=== PATIENT | female | born 1950 ===

== ENCOUNTER 2025-04-26 14:12 | Inpatient (IN) | payer MEDICARE, MEDICAID, SELFPAY ==
--- OUTSIDE RECORDS SUMMARY | 2025-04-26 08:36 | XMS_ITS | Encounter Summary ---
Author Organization [facility] Address [address] [place] [address] Phone Care Team Providers Care Photographer Still Name Role Phone LupisRula wilder DOUGLAS Primary Care Provide r Encounter Details Date Type Department Care Team (Late st Contact Info) Description 04/26/2025 8:36 AM EDT Hospital Encounter [facility] [address] [place] [address] Jose Sethi MD [address] [place] [address] Social History Tobacco Use Types Packs/Day Years Used Date Smoking Tobacco: Never Alcohol Use Standard Drinks/Week Comments No 0 (1 standard drink = 0.6 oz pur e alcohol) Education Answer Date Recorded Are you interested in more education? Not on fer e 11/02/2022 Are you concerned about learning? Not on file 11/02/2022 No 11/02/2022 No 11/02/2022 Food Answer Date Recorded Within the past 6 months we worried whether our food would run out before we got money to buy more. Never True 03/25/2025 Within the past 6 months the food we bought just didn't last and we didn't have enough money to get more. Never True Residential Stability Answer Date Recor ded What is your housing situation today? I have demetrice sing 03/25/2025 How many times have you move d in the past 12 months? Zero (I did not move) 03/25/2025 Paying for Meds Answer Date Recorded Do you have trouble paying for medicines? No 03/25/2025 Paying Utility Bills Answer Date Record ed Do you have trouble paying your heating or elect ricity bill? No 03/25/2025 Transportation Answer Date Recorded Has the lack of transportati on kept you from medical appointments or from getting medications? No 03/25/2025 Digital Access Answer Date Recorded No 03/25/2025 Yes 03/25/2025 Do you have reliable internet access at home? Ye s 03/25/2025 Do you have a device (e.g., phone, tablet, computer) with a working camera? Yes 03/25/2025 Intimate Partner Violence Answer Date R ecorded Are you denied basic needs s uch as food, clothing, or medical care? No 03/25/2025 In the past 12 months have y ou been in a relationship with a person who hurts, threatens, or tries to control you? No 03/25/2025 Are you denied basic needs s uch as food, clothing, or medical care? No 03/25/2025 In the past 12 months have y ou been in a relationship with a person who hurts, threatens, or tries to control you? No 03/25/2025 Comments Unknown Sex and Gender Information Value Date Recorded Sex Assigned at Female 03/10/2022 9:55 AM EDT Legal Sex Female 1:08 AM EDT Gender Identity Female 03/10/2022 9:55 AM EDT Sexual Orientation Not on file documented as of this encounter Plan of Treatment Not on file documented as of this encounter Procedures Procedure Name Priority Date/Time Associated Diagnosis Comments COMPREHENSIVE METABOLIC PANEL Routine 04/26/2025 5:28 AM EDT Illness, unspecified CBC Routine 04/26/2025 5:28 AM EDT Illness, unspecified documented in this encounter Results * (ABNORMAL) Comprehensive metabolic panel (04/26/2025 5:28 AM EDT) SODIUM 139 133 - 146 mmol/L [facility] POTASSIUM 4.0 3.3 - 5.1 mmol/L [facility] CHLORIDE 103 96 - 108 mmol/L [facility] CO2 24 21 - 35 mmol/L [facility] BUN 21(H) 6 - 19 mg/dL [facility] CREATININE 1.70(H) 0.5 - 1.5 mg/dL [facility] GLUCOSE 86 70 - 99 mg/dL [facility] ALBUMIN 3.5(L) 3.9 - 4.8 g/dL [facility] TOTAL PROTEIN 6.0(L) 6.5 - 8.0 g/dL [facility] CALCIUM 10.3 8.4 - 10.3 mg/dL [facility] ALKALINE PHOSPHATASE 76 39 - 117 U/L [facility] TOTAL BILIRUBIN 0.3 0.0 - 1.2 mg/dL [facility] AST 15 0 - 37 U/L [facility] ALT 11 0 - 40 U/L [facility] GLOBULIN 2.5 1 - 4.8 g/dL [facility] EGFR 32(L) >59 mL/min/1.7 3m2 [facility] Comment:Estimated glomerular filtration rate calculated using the CKD-EPI refit equation. ANION GAP 16 10 - 20 mmol/L [facility] 04/26/2025 5:28 AM EDT 04/26/2025 9:11 AM EDT us Jose Sethi MD LAB BLOOD ORDERABLES Final Resul t [facility] [address] [place] [address] * (ABNORMAL) CBC (04/26/2025 5:28 AM EDT) WBC 7.36 4.00 - 11.00 K/uL [facility] RBC 4.16 4.00 - 5.20 M/uL [facility] HGB 11.3(L) 12.0 - 16.0 g/dL [facility] HCT 36.1 36.0 - 46.0 % [facility] PLT 256 150 - 450 K/uL [facility] MCV 86.8 80.0 - 100.0 fL [facility] MCH 27.2 27.0 - 31.0 pg [facility] MCHC 31.3(L) 32.0 - 36.0 g/dL [facility] RDW 15.2(H) 11.5 - 14.5 % [facility] MPV 10.9 8.4 - 12.0 fL [facility] NRBC 0.00 0.00 /100 WBCs [facility] ABSOLUTE NRBC 0.00 0.00 K/uL [facility] 04/26/2025 5:28 AM EDT 04/26/2025 9:11 AM EDT us Jose Sethi MD LAB BLOOD ORDERABLES Final Resul t [facility] [address] [place] [address] documented in this encounter Visit Diagnoses Diagnosis Illness, unspecified- Primary documented in this encounter Care Teams Photographer Still Relationship Specialty Start Date End Date [facility] [address] [place] [address] PCP - General Nurse Practitioner 09/14/24 documented as of this encounter Additional Source Comments The information contained in this document represents components of the legal health record. It is not the complete legal health record.[facility]
--- NOTE | 2025-04-26 14:35 | MHC.CM.ED ---
Addendum entered by Carlie Rivera 04/26/25 14:38: Patient sent to ER under section 12. Original Note: Received telephone call from [facility] for [facility] in [place], ROSHAN Mann. She can be reached via telephone at [phone]. Patient has a long standing history of bipolar and psych admissions. Patient actually came to their facility after a long inpatient psych stay. Original plan was for patient to get rehab and return to her assisted living facility. Apparently in March facility was trying to transition patient back to her [facility] and some MH issues arose. Patient has been refusing medication, including psych meds and Eliquis. 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 However facility is concerned that she requires inpatient psych admission for medication stablization. She is a [facility] 20 day bedhold. But [facility] is willing to hold a bed for her as long as needed. Hilda Sepulveda RN aware. Return referral made to [facility]. Continue to monitor for d/c needs.
[2025-04-26 14:36] VITALS: BP 120/64; PULSE 83
[2025-04-26 14:43] VITALS: BP 127/52; PULSE 72; RESP 18; TEMP 36.6; O2SAT 98; BMI 33.8
--- NOTE | 2025-04-26 14:58 | ECG_ITS ---
Test Reason : WEAKNESS Blood Pressure : */* mmHG Vent. Rate : 72 BPM Atrial Rate : 72 BPM P-R Int : 212 ms QRS Dur : 90 ms QT Int : 324 ms P-R-T Axes : 76 -31 110 degrees QTcB Int : 354 ms Sinus rhythm with 1st degree A-V block Left axis deviation Inferior infarct , age undetermined Anterolateral infarct , age undetermined Abnormal ECG No previous ECGs available Referred By: Romina Lam Electronically Signed By: SUNDAY LOPEZ MD
[2025-04-26 15:14] LABS: MANUAL DIFF FLAG NO
[2025-04-26 15:20] LABS: Hematocrit 38.7 % (37.0-47.0); Hemoglobin 11.9 g/dl (12.0-16.0); Imm Gran Abs Auto 0.02 X10*3/uL (0.00-0.03); Imm Gran Pct Auto 0.2 % (0.0-0.4); Lymphocytes Absolute Auto 1.5 X10*3/uL (1.2-4.9); Mean Corpuscular HGB Conc 30.7 g/dl (31.0-35.0); Mean Corpuscular Hemoglobin 26.6 pg (27.0-33.0); Mean Corpuscular Volume 86.6 fL (80.0-98.0); NRBC Abs Auto 0.000 X10*3/uL (0.0-0.012); NRBC Pct Auto 0.0 /100WBC (0.0-0.2); Platelet Count 293 X10*3/uL (160-400); Red Blood Count 4.47 X10*6/uL (4.20-5.50); White Blood Count 8.2 X10*3/uL (4.8-10.8)
--- NOTE | 2025-04-26 15:36 | ED.PSYCH ---
HPI - Psych General Chief Complaint: Psychiatric Symptoms Stated Complaint: Section 12, calm, cooperative Time Seen by Provider: 04/26/25 14:36 Source: patient, EMS and old records reviewed Mode of arrival: EMS Limitations: no limitations History of Present Illness ED Provider: JACOBO JAMES Narrative: 74 yo female with PMH of PE on eliquis, HTN, HLD, CKD, hypertrophic cardiomyopathy, bipolar who has had ECT in the past. She is currently at [facility] in [place] and they have noted a 20lb weight loss and not allowing hygiene for one month. They report she is refusing her medications. Notes state they wanted her directly [facility]. Patient states she is here due to not eating or taking her medicaitons. When I ask about pain, dysuria, vomiting, headaches, chest pain, trouble breathing she denies. I asked if she was not caring for herself and if she is not taking her meds to try to harm herself and she just shrugs her shoulders. She notes she really doesn't get around anymore and just sits in wheelchairs. MD complaint: suicidal ideation, feels depressed and other Onset (ago): month(s) (1) Duration: getting worse History of same: Yes Relieving factors: none Exacerbating factors: other Context: significant life stressor Associated psychiatric symptoms: depression and suicidal ideation Associated symptoms: denies other symptoms Treatments prior to arrival: placed on mental health hold If self harm: admits thoughts of self harm Related Data Home Medications ?Medication ?Instructions ?Recorded ?Confirmed acetaminophen 325 mg tablet 650 mg PO Q6H PRN Fever Or Pain 04/27/25 04/27/25 apixaban 5 mg tablet (Eliquis) 5 mg PO BID 04/27/25 04/27/25 aripiprazole 10 mg tablet 10 mg PO DAILY 04/27/25 04/27/25 aripiprazole 2 mg tablet 2 mg PO DAILY 04/27/25 04/27/25 aspirin 81 mg tablet,delayed 81 mg PO DAILY 04/27/25 04/27/25 release bisacodyl 10 mg rectal suppository 10 mg W[place] DAILY PRN Constipation 04/27/25 04/27/25 magnesium hydroxide 400 mg/5 mL 30 ml PO DAILY PRN Constipation 04/27/25 04/27/25 oral suspension (Milk of Magnesia) metoprolol succinate 25 mg 50 mg PO DAILY 04/27/25 04/27/25 tablet,extended release 24 hr mirtazapine 30 mg tablet 30 mg PO BEDTIME 04/27/25 04/27/25 naloxone 4 mg/actuation nasal 4 mg intranasal Q3M PRN Opiate 04/27/25 04/27/25 spray (Narcan) Reversal pantoprazole 40 mg tablet,delayed 40 mg PO DAILY@0630 04/27/25 04/27/25 release polyethylene glycol 3350 17 17 g PO DAILY 04/27/25 04/27/25 gram/dose oral powder (Miralax) rosuvastatin 20 mg tablet 20 mg PO BEDTIME 04/27/25 04/27/25 sennosides 8.6 mg-docusate sodium 2 tab PO BID 04/27/25 04/27/25 50 mg tablet (Senna Plus) sodium phosphates 19 gram-7 118 ml W[place] DAILY PRN Constipation 04/27/25 04/27/25 gram/118 mL enema (Fleet Enema) Allergies Allergy/AdvReac Type Severity Reaction Status Date / Time amoxicillin Allergy Unknown Verified 04/26/25 14:52 azithromycin Allergy Unknown Verified 04/26/25 14:52 divalproex sodium (From Allergy Unknown Verified 04/26/25 14:52 Depakote) haloperidol (From Haldol) Allergy Unknown Verified 04/26/25 14:52 lamotrigine Allergy Unknown Verified 04/26/25 14:52 lithium Allergy Unknown Verified 04/26/25 14:52 lurasidone Allergy Unknown Verified 04/26/25 14:52 olanzapine (From Zyprexa) Allergy Unknown Verified 04/26/25 14:52 oxcarbazepine Allergy Unknown Verified 04/26/25 14:52 perphenazine Allergy Unknown Verified 04/26/25 14:52 prilocaine Allergy Unknown Verified 04/26/25 14:52 risperidone Allergy Unknown Verified 04/26/25 14:52 Review of Systems Review of Systems: Constitutional : No Fever, No Chills ENT/Mouth : No Ear Pain, No Nasal Congestion, No sore throat Eyes: No Eye Pain, No Swelling, No Redness Cardiovascular : No Chest Pain, No SOB Respiratory : No Cough, No Sputum, No Dyspnea Gastrointestinal : No Nausea, No Vomiting, No Diarrhea, No Hematochezia, No Melena Genitourinary : No Dysuria, No Urinary Frequency, No Hematuria Musculoskeletal : No Myalgias Skin : No Skin Lesions, No rash Neuro : No Weakness, No Numbness, No Paresthesias, No Dizziness, No Headache Psych : positive Anxiety, positive Depression, positive SI no HI All other systems reviewed and are negative Yes all other systems are reviewed and are negative [facility] Past Medical History Attestation statement: The following information was validated with the patient. Source: old records reviewed Medical History Hyperlipidemia CKD (chronic kidney disease) Pulmonary embolus HTN (hypertension) Depression Bipolar 1 disorder Social History Social History (Updated 04/26/25 @ 15:39 by Romina Lam DO) Patient Tobacco Use Status: Never used Tobacco Smoked in Last 30 Days: No Use of substances other than those prescribed or required for medical reasons: No Advance Directives: Yes Advance Directives on File: Yes Advance Directives Date on File: 04/26/25 Do you have a plan to hurt others: No Plan Physical Exam Vital Signs: Vital Signs: Last Vital Signs Temp 98.1 F 04/29/25 05:53 Pulse 99 04/29/25 05:53 Resp 20 04/29/25 05:53 BP 138/62 04/29/25 05:53 Pulse Ox 99 04/29/25 05:53 O2 Del Method Room Air 04/29/25 05:53 BMI result Body Mass Index 33.8 Appearance: Alert. Oriented X3. No acute distress. Flat affect Eyes: Pupils equal, round and reactive to light. ENT: Pharynx normal. Neck: Normal inspection. Neck supple. CVS: Normal heart rate and rhythm. Pulses normal. Respiratory: No respiratory distress. Breath sounds normal. Abdomen: Soft and nontender. Skin: Skin warm and dry. pale skin color. Normal skin turgor. Extremities: No lower extremity edema. Neuro: Oriented X 3. No motor deficit. No sensory deficit. CN exam not applicable Course Course Course Narrative: signed out to Dr. Fox pending further work up JACOBO 04/26/25 408pm Reevaluation(s) Reevaluation #1: Physician observation continued. Patient placed in physician observation because patient is awaiting CARE team evaluation for the possible need of inpatient psych admission. Labs reviewed, BUN/Cr 20/1.64, unknown baseline. encouarging PO intake. med rec still pending. At the time observation was started patient's vital signs were stable. Patient is alert. No acute issues overnight. Will continue to monitor. Reevaluation #2: Time: 07:43 Date: 04/28/25 Provider: Romina Lam, DO Patient in physician observation for psychiatric evaluation.? No acute events reported overnight. No current complaints. VS stable.? Patient is in bed search status. Will continue to monitor. Time: 06:04 Date: 04/29/25 Provider: Romina Lam, DO Patient in physician observation for psychiatric evaluation.? No acute events reported overnight. No current complaints. VS stable.? Pending CARE team evaluation. Will continue to monitor. Time: 12:13 Date: 04/29/25 Provider: Romina Lam DO Physician observation ended at 1213pm. Patient to be admitted as inpatient to psychiatry. Medications Administered Generic Name Dose Route Start Last Admin Trade Name Freq PRN Reason Stop Dose Admin Acetaminophen 650 mg 04/27/25 11:05 04/28/25 05:37 Acetaminophen 325 Mg Tablet PO 650 mg Q6H PRN Administration Fever Or Pain Apixaban 5 mg 04/27/25 11:15 04/29/25 09:59 Apixaban 5 Mg Tablet PO Not Given BID [facility] Aripiprazole 2 mg 04/27/25 11:15 04/29/25 09:59 Aripiprazole 2 Mg Tablet PO Not Given DAILY [facility] Aripiprazole 10 mg 04/27/25 11:15 04/29/25 09:59 Aripiprazole 10 Mg Tablet PO Not Given DAILY [facility] Aspirin 81 mg 04/27/25 11:15 04/29/25 09:59 Aspirin Enteric Coated 81 Mg Tablet.Dr PO Not Given DAILY [facility] Atorvastatin Calcium 80 mg 04/27/25 21:00 04/28/25 20:22 Atorvastatin Calcium 80 Mg Tablet PO Not Given BEDTIME [facility] Metoprolol Succinate 50 mg 04/27/25 12:00 04/29/25 09:59 Metoprolol Succinate Er 50 Mg Tab.Er.24h PO Not Given DAILY [facility] Protocol Mirtazapine 30 mg 04/27/25 21:00 04/28/25 20:22 Mirtazapine 30 Mg Tablet PO Not Given BEDTIME [facility] Omeprazole 20 mg 04/27/25 12:00 04/29/25 06:05 Omeprazole 20 Mg Capsule. PO Not Given DAILY@0630 [facility] Polyethylene Glycol 17 gm 04/27/25 11:15 04/29/25 09:59 Polyethylene Glycol 3350 17 Gm Powd.Pack PO Not Given DAILY [facility] Senna/Docusate Sodium 2 tab 04/27/25 12:00 04/29/25 09:58 Sennosides/Docusate Sodium Tablet PO Not Given BID [facility] Discontinued Medications Generic Name Dose Route Start Last Admin Trade Name Chey PRN Reason Stop Dose Admin Nystatin 1 appl 04/28/25 03:21 04/28/25 03:28 Nystatin Powder 15 Gm Bottle TOPICAL 04/28/25 03:22 1 appl ONCE ONE Administration Protocol Medical Decision Making Medical Decision Making MDM Narrative: 74 yo female with PMH of PE on eliquis, HTN, HLD, CKD, hypertrophic cardiomyopathy, bipolar who has had ECT in the past now here refusing meds/food/self care she just shrugs her shoulders when asked if she wants to . At this time will obtain med clearance and refer to CARE team. She is not forthcoming but she is not altered. Differential Diagnosis Differential Diagnoses: The differential diagnosis associated with the presentation includes dehydration, anemia, FTT, depression Admission/Observation Consideration of admission/observation: Escalation of care including admission/observation considered phys observation started at 350pm pending CARE team Consult Healthcare Provider Management of the patient was discussed with: Behavioral Health Provider Lab Data [facility] Lab Attestation statement: I reviewed the patient's lab results. 04/26/25 15:06 04/26/25 15:06 Labs: Lab Results 04/26/25 04/26/25 04/28/25 Range/Units 15:06 22:48 03:50 WBC 8.2 (4.8-10.8) X10*3/uL RBC 4.47 (4.20-5.50) X10*6/uL Hgb 11.9 L (12.0-16.0) g/dl Hct 38.7 (37.0-47.0) % MCV 86.6 (80.0-98.0) fL MCH 26.6 L (27.0-33.0) pg MCHC 30.7 L (31.0-35.0) g/dl RDW 15.3 (11.0-16.0) % Plt Count 293 (160-400) X10*3/uL MPV 10.4 (9.4-12.3) fL Immature Gran % (Auto) 0.2 (0.0-0.4) % Neut % (Auto) 69.0 (45-73) % Lymph % (Auto) 18.3 L (20-40) % [place] % (Auto) 7.9 (2-11) % Eos % (Auto) 3.9 (0-4) % Baso % (Auto) 0.7 (0-2) % Lymph # (Auto) 1.5 (1.2-4.9) X10*3/uL [place] # (Auto) 0.7 (0.1-1.2) X10*3/uL Eos # (Auto) 0.3 (0.0-0.4) X10*3/uL Baso # (Auto) 0.1 (0.0-0.2) X10*3/uL Abs Immat Gran (auto) 0.02 (0.00-0.03) X10*3/uL Absolute Neuts (auto) 5.6 (2.0-8.3) x10*3/uL Absolute Nucleated RBC 0.000 (0.0-0.012) X10*3/uL Nucleated RBC % (auto) 0.0 (0.0-0.2) /100WBC Sodium 138 (135-145) mmol/L Potassium 3.9 (3.3-5.1) mmol/L Chloride 102 (96-108) mmol/L Carbon Dioxide 27 (22-29) mmol/L Anion Gap 13 (12-20) BUN 20 H (9-16) mg/dL Creatinine 1.64 H (0.5-1.4) mg/dL Estim Creat Clear Calc 31.1 Estimated GFR 31 Random Glucose 110 (60-115) mg/dL Calcium 10.6 H (8.4-10.2) mg/dL Magnesium 2.2 (1.6-2.6) mg/dL Total Bilirubin 0.5 (0.0-1.0) mg/dL Direct Bilirubin 0.2 (0.0-0.5) mg/dL AST 23 (5-31) U/L ALT 15 (0-31) U/L Alkaline Phosphatase 76 (39-117) U/L Total Protein 7.1 (6.5-8.0) g/dL Albumin 3.9 (3.5-5.0) g/dL Lipase 63 (8-78) U/L Urine Color Yellow Yellow Urine Appearance Clear Clear Urine pH 5.5 6.5 (5.0-9.0) Ur Specific [place] 1.015 1.010 (1.005-1.025) Urine Protein Negative Trace (Neg-Trace) mg/dL Urine Glucose (UA) Negative Negative (Negative) mg/dL Urine Ketones Negative Negative (Negative) mg/dL Urine Blood Negative Negative (Negative) Urine Nitrite Negative Negative (Negative) Ur Leukocyte Esterase Negative Negative (Negative) Urine Opiates Screen Not Detected (Not Detect) Ur Buprenorphine Scrn Not Detected (Not Detect) ng/mL Ur Oxycodone Screen Not Detected (Not Detect) ng/mL Urine Methadone Screen Not Detected (Not Detect) ng/mL Urine Fentanyl Screen Not Detected (Not Detect) Ur Barbiturates Screen Not Detected (Not Detect) Ur Phencyclidine Scrn Not Detected (Not Detect) Ur Amphetamines Screen Not Detected (Not Detect) U Benzodiazepines Scrn Not Detected (Not Detect) Urine Cocaine Screen Not Detected (Not Detect) U Marijuana (THC) Screen Not Detected (Not Detect) Independent Interpretation I performed an independent interpretation of an: EKG Interpretation: Rate: Rhythm: [place]: Normal P waves. Normal KRYSTYNA. Normal QRS complex. ST T wave : qTC: prior studies: The study has been interpreted contemporaneously by me. . Independent Historian Clinical information obtained from an independent historian. History obtained from or confirmed by: EMS External Record Review External record reviewed: Outpatient record Discharge Plan Discharge Clinical Impression: Depression, Adult failure to thrive Patient Disposition: Admitted As Inpatient Interventions: [place]-Suicide Risk Severity Scale Last Done: 04/28/25 19:05 Print Language: Rwandan
[2025-04-26 16:35] LABS: Alanine Aminotransferase 15 U/L (0-31); Albumin Level 3.9 g/dL (3.5-5.0); Alkaline Phosphatase 76 U/L (39-117); Anion Gap 13 (12-20); Aspartate Amino Transferase 23 U/L (5-31); Blood Urea Nitrogen 20 mg/dL (9-16); Calcium 10.6 mg/dL (8.4-10.2); Carbon Dioxide 27 mmol/L (22-29); Chloride 102 mmol/L (96-108); Creatinine Clr Calc Pharmacy 31.1; Estimated Glomerular Filt Rate 31; Lipase 63 U/L (8-78); Magnesium 2.2 mg/dL (1.6-2.6); Potassium 3.9 mmol/L (3.3-5.1); Sodium 138 mmol/L (135-145); Total Protein 7.1 g/dL (6.5-8.0)
[2025-04-26 18:27] VITALS: BP 152/70; PULSE 66; RESP 12; TEMP 36.7; O2SAT 97
--- OUTSIDE RECORDS SUMMARY | 2025-04-26 19:36 | XMS_ITS | Encounter Summary ---
Author Organization [facility] Address [address] [place] [phone] Phone Care Team Providers Care Closing Coordinator Name Role Phone Annie Petersen MD Primary Care Provider [phone] Annie Petersen MD Unavailable [phone] Jena Rico DPM Unavailable Unavaila Rob Leon DPM Unavailable Unavailable Juju Teran MD Unavailable [phone] Anabella Foster MD Primary Care Provider [facility] Primary Care Provide r [facility] Primary Care Provide r [facility] Primary Care Provide r Encounter Details Date Type Department Care Team (Latest Contact Info) Description 02/15/2021 Transcribe Orders [facility] Specimen Processing [address] [place] [address] Anabella Foster MD [address] [place] [phone] [email or web address] Fatigue, unspecified type (Primary Dx); Vitamin D deficiency, unspecified; Hyperlipidemia, unspecified hyperlipidemia type Social History Tobacco Use Types Packs/Day Years Used Date Smoking Tobacco: Never Alcohol Use Standard Drinks/Week Comments No 0 (1 standard drink = 0.6 oz pur e alcohol) Comments Unknown Sex and Gender Information Value Date Recorded Sex Assigned at Female 03/10/2022 9:55 AM EDT Legal Sex Female 1:08 AM EDT Gender Identity Female 03/10/2022 9:55 AM EDT Sexual Orientation Not on file documented as of this encounter Plan of Treatment Not on file documented as of this encounter Visit Diagnoses Diagnosis Fatigue, unspecified type- Primary Vitamin D deficiency, unspecified Hyperlipidemia, unspecified hyperlipidemia type documented in this encounter Care Teams Closing Coordinator Relationship Specialty Start Date End Date Annie Petersen MD [address] [place] [phone] [email or web address] PCP - General Family Medicine 11/19/16 08/08/22 Anabella Foster MD [address] [place] [phone] [email or web address] PCP - General Internal Medicine 08/09/22 09/17/23 Rula Prince FNP [address] [place] [phone] PCP - General Nurse Practitioner 09/18/23 05/16/24 Rula Prince FNP [address] [place] [address] PCP - General Nurse Practitioner 05/17/24 09/13/24 Rula Prince FNP [address] [place] [phone] PCP - General Nurse Practitioner 09/14/24 Annie Petersen MD [address] [place] [phone] Historical LMR Provider 04/27/17 2 Jena Rico DPM [address] [facility] [place] [address] Historical LMR Provider 04/27/17 2 Rob Ivory DPM [address] [place] [address] Historical LMR Provider 04/27/1707/15/21 Juju Teran MD [address] [place] [address] Historical LMR Provider 04/27/17 2 documented as of this encounter Additional Source Comments The information contained in this document represents components of the legal health record. It is not the complete legal health record.[facility]
--- OUTSIDE RECORDS SUMMARY | 2025-04-26 19:36 | XMS_ITS | Encounter Summary ---
Author Organization [employer] Address [address] [place] [address] Care Team Providers Care Plumbing Installer Name Role Phone Suresh Rula COLE Primary Care Provider [phone] Edenilson Partida Unavailable Unavailable Encounter Details Date Type Department Care Team (Late st Contact Info) Description 10/07/2023 Orders Only [facility] MEDICAL [address] [place] [address] ProviderBrady MD Social History Tobacco Use Types Packs/Day Years Used Date Smoking Tobacco: Never Smokeless Tobacco: Never Alcohol Use Standard Drinks/Week Comments Never 0 (1 standard drink = 0.6 oz pur e alcohol) Housing Stability Answer Date Recorded What is your housing situation today? I have demetrice morse [address] you li ve. Do you have problems with any of the following? None of the above 2023 Food Insecurity Answer Date Recorded Within the past 12 months, y ou worried that your food would run out before you got money to buy more: Never True 2023 Within the past 12 months,th e food you bought just didn't last and you didn't have enough money to get more: Never True Transportation Answer Date Recorded In the past 12 months, has l ack of transportation kept you from medical appts, meetings, work or from getting things needed for daily living? No 2023 Utilities Answer Date Recorded In the past 12 months, has t he electric, gas, oil or water company threatened to shut off services in your home? No 2023 Depression Answer Date Recorded Patient Health Questionnaire-2 Score 0 2023 Comments Unknown Sex and Gender Information Value Date Recorded Sex Assigned at Female 08/14/2023 9:22 AM EST Legal Sex Female 9:19 AM EST Gender Identity Female 08/14/2023 9:22 AM EST Sexual Orientation Straight 08/14/2023 9: 22 AM EST documented as of this encounter Plan of Treatment Not on file documented as of this encounter Procedures Procedure Name Priority Date/Time Associated Diagnosis Comments FECAL IMMUNOCHEMICAL Routine 02/06/2023 6:18 PM EDT documented in this encounter Results * Fecal immunochemical (02/06/2023 6:18 PM EDT) Stool Rectal contents / Unknown Historical Provider LAB BODY FLUIDS AND STOOL S ORDERABLES Final Result documented in this encounter Visit Diagnoses Not on filedocumented in this encounter Care Teams Plumbing Installer Relationship Specialty [facility] Date [facility] [address] [place] [address] PCP - General Family Medicine 08/14/23 Edenilson Partida Health Navigator 07/13/24 documented as of this encounter
--- OUTSIDE RECORDS SUMMARY | 2025-04-26 19:36 | XMS_ITS | Clinical Summary ---
Author Organization [employer] Address [address] [facility] [address] [place] [address] Care Team Providers Care Distribution Lineman Name Role Phone Suresh Rula COLE Primary Care Provider [phone] Edenilson Partida Unavailable Unavailable Allergies Active Allergy Reactions Criticality Noted Date Comments Amoxicillin Rash Low 11/19/2016 Azithromycin Other Low 08/09/2022 Affected my hearing Haloperidol Other 08/09/2022 Lamotrigine 11/19/2016 [place] Medium 08/09/2022 Other reaction(s): kidney impairment Lurasidone 11/19/2016 Olanzapine 11/19/2016 Oxcarbazepine 11/19/2016 Perphenazine 11/19/2016 Prilocaine 08/09/2022 Risperidone 08/09/2022 Valproic Acid 11/19/2016 Medications ARIPiprazole (Abilify) 2 MG tablet Take 2 mg by mouth in the morning. Active DULoxetine (Cymbalta) [address] capsule Take 60 mg by mouth in the morning. Active mirtazapine (Remeron) 45 MG tablet Take 45 mg by mouth at bedtime. Active coenzyme Q-10 (Q-SORB) 100 MG capsule Take 100 mg by mouth at bedtime. Active aspirin 81 MG EC tabletIndications: Primary hypertension Take 1 tablet (81 mg) by mouth Once per day. 90 tablet 3 4 06/17/20 25 Active losartan (Cozaar) 25 MG tabletIndications: Primary hypertension Take 1 tablet (25 mg) by mouth Once per day. 90 tablet 3 4 06/17/20 25 Active metoprolol succinate XL (Toprol-XL) 50 MG 24 hr tabletIndications: Primary hypertension Take 1 tablet (50 mg) by mouth Once per day. 90 tablet 3 4 06/17/20 25 Active pantoprazole (ProtoNix) 40 MG EC tabletIndications: Gastroesophageal reflux disease, unspecified whether esophagitis present Take 1 tablet (40 mg) by mouth before breakfast. 90 tablet 3 4 06/17/20 25 Active rosuvastatin (Crestor) 5 MG tabletIndications: Mixed hyperlipidemia Take 1 tablet (5 mg) by mouth at bedtime. 90 tablet 3 4 06/17/20 25 Active nystatin (Mycostatin) 755169 UNIT/GM powderIndications: Candidiasis of skin Apply topically 2 times daily. 60 g Active apixaban (Eliquis) 5 MG tabletIndications: Current use of skilled nursing anticoagulation,Hi story of pulmonary embolism,History of DVT (deep vein thrombosis) Take 1 tablet (5 mg) by mouth 2 times daily. 180 tablet 3 4 06/17/20 25 Active calcium carbonate (Healthy Mama Tame the Flame) 500 MG chewable tablet Chew. Acti ve LUTEIN PO Take 1 tablet by mouth Once per day. Active Magnesium 100 MG capsule Take 300 mg by mouth. Takes 3-4 100mg chewables daily for cramps Active Active Problems Problem Noted Date Diagnosed Date Right knee pain 06/19/2024 Assessment & Plan (06/19/2024 8:15 PM EST): Patient has had two visit post ER eval and treatment May 17 and today returns via video visit as audio TH visit last night did not meet requirements for her PT referral already entered. See HPI, pt motivated to work with PT to improve her strength and function as much as possible in right knee. Uses her walker consistently currently for safe ambulation as she was advised to do at ER discharge. Staff to assist pt with getting her paperwork to PT to initiate services at her residence at [facility] as she requests. No new concerns and await PT consult and treatment notes for followup with PCP as recommended. Angelica agrees to plan and has no further questions nor concerns at visit conclusion. Acute pain of right knee 06/08/2024 Assessment & Plan (06/08/2024 9:49 PM EST): Persistent now since May 17 injury and ED evaluation. Would like to see ortho for further evaluation. Continue use of walker to avoid any further injuries/avoid falls. Referral to ortho entered as requested. Schedule in person PCP f/up once ortho consult notes in chart, sooner if needed. Angelica agrees to plan and has no further questions nor concerns at visit conclusion. Positive colorectal cancer screening using Colog uard test 05/15/2024 Bipolar disorder 02/20/2024 Prediabetes 10/16/2023 Stage 3 chronic kidney disease (CMS/HCC) 024 Current use of termite helper anticoagulation 024 History of DVT (deep vein thrombosis) 2023 Class 3 severe obesity due t o excess calories with serious comorbidity and body mass index (BMI) of 40.0 to 44.9 in adult 2023 Primary hypertension 08/09/2022 Overview (2023): Last Assessment & Plan: She is doing well her blood pressure is mildly elevated today 134/78 she was asked to monitor her blood pressure at home History of pulmonary embolism 08/09/2022 Overview (2023): Last Assessment & Plan: Patient is on coagulation for long-term she will continue her anticoagulant she has no bleeding Mixed hyperlipidemia 08/09/2022 Overview (2023): Last Assessment & Plan: Patient has significantly elevated LDL which is 218 he has tried some statin long time ago she wants to try another statin her sister tolerates rosuvastatin so we decided to start her on rosuvastatin 5 mg daily and check she will take half tablet and if it suits her then she will stay on 5 mg and then she will get a lipid profile done after 6 weeks and come and see me in 2 months with effects of statin where explained to her all over again as she already knew most of it Resolved Problems Problem Noted Date Diagnosed Date Resolved Date Obesity (BMI 30-39.9) 08/09/20222023 Statin intolerance 08/09/2022 4 Overview (2023): Last Assessment & Plan: Many years ago she had some statin the name of which she cannot recollect at this point we will go ahead and start rosuvastatin and see how she tolerates it Encounters Date Type Department Care Team Description 03/29/[address] [facility] Information Management [address] [place] [address] [place], [place], MOLDER INFLATED BALL from Last 3 Months Immunizations Immunization Administration Dates Next Due Influenza High-dose Quadriva lent Preservative Free 05/10/2022,05/11/2021,04/06/2020 Influenza Quadrivalent Adjuvanted 05/14/2023 Influenza injectable quadriv alent preservative free 03/25/2017,03/06/2016,06/13/2015 Influenza, High Dose Seasona l, Preservative Free 04/04/2018,04/18/2017 Influenza, IIV3, injectable 04/06/2020 Influenza, trivalent, adjuvanted 04/14/2024,04/08 Pneumococcal Conjugate PCV 13 11/19/2017 Pneumococcal Polysaccharide PPSV23 03/16/2019, RSV Adjuvant 04/08/2023 Tdap 07/24/2024,04/28/2012 Zoster, Recombinant 10/27/2018,05/13/2018 Family History Medical History Relation Name Comments Early natural Brother Ramesh Argueta Hypertension Brother Ramesh Argueta Heart disease Father Zahra Argueta Hypertension Father Zahra [place] Heart disease Maternal Grandfather Sebastian Coreas Arthritis Mother Zoraida Ellie Hearing loss Mother Zoraida Ellie Heart disease Mother Zoraida Ellie Hyperlipidemia Mother Zoraida Ellie Stroke Mother Zoraida Ellie Vision loss Mother Zoraida Ellie Heart disease Paternal Grandfather Ez Ellie Heart disease Paternal Grandmother Mindi Argueta Asthma Sister Roxana Ellie Depression Sister Roxana Ellie Hearing loss Sister Roxana Ellie Hyperlipidemia Sister Roxana Ellie Mental illness Sister Roxana [place] Relation Name Status Comments Brother Ramesh [place] Father Zahra Ellie Maternal Grandfather Sebastian Coreas Mother Zoraida Ellie Paternal Grandfather Ez Argueta Paternal Grandmother Mindi Argueta Sister Roxana Argueta Social History Tobacco Use Types Packs/Day Years Used Date Smoking Tobacco: Never Smokeless Tobacco: Never Tobacco Cessation:Counseling Given: Not Answered Alcohol Use Standard Drinks/Week Comments Never 0 [...] Orientation Straight 08/14/2023 9: 22 AM EST Last Filed Vital Signs Vital Sign Reading Time Taken Comments Blood Pressure 133/63 09/23/2024 1:37 PM EDT Pulse 79 09/23/2024 1:37 PM EDT Temperature 36.4 C (97.6 F) 09/23/2024 1:37 PM EDT Respiratory Rate 17 07/24/2024 2:57 PM EST Oxygen Saturation 94% 09/17/2024 1:45 PM EDT Inhaled Oxygen Concentration - - Weight 111 kg (245 lb) 09/23/2024 1:37 PM EDT Height 165.1 cm (5' 5 ) 09/17/2024 1:45 PM EDT Body Mass Index 40.77 09/17/2024 1:45 PM EDT Plan of Treatment Health Maintenance Due Date Last Done Comments CT Colonography 1950 Colonoscopy 1950 Sigmoidoscopy 1950 Mammogram 12/14/2022 12/14/2020 FIT 02/07/2024 02/06/2023, 02/06/2023 SDOH Screening 10/03/2024 2023 COVID-19 Vaccine ( season) 2025 04/14/2024, 05/14/2023, 12/14/2022, Additional history exists Influenza Vaccine (#1) 2025 , 05/14/2023, 05/10/2022, Additional history exists FOBT 03/10/2025 03/10/2024, 02/06/2023 Depression Screening 07/17/2025 07/17/2024, 07/17/19 Tobacco Screening 09/23/2025 09/23/2024 Diabetes: Hemoglobin A1C 01/22/2026 025, 09/17/2024, 10/14/2023, Additional history exists Colorectal Cancer Screening 03/10/2027 FIT DNA/Cologuard 03/10/2027 03/10/2024 Lipid Panel 04/01/2029 04/01/2024 DTaP/Tdap/Td Vaccines (3 - Td or Tdap) 07/24/2034 07/24/2024, 04/28/2012 Zoster Vaccines Completed 10/27/2018, 05/13/2018 Pneumococcal Vaccine: 50+ Years Completed 03/16/2019, 11/19/2017, 04/22/2016 RSV Patients and Patients Aged 60 years or older Completed 04/08/2023 Alcohol/Substance Use Screening Discontinued HIB Vaccines Aged Out No longer eligi ble based on patient's age to complete this topic HPV Vaccines Aged Out No longer eligi ble based on patient's age to complete this topic Hepatitis A Vaccines Aged Out No long er eligible based on patient's age to complete this topic Hepatitis B Vaccines Aged Out No long er eligible based on patient's age to complete this topic Hepatitis C Screening Discontinued IPV Vaccines Aged Out No longer eligi ble based on patient's age to complete this topic Meningococcal B Vaccine Aged Out No l onger eligible based on patient's age to complete this topic Meningococcal Vaccine Aged Out No juju rivas eligible based on patient's age to complete this topic RSV under 20 months Aged Out No longe r eligible based on patient's age to complete this topic Rotavirus Vaccines Aged Out No longer eligible based on patient's age to complete this topic Procedures Procedure Name Priority Date/Time Associated Diagnosis Comments LIPID PANEL, STANDARD Routine 04/01/2024 5:27 PM EDT LAB COLOGUARD COLON CANCER SCREEN Routine 03/10/2024 6:30 AM EDT Screen for colon cancer HEMOGLOBIN A1C Routine 10/14/2023 Prediabetes HM FECAL IMMUNOCHEMICAL TEST Routine 02/06/2023 HM MAMMOGRAPHY Routine 12/14/2020 2:53 PM EDT from Last 3 Months or Most Recently Relevant to Health Maintenance Results * Lipid Panel, Standard (04/01/2024 5:27 PM EDT) Blood Venous blood specimen / Unknown [facility] LAB BLOOD ORDERABLES Penny l Result * (ABNORMAL) Cologuard?? colon cancer screening (03/10/2024 6:30 AM EDT) Cologuard Result Positive( A) Negative 03/14/2024 10:42 AM EDT [employer] (CLIA #:[id number]) Comment: POSITIVE TEST RESULT. A positive Cologuard result should be followed with a colonoscopy or visual examination of the colon. The normal value (reference range) for this assay is negative. TEST DESCRIPTION: Composite algorithmic analysis of stool DNA-biomarkers with hemoglobin immunoassay. Quantitative values of individual biomarkers are not reportable and are not associated with individual biomarker result reference ranges. Cologuard is intended for colorectal cancer screening of adults of either sex, 45 years or older, who are at average-risk for colorectal cancer (CRC). Cologuard has been approved for use by the U.S. FDA. The performance of Cologuard was established in a cross sectional study of average-risk adults aged 50-84. Cologuard performance in patients ages 45 to 49 years was estimated by sub-group analysis of near-age groups. Colonoscopies performed for a positive result may find as the most clinically significant lesion: colorectal cancer [4.0%], advanced adenoma (including sessile serrated polyps greater than or equal to 1cm diameter) [20%] or non- advanced adenoma [31%]; or no colorectal neoplasia [45%]. These estimates are derived from a prospective cross-sectional screening study of 10,000 individuals at average risk for colorectal cancer who were screened with both Cologuard and colonoscopy. (Adilene Childers et al, N Engl J Med 2014;370(14):0738-5121.) Cologuard may produce a false negative or false positive result (no colorectal cancer or precancerous polyp present at colonoscopy follow up). A negative Cologuard test result does not guarantee the absence of CRC or advanced adenoma (pre-cancer). The current Cologuard screening interval is every 3 years. ([place] [employer] and U.S. Multi-Society Task Force). Cologuard performance data in a 10,000 patient pivotal study using colonoscopy as the reference method can be accessed at the following location: www.[employer]ats[employer]/results. Additional description of the Cologuard test process, warnings and precautions can be found at www.cologuard.com. Stool specimen (specimen) 03/10/2024 6:30 AM EDT 03/11/2024 2:30 PM EDT [facility] LAB MOLECULAR DIAGNOSTICS ORDERABLES Final Result [employer] [facility] (CLIA #:[id number]) [place] [address], * Hemoglobin A1c (10/14/2023) Blood Venous blood specimen / Unknown [facility] LAB BLOOD ORDERABLES Penny l Result EXTERNAL LAB * Fecal Immunochemical Test (02/06/2023) Fecal Immunochemical Test Nonreactive Borderline, Nonreactive, Weakly Reactive, Inconclusive Stool Rectal contents / Unknown [facility] HEALTH MAINTENANCE Final Result * Mammography (12/14/2020 2:53 PM EDT) Anatomical Region Laterality Modality Other [facility] HEALTH MAINTENANCE Final Result from Last 3 Months or Most Recently Relevant to Health Maintenance Insurance Dr Campos [address] [place] [address] [place] [address] [place] [id number] [facility] STANDARD Care Teams Distribution Lineman Relationship Specialty Start Date End Date Rula Prince [facility] [address] [place] [address] PCP - General Family Medicine 08/14/23 Edenilson Partida Health Navigator 07/13/24
--- OUTSIDE RECORDS SUMMARY | 2025-04-26 19:36 | XMS_ITS | Clinical Summary ---
Author Organization [facility] Address [address] [place] [phone] Phone Care Team Providers Care Training Director Name Role Phone Lupistina Rula Prado MARKET DEVELOPMENT DIRECTOR Primary Care Provide r Allergies Active Allergy Reactions Criticality Noted Date Comments Amoxicillin 11/19/2016 Azithromycin 08/09/2022 Divalproex 11/19/2016 Haloperidol 08/09/2022 Lamotrigine 11/19/2016 [place] 08/09/2022 Other reaction(s): kidney impairment Lurasidone 11/19/2016 Olanzapine 11/19/2016 Oxcarbazepine 11/19/2016 Perphenazine 11/19/2016 Prilocaine 08/09/2022 Risperidone 08/09/2022 Medications mirtazapine (REMERON) 45 MG tablet Take 45 mg by mouth nightly at bedtime. Active apixaban (ELIQUIS) 5 mg tablet Take 5 mg by mouth 2 (two) times a day. Active ARIPiprazole (ABILIFY) 2 MG tablet Take 10 mg by mouth daily. Active DULoxetine (CYMBALTA) 60 MG capsule Take 60 mg by mouth Every Afternoon. At 2pm Active cyanocobalamin, vitamin B-12, 100 MCG tablet Take 100 mcg by mouth daily. Active vitamin E 200 UNIT capsule Take 200 Units by mouth daily. Active ascorbic acid, vitamin C, (VITAMIN C) 100 MG tablet Take 100 mg by mouth daily. Active vitamins A,C,V-ixcd-doitjx (PRESERVISION AREDS) 14,320-226-200 ufng-yv-muif Cap Take 1 capsule by mouth 2 (two) times a day with meals. Active nystatin (NYSTOP) powder 03/25/20 Active metoprolol succinate (TOPROL-XL) 50 MG 24 hr tabletIndications: Benign essential hypertension take 1 tablet by mouth daily. 90 tablet 3 09/12/19 24 Active losartan (COZAAR) 25 MG tablet 08/27/19 Active pantoprazole (PROTONIX) 40 MG tablet daily. 08/27/19 Active rosuvastatin (CRESTOR) 5 MG tabletIndications: Mixed hyperlipidemia take 1 tablet by mouth daily. 90 tablet 3 03/25/20 Active Additional Information Patient not taking.Reported on 03/25/2025 coenzyme Q10 100 mg capsuleIndications :Medication refill take 1 capsule by mouth daily. 90 capsule 3 03/25/20 Active Additional Information Patient not taking.Reported on 03/25/2025 aspirin 81 MG EC tablet Take 81 mg by mouth. Active coenzyme [id number] E 100-5 mg-unit Cap Take 100 mg by mouth. Active calcium carbonate 195 mg calcium (500 mg) Chew Take by mouth. A ctive multivitamin-raise miner als-lutein (CENTRUM SILVER) Tab Take 1 tablet by mouth daily. Active acetaminophen (TYLENOL) 325 mg tablet Take 650 mg by mouth every 6 (six) hours as needed for pain (specific location in comments). Active amLODIPine (NORVASC) 5 MG tablet Take 5 mg by mouth nightly at bedtime. Active OLANZapine (ZYPREXA) 5 MG tablet Take 5 mg by mouth 3 (three) times a day as needed (anxiety). Active polyethylene glycol (MIRALAX) 17 gram packet Take 17 g by mouth daily. Active senna 8.6 mg tablet Take 2 tablets by mouth 2 (two) times a day. Active ketoconazole 2 % cream Apply topically daily. 15 g 10/03/19 Active Additional Information Patient not taking.Reported on 03/25/2025 ARIPiprazole (ABILIFY) 2 MG tablet Take 2 mg by mouth Every Afternoon. At 2pm Active DULoxetine (CYMBALTA) 20 MG capsule Take 20 mg by mouth daily. Active docusate sodium (COLACE) 50 MG capsule Take 100 mg by mouth nightly at bedtime. Active mirtazapine (REMERON PAGE-TAB) 15 MG disintegrating tablet Take 45 mg by mouth nightly at bedtime. Active ARIPiprazole (ABILIFY) 10 MG tablet Take 10 mg by mouth daily. 01/19/20 Active mirtazapine (REMERON) 30 MG tablet Take 30 mg by mouth nightly at bedtime. 01/19/20 Active rosuvastatin (CRESTOR) 20 MG tablet Take 20 mg by mouth daily. 01/22/20 Active Active Problems Problem Noted Date Diagnosed Date Intertrigo 10/02/2024 Mixed hyperlipidemia 08/09/2022 Assessment & Plan (08/09/2022 1:46 PM EST): Patient has significantly elevated LDL which is [...] as she already knew most of it Benign essential hypertension 08/09/2022 Assessment & Plan (08/09/2022 1:47 PM EST): She is doing well her blood pressure is mildly elevated today 134/78 she was asked to monitor her blood pressure at home History of pulmonary embolism 08/09/2022 Assessment & Plan (08/09/2022 1:48 PM EST): Patient is on coagulation for long-term she will continue her anticoagulant she has no bleeding Obesity (BMI 30-39.9) 08/09/2022 Statin intolerance 08/09/2022 Assessment & Plan (08/09/2022 1:46 PM EST): Many years ago she had some statin the name of which she cannot recollect at this point we will go ahead and start rosuvastatin and see how she tolerates it Encounters Date Type Department Care Team Description 04/26/2025 8:36 AM EDT Hospital Encounter [facility] [address] [place], [place] [address] Jose Sethi MD 04/13/2025 7:57 AM EDT - 04/13/2025 11:59 PM EDT Hospital Encounter [facility] [address] [place] [address] Jose Sethi MD Gleason, Amanda Rae, NP Discharge Disposition: Home or Self Care 03/25/2025 2:47 PM EDT - 03/25/2025 8:57 PM EDT Emergency [facility] [address] [place] [address] Discharge Disposition: Assisted Facility 02/12/2025 7:20 AM EDT - 02/12/2025 11:59 PM EDT Hospital Encounter [facility] [address] [place] [address] Jose Sethi MD Discharge Disposition: Home or Self Care 02/12/2025 Transcribe Orders [facility] Specimen Processing [address] [place] [address] Jose Sethi MD Illness (Primary Dx) 02/05/2025 8:55 AM EDT - 02/05/2025 11:59 PM EDT Hospital Encounter [facility] [address] [place] [address] Jose Sethi MD Discharge Disposition: Home or Self Care 02/05/2025 Transcribe Orders [facility] Specimen Processing [address] [place] [address] Jose Sethi MD Illness (Primary Dx) 02/01/2025 9:06 AM EDT - 02/01/2025 11:59 PM EDT Hospital Encounter [facility] [address] [place] [address] Jose Sethi MD Discharge Disposition: Home or Self Care from Last 3 Months Social History Tobacco Use Types Packs/Day Years Used Date Smoking Tobacco: Never Tobacco Cessation:Counseling Given: Not Answered Alcohol Use Standard Drinks/Week Comments No 0 [...] housing situation today? I have demetrice morse 03/25/2025 How many times have you move [...] AM EDT Sexual Orientation Not on file Last Filed Vital Signs Vital Sign Reading Time Taken Comments Blood Pressure 135/78 03/25/2025 8:47 PM EDT Pulse 81 03/25/2025 8:47 PM EDT Temperature 36.4 C (97.5 F) 03/25/2025 7:30 PM EDT Respiratory Rate 16 03/25/2025 8:47 PM EDT Oxygen Saturation 95% 03/25/2025 8:47 PM EDT Inhaled Oxygen Concentration - - Weight 108.9 kg (240 lb) 10/02/2024 4:30 PM EDT Height 165.1 cm (5' 5 ) 10/02/2024 4:30 PM EDT Body Mass Index 39.94 10/02/2024 4:30 PM EDT Plan of Treatment Health Maintenance Due Date Last Done Comments DEPRESSION SCREENING 1964 HEPATITIS C SCREENING 1970 MAMMOGRAM 1992 COLOGUARD 1997 COLONOSCOPY 1997 COLORECTAL CANCER SCREENING 1997 FIT TEST 1997 FOBT 1997 SIGMOIDOSCOPY 1997 VIRTUAL COLONOSCOPY 1997 OSTEOPOROSIS SCREENING INITIAL (ONE-TIME) 2017 BLOOD PRESSURE 10/21/2024 04/22/2024 INFLUENZA VACCINE (#1) 2025 , 05/14/2023, 05/10/2022, Additional history exists COVID-19 VACCINE ( season) 2025 04/14/2024, 05/14/2023, 12/14/2022, Additional history exists CREATININE LEVEL 04/26/2026 04/26/2025, , 02/12/2025, Additional history exists POTASSIUM LEVEL 04/26/2026 04/26/2025, 03/08, 02/12/2025, Additional history exists LIPID PANEL 01/22/2030 01/22/2025, 01/05, 01/18/2025, Additional history exists Adult Td,Tdap Booster 07/24/2034 07/24/2024, 012 ZOSTER VACCINES Completed 10/27/2018, 05/13/2018 PNEUMOCOCCAL VACCINES (50+ years) Completed 03/16/2019, 11/19/2017, 04/22/2016 RSV VACCINE Completed 04/08/2023 SMOKING STATUS SCREENING (Once After 26 Yrs) Completed 10/02/2024 HEPATITIS A VACCINES Aged Out No long er eligible based on patient's age to complete this topic HIB VACCINES Aged Out No longer eligi ble based on patient's age to complete this topic MENINGOCOCCAL VACCINES (ACWY) Aged Out No longer eligible based on patient's age to complete this topic MENINGOCOCCAL VACCINES (B) Aged Out N o longer eligible based on patient's age to complete this topic Medical Devices Not on file Procedures Procedure Name Priority Date/Time Associated Diagnosis Comments CBC Routine 04/26/2025 5:28 AM EDT Illness, unspecified COMPREHENSIVE METABOLIC PANEL Routine 04/26/2025 5:28 AM EDT Illness, unspecified ALBUMIN Routine 04/13/2025 5:45 AM EDT Illness, unspecified TROPONIN STAT 03/25/2025 4:22 PM EDT XR CHEST PA AND LATERAL 2 VIEWS Routine 03/25/2025 4:04 PM EDT ECG 12-LEAD STAT 03/25/2025 3:13 PM EDT D-DIMER Routine 03/25/2025 3:10 PM EDT PT-INR STAT 03/25/2025 3:10 PM EDT MAGNESIUM STAT 03/25/2025 3:10 PM EDT TROPONIN STAT 03/25/2025 3:10 PM EDT LFTS (HEPATIC PANEL) STAT 03/25/2025 3:10 PM EDT BASIC METABOLIC PANEL STAT 03/25/2025 3:10 PM EDT CBC AND DIFFERENTIAL STAT 03/25/2025 3:10 PM EDT CBC AND DIFFERENTIAL Routine 02/12/2025 5:20 AM EDT Illness BASIC METABOLIC PANEL Routine 02/12/2025 5:20 AM EDT Illness CBC AND DIFFERENTIAL Routine 02/05/2025 5:57 AM EDT Illness COMPREHENSIVE METABOLIC PANEL Routine 02/05/2025 5:57 AM EDT Illness CBC AND DIFFERENTIAL Routine 02/01/2025 5:54 AM EDT Illness, unspecified BASIC METABOLIC PANEL Routine 02/01/2025 5:54 AM EDT Illness, unspecified TSH Routine 02/01/2025 5:54 AM EDT Illness, unspecified FREE T4 Routine 02/01/2025 5:54 AM EDT Illness, unspecified LIPID PANEL Routine 01/22/2025 8:45 AM EDT Mixed hyperlipidemia from Last 3 Months or Most Recently Relevant to Health Maintenance Results * (ABNORMAL) Comprehensive metabolic panel (04/26/2025 5:28 AM EDT) Only the most recent of2 resultswithin the time period is included. SODIUM 139 133 - 146 mmol/L [facility] POTASSIUM 4.0 3.3 - 5.1 mmol/L [facility] CHLORIDE 103 96 - 108 mmol/L [facility] CO2 24 21 - 35 mmol/L [facility] BUN 21(H) 6 - 19 mg/dL [facility] CREATININE 1.70(H) 0.5 - 1.5 mg/dL [facility] GLUCOSE 86 70 - 99 mg/dL [facility] ALBUMIN 3.5(L) 3.9 - 4.8 g/dL [facility] TOTAL PROTEIN 6.0(L) 6.5 - 8.0 g/dL [facility] CALCIUM 10.3 8.4 - 10.3 mg/dL [facility] ALKALINE PHOSPHATASE 76 39 - 117 U/L [facility] TOTAL BILIRUBIN 0.3 0.0 - 1.2 mg/dL [facility] AST 15 0 - 37 U/L [facility] ALT 11 0 - 40 U/L [facility] GLOBULIN 2.5 1 - 4.8 g/dL [facility] EGFR 32(L) >59 mL/min/1.7 3m2 [facility] Comment:Estimated glomerular filtration rate calculated using the CKD-EPI refit equation. ANION GAP 16 10 - 20 mmol/L [facility] 04/26/2025 5:28 AM EDT 04/26/2025 9:11 AM EDT us Jose Sethi MD LAB BLOOD ORDERABLES Final Resul t Performing Organization Address City/[facility]/ZIP Co de Phone Number [address] [address] * (ABNORMAL) CBC (04/26/2025 5:28 AM EDT) WBC 7.36 4.00 - 11.00 K/uL [facility] RBC 4.16 4.00 - 5.20 M/uL [facility] HGB 11.3(L) 12.0 - 16.0 g/dL [facility] HCT 36.1 36.0 - 46.0 % [facility] PLT 256 150 - 450 K/uL [facility] MCV 86.8 80.0 - 100.0 fL [facility] MCH 27.2 27.0 - 31.0 pg [facility] MCHC 31.3(L) 32.0 - 36.0 g/dL [facility] RDW 15.2(H) 11.5 - 14.5 % [facility] MPV 10.9 8.4 - 12.0 fL [facility] NRBC 0.00 0.00 /100 WBCs [facility] ABSOLUTE NRBC 0.00 0.00 K/uL [facility] 04/26/2025 5:28 AM EDT 04/26/2025 9:11 AM EDT us Jose Sethi MD LAB BLOOD ORDERABLES Final Resul t Performing Organization Address City/[facility]/ZIP Co de Phone Number [address] [address] * (ABNORMAL) Albumin (04/13/2025 5:45 AM EDT) ALBUMIN 3.6(L) 3.9 - 4.8 g/dL [facility] 04/13/2025 5:45 AM EDT 04/13/2025 8:30 AM EDT us Demetria Savage SHIATSU THERAPIST LAB BLOOD ORDERABLES Final Result [address] [address] * (ABNORMAL) Troponin (03/25/2025 4:22 PM EDT) Only the most recent of2 resultswithin the time period is included. Troponin-T, HS Gen5 55(H) 0 - 9 ng/L [facility] Blood 03/25/2025 4:22 PM EDT 03/25/2025 4:40 PM EDT us Serena Mac PA-C LAB BLOOD ORDERABLES Fi nal Result Performing Organization Address [facility] Co de Phone Number [address] [address] * XR CHEST PA AND LATERAL 2 VIEWS (03/25/2025 4:04 PM EDT) Anatomical Region Laterality Modality Chest Computed Radiogr aphy 03/25/2025 5:03 PM EDT Impressions 03/25/2025 5:07 PM EDT No acute abnormality. Narrative 03/25/2025 5:07 PM EDT XR CHEST PA AND LATERAL 2 VIEWS Referring clinician's provided indication for this examination in Epic: Fatigue COMPARISON: XR CHEST 1 VIEW FINDINGS: Devices/Tubes/Lines: None. Lungs: No focal consolidation or pulmonary edema. Pleura: No pleural effusion or pneumothorax. Heart/Mediastinum: Normal heart and mediastinum. Bones/Soft Tissues: Degenerative changes of the spine. Procedure Note Zhanna Rascon MD - 03/25/2025 XR CHEST PA AND LATERAL 2 VIEWS Referring clinician's provided indication for this examination in Epic:Fatigue COMPARISON: XR CHEST 1 VIEW FINDINGS: Devices/Tubes/Lines: None. Lungs: No focal consolidation or pulmonary edema. Pleura: No pleural effusion or pneumothorax. Heart/Mediastinum: Normal heart and mediastinum. Bones/Soft Tissues: Degenerative changes of the spine. IMPRESSION: No acute abnormality. us Serena Mac PA-C IMG XR CHEST Final R esult * ECG 12-LEAD (03/25/2025 3:13 PM EDT) Ventricular Rate EKG/MIN 101 BPM [facility] Atrial Rate 101 BPM [facility] SD Interval 178 ms [facility] QRS Duration 96 ms [facility] QT Interval 374 ms [facility] QTC Interval 484 ms [facility] P [place] 44 degrees [facility] R Wave [place] -8 degrees [facility] T Wave [place] 2 degrees [facility] 03/25/2025 3:13 PM EDT 03/25/2025 5:00 PM EDT Narrative [facility] - 03/25/2025 5:00 PM EDT Sinus tachycardia with Premature atrial complexes Inferior infarct , age undetermined Abnormal ECG When compared with ECG of 10-Mar-2022 09:52, Premature atrial complexes are now Present T wave inversion now evident in Inferior leads Nonspecific T wave abnormality now evident in Lateral leads Confirmed by Hussein Ray ([id number]) on 03/25/2025 5:00:32 PM us Serena Mac PA-C ECG ORDERABLES Final R esult [facility] * (ABNORMAL) LFTs (hepatic panel) (03/25/2025 3:10 PM EDT) ALKALINE PHOSPHATASE 81 39 - 117 U/L [facility] TOTAL BILIRUBIN 0.5 0.0 - 1.2 mg/dL [facility] DIRECT BILIRUBIN 0.1 0.0 - 0.2 mg/dL [facility] Bilirubin (Indirect) NOT CALCULATED 0 - 1.5 mg/dL [facility] AST 15 0 - 37 U/L [facility] ALT 12 0 - 40 U/L [facility] TOTAL PROTEIN 8.1(H) 6.5 - 8.0 g/dL [facility] ALBUMIN 4.0 3.9 - 4.8 g/dL [facility] GLOBULIN 4.1 1 - 4.8 g/dL [facility] A/G Ratio 0.98(L) 1.00 - 4.80 RATIO [facility] Blood 03/25/2025 3:10 PM EDT 03/25/2025 3:19 PM EDT us Serena VILLELAC LAB BLOOD ORDERABLES Fi nal Result Performing Organization Address [facility] Co de Phone Number [address] [address] * (ABNORMAL) PT-INR (03/25/2025 3:10 PM EDT) PT 16.3(H) 10.2 - 12.9 sec [facility] INR 1.3(H) 0.9 - 1.1 [facility] Comment:Therapeutic range fo r oral Vitamin K antagonists: 2.0-3.5 Blood 03/25/2025 3:10 PM EDT 03/25/2025 3:19 PM EDT us Serena VILLELAC LAB BLOOD ORDERABLES Fi nal Result Performing Organization Address [facility] Co de Phone Number [address] [address] * D-dimer (03/25/2025 3:10 PM EDT) D-DIMER 461 <500 ng/mL FEU [facility] Comment:In patients with low to moderate pre-test probability scores for VTE (PE or DVT), a D-Dimer cut-off less than 500 ng/mL (FEU) has a negative predictive value (NPV) of 97 to 100%. 03/25/2025 3:10 PM EDT 03/25/2025 3:19 PM EDT us Serena Mac PA-C LAB BLOOD ORDERABLES Fi nal Result [address] [address] * (ABNORMAL) CBC and differential (03/25/2025 3:10 PM EDT) Only the most recent of4 resultswithin the time period is included. WBC 10.25 4.00 - 11.00 K/uL [facility] RBC 4.85 4.00 - 5.20 M/uL [facility] HGB 13.1 12.0 - 16.0 g/dL [facility] HCT 42.2 36.0 - 46.0 % [facility] PLT 307 150 - 450 K/uL [facility] MCV 87.0 80.0 - 100.0 fL [facility] MCH 27.0 27.0 - 31.0 pg [facility] MCHC 31.0(L) 32.0 - 36.0 g/dL [facility] RDW 14.4 11.5 - 14.5 % [facility] MPV 10.2 8.4 - 12.0 fL [facility] NRBC 0.00 0.00 /100 WBCs [facility] ABSOLUTE NRBC 0.00 0.00 K/uL [facility] DIFF METHOD Auto [facility] NEUTS 74.3 48.0 - 76.0 % [facility] LYMPHS 16.7(L) 18.0 - 41.0 % [facility] MONOS 5.9 4.0 - 11.0 % [facility] EOS 1.9 0.0 - 5.0 % [facility] BASOS 0.7 0.0 - 1.5 % [facility] Granulocytes, immature (%) 0.5 0.0 - 0.9 % [facility] ABSOLUTE NEUTS 7.63(H) 1.92 - 7.60 K/uL [facility] ABSOLUTE LYMPHS 1.71 0.72 - 4.10 K/uL [facility] ABSOLUTE MONOS 0.60 0.16 - 1.10 K/uL [facility] ABSOLUTE EOS 0.19 0.00 - 0.50 K/uL [facility] ABSOLUTE BASOS 0.07 0.00 - 0.15 K/uL [facility] Granulocytes, immature 0.05 0.00 - 0.09 K/uL [facility] Blood 03/25/2025 3:10 PM EDT 03/25/2025 3:19 PM EDT Serena Mac PA-C LAB BLOOD ORDERABLES Fi nal Result [address] [address] * Magnesium (03/25/2025 3:10 PM EDT) Pathologist [facility] MAGNESIUM 2.5 1.6 - 2.6 mg/dL [facility] Blood 03/25/2025 3:10 PM EDT 03/25/2025 3:19 PM EDT Serena Mac PA-C LAB BLOOD ORDERABLES Fi nal Result Performing Organization Address City/[facility]/ZIP Co de Phone Number [address] [address] * (ABNORMAL) Basic metabolic panel (03/25/2025 3:10 PM EDT) Only the most recent of3 resultswithin the time period is included. SODIUM 142 133 - 146 mmol/L [facility] CHLORIDE 103 96 - 108 mmol/L [facility] POTASSIUM 3.8 3.3 - 5.1 mmol/L [facility] CO2 20(L) 21 - 35 mmol/L [facility] BUN 19 6 - 19 mg/dL [facility] CREATININE 1.80(H) 0.5 - 1.5 mg/dL [facility] GLUCOSE 108(H) 70 - 99 mg/dL [facility] CALCIUM 10.9(H) 8.4 - 10.3 mg/dL [facility] EGFR 30(L) >59 mL/min/1.7 3m2 [facility] Comment:Estimated glomerular filtration rate calculated using the CKD-EPI refit equation. ANION GAP 23(H) 10 - 20 mmol/L [facility] Blood 03/25/2025 3:10 PM EDT 03/25/2025 3:19 PM EDT us Serena Mac PA-C LAB BLOOD ORDERABLES Fi nal Result Performing Organization Address [facility] Co de Phone Number [address] [address] * (ABNORMAL) TSH (02/01/2025 5:54 AM EDT) TSH 4.55(H) 0.27 - 4.20 uIU/mL [facility] 02/01/2025 5:54 AM EDT 02/01/2025 9:38 AM EDT us Jose Sethi MD LAB BLOOD ORDERABLES Final Resul t Performing Organization Address [facility] Co de Phone Number [address] [address] * Free T4 (02/01/2025 5:54 AM EDT) FREE T4 1.0 0.9 - 1.7 ng/dL [facility] 02/01/2025 5:54 AM EDT 02/01/2025 9:38 AM EDT us Jose Sethi MD LAB BLOOD ORDERABLES Final Resul t Performing Organization Address [facility] Co de Phone Number [address] [address] * (ABNORMAL) Lipid panel (01/22/2025 8:45 AM EDT) HDL 31 mg/dL [facility] Comment: Interpretation <40 mg/dL: Low HDL cholesterol (major risk factor for CHD) Greater than or equal to 60 mg/dL: High HDL cholesterol ( negative risk factor for CHD) HDL - cholesterol is affected by a number of factors, e.g. smoking, excerise, hormones, sex and age. CHOLESTEROL 173 0 - 240 mg/dL [facility] TRIGLYCERIDES 144 30 - 160 mg/dL [facility] LDL 113 50 - 129 mg/dL [facility] Comment: LDL levels in terms of risk for coronary heart disease: <100 mg/dL: Optimal 100-129 mg/dL: Near or above optimal 130-159 mg/dL: Borderline high 160-189 mg/dL: High >190 mg/dL: Very High CARDIAC RISK RATIO 5.6(H) 3.3 - 4.4 [facility] Blood 01/22/2025 8:45 AM EDT 01/22/2025 10:52 AM EDT us Demetria Savage NP LAB BLOOD ORDERABLES Final Result [address] [address] from Last 3 Months or Most Recently Relevant to Health Maintenance [facility] A & B [place] Member Subscriber Plan / Payer (Ef fective 2024-) Name:Angelica Argueta Relation to Subscriber:Self Name:Angelica Argueta Payer ID:[id number] Group ID:Not on file Type:Medicaid Address: [address] [id number] [place] B Advance Directives For more information, please contact: [phone] (9AM - 5PM 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 It is not the complete legal health record.[facility]
--- OUTSIDE RECORDS SUMMARY | 2025-04-26 19:36 | XMS_ITS | Encounter Summary ---
Author Organization [employer] Address [address] [place] [address] Care Team Providers Care Instructional Technology Coordinator Name Role Phone [facility] Primary Care Provider [phone] Edenilson Partida Unavailable Unavailable Encounter Details Date Type Department Care Team (Late st Contact Info) Description 10/19/2024 Orders Only [place] [address] [place] [address] [facility] [address] [place] [address] Social History Tobacco Use Types Packs/Day Years [...] the past 12 months, has t he [email or web address], oil or water [employer] threatened to shut off services in your [...] Procedure Name Priority Date/Time Associated Diagnosis Comments BASIC METABOLIC PANEL Routine 10/02/2024 11:23 AM EDT documented in this encounter Results * Basic Metabolic Panel (10/02/2024 11:23 AM EDT) Blood Venous blood specimen / Unknown [facility] LAB BLOOD ORDERABLES Penny l Result documented in this encounter Visit Diagnoses Not on filedocumented in this encounter Care Teams Instructional Technology Coordinator Relationship Specialty Start Date End Date [facility] [address] [place] [address] PCP - General Family Medicine 08/14/23 Edenilson Partida Health Navigator 07/13/24 documented as of this encounter
--- OUTSIDE RECORDS SUMMARY | 2025-04-26 19:36 | XMS_ITS | Encounter Summary ---
Author Organization [employer] Address [address] [place] [address] Care Team Providers Care Creative Services Producer Name Role Phone [facility] Primary Care Provider [phone] Edenilson Partida Unavailable Unavailable Encounter Details Date Type Department Care Team (Late st Contact Info) Description 2023 Orders Only [facility] [address] [place] [address] [facility] 70 [place] [address] Social History Tobacco Use Types Packs/Day Years Used Date Smoking Tobacco: Never Smokeless Tobacco: Never Alcohol Use Standard Drinks/Week Comments Never 0 (1 standard drink = 0.6 oz pur e alcohol) Housing Stability Answer Date Recorded What is your housing situation today? I have demetricejose morse [address] you [...] the past 12 months, has t he [employer], [email or web address]), oil or water company threatened to shut [...] AM EST documented as of this encounter Functional Status * Over the past 2 weeks, how often have you been bothered by any of the following problems? Question Answer Date of Assessment Author Little interest or pleasure in doing things Not at all 2023 1:46 PM EDT Taisha Reynolds Feeling down, depressed, or hopeless Not at all 09/06 1:46 PM EDT Taisha Reynolds Patient Health Questionnaire-2 Score 0 09/06 1:46 PM EDT Taisha Reynolds documented as of this encounter Plan of Treatment Not on file documented as of this encounter Procedures Procedure Name Priority Date/Time Associated Diagnosis Comments MAMMOGRAPHY Routine 12/14/2020 2:53 PM EDT documented in this encounter Results * Hm Mammography (12/14/2020 2:53 PM EDT) Anatomical Region Laterality Modality Other [facility] HEALTH MAINTENANCE Final Result documented in this encounter Visit Diagnoses Not on filedocumented in this encounter Care Teams Creative Services Producer Relationship Specialty Start Date End Date [facility] [address] [place] [address] PCP - General Family Medicine 08/14/23 Edenilson Partida Health Navigator 07/13/24 documented as of this encounter
--- OUTSIDE RECORDS SUMMARY | 2025-04-26 19:36 | XMS_ITS | Encounter Summary ---
Author Organization [facility] Address [address] [place] [address] Phone Care Team Providers Care Qa Manager Name Role Phone Anabella Foster MD Primary Care Provider [facility] Primary Care Provide r [place], [place] Eve [facility] Primary Care Provide r [place] Eve [facility] Primary Care Provide r Encounter Details Date Type Department Care Team (Latest Contact Info) Description 09/17/2022 Transcribe Orders [facility] Specimen Processing [address] [place] [address] Anabella Foster MD [address] [place] [phone] [email or web address] Hyperlipidemia, unspecified hyperlipidemia type (Primary Dx); Diabetes mellitus of other type without complication, unspecified whether termite helper insulin use Social History Tobacco Use Types Packs/Day Years [...] as of this encounter Visit Diagnoses Diagnosis Hyperlipidemia, unspecified hyperlipidemia type- Primary Diabetes mellitus of other type without complication, unspecified whether termite helper insulin use documented in this encounter Care Teams Qa Manager Relationship Specialty Start Date End Date Anabella Foster MD [address] [place] [address] [email or web address] PCP - General Internal Medicine 08/09/22 09/17/23 Rula Prince FNP [address] [place] [address] PCP - General Nurse Practitioner 09/18/23 05/16/24 Rula Prince FNP [address] [place] [address] PCP - General Nurse Practitioner 05/17/24 09/13/24 Rula Prince FNP [address] [place] [id number] PCP - General Nurse Practitioner 09/14/24 documented as of this encounter Additional Source Comments The information contained in this document represents components of the legal health record. It is not the complete legal health record.[facility]
--- OUTSIDE RECORDS SUMMARY | 2025-04-26 19:36 | XMS_ITS | Encounter Summary ---
Author Organization [facility] Address [address] [place] [address] Phone Care Team Providers Care Shipsmith Name Role Phone Rula Prince [facility] Primary Care Provide r Rula Prince [facility] Primary Care Provide r Encounter Details Date Type Department Care Team (Late st Contact Info) Description 08/06/2024 Transcribe Orders Virtual Department [address] [place] [address] Rula Prince [facility] [address] [place] [address] Upper respiratory tract infection, unspecified type (Primary Dx) Social History Tobacco Use Types Packs/Day Years Used Date Smoking Tobacco: Never Alcohol Use Standard Drinks/Week Comments No 0 (1 standard drink = 0.6 oz pur e alcohol) Education Answer Date Recorded Are you interested in more education? Not on fer e 11/02/2022 Are you concerned about learning? Not on file 11/02/2022 No 11/02/2022 No 11/02/2022 Digital Access Answer Date Recorded No 12/03/2022 No 12/03/2022 Reliable internet access at home? Not on file 12/03/2022 Device with a working camera? Not on file Intimate Partner Violence Answer Date R ecorded Are you denied basic needs s uch as food, clothing, or medical care? No 05/17/2024 In the past 12 months have y ou been in a relationship with a person who hurts, threatens, or tries to control you? No 05/17/2024 Are you denied basic needs s uch as food, clothing, or medical care? No 05/17/2024 In the past 12 months have y ou been in a relationship with a person who hurts, threatens, or tries to control you? No 05/17/2024 Comments Unknown Sex and Gender Information Value Date Recorded Sex Assigned at Female 03/10/2022 9:55 AM EDT Legal Sex Female 1:08 AM EDT Gender Identity Female 03/10/2022 9:55 AM EDT Sexual Orientation Not on file documented as of this encounter Plan of Treatment Scheduled Orders Name Type Priority Associated Diagnoses Orde r Schedule XR Chest Imaging Routine Upper respiratory tract infection, unspecified type Expected: 08/06/2024, Expires: 08/06/2025 documented as of this encounter Visit Diagnoses Diagnosis Upper respiratory tract infection, unspecified type- Primary documented in this encounter Care Teams Shipsmith Relationship Specialty Start Date End Date Rula Prince FNP PCP - General Nurse Practitioner 05/17/24 09/13/24 Rula Prince FNP [address] [place] [address] PCP - General Nurse Practitioner 09/14/24 documented as of this encounter Additional Source Comments The information contained in this document represents components of the legal health record. It is not the complete legal health record.[facility]
--- OUTSIDE RECORDS SUMMARY | 2025-04-26 19:36 | XMS_ITS | Encounter Summary ---
Author Organization [facility] Address [address] [place] [address] Phone Care Team Providers Care Supervisor [employer] Name Role Phone Annie Petersen MD Primary Care Provider [phone] Anabella Foster MD Primary Care Provider [facility] Primary Care Provide r [facility] Primary Care Provide r [facility] Primary Care Provide r Encounter Details Date Type Department Care Team (Late st Contact Info) Description 10/12/2021 Transcribe Orders [facility] Specimen Processing [address] [place] [address] Annie Petersen MD [address] [place] [phone] [email or web address] Social History Tobacco Use Types Packs/Day Years [...] documented as of this encounter Visit Diagnoses Not on filedocumented in this encounter Care Teams Supervisor [employer] Relationship Specialty Start Date End Date Annie Petersen MD [address] [place] [phone] [email or web address] PCP - General Family Medicine 11/19/16 08/08/22 Anabella Foster MD [address] [place] [phone] [email or web address] PCP - General Internal Medicine 08/09/22 09/17/23 Rula Prince FNP [address] [place] [address] PCP - General Nurse Practitioner 09/18/23 05/16/24 Rula Prince FNP [address] [place] [id number] PCP - General Nurse Practitioner 05/17/24 09/13/24 Rula Prince FNP [address] [place] [phone] PCP - General Nurse Practitioner 09/14/24 documented as of this encounter Additional Source Comments The information contained in this document represents components of the legal health record. It is not the complete legal health record.[facility]
--- OUTSIDE RECORDS SUMMARY | 2025-04-26 19:36 | XMS_ITS | Encounter Summary ---
Author Organization [facility] Address [address] [place] [address] Phone Care Team Providers Care Sales And In Home Delivery Specialist Name Role Phone Rula Prince [facility] Primary Care Provide r Rula Prince [facility] Primary Care Provide r Rula Prince [facility] Primary Care Provide r Encounter Details Date Type Department Care Team (Late st Contact Info) Description 02/21/2024 Transcribe Orders Virtual Department 30 [place] [address] Rula Prince [facility] [address] [place] [address] Breast screening (Primary Dx) Social History Tobacco Use Types [...] with a working camera? Not on file Comments Unknown Sex and Gender Information Value Date Recorded Sex Assigned at Female 03/10/2022 9:55 AM EDT Legal Sex Female 1:08 AM EDT Gender Identity Female 03/10/2022 9:55 AM EDT Sexual Orientation Not on file documented as of this encounter Plan of Treatment Not on file documented as of this encounter Visit Diagnoses Diagnosis Breast screening- Primary Breast screening, unspecified documented in this encounter Care Teams Sales And In Home Delivery Specialist Relationship Specialty Start Date End Date Rula Prince FNP PCP - General Nurse Practitioner 09/18/23 05/16/24 Rula Prince FNP PCP - General Nurse Practitioner 05/17/24 09/13/24 Rula Prince FNP [address] [place] [address] PCP - General Nurse Practitioner 09/14/24 documented as of this encounter Additional Source Comments The information contained in this document represents components of the legal health record. It is not the complete legal health record.[facility]
--- OUTSIDE RECORDS SUMMARY | 2025-04-26 19:36 | XMS_ITS | Encounter Summary ---
Author Organization [employer] Address [address] [place] [address] Care Team Providers Care Soils Analyst Name Role Phone [facility] Primary Care Provider [phone] Edenilson Partida Unavailable Unavailable Encounter Details Date Type Department Care Team (Late st Contact Info) Description 04/02/2024 Orders Only [facility] [address] [place] [address] [facility] [address] [place] [address] Social History Tobacco Use Types Packs/Day Years [...] the past 12 months, has t he [employer], [employer], oil or water [employer] threatened to shut off services in your [...] PANEL, STANDARD Routine 04/01/2024 5:27 PM EDT PTH, INTACT Routine 04/01/2024 5:26 PM EDT URINALYSIS, COMPLETE Routine 04/01/2024 5:25 PM EDT documented in this encounter Results * Lipid Panel, Standard (04/01/2024 5:27 PM EDT) Blood Venous blood specimen / Unknown [facility] LAB BLOOD ORDERABLES Penny l Result * PTH, INTACT (04/01/2024 5:26 PM EDT) [facility] BLOOD ORDERABLES Penny l Result * Urinalysis Complete (04/01/2024 5:25 PM EDT) Urine (Urine, Random) [facility] URINE ORDERABLES Penny l Result documented in this encounter Visit Diagnoses Not on filedocumented in this encounter Care Teams Soils Analyst Relationship Specialty Start Date End Date Suresh [facility] [address] [place] [address] PCP - General Family Medicine 08/14/23 Edenilson Partida Health Navigator 07/13/24 documented as of this encounter
--- OUTSIDE RECORDS SUMMARY | 2025-04-26 19:36 | XMS_ITS | Encounter Summary ---
Author Organization [facility] Address [address] [place] [address] Phone Care Team Providers Care Knurling Machine Operator Name Role Phone Anabella Foster MD Primary Care Provider [facility] Eve [facility] Primary Care Provide r [place], [place] Eve [facility] Primary Care Provide r [facility] Primary Care Provide r Encounter Details Date Type Department Care Team (Late st Contact Info) Description 10/17/2022 Transcribe Orders [facility] Specimen Processing 30 [place] [address] Anabella Foster MD [address] [place] [phone] [email or web address] Social History Tobacco Use Types Packs/Day Years [...] on filedocumented in this encounter Care Teams Knurling Machine Operator Relationship Specialty Start Date End Date AwAnabella Blackwood MD 3 [place] [address] [email or web address] PCP - General Internal Medicine 08/09/22 09/17/23 Rula Prince FNP [address] [place] [phone] PCP - General Nurse Practitioner 09/18/23 05/16/24 Rula Prince FNP [address] [place] [address] PCP - General Nurse Practitioner 05/17/24 09/13/24 Rula Prince FNP [address] [place] [phone] PCP - General Nurse Practitioner 09/14/24 documented as of this encounter Additional Source Comments The information contained in this document represents components of the legal health record. It is not the complete legal health record.[facility]
--- OUTSIDE RECORDS SUMMARY | 2025-04-26 19:36 | XMS_ITS | Clinical Summary ---
Author Organization [facility] Address [address] [place] [address] Care Team Providers Care Hand Grinder Name Role Phone Rula Prince Primary Care Provider [phone] Allergies Active Allergy Reactions Criticality Noted Date Comments Amoxicillin Rash 10/09/2024 Azithromycin Unknown 10/09/2024 Divalproex Sodium Unknown 10/09/2024 Haloperidol Unknown 10/09/2024 Lamotrigine Unknown 10/09/2024 [place] Unknown 10/09/2024 Lurasidone Unknown 10/09/2024 Oxcarbazepine Unknown 10/09/2024 Perphenazine Unknown 10/09/2024 Prilocaine Unknown 10/09/2024 Risperidone Unknown 10/09/2024 Olanzapine Unknown 10/09/2024 Medications * This document contains information received from the source organization and may not represent a complete record from that organization. ARIPiprazole (ABILIFY) 10 mg tablet Take 1 tablet (10 mg total) by mouth once a day. Active docusate sodium (COLACE) 100 mg capsule Take 1 capsule (100 mg total) by mouth 2 times a day as needed for constipation. Active miconazole 2% powder Apply topically to the affected area 2 times a day as needed (intertrigo rash). Active mirtazapine (REMERON) 30 mg tablet Take 1 tablet (30 mg total) by mouth nightly. Active polyethylene glycol 3350 (MIRALAX) 17 gram packet Take 1 packet (17 g total) by mouth daily as needed for constipation. Mix powder in 4 to 8 oz of water, juice, coffee, or tea prior to administration . Active acetaminophen (TYLENOL) 325 mg tablet Take 2 tablets (650 mg total) by mouth every 4 hours as needed for pain. Active pantoprazole DR (PROTONIX) 40 mg tablet Take 40 mg by mouth once a day. 4 06/17/20 Active apixaban (ELIQUIS) 5 mg tablet Take 5 mg by mouth 2 times daily. Active aspirin 81 mg EC tablet Take 81 mg by mouth once a day. Active metoprolol succinate XL (TOPROL XL) 50 mg tablet Take 1 tablet (50 mg total) by mouth once a day. 30 tablet 2 5 Active rosuvastatin (CRESTOR) 20 mg tablet Take 1 tablet (20 mg total) by mouth once a day. 30 tablet 2 5 Active Active Problems Problem Noted Date Diagnosed Date Apical variant hypertrophic cardiomyopathy 01/20 Assessment & Plan (01/20/2025 4:25 PM EDT): Patient w/ hx of hypertension, hyperlipidemia, CKD, DVT and PE in 2019 currently on Eliquis initially admitted to psych service for refractory depression and ECT treatments, presenting with episode of shortness of breath as well as new T wave inversions on EKG. Troponins peaked at 75. Due to inability to provide heparin drip or telemetry on inpatient psych service, the patient will be transferred to cardiology for further ischemic evaluation. No associated chest pain or pleuritic pain, compliant with Eliquis. D-dimer negative. Vitals stable. TTE demonstrated apical interventricular septal thickening. LVEF 65%. The patient deferred further ischemic work up to the outpatient setting due to claustrophobia. - Increased Toprol XL to 50 mg daily - Continue Telemetry Impaired mobility 01/19/2025 Assessment & Plan (01/20/2025 3:29 PM EDT): Evaluated by physical therapy. They recommended short term rehab. Electrocardiogram showing T wave abnormalities 0 01/18/2025 Assessment & Plan (01/20/2025 4:25 PM EDT): Patient w/ hx of hypertension, hyperlipidemia, CKD, DVT and PE in 2019 currently on Eliquis initially admitted to psych service for refractory depression and ECT treatments, presenting with episode of shortness of breath as well as new T wave inversions on EKG. Troponins peaked at 75. Due to inability to provide heparin drip or telemetry on inpatient psych service, the patient will be transferred to cardiology for further ischemic evaluation. No associated chest pain or pleuritic pain, compliant with Eliquis. D-dimer negative. Vitals stable. TTE demonstrated apical interventricular septal thickening. LVEF 65%. The patient deferred further ischemic work up to the outpatient setting due to claustrophobia. - Increased Toprol XL to 50 mg daily - Continue Telemetry Assessment & Plan (01/19/2025 5:53 PM EDT): Patient w/ hx of hypertension, hyperlipidemia, CKD, DVT and PE in 2019 currently on Eliquis initially admitted to psych service for refractory depression and ECT treatments, presenting with episode of shortness of breath as well as new T wave inversions on EKG. Troponins peaked at 75. Due to inability to provide heparin drip or telemetry on inpatient psych service, the patient will be transferred to cardiology for further ischemic evaluation. No associated chest pain or pleuritic pain, compliant with Eliquis. D-dimer negative. Vitals stable. Considering psych hx and ECT sessions could be a component of stress cardiomyopathy. TTE demonstrated apical interventricular septal thickening. LVEF 65% - Continue home metoprolol 25 mg daily - Continue Telemetry Assessment & Plan (01/18/2025 4:03 PM EDT): Patient w/ hx of hypertension, hyperlipidemia, CKD, DVT and PE in 2019 currently on Eliquis initially admitted to psych service for refractory depression and ECT treatments, presenting with episode of shortness of breath as well as new T wave inversions on EKG. Troponins peaked at 75. Due to inability to provide heparin drip or telemetry on inpatient psych service, the patient will be transferred to cardiology for further ischemic evaluation. No associated chest pain or pleuritic pain, compliant with Eliquis. D-dimer negative. Vitals stable. Considering psych hx and ECT sessions could be a component of stress cardiomyopathy. Pending TTE results, will consider CTA coronary vs cardiac cath. - TTE to be completed today. Pending results - Continue home metoprolol 25 mg daily - Continue Telemetry Assessment & Plan (01/18/2025 4:17 AM EDT): Patient w/ hx of hypertension, hyperlipidemia, CKD, DVT and PE in 2019 currently on Eliquis initially admitted to psych service for refractory depression and ECT treatments, presenting with episode of shortness of breath as well as new T wave inversions on EKG. Troponins peaked at 75. Due to inability to provide heparin drip or telemetry on inpatient psych service, the patient will be transferred to cardiology for further ischemic evaluation. No associated chest pain or pleuritic pain, compliant with Eliquis. D-dimer negative. Vitals stable. Considering psych hx and ECT sessions could be a component of stress cardiomyopathy. - Consider ischemic evaluation per Cards - CXR ordered - TTE ordered - Continue home metoprolol 25 mg daily - Lipid panel, A1C, TSH - Telemetry History of pulmonary embolism 01/18/2025 Assessment & Plan (01/20/2025 3:29 PM EDT): Home meds: Eliquis 5 mg BID Hx of PE and DVT in 2019, limited chart history regarding this. - Continue Eliquis 5 mg BID Assessment & Plan (01/19/2025 6:29 AM EDT): Home meds: Eliquis 5 mg BID Hx of PE and DVT in 2019, limited chart history regarding this. - Continue Eliquis 5 mg BID Assessment & Plan (01/18/2025 3:20 PM EDT): Home meds: Eliquis 5 mg BID Hx of PE and DVT in 2019, limited chart history regarding this. - Continue Eliquis 5 mg BID Assessment & Plan (01/18/2025 4:17 AM EDT): Home meds: Eliquis 5 mg BID Hx of PE and DVT in 2019, limited chart history regarding this. - Continue Eliquis 5 mg BID Bipolar disorder 12/04/2024 Assessment & Plan (01/20/2025 4:25 PM EDT): Admitted to [facility] for refractory mood disturbance. ECT treatment was started on 12/11/2024 and patient completed a total of 12 sessions as part of index series, with a plan to continue weekly maintenance therapy. She showed good response to ECT treatments, with interval improvement to her depressive symptoms. Given persistent difficulty with ambulation, the plan for STR placement prior to her return to her assisted living facility in [place]. On 01/17/2025, patient reported shortness of breath, labs and ECG concerning for ischemia. Medicine was consulted, and patient will be [facility] telemetry monitoring and treatment for ACS. Per Psych: Psych consult is not necessary, however can consult if primary team would like to. No further planned ECT sessions. Psych did not feel that she needed further psychiatric care in hospital. Plan to send to short term rehab. - Continue aripiprazole 10 mg daily - Continue mirtazipine 30 mg nightly Assessment & Plan (01/19/2025 5:53 PM EDT): Admitted to for refractory mood disturbance. ECT treatment was started on 12/11/2024 and patient completed a total of 12 sessions as part of index series, with a plan to continue weekly maintenance therapy. She showed good response to ECT treatments, with interval improvement to her depressive symptoms. Given persistent difficulty with ambulation, the plan for STR placement prior to her return to her assisted living facility in [place]. On 01/17/2025, patient reported shortness of breath, labs and ECG concerning for ischemia. Medicine was consulted, and patient will be transferred from [facility] for telemetry monitoring and treatment for ACS. Per Psych: Psych consult is not necessary, however can consult if primary team would like to. No further planned ECT sessions. Psych did not feel that she needed further psychiatric care in hospital. Plan to send to short term rehab. - Continue aripiprazole 10 mg daily - Continue mirtazipine 30 mg nightly Assessment & Plan (01/18/2025 3:20 PM EDT): Admitted to for refractory mood disturbance. ECT treatment was started on 12/11/2024 and patient completed a total of 12 sessions as part of index series, with a plan to continue weekly maintenance therapy. She showed good response to ECT treatments, with interval improvement to her depressive symptoms. Given persistent difficulty with ambulation, the plan for STR placement prior to her return to her assisted living facility in [place]. On 01/17/2025, patient reported shortness of breath, labs and ECG concerning for ischemia. Medicine was consulted, and patient will be transferred from [facility] for telemetry monitoring and treatment for ACS. Per Psych: Psych consult is not necessary, however can consult if primary team would like to. No further planned ECT sessions. Patient will most likely be returned to [facility] after medical clearance, but resident will confirm with [facility] director in AM. - Continue aripiprazole 10 mg daily - Continue mirtazipine 30 mg nightly Assessment & Plan (01/18/2025 4:21 AM EDT): Admitted to for refractory mood disturbance. ECT treatment was started on 12/11/2024 and patient completed a total of 12 sessions as part of index series, with a plan to continue weekly maintenance therapy. She showed good response to ECT treatments, with interval improvement to her depressive symptoms. Given persistent difficulty with ambulation, the plan for STR placement prior to her return to her assisted living facility in [place]. On 01/17/2025, patient reported shortness of breath, labs and ECG concerning for ischemia. Medicine was consulted, and patient will be transferred from [facility] for telemetry monitoring and treatment for ACS. Per Psych: Psych consult is not necessary, however can consult if primary team would like to. No further planned ECT sessions. [facility], but resident will confirm with [facility] director in AM. - Continue aripiprazole 10 mg daily - Continue mirtazipine 30 mg nightly Assessment & Plan (01/18/2025 1:28 AM EDT): Admitted to for refractory mood disturbance. ECT treatment was started on 12/11/2024 and patient completed a total of 12 sessions as part of index series, with a plan to continue weekly maintenance therapy. She showed good response to ECT treatments, with interval improvement to her depressive symptoms. Given persistent difficulty with ambulation, the plan for STR placement prior to her return to her assisted living facility in [place]. On 01/17/2025, patient reported shortness of breath, labs and ECG concerning for ischemia. Medicine was consulted, and patient will be transferred [facility] for telemetry monitoring and treatment for ACS. - Continue aripiprazole 10 mg daily - Continue mirtazipine 30 mg nightly Hyperlipidemia Assessment & Plan (01/20/2025 3:29 PM EDT): Home meds: rosuvastatin 5 mg daily - Increased rosuvastatin to 20 mg daily for secondary prevention Assessment & Plan (01/19/2025 5:53 PM EDT): Home meds: rosuvastatin 5 mg daily - Increased rosuvastatin to 20 mg daily for secondary prevention Assessment & Plan (01/18/2025 3:20 PM EDT): Home meds: rosuvastatin 5 mg daily - Increased rosuvastatin to 20 mg daily for secondary prevention Assessment & Plan (01/18/2025 4:17 AM EDT): Home meds: rosuvastatin 5 mg daily - Continue home meds Assessment & Plan (01/18/2025 1:28 AM EDT): Home meds: atorvastatin 10 mg daily - Continue home med Hypertension Assessment & Plan (01/20/2025 3:29 PM EDT): Home meds: Toprol 25 mg daily - Toprol increased to 50 mg daily Assessment & Plan (01/19/2025 6:29 AM EDT): Home meds: Toprol 25 mg daily - Continue Toprol Assessment & Plan (01/18/2025 3:20 PM EDT): Home meds: Toprol 25 mg daily - Continue Toprol Assessment & Plan (01/18/2025 4:17 AM EDT): Home meds: Toprol 25 mg daily - Continue Toprol Assessment & Plan (01/18/2025 1:28 AM EDT): Home med: Losartan 25 mg daily, Toprol 50 mg daily - Holding iso acute illness - Continue Toprol as above Resolved Problems Problem Noted Date Diagnosed Date Resolved Date Dyspnea 01/18/2025 01/20/2025 Assessment & Plan (01/19/2025 5:53 PM EDT): Patient w/ hx of hypertension, hyperlipidemia, CKD, DVT and PE in 2019 currently on Eliquis initially admitted to psych service for refractory depression and ECT treatments, presenting with episode of shortness of breath as well as new T wave inversions on EKG. Troponins peaked at 75. Due to inability to provide heparin drip or telemetry on inpatient psych service, the patient will be transferred to cardiology for further ischemic evaluation. No associated chest pain or pleuritic pain, compliant with Eliquis. D-dimer negative. Vitals stable. Considering psych hx and ECT sessions could be a component of stress cardiomyopathy. TTE demonstrated apical interventricular septal thickening. LVEF 65% - Continue home metoprolol 25 mg daily - Continue Telemetry Assessment & Plan (01/18/2025 4:03 PM EDT): Patient w/ hx of hypertension, hyperlipidemia, CKD, DVT and PE in 2019 currently on Eliquis initially admitted to psych service for refractory depression and ECT treatments, presenting with episode of shortness of breath as well as new T wave inversions on EKG. Troponins peaked at 75. Due to inability to provide heparin drip or telemetry on inpatient psych service, the patient will be transferred to cardiology for further ischemic evaluation. No associated chest pain or pleuritic pain, compliant with Eliquis. D-dimer negative. Vitals stable. Considering psych hx and ECT sessions could be a component of stress cardiomyopathy. Pending TTE results, will consider CTA coronary vs cardiac cath. - TTE to be completed today. Pending results - Continue home metoprolol 25 mg daily - Continue Telemetry Assessment & Plan (01/18/2025 4:17 AM EDT): Patient w/ hx of hypertension, hyperlipidemia, CKD, DVT and PE in 2019 currently on Eliquis initially admitted to psych service for refractory depression and ECT treatments, presenting with episode of shortness of breath as well as new T wave inversions on EKG. Troponins peaked at 75. Due to inability to provide heparin drip or telemetry on inpatient psych service, the patient will be transferred to cardiology for further ischemic evaluation. No associated chest pain or pleuritic pain, compliant with Eliquis. D-dimer negative. Vitals stable. Considering psych hx and ECT sessions could be a component of stress cardiomyopathy. - Consider ischemic evaluation per Cards - CXR ordered - TTE ordered - Continue home metoprolol 25 mg daily - Lipid panel, A1C, TSH - Telemetry Assessment & Plan (01/18/2025 1:28 AM EDT): Patient w/ hx of hypertension, hyperlipidemia, CKD, DVT and PE in 2019 currently on Eliquis initially admitted to psych service for refractory depression and ECT treatments, presenting with episode of shortness of breath as well as new T wave inversions on EKG suspicious for ACS. Initial troponin elevated to 75 we will trend as noted below. Due to inability to provide heparin drip or telemetry on inpatient psych service, the patient will be transferred to cardiology for further ischemic evaluation. No associated chest pain or pleuritic pain, compliant with Eliquis. D-dimer negative. Vitals stable. - Ischemic evaluation per Cards - Heparin drip - Trend troponins to peak q3h - Continue home metoprolol 25 mg daily - Telemetry Social History Tobacco Use Types Packs/Day Years Used Date Smoking Tobacco: Never Smokeless Tobacco: Never Tobacco Cessation:Counseling Given: Not Answered Alcohol Use Standard Drinks/Week Comments Never 0 (1 standard drink = 0.6 oz pur e alcohol) [facility] Utilities Answer Date Recorded In the past 12 months has e [employer], [employer], oil, or water 5to1 threatened to shut off services in your home? Patient declined 01/18/2025 Hunger Vital Sign Answer Date Recorded Within the past 12 months, y ou worried that your food would run out before you got the money to buy more. Patient declined Within the past 12 months, t he food you bought just didn't last and you didn't have money to get more. Patient declined Transportation Answer Date Recorded In the past 12 months, has l ack of reliable transportation kept you from medical appointments, meetings, work or from getting things needed for daily living? No 01/18/2025 Housing Answer Date Recorded Housing Risk Low 2 01/18/2025 Housing Risk Medium Not on file 01/18/2025 Housing Risk High Not on file 01/18/2025 What is your living situation today? [facility] 01/18/2025 Comments No Sex and Gender Information Value Date Recorded Sex Assigned at Female 10/09/2024 3:19 PM EDT Legal Sex Female 4:13 PM EDT Gender Identity Not on file Sexual Orientation Not on file Last Filed Vital Signs Vital Sign Reading Time Taken Comments Blood Pressure 139/74 01/21/2025 9:01 AM EDT Pulse 76 01/21/2025 9:01 AM EDT Temperature 36.5 C (97.7 F) 01/21/2025 9:01 AM EDT Respiratory Rate 18 01/21/2025 9:01 AM EDT Oxygen Saturation 98% 01/21/2025 9:01 AM EDT Inhaled Oxygen Concentration - - Weight 87.5 kg (192 lb 14.4 oz) 01/18/2025 2:00 AM EDT Height 165.1 cm (5' 5 ) 01/18/2025 2:00 AM EDT Body Mass Index 32.1 01/18/2025 2:00 AM EDT Plan of Treatment Health Maintenance Due Date Last Done Comments 25 Hydroxy / Vitamin D 1952 Colonoscopy 1952 Hepatitis C Screening 1952 PTH 1952 Phosphorus 1952 Sigmoidoscopy 1952 Medicare AWV 1953 Urine Microalbumin 1962 Mammogram 1992 Osteoporosis Screening 2002 Alcohol/Substance Use Screening 07/08/2024 Health Care Proxy Review 07/08/2024 FOBT / Fit Test 10/13/2024 10/14/2023, 02/06/2023 COVID-19 Vaccine ( season) 2025 04/14/2024, 05/14/2023, 12/14/2022, Additional history exists Influenza Vaccine (#1) 2025 , 05/14/2023, 05/10/2022, Additional history exists Basic Metabolic Panel 07/24/2025 01/21/2025 , 01/20/2025, 01/19/2025, Additional history exists Depression Screening and Follow-Up 01/07/2026 01/07/2025 Social Drivers of Health Annual Screening 01/18/2026 01/18/2025 Hemoglobin 01/21/2026 01/21/2025, 01/05, 01/19/2025, Additional history exists Cologuard 03/10/2027 03/10/2024, 03/10/2024 Colon Cancer Screening 03/10/2027 DTaP,Tdap,and Td Vaccines (3 - Td or Tdap) 07/24/2034 07/24/2024, 04/28/2012 Zoster Vaccines Completed 10/27/2018, 05/13/2018 Pneumococcal Vaccine: 50+ Years Completed 03/16/2019, 11/19/2017, 04/22/2016 RSV Vaccine (60+ years old and patients) Completed 04/08/2023 Hepatitis B Vaccines Aged Out No long er eligible based on patient's age to complete this topic Procedures * Due to [place] [employer] law, this organization might not be sharing negative HIV tests. Procedure Name Priority Date/Time Associated Diagnosis Comments CBC AUTO DIFFERENTIAL Routine 01/21/2025 6:55 AM EDT BASIC METABOLIC PANEL Routine 01/21/2025 6:55 AM EDT from Last 3 Months or Most Recently Relevant to Health Maintenance Results * Due to [place] [employer] law, this organization might not be sharing negative HIV tests. * (ABNORMAL) CBC Auto Differential (01/21/2025 6:55 AM EDT) WBC 8.8 3.8 - 10.8 10*3/uL 01/21/2025 7:23 AM EDT [facility] RBC 4.13 3.80 - 5.10 10*6/uL 01/21/2025 7:23 AM EDT [facility] Hemoglobin 11.7 11.7 - 15.5 g/dL 01/21/2025 7:23 AM EDT [facility] Hematocrit 37.7 35.0 - 45.0 % 01/21/2025 7:23 AM EDT [facility] MCV 91.3 80.0 - 100.0 fL 01/21/2025 7:23 AM EDT [email or web address] MCH 28.3 27.0 - 33.0 pg 01/21/2025 7:23 AM EDT [email or web address] MCHC 31.0(L) 32.0 - 36.0 g/dL 01/21/2025 7:23 AM EDT [email or web address] RDW 15.3(H) 11.0 - 15.0 % 01/21/2025 7:23 AM EDT [email or web address] Platelets 257 140 - 400 10*3/uL 01/21/2025 7:23 AM EDT [email or web address] MPV 10.4 7.5 - 12.5 fL 01/21/2025 7:23 AM EDT [email or web address] Neutrophil % 68.1 % 01/21/2025 7:23 AM EDT [email or web address] Immature Grans % 0.2 0.0 - 0.9 % 01/21/2025 7:23 AM EDT [email or web address] Lymphocyte % 16.8 % 01/21/2025 7:23 AM EDT [email or web address] Monocyte % 8.9 % 01/21/2025 7:23 AM EDT [email or web address] Eosinophil % 5.0 % 01/21/2025 7:23 AM EDT [facility] Basophil % 1.0 % 01/21/2025 7:23 AM EDT [email or web address] Neutrophil # 5.99 1.50 - 7.80 10*3/uL 01/21/2025 7:23 AM EDT [facility] Immature Grans # <0.03 <=0.03 10*3/uL 01/21/2025 7:23 AM EDT [facility] Lymphocyte # 1.50 0.85 - 3.90 10*3/uL 01/21/2025 7:23 AM EDT [facility] Monocyte # 0.80 0.20 - 0.95 10*3/uL 01/21/2025 7:23 AM EDT [facility] Eosinophil # 0.40 0.02 - 0.50 10*3/uL 01/21/2025 7:23 AM EDT [facility] Basophil # 0.10 0.00 - 0.20 10*3/uL 01/21/2025 7:23 AM EDT [facility] nRBC % 0.0 /100 WBCs 01/21/2025 7:23 AM EDT [facility] nRBC # <0.01 <0.01 10*3/uL 01/21/2025 7:23 AM EDT [facility] Blood Structure of peripheral vein / Unknown Venipuncture / Unknown 01/21/2025 6:55 AM EDT 01/21/2025 7:17 AM EDT us Sami Ward MD LAB BLOOD ORDERABLES Final Res ult [facility] [address] [place] [address], * (ABNORMAL) Basic Metabolic Panel (01/21/2025 6:55 AM EDT) NA 139 135 - 145 mmol/L 01/21/2025 7:45 AM EDT [facility] K 4.1 3.5 - 5.3 mmol/L 01/21/2025 7:45 AM EDT [facility] Cl 105 98 - 107 mmol/L 01/21/2025 7:45 AM EDT [facility] CO2 21(L) 22 - 32 mmol/L 01/21/2025 7:45 AM EDT [facility] BUN 19 7 - 23 mg/dL 01/21/2025 7:45 AM EDT [facility] Creatinine 1.74(H) 0.50 - 1.20 mg/dL 01/21/2025 7:45 AM EDT [facility] [place] [facility] Glucose 88 65 - 99 mg/dL 01/21/2025 7:45 AM EDT [facility] Calcium 9.8 8.6 - 10.5 mg/dL 01/21/2025 7:45 AM EDT [facility] Anion Gap 13 5 - 15 01/21/2025 7:45 AM EDT [email or web address] [email or web address] [facility] eGFR 31(L) >=60 mL/min/1 .73m2 01/21/2025 7:45 AM EDT [employer] [facility] Comment:The estimated glomer ular filtration rate (eGFR) is calculated using a new formula developed by the NKF-ASN task force to eliminate race-based correction factors. The new formula uses serum/plasma creatinine, age, and gender to determine eGFR. A value below 60mls/min might indicate kidney disease and will be flagged. For additional information, see Russell et al, Am J Kidney Dis. 2021;79(2):268- 288, A Unifying Approach for GFR estimation: Recommendations of the NKF-ASN Task Force on Reassessing the Inclusion of Race in Diagnosing Kidney Disease . Blood Structure of peripheral vein / Unknown Venipuncture / Unknown 01/21/2025 6:55 AM EDT 01/21/2025 7:14 AM EDT us Sami Ward MD LAB BLOOD ORDERABLES Final Res ult ANNE MARIE [place] [facility] [address] [place], [place] [id number], from Last 3 Months or Most Recently Relevant to Health Maintenance Insurance MEDICARE [facility] Advance Directives Documents on File Type Date Recorded Patient Billiard Player Expl anation Health Care Proxy 01/18/2025 10:35 AM [facility] Health Care Proxy 12/09/2024 1:59 PM Roxana Argueta 2020 * Full Code (Latest Code Status on File) Date Activated Date Inactivated Comments 01/18/2025 2:05 AM 01/21/2025 1:43 PM * Full Code Date Activated Date Inactivated Comments 01/18/2025 1:00 AM 01/18/2025 2:04 AM * Presumed Full Code Date Activated Date Inactivated Comments 01/18/2025 12:02 AM 01/18/2025 1:00 AM * Presumed Full Code Date Activated Date Inactivated Comments 12/04/2024 8:38 PM 01/18/2025 12:02 AM * Presumed Full Code Date Activated Date Inactivated Comments 12/04/2024 5:55 PM 12/04/2024 8:38 PM Healthcare Agents on File Name Relationship Healthcare Agent Relationshi p Communication Roxana Argueta Health Care Agent Care Teams Hand Grinder Relationship Specialty Start Date End Date [place], [place] [address] [facility] [place] [address] PCP - General 10/09/24
--- OUTSIDE RECORDS SUMMARY | 2025-04-26 19:36 | XMS_ITS | Encounter Summary ---
Author Organization [facility] Address [address] [place] [address] [place] [address] Phone Care Team Providers Care Automation Control Technician Name Role Phone Annie Petersen MD Primary Care Provider [phone] Annie Petersen MD Unavailable [phone] Jena Rico DPM Unavailable Unavaila Rob Leon DPM Unavailable Unavailable Juju Teran MD Unavailable [phone] Anabella Foster MD Primary Care Provider [facility] Primary Care Provide r [facility] Primary Care Provide r [facility] Primary Care Provide r Encounter Details Date Type Department Care Team (Late st Contact Info) Description 01/24/2021 Ancillary Orders Virtual Department [address] [place] [address] Anabella Foster MD [address] [place] [phone] [email or web address] Breast screening Social History Tobacco Use Types Packs/Day Years [...] of this encounter Visit Diagnoses Diagnosis Breast screening Breast screening, unspecified documented in this encounter Care Teams Automation Control Technician Relationship Specialty Start Date End Date Annie Petersen MD [address] [place] [phone] [email or web address] PCP - General Family Medicine 11/19/16 08/08/22 Anabella Foster MD [address] [place] [phone] [email or web address] PCP - General Internal Medicine 08/09/22 [facility]17[facility] [address] [place] [phone] PCP - General Nurse Practitioner 09/18/23 05/16[facility]24 [facility] [address] [place] [phone] PCP - General Nurse Practitioner 05/17/24 09/13/24 [facility] [address] [place] [id number] PCP - General Nurse Practitioner 09/14/24 Annie Petersen MD [address] [place] [phone] [email or web address] Historical LMR Provider 04/27/17 2 Jena Rico DPM [address] [place] [address] [place] [address] Historical LMR Provider 04/27/17 2 Rob Ivory DPM [address] [facility] [place] [address] Historical LMR Provider 04/27/1707/15/21 Juju Teran MD [address] [place] [address] Historical LMR Provider 04/27/17 2 documented as of this encounter Additional Source Comments The information contained in this document represents components of the legal health record. It is not the complete legal health record.[facility]
--- OUTSIDE RECORDS SUMMARY | 2025-04-26 19:36 | XMS_ITS | Encounter Summary ---
Author Organization [employer] Address [address] [facility] [address] [place] [address] Care Team Providers Care Patient Care Assistant Name Role Phone [facility] Primary Care Provider [phone] Edenilson Partida Unavailable Unavailable Encounter Details Date Type Department Care Team (Late st Contact Info) Description 09/15/2024 Orders Only [facility] [address] [place] [address] [facility] [address] [place] [address] Social History Tobacco Use Types Packs/Day Years [...] the past 12 months, has t he [employer] oil or water [employer] threatened to shut off services in your [...] Procedure Name Priority Date/Time Associated Diagnosis Comments US LOWER EXTREMITY VENOUS RIGHT Routine 09/14/2024 11:18 AM EDT documented in this encounter Results * VASC US Lower Extremity Venous Right (09/14/2024 11:18 AM EDT) [facility] DOUGLAS CV VASCULAR PROCEDURES Fi nal Result documented in this encounter Visit Diagnoses Not on filedocumented in this encounter Care Teams Patient Care Assistant Relationship Specialty Start Date End Date [facility] RulaDOUGLAS [address] [place] [address] PCP - General Family Medicine 08/14/23 Edenilson Partida Health Navigator 07/13/24 documented as of this encounter
--- OUTSIDE RECORDS SUMMARY | 2025-04-26 19:36 | XMS_ITS | Encounter Summary ---
Author Organization [facility] Address [address] [facility] [address] [place] [address] Phone Care Team Providers Care Tag Machine Operator Name Role Phone [facility] Rula Eve [facility] Primary Care Provide r [facility] Primary Care Provide r [facility] Primary Care Provide r Encounter Details Date Type Department Care Team (Latest Contact Info) Description 04/01/2024 Transcribe Orders [facility] [address] [place] [address] Go Ferrera MD [address] [facility] [address] [place], [place] [phone] [email or web address] Stage 3b chronic kidney disease (Primary Dx); Benign essential hypertension Social History Tobacco Use Types Packs/Day Years [...] on file documented as of this encounter Results * (ABNORMAL) Urinalysis (04/01/2024 9:17 AM EDT) COLOR Yellow Yellow [facility] CLARITY Clear [facility] GLUCOSE Negative Negative [facility] BILI Negative Negative [facility] KETONES Negative Negative [facility] SPECIFIC GRAVITY 1.015 1.005 - 1.030 [facility] BLOOD Trace(A) Negative [facility] PH 6.0 5.0 - 8.0 [facility] Protein-UA Negative Negative [facility] NITRITE Negative Negative [facility] Leukocyte esterase, ur Negative Negative [facility] Urine (Urine) 04/01/2024 9:1 7 AM EDT 04/01/2024 9:19 AM EDT Go Ferrera MD URINE ORDERABLES Final Result Performing Organization Address [facility] Co de Phone Number [address] [address] * (ABNORMAL) TOTAL PROTEIN CREATININE RATIO, RANDOM URINE (04/01/2024 9:17 AM EDT) Pathologist [facility] URINE TOTAL PROTEIN 14.0 mg/dL [facility] URINE CREATININE 54 mg/dL [facility] URINE TP CRE RATIO 0.26(H) 0 - 0.19 [facility] Urine (Urine) 04/01/2024 9:1 7 AM EDT 04/01/2024 9:19 AM EDT Go Ferrera MD URINE ORDERABLES Final Result Performing Organization Address [facility] Co de Phone Number [address] [address] * Parathyroid hormone (PTH) (04/01/2024 9:04 AM EDT) PARATHYROID HORMONE 56 15 - 65 pg/mL [facility] Blood 04/01/2024 9:04 AM EDT 04/01/2024 9:12 AM EDT us Go Ferrera MD LAB BLOOD ORDERABLES Final Resul t Performing Organization Address [facility] Co de Phone Number [address] [address] * Iron and iron binding capacity (04/01/2024 9:02 AM EDT) IRON 56 30 - 160 ug/dL [facility] IRON BINDING CAPACITY 307 228 - 428 ug/dL [facility] TRANSFERRIN SATURAT. 18 15 - 50 % [facility] Blood 04/01/2024 9:02 AM EDT 04/01/2024 9:11 AM EDT us Go Ferrera MD LAB BLOOD ORDERABLES Final Resul t Performing Organization Address [facility] Co de Phone Number [address] [address] * (ABNORMAL) CBC (04/01/2024 9:02 AM EDT) WBC 9.35 4.00 - 11.00 K/uL [facility] RBC 4.11 3.72 - 5.30 M/uL [facility] HGB 11.7 11.4 - 15.9 g/dL [facility] HCT 37.7 34.2 - 46.8 % [facility] PLT 251 140 - 430 K/uL [facility] MCV 91.7 78.0 - 97.0 fL [facility] MCH 28.5 25.0 - 33.0 pg [facility] Comment:consistent with prev ious checked by repeat MCHC 31.0(L) 32.0 - 36.0 g/dL [facility] RDW 15.7 11.0 - 16.0 % [facility] MPV 10.2 8.4 - 12.8 fl [facility] Blood 04/01/2024 9:02 AM EDT 04/01/2024 9:11 AM EDT us Go Ferrera MD LAB BLOOD ORDERABLES Final Resul t [address] [address] * (ABNORMAL) 25-OH vitamin D (04/01/2024 9:02 AM EDT) 25 OH VIT D (TOTAL) 61(H) 30 - 60 ng/mL [facility] Blood 04/01/2024 9:02 AM EDT 04/01/2024 9:11 AM EDT us Go Ferrera MD LAB BLOOD ORDERABLES Final Resul t Performing Organization Address [facility] Co de Phone Number [address] [address] * (ABNORMAL) Renal panel (04/01/2024 9:02 AM EDT) SODIUM 139 133 - 146 mmol/L [facility] POTASSIUM 4.7 3.3 - 5.1 mmol/L [facility] CHLORIDE 101 96 - 108 mmol/L [facility] CO2 26 21 - 35 mmol/L [facility] GLUCOSE 121(H) 70 - 99 mg/dL [facility] BUN 26(H) 6 - 19 mg/dL [facility] CREATININE 1.90(H) 0.5 - 1.5 mg/dL [facility] CALCIUM 9.6 8.4 - 10.3 mg/dL [facility] PHOSPHORUS 3.5 2.7 - 4.5 mg/dL [facility] ALBUMIN 3.8(L) 3.9 - 4.8 g/dL [facility] EGFR 28(L) >59 mL/min/1.7 3m2 [facility] Comment:Estimated glomerular filtration rate calculated using the CKD-EPI refit equation. ANION GAP 17 10 - 20 mmol/L [facility] Blood 04/01/2024 9:02 AM EDT 04/01/2024 9:11 AM EDT us Go Ferrera MD LAB BLOOD ORDERABLES Final Resul t [facility] [address] [place] [address] documented in this encounter Visit Diagnoses Diagnosis Stage 3b chronic kidney disease- Primary Benign essential hypertension Essential hypertension, benign documented in this encounter Care Teams Tag Machine Operator Relationship Specialty Start Date End Date Rula Prince FNP PCP - General Nurse Practitioner 09/18/23 05/16/24 Rula Prince FNP PCP - General Nurse Practitioner 05/17/24 09/13/24 Rula Prince FNP [address] [place] [address] PCP - General Nurse Practitioner 09/14/24 documented as of this encounter Additional Source Comments The information contained in this document represents components of the legal health record. It is not the complete legal health record.[facility]
[2025-04-26 19:53] VITALS: BP 129/55; PULSE 73; RESP 16; O2SAT 97
[2025-04-26 23:05] LABS: Appearance Urine Clear; Glucose Urine UA Negative (Negative); PH 5.5 (5.0-9.0); Specific Gravity - Urine 1.015 (1.005-1.025)
[2025-04-26 23:14] LABS: Cannabinoid Screen Urine Not Detected (Not Detect)
[2025-04-27 00:23] VITALS: BP 137/67; PULSE 70; RESP 18; TEMP 36.7; O2SAT 93
--- NOTE | 2025-04-27 01:50 | PC.NURSE ---
Took over care at 23:00 from HILDA Antonio, pt repositioned, pt given apple juice and able to take several sips. pt remains a 1:1 at this time.
[2025-04-27 06:16] VITALS: BP 127/75; PULSE 78; RESP 20; TEMP 36.9; O2SAT 96
--- NOTE | 2025-04-27 06:49 | PC.NURSE ---
late entry-pt reposition at 01:00, alex check, pt dry. given apple juice several time.
--- NOTE | 2025-04-27 09:45 | PHA.MEDREC ---
Addendum entered by Lety Arnold RPh 04/27/25 11:38: MED REC REVIEWED BY Fabio List is from [facility] [phone]. Original Note: Pharmacy Consult ? Medication Reconciliation Pharmacy has completed the medication reconciliation. Utilized list from SNF to confirm med list.
[2025-04-27 13:02] VITALS: BP 171/75; PULSE 79; RESP 16; TEMP 37.1; O2SAT 96
[2025-04-27 20:36] VITALS: BP 157/82; PULSE 82; RESP 16; TEMP 37.2; O2SAT 96
--- NOTE | 2025-04-27 21:12 | PC.NURSE ---
pt refused 2100 meds; RN educated pt on the importance of taking meds- pt still refused.
--- NOTE | 2025-04-28 03:28 | HO.NURTONUR ---
Addendum entered by Henna Tolliver RN 04/28/25 04:46: 16 [place] jorge placed; pt tolerated OK. immediately drained the 1000mLs of urine. RN clamped jorge so pt wouldn't get spasms from bladder emptying so quickly. After about 20 min, RN unclamped jorge, pt drained an additional 600mLs of urine. Original Note: Tech was cleaning pts body and bladder scanned pt as pt has not voided during this shift. Pts bladder contained 1600mLs of urine. Pt also has skin tears in her folds under her breast and stomach. MD made aware. Statin powder ordered and administered per sep; jorge order added per MD.
[2025-04-28 04:17] LABS: Appearance Urine Clear; Glucose Urine UA Negative (Negative); PH 6.5 (5.0-9.0); Specific Gravity - Urine 1.010 (1.005-1.025)
--- NOTE | 2025-04-28 04:49 | PC.NURSE ---
pt requested water & apple juice- RN gave to pt. pt taking small sips. Pt also repositioned.
--- NOTE | 2025-04-28 05:43 | HO.NURTONUR ---
pt took 0600 meds & prn tylenol for back pain. Pt took meds with apple juice. Tolerated well.
[2025-04-28 07:55] VITALS: RESP 16
[2025-04-28 09:53] VITALS: BP 123/67; PULSE 81; RESP 16; TEMP 36.5; O2SAT 94
[2025-04-28 10:30] VITALS: BP 97/43; PULSE 82
[2025-04-28] MEDS: Metoprolol Succinate ER 50 MG TAB.ER.24H PO (10:30)
[2025-04-28] MEDS: Aspirin Enteric Coated 81 MG TABLET.DR PO (10:31)
--- NOTE | 2025-04-28 11:19 | MHC.CARE ---
Pt remains inpatient [facility] bed search for inpatient level of care.
--- NOTE | 2025-04-28 13:40 | MHC.EDTECH ---
Pt repositioned in bed, found to have redness and a small open bed sore on buttocks. allevyn patch placed, pillows placed under buttocks, boosted in bed and sitting comfortably
[2025-04-28 16:16] VITALS: BP 104/60; PULSE 78; RESP 16; O2SAT 95
--- NOTE | 2025-04-28 18:42 | PC.NURSE ---
Call received from Mary (HCP) who wishes to report a better contact #: [phone] She also reports Pt is a DNR and should have an up to date MOLST in her chart. Mary advised information would be documented.
--- NOTE | 2025-04-28 20:05 | PC.NURSE ---
this rn assumed care of pt, pt resting in stretcher in smart, no acute distress noted sitter at bedside
--- NOTE | 2025-04-28 20:22 | PC.NURSE ---
attempted to medicate pt at this time, pt refused all night meds, food and drink. MD lindquist
[2025-04-28 20:24] VITALS: BP 115/53; PULSE 79; RESP 14; O2SAT 98
[2025-04-29 05:53] VITALS: BP 138/62; PULSE 99; RESP 20; TEMP 36.7; O2SAT 99
--- NOTE | 2025-04-29 06:06 | PC.NURSE ---
pt refused AM medications at this time, jorge emptied for 350ml of yellow urine
--- NOTE | 2025-04-29 09:59 | PC.NURSE ---
Assumed care of pt at 0700. Pt resting quietly on stretcher, 1:1 sitter at bedside. A/ox4, respirations even and unlabored, no increased wob/sob noted. Pt refused morning medications- pt educated on medications/need for them, pt continues to decline, MD aware. Pt offered breakfast tray/fluids- refused. Pt offers no complaints at this time. Call young within reach, all needs met at this time.
--- NOTE | 2025-04-29 11:51 | PC.NURSE ---
Pt repositioned onto R side. Pt continues to decline medications/PO intake. MD lindquist
[2025-04-29 13:47] VITALS: TEMP 37.5
[2025-04-29 13:48] VITALS: BP 127/78; PULSE 78; RESP 18; O2SAT 95
--- NOTE | 2025-04-29 14:12 | PC.NURSE ---
Pt rectal temp noted to be 99.5- tylenol PO given, crushed in applesauce. Pt was able to eat 50% of apple sauce. Pt drank 450mls of orange juice.
[2025-04-29 15:49] VITALS: BP 121/58; PULSE 84; RESP 15; TEMP 36.8; O2SAT 93
--- NOTE | 2025-04-29 17:33 | PC.ADMIT ---
Pt on unit at 1527 on a 12b and was transported from [facility]. She was [facility]IBA from [facility] due to medication and meal non-compliance and therefore has been admitted with depression and failure to thrive. Pt has PMH: Bipolar I disorder, CKD, HTN. She has had a pulmonary embolus in the past. Toxicology screening negative for everything. [facility] ED staff inserted a Grajeda due to retention after bladder scan showed 1600cc. Urine is currently clear and dark yellow. Also in ED rectal temp was 99.5 and tylenol was given-pt afebrile upon admit to this unit. Upon admission assessment pt was lethargic, apathetic, with poor eye contact and few words, A&Ox4. She was odiferous and given a bed bath. Skin check revealed BL fungal infection under breasts, abdominal fold and familia. There are many superficial scratches that are all scabbed. No s&s of infection from scratches. Pt also has skin breakdown in several areas: on base of coccyx there is a small open area, on BL glutes there is damage but it is not open. There is also damage on great right toe-bunion area that is closed and with dark area visible underneath. Pt reports poor sleep and appetite, and per crisis eval, pt has recently lost 20 pounds. Flu vaccine has already been received this season-per pt. Wound consult placed for skin damage.
[2025-04-29 20:00] VITALS: BP 126/60; PULSE 79; RESP 16; TEMP 36.7; O2SAT 97
[2025-04-29 22:37] VITALS: BMI 32.5
[2025-04-30 08:00] VITALS: BP 125/65; PULSE 89; RESP 15; TEMP 37.2; O2SAT 93
[2025-04-30] MEDS: Metoprolol Succinate ER 50 MG TAB.ER.24H PO (08:16)
[2025-04-30] MEDS: Aspirin Enteric Coated 81 MG TABLET.DR PO (08:16)
--- NOTE | 2025-04-30 08:19 | HO.PM.IMCN ---
History of Present Illness Data of Consult Service Date: 04/30/25 Primary Care Provider: Jose Sethi MD [facility] Reason for consult: Medical consult 74 yo female with PMH of PE on eliquis, HTN, HLD, CKD, hypothyroidism, hypertrophic cardiomyopathy, bipolar DO with psychotic features, sleep apnea, constipation, anemia of chronic kidney disease who has had ECT in the past. Admitted to the ED with decreased p.o. and increased evidence of depression. Patient was admitted from her SNF with reported 20 lb weight loss and refusal to eat or take medications. Her CBC initially with no leukocytosis or anemia. Calcium slightly elevated, BUN 1.64, unclear baseline. But she does have chronic kidney disease stage 3. Her urinalysis was without infection in the negative tox screen. In the ED Grajeda catheter was inserted because she was found to retain 1600 cc of urine. Per nursing she has skin breakdown in a fungal rash under both breasts. Also nursing reports patient reporting difficulty swallowing although did not disclose to me. Patient on exam is sedated, minimally answers questions. Nursing reports she did not eat today. Reports that she is drinking. Patient had a total of 30 ECT treatments in 2022 with improvement, treated by Dr. Hall. ? Review of Systems Review of Systems: Denies any shortness of breath, chest pain, headaches, dysuria, abdominal pain or discomfort, nausea, vomiting or diarrhea. Denies fever or chills. [facility] Medical History (Updated 04/30/25 @ 11:56 by Elsa Spear DNP) Hyperlipidemia CKD (chronic kidney disease) Pulmonary embolus HTN (hypertension) Depression Bipolar 1 disorder Functional capacity: wheelchair bound Social History (Updated 04/30/25 @ 11:20 by Elsa Spear DNP) Household Members: None Housing: [facility] Do you presently have visiting nurse or other home services: No Patient Tobacco Use Status: Never used Tobacco Advance Directives Date on File: 04/26/25 Meds Allergies Allergy/AdvReac Type Severity Reaction Status Date / Time amoxicillin Allergy Unknown Verified 04/26/25 14:52 azithromycin Allergy Unknown Verified 04/26/25 14:52 divalproex sodium (From Allergy Unknown Verified 04/26/25 14:52 Depakote) haloperidol (From Haldol) Allergy Unknown Verified 04/26/25 14:52 lamotrigine Allergy Unknown Verified 04/26/25 14:52 lithium Allergy Unknown Verified 04/26/25 14:52 lurasidone Allergy Unknown Verified 04/26/25 14:52 olanzapine (From Zyprexa) Allergy Unknown Verified 04/26/25 14:52 oxcarbazepine Allergy Unknown Verified 04/26/25 14:52 perphenazine Allergy Unknown Verified 04/26/25 14:52 prilocaine Allergy Unknown Verified 04/26/25 14:52 risperidone Allergy Unknown Verified 04/26/25 14:52 Active Medications: Current Medications Acetaminophen (Acetaminophen 325 Mg Tablet) 650 mg PO Q6H PRN PRN Reason: Fever Or Pain Last Admin: 04/29/25 13:56 Dose: 650 mg Al Hydroxide/Mg Hydroxide (Magnesium Hydrox/Alum Hydrox 30 Ml Oral.Susp) 30 ml PO Q6H PRN PRN Reason: Heartburn/Nausea Apixaban (Apixaban 5 Mg Tablet) 5 mg PO BID [facility] Last Admin: 04/29/25 20:34 Dose: 5 mg Aripiprazole (Aripiprazole 2 Mg Tablet) 2 mg PO DAILY [facility] Last Admin: 04/29/25 09:59 Dose: Not Given Aripiprazole (Aripiprazole 10 Mg Tablet) 10 mg PO DAILY [facility] Last Admin: 04/29/25 09:59 Dose: Not Given Aspirin (Aspirin Enteric Coated 81 Mg Tablet.Dr) 81 mg PO DAILY [facility] Last Admin: 04/29/25 09:59 Dose: Not Given Atorvastatin Calcium (Atorvastatin Calcium 80 Mg Tablet) 80 mg PO BEDTIME [facility] Last Admin: 04/29/25 20:34 Dose: 80 mg Bisacodyl (Bisacodyl 10 Mg Supp.Rect) 10 mg FL DAILY PRN PRN Reason: Constipation Hydroxyzine HCl (Hydroxyzine Hcl 25 Mg Tablet) 25 mg PO Q6H PRN PRN Reason: mild anxiety Magnesium Hydroxide (Milk Of Magnesia 30 Ml Oral.Susp) 30 ml PO DAILY PRN PRN Reason: Constipation Metoprolol Succinate (Metoprolol Succinate Er 50 Mg Tab.Er.24h) 50 mg PO DAILY [facility]; Protocol Last Admin: 04/29/25 09:59 Dose: Not Given Mirtazapine (Mirtazapine 30 Mg Tablet) 30 mg PO BEDTIME [facility] Last Admin: 04/29/25 20:34 Dose: 30 mg Naloxone HCl (Naloxone Hcl Nasal 4 Mg Murphy) 4 mg NOSTRILALT Q3M PRN PRN Reason: Opiate Reversal Nystatin (Nystatin Powder 15 Gm Bottle) 1 appl TOPICAL BID [facility]; Protocol Last Admin: 04/29/25 20:38 Dose: 1 appl Omeprazole (Omeprazole 20 Mg Capsule.Dr) 20 mg PO DAILY@0630 [facility] Last Admin: 04/29/25 06:05 Dose: Not Given Polyethylene Glycol (Polyethylene Glycol 3350 17 Gm Powd.Pack) 17 gm PO DAILY [facility] Last Admin: 04/29/25 09:59 Dose: Not Given Senna/Docusate Sodium (Sennosides/Docusate Sodium Tablet) 2 tab PO BID [facility] Last Admin: 04/29/25 20:33 Dose: 2 tab Sodium Biphosphate/Sodium Phosphate (Sodium Phosphate,[place]-Dibasic 133 Ml Enema) 118 ml FL DAILY PRN PRN Reason: Constipation Trazodone HCl (Trazodone Hcl 50 Mg Tablet) 50 mg PO BEDTIME MRX1 PRN PRN Reason: Insomnia Home Medications ?Medication ?Instructions ?Recorded ?Confirmed ?Last Taken ?Type acetaminophen 325 mg tablet 650 mg PO Q6H PRN Fever Or Pain 04/27/25 04/27/25 Unknown History apixaban 5 mg tablet (Eliquis) 5 mg PO BID 04/27/25 04/27/25 04/25/25 History aripiprazole 10 mg tablet 10 mg PO DAILY 04/27/25 04/27/25 04/25/25 History aripiprazole 2 mg tablet 2 mg PO DAILY 04/27/25 04/27/25 04/25/25 History aspirin 81 mg tablet,delayed 81 mg PO DAILY 04/27/25 04/27/25 04/25/25 History release bisacodyl 10 mg rectal suppository 10 mg FL DAILY PRN Constipation 04/27/25 04/27/25 Unknown History magnesium hydroxide 400 mg/5 mL 30 ml PO DAILY PRN Constipation 04/27/25 04/27/25 Unknown History oral suspension (Milk of Magnesia) metoprolol succinate 25 mg 50 mg PO DAILY 04/27/25 04/27/25 04/25/25 History tablet,extended release 24 hr mirtazapine 30 mg tablet 30 mg PO BEDTIME 04/27/25 04/27/25 04/25/25 History naloxone 4 mg/actuation nasal 4 mg intranasal Q3M PRN Opiate 04/27/25 04/27/25 Unknown History spray (Narcan) Reversal pantoprazole 40 mg tablet,delayed 40 mg PO DAILY@0630 04/27/25 04/27/25 04/25/25 History release polyethylene glycol 3350 17 17 g PO DAILY 04/27/25 04/27/25 04/25/25 History gram/dose oral powder (Miralax) rosuvastatin 20 mg tablet 20 mg PO BEDTIME 04/27/25 04/27/25 04/25/25 History sennosides 8.6 mg-docusate sodium 2 tab PO BID 04/27/25 04/27/25 04/25/25 History 50 mg tablet (Senna Plus) sodium phosphates 19 gram-7 118 ml FL DAILY PRN Constipation 04/27/25 04/27/25 Unknown History gram/118 mL enema (Fleet Enema) Physical Exam Vital Signs and Narrative: Vital Signs: Last Vital Signs Temp 98.9 F 04/30/25 08:00 Pulse 89 04/30/25 08:00 Resp 15 04/30/25 08:00 BP 125/65 04/30/25 08:00 Pulse Ox 93 04/30/25 08:00 O2 Del Method Room Air 04/30/25 08:00 BMI result Body Mass Index 32.5 Alert when awakened. Appears sedate. Neuro: CN II-X11 intact, moves all extremities ENT: Hearing intact, MMM Cardiac: S1 S2 RRR, No ectopy Pulmonary: Lungs clear to auscultation, No increased WOB. Abdominal: BS active in all 4 quadrants, no guarding or tenderness MSK: Strength 5/5 upper and lower extremities : Deferred Extremities: No edema in lower extremities, PT and DP pulses palpable +2 Psych: Mood stable, Quiet and cooperative. Skin: Warm and dry. Fungal rash to under bilateral breasts. Open area to coccyx, unstageable areas of bilateral buttocks Results Labs 04/26/25 15:06 04/26/25 15:06 Assessment and Plan (1) HTN (hypertension): Status: Acute Plan 74-year-old female with past medical history as listed below admitted to [facility] after presenting to the ED with MDD, failure to thrive and med noncompliance. Bipolar disorder with psychotic features/major depressive disorder/failure to thrive/medication noncompliance. Treatment per psychiatric team History of DVT and PE Continue on Eliquis Hypertension/hyperlipidemia/cardiomyopathy Continue on metoprolol, aspirin, atorvastatin Chronic kidney disease stage 3 Creatinine on admit 1.64 Unable to determine baseline. Encourage p.o. fluids, continue to monitor Avoid nephrotoxins Hypothyroidism Per historical record Not on medications We will check TSH Constipation Treated with MiraLax and senna S scheduled. Anemia of chronic kidney disease Stable, follow labs Failure to thrive Check bedside swallow Physical therapy evaluation Impaired skin integrity Wound nurse consult Thank you for allowing me to participate in the care of this patient. Will follow with you, please notify medical provider with any changes in condition or concerns.
--- NOTE | 2025-04-30 08:29 | PC.NURSE ---
This writter observed swelling in right hand of patient. Medical provider was sent a message through [employer]. Answer pending.
[2025-04-30 09:27] VITALS: BMI 32.5
--- NOTE | 2025-04-30 09:45 | MHC.CLN ---
Addendum entered by Shaylee Saenz RD 04/30/25 13:36: REVIEWED NOTE FROM WOUND RN 04/30. SKIN WITH MULTIPLE DEEP TISSUE INJURIES. DIET RX: REGULAR. ENSURE MAX BID APPROPRIATE TO PROMOTE SKIN INTEGRITY. PATIENT ACCEPTING MEALS. Original Note: NUTRITION DIET RX: REGULAR. PATIENT WITH POOR APPETITE AND INTAKE PRIOR TO ADMISSION. REPORTED 20# WEIGHT LOSS BUT UNABLE TO CONFIRM. SKIN WITH STAGE II PRESSURE INJURY TO COCCYX. ADDING ENSURE MAX BID TO PROMOTE WOUND HEALING. SUPPLEMENT PROVIDES 300 KCALS, 60 G PROTEIN. FOLLOW FOR PO INTAKE AND SKIN INTEGRITY. RD TO MONITOR WEEKLY. SEE CLINICAL NUTRITION ASSESSMENT 04/30/25.
--- NOTE | 2025-04-30 09:57 | HO.PSYADMNOT ---
HPI Chief Complaint: depression, med noncompliance [facility] Medical History Hyperlipidemia CKD (chronic kidney disease) Pulmonary embolus HTN (hypertension) Depression Bipolar 1 disorder Diagnostics Vital Signs (24Hr): Vital Signs - 24 hr 04/29/25 13:47 04/29/25 13:48 04/29/25 15:49 Temperature 99.5 F 98.3 F Pulse Rate 78 84 Respiratory Rate 18 15 Blood Pressure 127/78 121/58 L Pulse Oximetry 95 93 Oxygen Delivery Method Room Air Room Air 04/29/25 20:00 04/30/25 08:00 Temperature 98.1 F 98.9 F Pulse Rate 79 89 Respiratory Rate 16 15 Blood Pressure 126/60 125/65 Pulse Oximetry 97 93 Oxygen Delivery Method Room Air Room Air BMI result Body Mass Index 32.5 Labs 04/26/25 15:06 04/26/25 15:06 Meds/Allergies Meds Home Medications ?Medication ?Instructions ?Recorded ?Confirmed ?Type acetaminophen 325 mg tablet 650 mg PO Q6H PRN Fever Or Pain 04/27/25 04/27/25 History apixaban 5 mg tablet (Eliquis) 5 mg PO BID 04/27/25 04/27/25 History aripiprazole 10 mg tablet 10 mg PO DAILY 04/27/25 04/27/25 History aripiprazole 2 mg tablet 2 mg PO DAILY 04/27/25 04/27/25 History aspirin 81 mg tablet,delayed 81 mg PO DAILY 04/27/25 04/27/25 History release bisacodyl 10 mg rectal suppository 10 mg NC DAILY PRN Constipation 04/27/25 04/27/25 History magnesium hydroxide 400 mg/5 mL 30 ml PO DAILY PRN Constipation 04/27/25 04/27/25 History oral suspension (Milk of Magnesia) metoprolol succinate 25 mg 50 mg PO DAILY 04/27/25 04/27/25 History tablet,extended release 24 hr mirtazapine 30 mg tablet 30 mg PO BEDTIME 04/27/25 04/27/25 History naloxone 4 mg/actuation nasal 4 mg intranasal Q3M PRN Opiate 04/27/25 04/27/25 History spray (Narcan) Reversal pantoprazole 40 mg tablet,delayed 40 mg PO DAILY@0630 04/27/25 04/27/25 History release polyethylene glycol 3350 17 17 g PO DAILY 04/27/25 04/27/25 History gram/dose oral powder (Miralax) rosuvastatin 20 mg tablet 20 mg PO BEDTIME 04/27/25 04/27/25 History sennosides 8.6 mg-docusate sodium 2 tab PO BID 04/27/25 04/27/25 History 50 mg tablet (Senna Plus) sodium phosphates 19 gram-7 118 ml NC DAILY PRN Constipation 04/27/25 04/27/25 History gram/118 mL enema (Fleet Enema) Allergies Allergies Allergy/AdvReac Type Severity Reaction Status Date / Time amoxicillin Allergy Unknown Verified 04/26/25 14:52 azithromycin Allergy Unknown Verified 04/26/25 14:52 divalproex sodium (From Allergy Unknown Verified 04/26/25 14:52 Depakote) haloperidol (From Haldol) Allergy Unknown Verified 04/26/25 14:52 lamotrigine Allergy Unknown Verified 04/26/25 14:52 lithium Allergy Unknown Verified 04/26/25 14:52 lurasidone Allergy Unknown Verified 04/26/25 14:52 olanzapine (From Zyprexa) Allergy Unknown Verified 04/26/25 14:52 oxcarbazepine Allergy Unknown Verified 04/26/25 14:52 perphenazine Allergy Unknown Verified 04/26/25 14:52 prilocaine Allergy Unknown Verified 04/26/25 14:52 risperidone Allergy Unknown Verified 04/26/25 14:52 Assessment & Plan Statement Statement: I have reviewed the history and physical and performed a pertinent examination on my patient. No changes have occurred unless specified. If the History and Physical was not performed prior to admission, the Hospitalist's service will be consulted for completing the admission physical. Time Spent With Patient Time: Total time managing care of this patient today ____ minutes.
--- NOTE | 2025-04-30 10:23 | HO.PSYADMNOT ---
HPI Date of Service: 04/30/25 Chief Complaint: depression, med noncompliance Sources of Information: patient interviewed, chart reviewed and crisis/core team assessment reviewed HPI Subjective Notes: Section 12B Narrative: Per care team note: Patient is a 74 y.o, , Lithuanian speaking with history of bipolar I, constipation, hypertension, hyperlipidemia, PE, CKD who was presented via ambulance from short-term rehab facility at [facility] on 04/2025. Patient not been taking medication as prescribed and has been off medication for one-month. She has been refusing to eat consuming fluids and has lost 20 lb in the past month due to her fellow to thrive. . Patient was residing in assisted living facility prior to being placed in [facility] facility. Patient has similar presentation when she decompensates in the community. Patient have had ECT treatment in the past. Per hospitalist, patient have 30 ECT treatments back in 2022 at [facility]. On S1: Met with patient in assigned room why she was lying in bed, appeared sleeping but arousable for the assessment. She is alert and awake x3. Reports main reason for being here is I was not taking my medications . Patient does not know why she stopped taking medication. She does not know the name of the facility she was transfer from. She knows she is at [facility]. She knows the month and the year. Denies pain. Denies SI/SIB/HI/AVH. Denies SIB/HI suicide attempt history. Denies family suicide attempts. Reports her sister have depression. Denies substance use in the family. She denies any substance use history. She reported that she has been working until 5-6 years ago. Has master degree in Spanish culture. History of multiple inpatient level of care with last admission was past summer somewhere in [place] that she can not remember the name. Reports history of PHP x1. No detox history. She was not sure if she has psychiatrist or therapist, but is aware that she had PCP. Reports sleep is okay, but has no appetite. Some reported that she lost about 20 lb the last month. Reports 5/10 for depression anxiety. When asked the reason why she used a wheelchair she can not remember why and since when she started using the wheelchair. Denies pain. Goals is to feel better. Patient is A+Ox3, sedated, but calm, pleasant and cooperative. Wearing hospital attire. Have Grajeda catheter in place. Malodorus. Mood is depressed and anxious. Thought process is somewhat organized but goal directed. Thought content is within normal limit, no SI/SIB/HI/AVH. Judgment and insight is poor. Need assistance with ADLs. Speech is slow to respond due to sedation, soft-spoken, normal volume Continue with home medication, however due to sedation, and not been taking medication consistently prior to coming to us, I will reduce the Abilify down from 12 mg to 5 mg daily. Reduce Remeron 30 mg to 15 mg. Hospitalist see the patient this morning. Referral out to PT and swallow eval. Nystatin cream/powder for skin condition. We will continue to assess a skin breakdown. Past Psychiatric History: Multiple inpatient level of care admissions. Reports last admission was past summer in [facility]. Was having 30 ECTs treatment at [facility] back in 2022. Not sure if patient have current psychiatrist or therapist. Medical Evaluation Reviewed: Hospitalist Pamela Pending [facility] Medical History Hyperlipidemia CKD (chronic kidney disease) Pulmonary embolus HTN (hypertension) Depression Bipolar 1 disorder Narrative: Denies surgery history Family History: Denies substance use in the family. Reports sister has depression. Social History: She is after 25 years of marriage. Has no children. Substance History: Denies Trauma History: Denies Diagnostics Vital Signs (24Hr): Vital Signs - 24 hr 04/29/25 13:47 04/29/25 13:48 04/29/25 15:49 Temperature 99.5 F 98.3 F Pulse Rate 78 84 Respiratory Rate 18 15 Blood Pressure 127/78 121/58 L Pulse Oximetry 95 93 Oxygen Delivery Method Room Air Room Air 04/29/25 20:00 04/30/25 08:00 Temperature 98.1 F 98.9 F Pulse Rate 79 89 Respiratory Rate 16 15 Blood Pressure 126/60 125/65 Pulse Oximetry 97 93 Oxygen Delivery Method Room Air Room Air BMI result Body Mass Index 32.5 Labs 04/30/25 13:16 04/26/25 15:06 Meds/Allergies Meds Home Medications ?Medication ?Instructions ?Recorded ?Confirmed ?Type acetaminophen 325 mg tablet 650 mg PO Q6H PRN Fever Or Pain 04/27/25 04/27/25 History apixaban 5 mg tablet (Eliquis) 5 mg PO BID 04/27/25 04/27/25 History aripiprazole 10 mg tablet 10 mg PO DAILY 04/27/25 04/27/25 History aripiprazole 2 mg tablet 2 mg PO DAILY 04/27/25 04/27/25 History aspirin 81 mg tablet,delayed 81 mg PO DAILY 04/27/25 04/27/25 History release bisacodyl 10 mg rectal suppository 10 mg IN DAILY PRN Constipation 04/27/25 04/27/25 History magnesium hydroxide 400 mg/5 mL 30 ml PO DAILY PRN Constipation 04/27/25 04/27/25 History oral suspension (Milk of Magnesia) metoprolol succinate 25 mg 50 mg PO DAILY 04/27/25 04/27/25 History tablet,extended release 24 hr mirtazapine 30 mg tablet 30 mg PO BEDTIME 04/27/25 04/27/25 History naloxone 4 mg/actuation nasal 4 mg intranasal Q3M PRN Opiate 04/27/25 04/27/25 History spray (Narcan) Reversal pantoprazole 40 mg tablet,delayed 40 mg PO DAILY@0630 04/27/25 04/27/25 History release polyethylene glycol 3350 17 17 g PO DAILY 04/27/25 04/27/25 History gram/dose oral powder (Miralax) rosuvastatin 20 mg tablet 20 mg PO BEDTIME 04/27/25 04/27/25 History sennosides 8.6 mg-docusate sodium 2 tab PO BID 04/27/25 04/27/25 History 50 mg tablet (Senna Plus) sodium phosphates 19 gram-7 118 ml IN DAILY PRN Constipation 04/27/25 04/27/25 History gram/118 mL enema (Fleet Enema) Allergies Allergies Allergy/AdvReac Type Severity Reaction Status Date / Time amoxicillin Allergy Unknown Verified 04/26/25 14:52 azithromycin Allergy Unknown Verified 04/26/25 14:52 divalproex sodium (From Allergy Unknown Verified 04/26/25 14:52 Depakote) haloperidol (From Haldol) Allergy Unknown Verified 04/26/25 14:52 lamotrigine Allergy Unknown Verified 04/26/25 14:52 lithium Allergy Unknown Verified 04/26/25 14:52 lurasidone Allergy Unknown Verified 04/26/25 14:52 olanzapine (From Zyprexa) Allergy Unknown Verified 04/26/25 14:52 oxcarbazepine Allergy Unknown Verified 04/26/25 14:52 perphenazine Allergy Unknown Verified 04/26/25 14:52 prilocaine Allergy Unknown Verified 04/26/25 14:52 risperidone Allergy Unknown Verified 04/26/25 14:52 Mental Status Exam Mental Status Exam Narrative: Patient is A+Ox3, sedated, but calm, pleasant and cooperative. Wearing hospital attire. Have Grajeda catheter in place. Malodorus. Mood is depressed and anxious. Thought process is somewhat sorganized but goal directed. Thought content is within normal limit, no SI/SIB/HI/AVH. Judgment and insight is poor. Need assistance with ADLs. Speech is slow to respond due to sedation, soft-spoken, normal volume Assessment & Plan Assessment & Plan (1) Bipolar 1 disorder: Status: Acute Code(s): F31.9 - Bipolar disorder, unspecified (2) HTN (hypertension): Status: Acute Code(s): I10 - Essential (primary) hypertension (3) Pulmonary embolus: Status: Acute Code(s): I26.99 - Other pulmonary embolism without acute cor pulmonale (4) Adult failure to thrive: Status: Acute Code(s): R62.7 - Adult failure to thrive (5) Constipation: Status: Acute Code(s): K59.00 - Constipation, unspecified (6) CKD (chronic kidney disease): Status: Acute Code(s): N18.9 - Chronic kidney disease, unspecified Plan HPI: Patient is a 74 y.o, , Lithuanian speaking with history of bipolar I, constipation, hypertension, hyperlipidemia, PE, CKD who was presented via ambulance from short-term rehab facility at [facility] on 04/2025. Patient not been taking medication as prescribed and has been off medication for one-month. She has been refusing to eat consuming fluids and has lost 20 lb in the past month due to her fellow to thrive. . Patient was residing in assisted living facility prior to being placed in [facility] facility. Formulation/clinical reasoning: Failure to thrive, stopped taking meds for 1 months. Poor appetite, 20 lb in a month. Decompensate. Increased depression anxiety. History of bipolar I, history of ECT. Given the above information, patient will benefit in acute care setting, restrictive environment for own safety. Once stable, patient may benefit from skilled facility or long-term care placement. Hospital course: Continue with medication for medical conditions. Continue with home medication, however due to sedation, and not been taking medication consistently prior to coming to us, I will reduce the Abilify down from 12 mg to 5 mg daily. Reduce Remeron 30 mg to 15 mg. Plan Patient on 5 minute checks for safety. Admitted to S1. 12B. Work with treatment team to do collateral. Hx of 30 ECT at [facility] in 2022. ?ECT. Contact the hospitalist regarding hospitalist consultation on admission: PT/Swallow eval consults placed by Hospitalist. Foleny Cath in place. Would care. Nursing to assist with ADL's and ambulate. Nursing to turn and reposition q2 hours. Patient is not mobile/Ambulate. Patient is on Eliquis BID. No need Lovenox per hospitalist. Patient educated on: diagnosis, medication risk/benefits and therapeutic strategies Informed Consent: further education needed Reason for continued inpatient stay Substantial Risk for: inability to function and med/psych decompensation Statement Statement: I have reviewed the history and physical and performed a pertinent examination on my patient. No changes have occurred unless specified. If the History and Physical was not performed prior to admission, the Hospitalist's service will be consulted for completing the admission physical. Time Spent With Patient Time: Total time managing care of this patient today ____ minutes.
--- NOTE | 2025-04-30 12:32 | HO.WOUND ---
Wound Consult: Initial 74 yr old [place] [facility] [place]- See progress notes and H&P for detailed history. Wound consult placed for coccyx/buttocks and great toe. Patient agreeable to assessment and photo documentation. Patient in bed, laying on left side, incontinent of stool. Staff reports turning and cleaning patient about 1 hour prior to assessment. Incontinence care provided. Patient with multiple irregular and linear areas of nonblanching maroon/purple discoloration to buttocks and posterior thigh - they appear to be related to use of brief, at this time recommend not using brief as patient isn't getting out of bed. Coccyx and bilateral buttocks Left posterior thigh Etiology: Coccyx, left buttock and Right buttock, left posterior thigh with deep tissue pressure injuries Present on Admission , cluster measured to left buttock and cluster of right buttock Measurements: see assessment Wound Bed: coccyx with nonblanching area denuded, bilateral buttocks intact and purple/red nonblanching - irregular shaped - left posterior thigh linear, likely related to brief Drainage / Odor: none Edges: ? irregular [place] wound: ? No Induration, Fluctuance or Warmth noted Pain: none Goals of Treatment: ? offlaoding triad/foam Right heel Etiology: DTI Present on Admission Wound Bed: intact purple nonblanching Drainage / Odor: none [place] wound: ? No Induration, Fluctuance or Warmth noted Pain: none Goals of Treatment: ? offlading/foam Right medial foot Etiology: DTI Present on Admission Wound Bed: deflated blood blister, maroon intact Drainage / Odor: none [place] wound: ? No Induration, Fluctuance or Warmth noted Pain: none Goals of Treatment: ? betadine Left heel- intact pink blanching Right breast- folds with intertriginous dermatitis, antifungal in place Recommendations: 1. Turn and Reposition every 2 hours and as needed for patient comfort. Use pillows or wedges to support off loading positions. 2. Off Load all bony prominences with use of pillows and heel boots if needed. Apply Preventative foams where needed. 3. Monitor for incontinence and moisture control, use barrier creams when needed for prevention and treatment. 4. Provide adequate and supplemental nutrition. 5. Order or Continue low air loss mattress. 6. When applicable maintain blood glucose levels per Providers order. Coccyx and bilateral buttocks: Off Load Pressure with Q2 hr turns and use of pillows - Cleanse with PH balance spray or wipes, pat dry. ?Apply thin layer of Triad to wound bed. Do not remove all of paste between applications as this may cause further skin damage.? Cover with foam dressing to aid in off loading and protection from friction. Change every other day and PRN- if changing greater than daily due to soiling, switch to triad only. RECOMMEND NO BRIEFS Left posterior thigh: Off Load Pressure with Q2 hr turns and use of pillows - Cleanse with PH balance spray or wipes, pat dry. ?Apply thin layer of Triad to wound bed - only pat and dab no scrub and rub when soiling occurs. Reapply thin layer PRN after each episode of incontinence. Bilateral heels: Elevate heels off of bed surface with pillows. Float heels off of pillows. Apply skin prep allow to dry. Apply heel foam dressings, peel back and assess Q shift and change every 5-7 days and PRN. Right medial foot/metatarsal head: offload pressure with pillows, paint with betadine daily and PRN Re-consult wound care Nurse for wound deterioration or wound changes.
[2025-04-30 13:20] LABS: MANUAL DIFF FLAG NO
[2025-04-30 13:23] LABS: Hematocrit 41.4 % (37.0-47.0); Hemoglobin 13.0 g/dl (12.0-16.0); Imm Gran Abs Auto 0.06 X10*3/uL (0.00-0.03); Imm Gran Pct Auto 0.5 % (0.0-0.4); Lymphocytes Absolute Auto 1.3 X10*3/uL (1.2-4.9); Mean Corpuscular HGB Conc 31.4 g/dl (31.0-35.0); Mean Corpuscular Hemoglobin 27.0 pg (27.0-33.0); Mean Corpuscular Volume 85.9 fL (80.0-98.0); NRBC Abs Auto 0.000 X10*3/uL (0.0-0.012); NRBC Pct Auto 0.0 /100WBC (0.0-0.2); Platelet Count 327 X10*3/uL (160-400); Red Blood Count 4.82 X10*6/uL (4.20-5.50); White Blood Count 12.6 X10*3/uL (4.8-10.8)
[2025-04-30 13:45] LABS: Anion Gap 15 (12-20); Blood Urea Nitrogen 25 mg/dL (9-16); Calcium 10.8 mg/dL (8.4-10.2); Carbon Dioxide 25 mmol/L (22-29); Chloride 104 mmol/L (96-108); Creatinine Clr Calc Pharmacy 29.3; Estimated Glomerular Filt Rate 30; Potassium 4.5 mmol/L (3.3-5.1); Sodium 139 mmol/L (135-145)
[2025-04-30 13:46] LABS: Alanine Aminotransferase 17 U/L (0-31); Albumin Level 3.9 g/dL (3.5-5.0); Alkaline Phosphatase 76 U/L (39-117); Anion Gap 15 (12-20); Aspartate Amino Transferase 68 U/L (5-31); Blood Urea Nitrogen 26 mg/dL (9-16); Calcium 10.8 mg/dL (8.4-10.2); Carbon Dioxide 25 mmol/L (22-29); Chloride 105 mmol/L (96-108); Cholesterol 189 mg/dL (<200); Creatinine Clr Calc Pharmacy 29.0; Estimated Glomerular Filt Rate 29; HDL Cholesterol 39 mg/dL (>40); Potassium 4.6 mmol/L (3.3-5.1); Sodium 140 mmol/L (135-145); Total Protein 7.4 g/dL (6.5-8.0); Triglycerides 134 mg/dL (<150)
--- NOTE | 2025-04-30 18:08 | MHC.SL.SWA ---
Speech Pathologist Impression: Mildly slowed mastication, all other aspects of swallow WFL Dysphasia Diet Status: No Change Liquid Consistency and Strategies for Safe Swallow: Liquid Intake Recommendation: Thin Solid Food Consistency: Dietary Recommendations: Regular Oral Medication Intake: Whole with Liquid Please contact the pharmacy regarding appropriate crushable or liquid drug formulations that are available whenever modified delivery is recommended. Supervision While Eating and Drinking for Safe Swallow: Direct Supervision (1:1) Recommendation for Speech: NA:Typical Evaluation Comment: Recommend continue on unmodified diet. Please re-refer with any further concern. Frequency/Duration: Date Range for Service Req: Timeline to reassess: Electric Organ Checker Clinican/Clinical Fellow: No Supervisory Statement: I have reviewed and agree with the student/clinical fellow's documentation: N/A Speech Language Pathologist: Ayah Martinez M.A., CCC-NEON SIGN WORKER
[2025-04-30 20:00] VITALS: BP 113/70; PULSE 68; RESP 16; TEMP 36.6; O2SAT 97
[2025-05-01 09:58] VITALS: BP 122/58; PULSE 67; RESP 14; TEMP 36.3; O2SAT 93
--- NOTE | 2025-05-01 12:44 | P.CONNP_ITS ---
History of Present Illness Reason for Consult Consult date: 05/01/25 Chief Complaint Chief complaint: depression, med noncompliance History of Present Illness Narrative: 74-year-old lady with PMH of hypertension, chronic kidney disease, PE on eliquis, MARIO, hypothyroidism, hypertrophic cardiomyopathy, bipolar DO with psychotic features, anemia of CKD is [facility] the [facility] yesterday due to worsening depression, refusal of medications and admitted to the psych. Patient has a history of CKD, unknown baseline can get the records from the SNF. Review of Systems Review of Systems Not cooperative [facility] Past Medical History Medical History Hyperlipidemia CKD (chronic kidney disease) Pulmonary embolus HTN (hypertension) Depression Bipolar 1 disorder Social History Social History (Updated 04/30/25 @ 11:20 by Elsa Spear DNP) Household Members: None Housing: [facility] Do you presently have visiting nurse or other home services: No Patient Tobacco Use Status: Never used Tobacco Smoked in Last 30 Days: No Use of substances other than those prescribed or required for medical reasons: No Currently Displaying Signs/Symptoms of Drug Intoxication Withdrawal: No Have you been hit, kicked, punched, or otherwise hurt by someone within the past year? If so, by whom?: No Do you feel safe in your current relationship?: No Current Relationship Is there a partner from a previous relationship who is making you feel unsafe now?: No Are you made to feel afraid or neglected: No Advance Directives: Yes Advance Directives on File: Yes Advance Directives Date on File: 04/26/25 Do you have thoughts of harming others: None Do you have a plan to hurt others: No Plan Recently lost weight without trying: Unsure How much weight loss: Unsure Eating poorly because of decreased appetite: Yes Nutrition screen score: 5 Nutrition Risks: Poor intake 0-25% >4 days Patient : No : No Poor oral hygiene: Yes service: No Sexual orientation: Straight/Heterosexual Meds Allergies Allergy/AdvReac Type Severity Reaction Status Date / Time amoxicillin Allergy Unknown Verified 04/26/25 14:52 azithromycin Allergy Unknown Verified 04/26/25 14:52 divalproex sodium (From Allergy Unknown Verified 04/26/25 14:52 Depakote) haloperidol (From Haldol) Allergy Unknown Verified 04/26/25 14:52 lamotrigine Allergy Unknown Verified 04/26/25 14:52 lithium Allergy Unknown Verified 04/26/25 14:52 lurasidone Allergy Unknown Verified 04/26/25 14:52 olanzapine (From Zyprexa) Allergy Unknown Verified 04/26/25 14:52 oxcarbazepine Allergy Unknown Verified 04/26/25 14:52 perphenazine Allergy Unknown Verified 04/26/25 14:52 prilocaine Allergy Unknown Verified 04/26/25 14:52 risperidone Allergy Unknown Verified 04/26/25 14:52 Active Medications: Current Medications Acetaminophen (Acetaminophen 325 Mg Tablet) 650 mg PO Q6H PRN PRN Reason: Fever Or Pain Last Admin: 04/29/25 13:56 Dose: 650 mg Al Hydroxide/Mg Hydroxide (Magnesium Hydrox/Alum Hydrox 30 Ml Oral.Susp) 30 ml PO Q6H PRN PRN Reason: Heartburn/Nausea Apixaban (Apixaban 5 Mg Tablet) 5 mg PO BID [facility] Last Admin: 05/01/25 11:30 Dose: Not Given Aripiprazole (Aripiprazole 5 Mg Tablet) 5 mg PO DAILY [facility] Last Admin: 05/01/25 11:30 Dose: Not Given Aspirin (Aspirin Enteric Coated 81 Mg Tablet.Dr) 81 mg PO DAILY [facility] Last Admin: 05/01/25 11:30 Dose: Not Given Atorvastatin Calcium (Atorvastatin Calcium 80 Mg Tablet) 80 mg PO BEDTIME [facility] Last Admin: 04/30/25 20:53 Dose: Not Given Bisacodyl (Bisacodyl 10 Mg Supp.Rect) 10 mg DE DAILY PRN PRN Reason: Constipation Hydroxyzine HCl (Hydroxyzine Hcl 25 Mg Tablet) 25 mg PO Q6H PRN PRN Reason: mild anxiety Magnesium Hydroxide (Milk Of Magnesia 30 Ml Oral.Susp) 30 ml PO DAILY PRN PRN Reason: Constipation Metoprolol Succinate (Metoprolol Succinate Er 50 Mg Tab.Er.24h) 50 mg PO DAILY [facility]; Protocol Last Admin: 05/01/25 11:30 Dose: Not Given Mirtazapine (Mirtazapine 15 Mg Tablet) 15 mg PO BEDTIME [facility] Last Admin: 04/30/25 20:51 Dose: 15 mg Naloxone HCl (Naloxone Hcl Nasal 4 Mg Ramsay) 4 mg NOSTRILALT Q3M PRN PRN Reason: Opiate Reversal Nystatin (Nystatin Powder 15 Gm Bottle) 1 appl TOPICAL BID [facility]; Protocol Last Admin: 05/01/25 11:32 Dose: 1 appl Omeprazole (Omeprazole 20 Mg Capsule.Dr) 20 mg PO DAILY@0630 [facility] Last Admin: 05/01/25 06:11 Dose: Not Given Polyethylene Glycol (Polyethylene Glycol 3350 17 Gm Powd.Pack) 17 gm PO DAILY [facility] Last Admin: 05/01/25 11:32 Dose: Not Given Senna/Docusate Sodium (Sennosides/Docusate Sodium Tablet) 2 tab PO BID [facility] Last Admin: 05/01/25 11:32 Dose: Not Given Sodium Biphosphate/Sodium Phosphate (Sodium Phosphate,[place]-Dibasic 133 Ml Enema) 118 ml DE DAILY PRN PRN Reason: Constipation Trazodone HCl (Trazodone Hcl 50 Mg Tablet) 50 mg PO BEDTIME MRX1 PRN PRN Reason: Insomnia Home Medications ?Medication ?Instructions ?Recorded ?Confirmed ?Last Taken ?Type acetaminophen 325 mg tablet 650 mg PO Q6H PRN Fever Or Pain 04/27/25 04/27/25 Unknown History apixaban 5 mg tablet (Eliquis) 5 mg PO BID 04/27/2504/25/25 History aripiprazole 10 mg tablet 10 mg PO DAILY 04/27/25 10/2 08/0104/25/25 History aripiprazole 2 mg tablet 2 mg PO DAILY 04/27/2504/2704/25/25 History aspirin 81 mg tablet,delayed 81 mg PO DAILY 04/27/25 1 04/25/25 History release bisacodyl 10 mg rectal suppository 10 mg DE DAILY PRN Constipation 04/27/25 04/27/25 Unknown History magnesium hydroxide 400 mg/5 mL 30 ml PO DAILY PRN Con stipation 04/27/25 04/27/25 Unknown History oral suspension (Milk of Magnesia) metoprolol succinate 25 mg 50 mg PO DAILY 04/27/2504/25/25 History tablet,extended release 24 hr mirtazapine 30 mg tablet 30 mg PO BEDTIME 04/27/2504/25/25 History naloxone 4 mg/actuation nasal 4 mg intranasal Q3M PRN Opiate 04/27/25 04/27/25 Unknown History spray (Narcan) Reversal pantoprazole 40 mg tablet,delayed 40 mg PO DAILY@0630 04/27/25 04/27/25 04/25/25 History release polyethylene glycol 3350 17 17 g PO DAILY 04/27/2504/25/25 History gram/dose oral powder (Miralax) rosuvastatin 20 mg tablet 20 mg PO BEDTIME 04/27/2504/25/25 History sennosides 8.6 mg-docusate sodium 2 tab PO BID 5 04/27/25 04/25/25 History 50 mg tablet (Senna Plus) sodium phosphates 19 gram-7 118 ml DE DAILY PRN Consti pation 04/27/25 04/27/25 Unknown History gram/118 mL enema (Fleet Enema) Physical Exam Vital Signs: Last Vital Signs Temp 97.3 F 05/01/25 09:58 Pulse 67 05/01/25 09:58 Resp 14 05/01/25 09:58 BP 122/58 L 05/01/25 09:58 Pulse Ox 93 05/01/25 09:58 O2 Del Method Room Air 05/01/25 09:58 BMI result Body Mass Index 32.5 General: not in any acute distress, ill appearing Nutritional Appearance: well nourished and overweight Eyes: appearance normal, both eyes and all related structures; Alignment and Position: alignment normal and position normal Neck: No lymphadenopathy, no thyromegaly Resp: bilateral air entry equal, no added sounds present Cardio: Regular rate, regular rhythm; Heart sounds: S1 normal heart sound present and S2 normal heart sound present GI: soft, nontender, no guarding, no hepatosplenomegaly : bladder normal to inspection, bladder normal to palpation, no renal angle tenderness Skin: no rashes or lesions noted and elasticity normal Neuro: alert, oriented x 3, moves all extremities Results Lab Results 04/30/25 13:16 04/30/25 13:16 Lab results: Chemistry 04/30/25 04/30/25 04/30/25 13:16 13:16 13:16 Sodium 140 139 Potassium 4.6 4.5 Carbon Dioxide 25 BUN Creatinine Calcium 04/30/25 04/30/25 04/30/25 13:16 13:16 13:16 Sodium Potassium Carbon Dioxide 25 BUN 26 H 25 H Creatinine 1.72 H 1.70 H Calcium 10.8 H 04/30/25 13:16 Sodium Potassium Carbon Dioxide BUN Creatinine Calcium 10.8 H Hematology 04/30/25 13:16 WBC 12.6 H Hgb 13.0 Plt Count 327 Assessment and Plan (1) HTN (hypertension): Status: Acute (2) CKD (chronic kidney disease): Status: Acute Plan Chronic kidney disease: Possibly secondary to atherosclerotic renovascular disease given the history of hypertension and clean UA. Please get the records from the [facility] to evaluate baseline creatinine. No anemia, hemoglobin 13; urinalysis showing trace protein no cells. We will quantify proteinuria. Avoid nephrotoxic agents, contrast. Maintain adequate hydration Hypertension: Blood pressure is well controlled On metoprolol 50 mg. Nephrology will follow from [facility], please contact us if there is worsening renal function, or labs from the SNF suggesting that this is DIOMEDES. Procedures Date of Service Date of Service: 05/01/25
--- NOTE | 2025-05-01 13:39 | P.PNPSI_ITS ---
Subjective Subjective Date of Service: 05/01/25 Reason For Visit: depression, med noncompliance Interim History: Patient in bed all day. Not getting out of bed. Arousable. Slow to respond. Brief answers. Soft speech. Refused medications. Requires repositioning. Has a folwy. Minimal PO. Review of Systems Review of Systems Not cooperative Yes all other systems are reviewed and are negative Mental Status Exam Mental Status Exam Narrative: Patient is A+Ox3, sedated, but calm, pleasant and cooperative. Wearing hospital attire. Have Grajeda catheter in place. Malodorus. Mood is depressed and anxious. Thought process is somewhat sorganized but goal directed. Thought content is within normal limit, no SI/SIB/HI/AVH. Judgment and insight is poor. Need assistance with ADLs. Speech is slow to respond due to sedation, soft- spoken, normal volume Diagnostics Vital Signs (24Hr): Vital Signs - 24 hr 04/30/25 20:00 05/01/25 09:58 Temperature 97.9 F 97.3 F Pulse Rate 68 67 Respiratory Rate 16 14 Blood Pressure 113/70 122/58 L Pulse Oximetry 97 93 Oxygen Delivery Method Room Air Room Air BMI result Body Mass Index 32.5 Labs 04/30/25 13:16 04/30/25 13:16 Labs: Laboratory Results - last 48 hr 04/30/25 04/30/25 04/30/25 13:16 13:16 13:16 WBC 12.6 H RBC 4.82 Hgb 13.0 Hct 41.4 MCV 85.9 MCH 27.0 MCHC 31.4 RDW 15.5 Plt Count 327 MPV 9.9 Immature Gran % (Auto) 0.5 H Neut % (Auto) 79.8 H Lymph % (Auto) 9.9 L Nance % (Auto) 5.9 Eos % (Auto) 3.3 Baso % (Auto) 0.6 Lymph # (Auto) 1.3 Nance # (Auto) 0.7 Eos # (Auto) 0.4 Baso # (Auto) 0.1 Abs Immat Gran (auto) 0.06 H Absolute Neuts (auto) 10.1 H Absolute Nucleated RBC 0.000 Nucleated RBC % (auto) 0.0 Sodium 140 139 Potassium 4.6 4.5 Chloride 105 Carbon Dioxide Anion Gap BUN Creatinine Estim Creat Clear Calc Estimated GFR Random Glucose Estimat Average Glucose Hemoglobin A1c % Calcium Total Bilirubin AST ALT Alkaline Phosphatase Total Protein Albumin Triglycerides Cholesterol LDL Cholesterol, Calc HDL Cholesterol TSH 04/30/25 04/30/25 04/30/25 13:16 13:16 13:16 WBC RBC Hgb Hct MCV MCH MCHC RDW Plt Count MPV Immature Gran % (Auto) Neut % (Auto) Lymph % (Auto) Nance % (Auto) Eos % (Auto) Baso % (Auto) Lymph # (Auto) Nance # (Auto) Eos # (Auto) Baso # (Auto) Abs Immat Gran (auto) Absolute Neuts (auto) Absolute Nucleated RBC Nucleated RBC % (auto) Sodium Potassium Chloride 104 Carbon Dioxide 25 25 Anion Gap 15 15 BUN 26 H Creatinine Estim Creat Clear Calc Estimated GFR Random Glucose Estimat Average Glucose Hemoglobin A1c % Calcium Total Bilirubin AST ALT Alkaline Phosphatase Total Protein Albumin Triglycerides Cholesterol LDL Cholesterol, Calc HDL Cholesterol TSH 04/30/25 04/30/25 04/30/25 13:16 13:16 13:16 WBC RBC Hgb Hct MCV MCH MCHC RDW Plt Count MPV Immature Gran % (Auto) Neut % (Auto) Lymph % (Auto) Nance % (Auto) Eos % (Auto) Baso % (Auto) Lymph # (Auto) Nance # (Auto) Eos # (Auto) Baso # (Auto) Abs Immat Gran (auto) Absolute Neuts (auto) Absolute Nucleated RBC Nucleated RBC % (auto) Sodium Potassium Chloride Carbon Dioxide Anion Gap BUN 25 H Creatinine 1.72 H 1.70 H Estim Creat Clear Calc 29.0 29.3 Estimated GFR 29 Random Glucose Estimat Average Glucose Hemoglobin A1c % Calcium Total Bilirubin AST ALT Alkaline Phosphatase Total Protein Albumin Triglycerides Cholesterol LDL Cholesterol, Calc HDL Cholesterol TSH 04/30/25 04/30/25 04/30/25 13:16 13:16 13:16 WBC RBC Hgb Hct MCV MCH MCHC RDW Plt Count MPV Immature Gran % (Auto) Neut % (Auto) Lymph % (Auto) Nance % (Auto) Eos % (Auto) Baso % (Auto) Lymph # (Auto) Nance # (Auto) Eos # (Auto) Baso # (Auto) Abs Immat Gran (auto) Absolute Neuts (auto) Absolute Nucleated RBC Nucleated RBC % (auto) Sodium Potassium Chloride Carbon Dioxide Anion Gap BUN Creatinine Estim Creat Clear Calc Estimated GFR 30 Random Glucose 133 H 132 H Estimat Average Glucose 105 Hemoglobin A1c % 5.3 Calcium 10.8 H 10.8 H Total Bilirubin 0.6 AST 68 H ALT 17 Alkaline Phosphatase 76 Total Protein 7.4 Albumin 3.9 Triglycerides 134 Cholesterol 189 LDL Cholesterol, Calc 124 H HDL Cholesterol 39 L TSH 3.45 Medications Medications Current Medications Acetaminophen (Acetaminophen 325 Mg Tablet) 650 mg PO Q6H PRN PRN Reason: Fever Or Pain Last Admin: 04/29/25 13:56 Dose: 650 mg Al Hydroxide/Mg Hydroxide (Magnesium Hydrox/Alum Hydrox 30 Ml Oral.Susp) 30 ml PO Q6H PRN PRN Reason: Heartburn/Nausea Apixaban (Apixaban 5 Mg Tablet) 5 mg PO BID [facility] Last Admin: 05/01/25 11:30 Dose: Not Given Aripiprazole (Aripiprazole 5 Mg Tablet) 5 mg PO DAILY [facility] Last Admin: 05/01/25 11:30 Dose: Not Given Aspirin (Aspirin Enteric Coated 81 Mg Tablet.) 81 mg PO DAILY [facility] Last Admin: 05/01/25 11:30 Dose: Not Given Atorvastatin Calcium (Atorvastatin Calcium 80 Mg Tablet) 80 mg PO BEDTIME [facility] Last Admin: 04/30/25 20:53 Dose: Not Given Bisacodyl (Bisacodyl 10 Mg Supp.Rect) 10 mg MD DAILY PRN PRN Reason: Constipation Hydroxyzine HCl (Hydroxyzine Hcl 25 Mg Tablet) 25 mg PO Q6H PRN PRN Reason: mild anxiety Magnesium Hydroxide (Milk Of Magnesia 30 Ml Oral.Susp) 30 ml PO DAILY PRN PRN Reason: Constipation Metoprolol Succinate (Metoprolol Succinate Er 50 Mg Tab.Er.24h) 50 mg PO DAILY [facility]; Protocol Last Admin: 05/01/25 11:30 Dose: Not Given Mirtazapine (Mirtazapine 15 Mg Tablet) 15 mg PO BEDTIME [facility] Last Admin: 04/30/25 20:51 Dose: 15 mg Naloxone HCl (Naloxone Hcl Nasal 4 Mg [place]) 4 mg NOSTRILALT Q3M PRN PRN Reason: Opiate Reversal Nystatin (Nystatin Powder 15 Gm Bottle) 1 appl TOPICAL BID [facility]; Protocol Last Admin: 05/01/25 11:32 Dose: 1 appl Omeprazole (Omeprazole 20 Mg Capsule.) 20 mg PO DAILY@0630 [facility] Last Admin: 05/01/25 06:11 Dose: Not Given Polyethylene Glycol (Polyethylene Glycol 3350 17 Gm Powd.Pack) 17 gm PO DAILY [facility] Last Admin: 05/01/25 11:32 Dose: Not Given Senna/Docusate Sodium (Sennosides/Docusate Sodium Tablet) 2 tab PO BID [facility] Last Admin: 05/01/25 11:32 Dose: Not Given Sodium Biphosphate/Sodium Phosphate (Sodium Phosphate,Nance-Dibasic 133 Ml Enema) 118 ml MD DAILY PRN PRN Reason: Constipation Trazodone HCl (Trazodone Hcl 50 Mg Tablet) 50 mg PO BEDTIME MRX1 PRN PRN Reason: Insomnia Allergies Allergies Allergy/AdvReac Type Severity Reaction Status Date / Time amoxicillin Allergy Unknown Verified 04/26/25 14:52 azithromycin Allergy Unknown Verified 04/26/25 14:52 divalproex sodium (From Allergy Unknown Verified 04/26/25 14:52 Depakote) haloperidol (From Haldol) Allergy Unknown Verified 04/26/25 14:52 lamotrigine Allergy Unknown Verified 04/26/25 14:52 lithium Allergy Unknown Verified 04/26/25 14:52 lurasidone Allergy Unknown Verified 04/26/25 14:52 olanzapine (From Zyprexa) Allergy Unknown Verified 04/26/25 14:52 oxcarbazepine Allergy Unknown Verified 04/26/25 14:52 perphenazine Allergy Unknown Verified 04/26/25 14:52 prilocaine Allergy Unknown Verified 04/26/25 14:52 risperidone Allergy Unknown Verified 04/26/25 14:52 Assessment & Plan Assessment & Plan (1) HTN (hypertension): Status: Acute Code(s): I10 - Essential (primary) hypertension (2) CKD (chronic kidney disease): Status: Acute Code(s): N18.9 - Chronic kidney disease, unspecified (3) Bipolar 1 disorder: Status: Acute Code(s): F31.9 - Bipolar disorder, unspecified Assessment and Plan: Assessment & Plan (1) Bipolar 1 disorder: Status: Acute Code(s): F31.9 - Bipolar disorder, unspecified (2) HTN (hypertension): Status: Acute Code(s): I10 - Essential (primary) hypertension (3) Pulmonary embolus: Status: Acute Code(s): I26.99 - Other pulmonary embolism without acute cor pulmonale (4) Adult failure to thrive: Status: Acute Code(s): R62.7 - Adult failure to thrive (5) Constipation: Status: Acute Code(s): K59.00 - Constipation, unspecified (6) CKD (chronic kidney disease): Status: Acute Code(s): N18.9 - Chronic kidney disease, unspecified Plan HPI: Patient is a 74 y.o, , Maltese speaking with history of bipolar I, constipation, hypertension, hyperlipidemia, PE, CKD who was presented via ambulance from short-term rehab facility at [facility] [place] [place] [facility] on 04/2025. Patient not been taking medication as prescribed and has been off medication for one-month. She has been refusing to eat consuming fluids and has lost 20 lb in the past month due to her fellow to thrive. . Patient was residing in assisted living facility prior to being placed in [facility] facility. Formulation/clinical reasoning: Failure to thrive, stopped taking meds for 1 months. Poor appetite, 20 lb in a month. Decompensate. Increased depression anxiety. History of bipolar I, history of ECT. Given the above information, patient will benefit in acute care setting, restrictive environment for own safety. Once stable, patient may benefit from skilled facility or long-term care placement. Hospital course: Continue with medication for medical conditions. Continue with home medication, however due to sedation, and not been taking medication consistently prior to coming to us, I will reduce the Abilify down from 12 mg to 5 mg daily. Reduce Remeron 30 mg to 15 mg. 05/01: continue current management and treatment plan. Plan Patient on 5 minute checks for safety. Admitted to S1. 12B. Work with treatment team to do collateral. Hx of 30 ECT at [facility] in 2022. ?ECT. Contact the hospitalist regarding hospitalist consultation on admission: PT/Swallow eval consults placed by Hospitalist. Foleny Cath in place. Would care. Nursing to assist with ADL's and ambulate. Nursing to turn and reposition q2 hours. Patient is not mobile/Ambulate. Patient is on Eliquis BID. No need Lovenox per hospitalist. Plan Chronic kidney disease: Possibly secondary to atherosclerotic renovascular disease given the history of hypertension and clean UA. Please get the records from the group home to evaluate baseline creatinine. No anemia, hemoglobin 13; urinalysis showing trace protein no cells. We will quantify proteinuria. Avoid nephrotoxic agents, contrast. Maintain adequate hydration Hypertension: Blood pressure is well controlled On metoprolol 50 mg. Nephrology will follow from periphery, please contact us if there is worsening renal function, or labs from the SNF suggesting that this is DIOMEDES. Reason for continued inpatient stay Substantial Risk for: inability to function, rapid decompensation and med/psych decompensation Time Spent With Patient Time: Total time managing care of this patient today ____ minutes.
--- NOTE | 2025-05-01 16:44 | PC.NURSE ---
At 16:30, this field underwriter attempted to feed Angelica dinner. She took one bite of vanilla ice cream then tried to spit it out. She took a few sips of apple juice. When offered bites of food she would say no and turn her head away from the spoon. This field underwriter asked her why she does not want to eat and she responded I don't know . This field underwriter attempted to offer other items from her tray and to play music, she declined and stated can you just leave now? .
[2025-05-01 19:38] VITALS: BP 101/58; PULSE 75; RESP 18; TEMP 36.6; O2SAT 93
[2025-05-02 04:25] LABS: Microalbum/Creatinine Ratio Ur 19.7 ug/mg cr (<30); Protein/Creatinine Ratio, Ur 0.14 (<0.2); Total Protein Urine Random 22 mg/dL (<12)
[2025-05-02 08:41] VITALS: BP 107/52; PULSE 81; RESP 16; TEMP 36.6; O2SAT 94
--- NOTE | 2025-05-02 09:39 | HO.PSYCHPN ---
Subjective Subjective Date of Service: 05/02/25 Reason For Visit: depression, med noncompliance Interim History: Patient out of bed today and brought to [facility]. She is sitting in a chair. Poor eye contact. Irritable edge. She refused her medications because I don't want them. She gives no clear explanation. Has some pressure ulcers on buttocks. Poor PO but ate a little today. Slow to respond. Brief answers. Soft speech. Review of Systems Review of Systems Not cooperative Yes all other systems are reviewed and are negative Mental Status Exam Mental Status Exam Narrative: Patient is A+Ox3, sedated, but calm, pleasant and cooperative. Wearing hospital attire. Have Grajeda catheter in place. Malodorus. Mood is depressed and anxious. Thought process is somewhat sorganized but goal directed. Thought content is within normal limit, no SI/SIB/HI/AVH. Judgment and insight is poor. Need assistance with ADLs. Speech is slow to respond due to sedation, soft-spoken, normal volume Diagnostics Vital Signs (24Hr): Vital Signs - 24 hr 05/01/25 09:58 05/01/25 19:38 05/02/25 08:41 Temperature 97.3 F 97.8 F 97.9 F Pulse Rate 67 75 81 Respiratory Rate 14 18 16 Blood Pressure 122/58 L 101/58 L 107/52 L Pulse Oximetry 93 93 94 Oxygen Delivery Method Room Air Room Air Room Air BMI result Body Mass Index 32.5 Labs 04/30/25 13:16 04/30/25 13:16 Labs: Laboratory Results - last 48 hr 04/30/25 04/30/25 04/30/25 13:16 13:16 13:16 WBC 12.6 H RBC 4.82 Hgb 13.0 Hct 41.4 MCV 85.9 MCH 27.0 MCHC 31.4 RDW 15.5 Plt Count 327 MPV 9.9 Immature Gran % (Auto) 0.5 H Neut % (Auto) 79.8 H Lymph % (Auto) 9.9 L [place] % (Auto) 5.9 Eos % (Auto) 3.3 Baso % (Auto) 0.6 Lymph # (Auto) 1.3 [place] # (Auto) 0.7 Eos # (Auto) 0.4 Baso # (Auto) 0.1 Abs Immat Gran (auto) 0.06 H Absolute Neuts (auto) 10.1 H Absolute Nucleated RBC 0.000 Nucleated RBC % (auto) 0.0 Sodium 140 139 Potassium 4.6 4.5 Chloride 105 Carbon Dioxide Anion Gap BUN Creatinine Estim Creat Clear Calc Estimated GFR Random Glucose Estimat Average Glucose Hemoglobin A1c % Calcium Total Bilirubin AST ALT Alkaline Phosphatase Total Protein Albumin Triglycerides Cholesterol LDL Cholesterol, Calc HDL Cholesterol TSH U Random Total Protein Urine Creatinine Urine Microalbumin Microalb/Creat Ratio Protein/Creatinin Ratio 04/30/25 04/30/25 04/30/25 13:16 13:16 13:16 WBC RBC Hgb Hct MCV MCH MCHC RDW Plt Count MPV Immature Gran % (Auto) Neut % (Auto) Lymph % (Auto) [place] % (Auto) Eos % (Auto) Baso % (Auto) Lymph # (Auto) [place] # (Auto) Eos # (Auto) Baso # (Auto) Abs Immat Gran (auto) Absolute Neuts (auto) Absolute Nucleated RBC Nucleated RBC % (auto) Sodium Potassium Chloride 104 Carbon Dioxide 25 25 Anion Gap 15 15 BUN 26 H Creatinine Estim Creat Clear Calc Estimated GFR Random Glucose Estimat Average Glucose Hemoglobin A1c % Calcium Total Bilirubin AST ALT Alkaline Phosphatase Total Protein Albumin Triglycerides Cholesterol LDL Cholesterol, Calc HDL Cholesterol TSH U Random Total Protein Urine Creatinine Urine Microalbumin Microalb/Creat Ratio Protein/Creatinin Ratio 04/30/25 04/30/25 04/30/25 13:16 13:16 13:16 WBC RBC Hgb Hct MCV MCH MCHC RDW Plt Count MPV Immature Gran % (Auto) Neut % (Auto) Lymph % (Auto) [place] % (Auto) Eos % (Auto) Baso % (Auto) Lymph # (Auto) [place] # (Auto) Eos # (Auto) Baso # (Auto) Abs Immat Gran (auto) Absolute Neuts (auto) Absolute Nucleated RBC Nucleated RBC % (auto) Sodium Potassium Chloride Carbon Dioxide Anion Gap BUN 25 H Creatinine 1.72 H 1.70 H Estim Creat Clear Calc 29.0 29.3 Estimated GFR 29 Random Glucose Estimat Average Glucose Hemoglobin A1c % Calcium Total Bilirubin AST ALT Alkaline Phosphatase Total Protein Albumin Triglycerides Cholesterol LDL Cholesterol, Calc HDL Cholesterol TSH U Random Total Protein Urine Creatinine Urine Microalbumin Microalb/Creat Ratio Protein/Creatinin Ratio 04/30/25 04/30/25 04/30/25 13:16 13:16 13:16 WBC RBC Hgb Hct MCV MCH MCHC RDW Plt Count MPV Immature Gran % (Auto) Neut % (Auto) Lymph % (Auto) [place] % (Auto) Eos % (Auto) Baso % (Auto) Lymph # (Auto) [place] # (Auto) Eos # (Auto) Baso # (Auto) Abs Immat Gran (auto) Absolute Neuts (auto) Absolute Nucleated RBC Nucleated RBC % (auto) Sodium Potassium Chloride Carbon Dioxide Anion Gap BUN Creatinine Estim Creat Clear Calc Estimated GFR 30 Random Glucose 133 H 132 H Estimat Average Glucose 105 Hemoglobin A1c % 5.3 Calcium 10.8 H 10.8 H Total Bilirubin 0.6 AST 68 H ALT 17 Alkaline Phosphatase 76 Total Protein 7.4 Albumin 3.9 Triglycerides 134 Cholesterol 189 LDL Cholesterol, Calc 124 H HDL Cholesterol 39 L TSH 3.45 U Random Total Protein Urine Creatinine Urine Microalbumin Microalb/Creat Ratio Protein/Creatinin Ratio 05/02/25 04:00 WBC RBC Hgb Hct MCV MCH MCHC RDW Plt Count MPV Immature Gran % (Auto) Neut % (Auto) Lymph % (Auto) [place] % (Auto) Eos % (Auto) Baso % (Auto) Lymph # (Auto) [place] # (Auto) Eos # (Auto) Baso # (Auto) Abs Immat Gran (auto) Absolute Neuts (auto) Absolute Nucleated RBC Nucleated RBC % (auto) Sodium Potassium Chloride Carbon Dioxide Anion Gap BUN Creatinine Estim Creat Clear Calc Estimated GFR Random Glucose Estimat Average Glucose Hemoglobin A1c % Calcium Total Bilirubin AST ALT Alkaline Phosphatase Total Protein Albumin Triglycerides Cholesterol LDL Cholesterol, Calc HDL Cholesterol TSH U Random Total Protein 22 H Urine Creatinine 162.42 Urine Microalbumin 32.0 Microalb/Creat Ratio 19.7 Protein/Creatinin Ratio 0.14 Medications Medications Current Medications Acetaminophen (Acetaminophen 325 Mg Tablet) 650 mg PO Q6H PRN PRN Reason: Fever Or Pain Last Admin: 04/29/25 13:56 Dose: 650 mg Al Hydroxide/Mg Hydroxide (Magnesium Hydrox/Alum Hydrox 30 Ml Oral.Susp) 30 ml PO Q6H PRN PRN Reason: Heartburn/Nausea Apixaban (Apixaban 5 Mg Tablet) 5 mg PO BID [facility] Last Admin: 05/01/25 21:17 Dose: Not Given Aripiprazole (Aripiprazole 5 Mg Tablet) 5 mg PO DAILY [facility] Last Admin: 05/01/25 11:30 Dose: Not Given Aspirin (Aspirin Enteric Coated 81 Mg Tablet.) 81 mg PO DAILY [facility] Last Admin: 05/01/25 11:30 Dose: Not Given Atorvastatin Calcium (Atorvastatin Calcium 80 Mg Tablet) 80 mg PO BEDTIME [facility] Last Admin: 05/01/25 21:17 Dose: Not Given Bisacodyl (Bisacodyl 10 Mg Supp.Rect) 10 mg [place] DAILY PRN PRN Reason: Constipation Hydroxyzine HCl (Hydroxyzine Hcl 25 Mg Tablet) 25 mg PO Q6H PRN PRN Reason: mild anxiety Magnesium Hydroxide (Milk Of Magnesia 30 Ml Oral.Susp) 30 ml PO DAILY PRN PRN Reason: Constipation Metoprolol Succinate (Metoprolol Succinate Er 50 Mg Tab.Er.24h) 50 mg PO DAILY [facility]; Protocol Last Admin: 05/01/25 11:30 Dose: Not Given Mirtazapine (Mirtazapine 15 Mg Tablet) 15 mg PO BEDTIME [facility] Last Admin: 05/01/25 21:17 Dose: Not Given Naloxone HCl (Naloxone Hcl Nasal 4 Mg [place]) 4 mg NOSTRILALT Q3M PRN PRN Reason: Opiate Reversal Nystatin (Nystatin Powder 15 Gm Bottle) 1 appl TOPICAL BID [facility]; Protocol Last Admin: 05/01/25 21:11 Dose: 1 appl Omeprazole (Omeprazole 20 Mg Capsule.) 20 mg PO DAILY@0630 [facility] Last Admin: 05/01/25 06:11 Dose: Not Given Polyethylene Glycol (Polyethylene Glycol 3350 17 Gm Powd.Pack) 17 gm PO DAILY [facility] Last Admin: 05/01/25 11:32 Dose: Not Given Senna/Docusate Sodium (Sennosides/Docusate Sodium Tablet) 2 tab PO BID [facility] Last Admin: 05/01/25 21:17 Dose: Not Given Sodium Biphosphate/Sodium Phosphate (Sodium Phosphate,[place]-Dibasic 133 Ml Enema) 118 ml [place] DAILY PRN PRN Reason: Constipation Trazodone HCl (Trazodone Hcl 50 Mg Tablet) 50 mg PO BEDTIME MRX1 PRN PRN Reason: Insomnia Allergies Allergies Allergy/AdvReac Type Severity Reaction Status Date / Time amoxicillin Allergy Unknown Verified 04/26/25 14:52 azithromycin Allergy Unknown Verified 04/26/25 14:52 divalproex sodium (From Allergy Unknown Verified 04/26/25 14:52 Depakote) haloperidol (From Haldol) Allergy Unknown Verified 04/26/25 14:52 lamotrigine Allergy Unknown Verified 04/26/25 14:52 lithium Allergy Unknown Verified 04/26/25 14:52 lurasidone Allergy Unknown Verified 04/26/25 14:52 olanzapine (From Zyprexa) Allergy Unknown Verified 04/26/25 14:52 oxcarbazepine Allergy Unknown Verified 04/26/25 14:52 perphenazine Allergy Unknown Verified 04/26/25 14:52 prilocaine Allergy Unknown Verified 04/26/25 14:52 risperidone Allergy Unknown Verified 04/26/25 14:52 Assessment & Plan Assessment & Plan (1) HTN (hypertension): Status: Acute Code(s): I10 - Essential (primary) hypertension (2) CKD (chronic kidney disease): Status: Acute Code(s): N18.9 - Chronic kidney disease, unspecified (3) Bipolar 1 disorder: Status: Acute Code(s): F31.9 - Bipolar disorder, unspecified (4) Depression: Qualifiers: Depression Type: unspecified Qualified Code(s): F32.A - Depression, unspecified Status: Acute Code(s): F32.A - Depression, unspecified Assessment and Plan: Plan HPI: Patient is a 74 y.o, , Belarusian speaking with history of bipolar I, constipation, hypertension, hyperlipidemia, PE, CKD who was presented via ambulance from short-term rehab [facility] [place] [facility] [place]. Patient not been taking medication as prescribed and has been off medication for one-month. She has been refusing to eat consuming fluids and has lost 20 lb in the past month due to her fellow to thrive. . Patient was residing in assisted living facility prior to being placed in [facility] facility. Formulation/clinical reasoning: Failure to thrive, stopped taking meds for 1 months. Poor appetite, 20 lb in a month. Decompensate. Increased depression anxiety. History of bipolar I, history of ECT. Given the above information, patient will benefit in acute care setting, restrictive environment for own safety. Once stable, patient may benefit from skilled facility or long-term care placement. Hospital course: Continue with medication for medical conditions. Continue with home medication, however due to sedation, and not been taking medication consistently prior to coming to us, I will reduce the Abilify down from 12 mg to 5 mg daily. Reduce Remeron 30 mg to 15 mg. 05/01: continue current management and treatment plan. 05/02: continue current management and treatment plan. Plan Patient on 5 minute checks for safety. Admitted to S1. 12B. Work with treatment team to do collateral. Hx of 30 ECT at [facility] in 2022. ?ECT. Contact the hospitalist regarding hospitalist consultation on admission: PT/Swallow eval consults placed by Hospitalist. Foleny Cath in place. Would care. Nursing to assist with ADL's and ambulate. Nursing to turn and reposition q2 hours. Patient is not mobile/Ambulate. Patient is on Eliquis BID. No need Lovenox per hospitalist. Plan Chronic kidney disease: Possibly secondary to atherosclerotic renovascular disease given the history of hypertension and clean UA. Please get the records from the custodial to evaluate baseline creatinine. No anemia, hemoglobin 13; urinalysis showing trace protein no cells. We will quantify proteinuria. Avoid nephrotoxic agents, contrast. Maintain adequate hydration Hypertension: Blood pressure is well controlled On metoprolol 50 mg. Nephrology will follow from [facility], please contact us if there is worsening renal function, or labs from the SNF suggesting that this is DIOMEDES. Reason for continued inpatient stay Substantial Risk for: harm to self, inability to function, rapid decompensation and med/psych decompensation Time Spent With Patient Time: Total time managing care of this patient today ____ minutes.
[2025-05-02 18:18] LABS: OBS Int Ctl Valid YES
[2025-05-02 18:22] LABS: OBS1 POSITIVE (NEGATIVE)
[2025-05-02 20:00] VITALS: BP 105/57; PULSE 74; RESP 16; TEMP 36.6; O2SAT 96
--- NOTE | 2025-05-02 21:53 | PC.NURSE ---
ky 05/02/25, Angelica was depressed and sad, cooperative with VS, she declined HS medications but took her HS eliquis after PE/stroke education. she has been refusing medications for the past coupe of days and taking her eliquis sporadically, provider and DOC notified via tiger text
[2025-05-03 08:41] VITALS: BP 122/60; PULSE 81; RESP 18; TEMP 36.6; O2SAT 95
[2025-05-03] MEDS: Aspirin Enteric Coated 81 MG TABLET.DR PO (08:44)
[2025-05-03] MEDS: Metoprolol Succinate ER 50 MG TAB.ER.24H PO (08:44)
--- NOTE | 2025-05-03 11:52 | P.PNPSI_ITS ---
Subjective Subjective Date of Service: 05/03/25 Reason For Visit: depression, med noncompliance Subjective Notes: Section 12B Medical Problems Affecting Mental Status: Yes Interim History: Medical record and nursing notes reviewed; case discussed during rounds with team/nursing staff, and met with patient for supportive therapy/psychoeducation, as well as medication management. Met with patient in assigned room, eye avoided, mostly close but engaged in converstaion. Patient expressed desire to be here for treatment saying I start taking medications AEB compliant with morning scheduled meds this morning. She signed CV. Report she has not eaten today as she has no appetite. Report that she feels that was able to sleep at night. Denies anxiety or depression. Do not want water when offered. Reviewed some abnormal lab resutls, encouraged to hydrate well. AST elevated 68. Calciuum 10.8. TSH 3.45 Creatinine 1.7. Stool accult blood + Folley Cath on. Nursing do skin assessment report some improvement compared to when she came in last week. Medication Compliance: Intermittent Side effects from medications: No Attending Groups: No Review of Systems Medical Review of Systems: unchanged Review of Systems Review of Systems Denies any shortness of breath, chest pain, headaches, dysuria, abdominal pain or discomfort, nausea, vomiting or diarrhea. Denies fever or chills. Some skin issues. Have Grajeda Cath in place Yes all other systems are reviewed and are negative Mental Status Exam Mental Status Exam Narrative: Patient is A+Ox3, tired but calm, pleasant and cooperative. Wearing hospital attire. Have Grajeda catheter in place. Malodorus. Mood is depressed and anxious. Thought process is somewhat organized but goal directed. Thought content is within normal limit, no SI/SIB/HI/AVH. Judgment and insight is poor. Need assistance with ADLs. Speech is soft-spoken, normal volume. Diagnostics Vital Signs (24Hr): Vital Signs - 24 hr 05/02/25 20:00 05/03/25 08:41 Temperature 98 F 97.9 F Pulse Rate 74 81 Respiratory Rate 16 18 Blood Pressure 105/57 L 122/60 Pulse Oximetry 96 95 Oxygen Delivery Method Room Air Room Air BMI result Body Mass Index 32.5 Labs 04/30/25 13:16 04/30/25 13:16 Labs: Laboratory Results - last 48 hr 05/02/25 05/02/25 04:00 17:53 U Random Total Protein 22 H Urine Creatinine 162.42 Urine Microalbumin 32.0 Microalb/Creat Ratio 19.7 Protein/Creatinin Ratio 0.14 Stool Occult Blood POSITIVE Medications Medications Current Medications Acetaminophen (Acetaminophen 325 Mg Tablet) 650 mg PO Q6H PRN PRN Reason: Fever Or Pain Last Admin: 04/29/25 13:56 Dose: 650 mg Al Hydroxide/Mg Hydroxide (Magnesium Hydrox/Alum Hydrox 30 Ml Oral.Susp) 30 ml PO Q6H PRN PRN Reason: Heartburn/Nausea Apixaban (Apixaban 5 Mg Tablet) 5 mg PO BID [facility] Last Admin: 05/03/25 08:45 Dose: 5 mg Aripiprazole (Aripiprazole 5 Mg Tablet) 5 mg PO DAILY [facility] Last Admin: 05/03/25 08:44 Dose: 5 mg Aspirin (Aspirin Enteric Coated 81 Mg Tablet.) 81 mg PO DAILY [facility] Last Admin: 05/03/25 08:44 Dose: 81 mg Atorvastatin Calcium (Atorvastatin Calcium 80 Mg Tablet) 80 mg PO BEDTIME [facility] Last Admin: 05/02/25 21:25 Dose: Not Given Bisacodyl (Bisacodyl 10 Mg Supp.Rect) 10 mg [place] DAILY PRN PRN Reason: Constipation Hydroxyzine HCl (Hydroxyzine Hcl 25 Mg Tablet) 25 mg PO Q6H PRN PRN Reason: mild anxiety Magnesium Hydroxide (Milk Of Magnesia 30 Ml Oral.Susp) 30 ml PO DAILY PRN PRN Reason: Constipation Metoprolol Succinate (Metoprolol Succinate Er 50 Mg Tab.Er.24h) 50 mg PO DAILY [facility]; Protocol Last Admin: 05/03/25 08:44 Dose: 50 mg Mirtazapine (Mirtazapine 15 Mg Tablet) 15 mg PO BEDTIME [facility] Last Admin: 05/02/25 21:25 Dose: Not Given Naloxone HCl (Naloxone Hcl Nasal 4 Mg Barton) 4 mg NOSTRILALT Q3M PRN PRN Reason: Opiate Reversal Nystatin (Nystatin Powder 15 Gm Bottle) 1 appl TOPICAL BID [facility]; Protocol Last Admin: 05/03/25 09:22 Dose: 1 appl Omeprazole (Omeprazole 20 Mg Capsule.) 20 mg PO DAILY@0630 [facility] Last Admin: 05/03/25 06:13 Dose: Not Given Polyethylene Glycol (Polyethylene Glycol 3350 17 Gm Powd.Pack) 17 gm PO DAILY [facility] Last Admin: 05/03/25 08:48 Dose: Not Given Senna/Docusate Sodium (Sennosides/Docusate Sodium Tablet) 2 tab PO BID [facility] Last Admin: 05/03/25 08:45 Dose: 2 tab Sodium Biphosphate/Sodium Phosphate (Sodium Phosphate,[place]-Dibasic 133 Ml Enema) 118 ml [place] DAILY PRN PRN Reason: Constipation Trazodone HCl (Trazodone Hcl 50 Mg Tablet) 50 mg PO BEDTIME MRX1 PRN PRN Reason: Insomnia Allergies Allergies Allergy/AdvReac Type Severity Reaction Status Date / Time amoxicillin Allergy Unknown Verified 04/26/25 14:52 azithromycin Allergy Unknown Verified 04/26/25 14:52 divalproex sodium (From Allergy Unknown Verified 04/26/25 14:52 Depakote) haloperidol (From Haldol) Allergy Unknown Verified 04/26/25 14:52 lamotrigine Allergy Unknown Verified 04/26/25 14:52 lithium Allergy Unknown Verified 04/26/25 14:52 lurasidone Allergy Unknown Verified 04/26/25 14:52 olanzapine (From Zyprexa) Allergy Unknown Verified 04/26/25 14:52 oxcarbazepine Allergy Unknown Verified 04/26/25 14:52 perphenazine Allergy Unknown Verified 04/26/25 14:52 prilocaine Allergy Unknown Verified 04/26/25 14:52 risperidone Allergy Unknown Verified 04/26/25 14:52 Assessment & Plan Assessment & Plan (1) HTN (hypertension): Status: Acute Code(s): I10 - Essential (primary) hypertension (2) CKD (chronic kidney disease): Status: Acute Code(s): N18.9 - Chronic kidney disease, unspecified (3) Bipolar 1 disorder: Status: Acute Code(s): F31.9 - Bipolar disorder, unspecified (4) Depression: Qualifiers: Depression Type: unspecified Qualified Code(s): F32.A - Depression, unspecified Status: Acute Code(s): F32.A - Depression, unspecified Assessment and Plan: Plan HPI: Patient is a 74 y.o, , Yakut speaking with history of bipolar I, constipation, hypertension, hyperlipidemia, PE, CKD who was presented via ambulance from short-term rehab facility at [facility] on 04/2025. Patient not been taking medication as prescribed and has been off medication for one-month. She has been refusing to eat consuming fluids and has lost 20 lb in the past month due to her fellow to thrive. . Patient was residing in assisted living facility prior to being placed in [facility] facility. Formulation/clinical reasoning: Failure to thrive, stopped taking meds for 1 months. Poor appetite, 20 lb in a month. Decompensate. Increased depression anxiety. History of bipolar I, history of ECT. Given the above information, patient will benefit in acute care setting, restrictive environment for own safety. Once stable, patient may benefit from skilled facility or long-term care placement. Hospital course: 04/30/25: Continue with medication for medical conditions. Continue with home medication, however due to sedation, and not been taking medication consistently prior to coming to us, I will reduce the Abilify down from 12 mg to 5 mg daily. Reduce Remeron 30 mg to 15 mg. 05/01: continue current management and treatment plan. 05/02: continue current management and treatment plan. 05/03/25: Met with patient in assigned room, eye avoided, mostly close but engaged in converstaion. Patient expressed desire to be here for treatment saying I start taking medications AEB compliant with morning scheduled meds this morning. She signed CV. Report she has not eaten today as she has no appetite. Report that she feels that was able to sleep at night. Denies anxiety or depression. Do not want water when offered. Reviewed some abnormal lab resutls, encouraged to hydrate well. Seem creatinine is at baseline, consistent with CKD. Will discuss with hospitalist tomorrow regarding other lab results. AST elevated 68. Calciuum 10.8. TSH 3.45 Creatinine 1.7. Stool accult blood + Folley Cath on. Nursing do skin assessment report some improvement compared to when she came in last week. SW was able to obtain record of lab work done at [facility] on 04/26: Per Record, Calcium 10.3. BUN 21 Creatinine 1.70 an eGFR 32. Plan Patient on 5 minute checks for safety. Admitted to S1. 12B. Work with treatment team to do collateral. Hx of 30 ECT at [facility] in 2022. ?ECT. Contact the hospitalist regarding hospitalist consultation on admission: PT/Swallow eval consults placed by Hospitalist. Foleny Cath in place. Would care. Nursing to assist with ADL's and ambulate. Nursing to turn and reposition q2 hours. Patient is not mobile/Ambulate. Patient is on Eliquis BID. No need Lovenox per hospitalist. Plan Chronic kidney disease: Possibly secondary to atherosclerotic renovascular disease given the history of hypertension and clean UA. [facility] to evaluate baseline creatinine. No anemia, hemoglobin 13; urinalysis showing trace protein no cells. We will quantify proteinuria. Avoid nephrotoxic agents, contrast. Maintain adequate hydration Hypertension: Blood pressure is well controlled On metoprolol 50 mg. Nephrology will follow from periphery, please contact us if there is worsening renal function, or labs from the SNF suggesting that this is DIOMEDES. 05/03: JAIME was able to obtain record of lab work done at [facility] on 04/26: Per Record, Calcium 10.3. BUN 21 Creatinine 1.70 an eGFR 32. Patient educated on: diagnosis, medication risk/benefits and therapeutic strategies Informed Consent: further education needed Reason for continued inpatient stay Substantial Risk for: inability to function and med/psych decompensation Time Spent With Patient Time: Total time managing care of this patient today ____ minutes.
[2025-05-03 20:25] VITALS: BP 112/56; PULSE 59; RESP 16; TEMP 36.3; O2SAT 95
[2025-05-04 08:00] VITALS: BP 126/59; PULSE 72; RESP 15; TEMP 36.8; O2SAT 94
[2025-05-04] MEDS: Aspirin Enteric Coated 81 MG TABLET.DR PO (08:42)
[2025-05-04] MEDS: Metoprolol Succinate ER 50 MG TAB.ER.24H PO (08:42)
[2025-05-04 10:30] LABS: Hematocrit 36.8 % (37.0-47.0); Hemoglobin 11.5 g/dl (12.0-16.0); Imm Gran Abs Auto 0.03 X10*3/uL (0.00-0.03); Imm Gran Pct Auto 0.3 % (0.0-0.4); Lymphocytes Absolute Auto 1.3 X10*3/uL (1.2-4.9); MANUAL DIFF FLAG SCAN; Mean Corpuscular HGB Conc 31.3 g/dl (31.0-35.0); Mean Corpuscular Hemoglobin 26.9 pg (27.0-33.0); Mean Corpuscular Volume 86.0 fL (80.0-98.0); NRBC Abs Auto 0.000 X10*3/uL (0.0-0.012); NRBC Pct Auto 0.0 /100WBC (0.0-0.2); PLT CLUMP 1; Red Blood Count 4.28 X10*6/uL (4.20-5.50); SCAN SMEAR FLAG 1
[2025-05-04 10:46] LABS: White Blood Count 9.3 X10*3/uL (4.8-10.8)
[2025-05-04 10:47] LABS: Anion Gap 13 (12-20); Blood Urea Nitrogen 23 mg/dL (9-16); Calcium 9.9 mg/dL (8.4-10.2); Carbon Dioxide 26 mmol/L (22-29); Chloride 104 mmol/L (96-108); Creatinine Clr Calc Pharmacy 34.2; Estimated Glomerular Filt Rate 35; Potassium 4.2 mmol/L (3.3-5.1); Sodium 139 mmol/L (135-145)
--- NOTE | 2025-05-04 11:10 | HO.PSYCHPN ---
Subjective Subjective Date of Service: 05/04/25 Reason For Visit: depression, med noncompliance Subjective Notes: Smiley Warning and Conditional Voluntary Healthcare Proxy: Yes Medical Problems Affecting Mental Status: No Interim History: Medical record and nursing notes reviewed; case discussed during rounds with team/nursing staff, and met with patient for supportive therapy/psychoeducation, as well as medication management. Patient brought out to dinning area and stayed in common area for a period of time. Appear clean. Denies anxiety or depression, denies SI/SIB/HI/AVH. However, patient is depressed. Poor appetite, report she is able to eat a little bit, observed hydrate with water. Reviewed lab results regarding kidney functions with patient. Denies kidney disease hx. Patient is better in term of compliant with meds, refused laxative but took others meds, slept for 7 hours. Nursing continue to provide bedside care, assessment skin for any worsening skin conditions. Medication Compliance: Yes Side effects from medications: No Attending Groups: No Review of Systems Acute medical concerns: No Medical Review of Systems: unchanged Review of Systems Review of Systems Denies any shortness of breath, chest pain, headaches, dysuria, abdominal pain or discomfort, nausea, vomiting or diarrhea. Denies fever or chills. Some skin issues. Have Grajeda Cath in place Yes all other systems are reviewed and are negative Mental Status Exam Mental Status Exam Narrative: Patient is A+Ox3, calm, pleasant and cooperative. Wearing hospital attire. Have Grajeda catheter in place. No ADL's issues. Mood is depressed, quiet, keep to self . Thought process is somewhat organized and goal directed. Thought content is within normal limit, no SI/SIB/HI/AVH. Judgment and insight improve. Need assistance with ADLs. Speech is soft-spoken, normal rate Diagnostics Vital Signs (24Hr): Vital Signs - 24 hr 05/03/25 20:25 05/04/25 08:00 Temperature 97.3 F 98.2 F Pulse Rate 59 72 Respiratory Rate 16 15 Blood Pressure 112/56 L 126/59 L Pulse Oximetry 95 94 Oxygen Delivery Method Room Air Room Air BMI result Body Mass Index 32.5 Labs 05/04/25 10:22 05/04/25 10:22 Labs: Laboratory Results - last 48 hr 05/02/25 05/04/25 17:53 10:22 WBC 9.3 RBC 4.28 Hgb 11.5 L Hct 36.8 L MCV 86.0 MCH 26.9 L MCHC 31.3 RDW 15.2 Plt Count TNP MPV Not Reportable Immature Gran % (Auto) 0.3 Neut % (Auto) 72.0 Lymph % (Auto) 13.9 L Bracken % (Auto) 8.3 Eos % (Auto) 4.4 H Baso % (Auto) 1.1 Lymph # (Auto) 1.3 Bracken # (Auto) 0.8 Eos # (Auto) 0.4 Baso # (Auto) 0.1 Abs Immat Gran (auto) 0.03 Absolute Neuts (auto) 6.7 Absolute Nucleated RBC 0.000 Nucleated RBC % (auto) 0.0 Smear Tech's Comments VERIFIED Sodium 139 Potassium 4.2 Chloride 104 Carbon Dioxide 26 Anion Gap 13 BUN 23 H Creatinine 1.46 H Estim Creat Clear Calc 34.2 Estimated GFR 35 Random Glucose 102 Calcium 9.9 D Stool Occult Blood POSITIVE Medications Medications Current Medications Acetaminophen (Acetaminophen 325 Mg Tablet) 650 mg PO Q6H PRN PRN Reason: Fever Or Pain Last Admin: 04/29/25 13:56 Dose: 650 mg Al Hydroxide/Mg Hydroxide (Magnesium Hydrox/Alum Hydrox 30 Ml Oral.Susp) 30 ml PO Q6H PRN PRN Reason: Heartburn/Nausea Apixaban (Apixaban 5 Mg Tablet) 5 mg PO BID [facility] Last Admin: 05/04/25 08:42 Dose: 5 mg Aripiprazole (Aripiprazole 5 Mg Tablet) 5 mg PO DAILY [facility] Last Admin: 05/04/25 08:43 Dose: 5 mg Aspirin (Aspirin Enteric Coated 81 Mg Tablet.Dr) 81 mg PO DAILY [facility] Last Admin: 05/04/25 08:42 Dose: 81 mg Atorvastatin Calcium (Atorvastatin Calcium 80 Mg Tablet) 80 mg PO BEDTIME [facility] Last Admin: 05/03/25 20:28 Dose: 80 mg Bisacodyl (Bisacodyl 10 Mg Supp.Rect) 10 mg [place] DAILY PRN PRN Reason: Constipation Hydroxyzine HCl (Hydroxyzine Hcl 25 Mg Tablet) 25 mg PO Q6H PRN PRN Reason: mild anxiety Magnesium Hydroxide (Milk Of Magnesia 30 Ml Oral.Susp) 30 ml PO DAILY PRN PRN Reason: Constipation Metoprolol Succinate (Metoprolol Succinate Er 50 Mg Tab.Er.24h) 50 mg PO DAILY [facility]; Protocol Last Admin: 05/04/25 08:42 Dose: 50 mg Mirtazapine (Mirtazapine 15 Mg Tablet) 15 mg PO BEDTIME [facility] Last Admin: 05/03/25 20:28 Dose: 15 mg Naloxone HCl (Naloxone Hcl Nasal 4 Mg Likely) 4 mg NOSTRILALT Q3M PRN PRN Reason: Opiate Reversal Nystatin (Nystatin Powder 15 Gm Bottle) 1 appl TOPICAL BID [facility]; Protocol Last Admin: 05/04/25 08:43 Dose: 1 appl Omeprazole (Omeprazole 20 Mg Capsule.Dr) 20 mg PO DAILY@0630 [facility] Last Admin: 05/04/25 05:32 Dose: 20 mg Polyethylene Glycol (Polyethylene Glycol 3350 17 Gm Powd.Pack) 17 gm PO DAILY [facility] Last Admin: 05/04/25 09:38 Dose: Not Given Senna/Docusate Sodium (Sennosides/Docusate Sodium Tablet) 2 tab PO BID [facility] Last Admin: 05/04/25 08:43 Dose: 2 tab Sodium Biphosphate/Sodium Phosphate (Sodium Phosphate,[place]-Dibasic 133 Ml Enema) 118 ml [place] DAILY PRN PRN Reason: Constipation Trazodone HCl (Trazodone Hcl 50 Mg Tablet) 50 mg PO BEDTIME MRX1 PRN PRN Reason: Insomnia Allergies Allergies Allergy/AdvReac Type Severity Reaction Status Date / Time amoxicillin Allergy Unknown Verified 04/26/25 14:52 azithromycin Allergy Unknown Verified 04/26/25 14:52 divalproex sodium (From Allergy Unknown Verified 04/26/25 14:52 Depakote) haloperidol (From Haldol) Allergy Unknown Verified 04/26/25 14:52 lamotrigine Allergy Unknown Verified 04/26/25 14:52 lithium Allergy Unknown Verified 04/26/25 14:52 lurasidone Allergy Unknown Verified 04/26/25 14:52 olanzapine (From Zyprexa) Allergy Unknown Verified 04/26/25 14:52 oxcarbazepine Allergy Unknown Verified 04/26/25 14:52 perphenazine Allergy Unknown Verified 04/26/25 14:52 prilocaine Allergy Unknown Verified 04/26/25 14:52 risperidone Allergy Unknown Verified 04/26/25 14:52 Assessment & Plan Assessment & Plan (1) HTN (hypertension): Status: Acute Code(s): I10 - Essential (primary) hypertension (2) CKD (chronic kidney disease): Status: Acute Code(s): N18.9 - Chronic kidney disease, unspecified (3) Bipolar 1 disorder: Status: Acute Code(s): F31.9 - Bipolar disorder, unspecified (4) Depression: Qualifiers: Depression Type: unspecified Qualified Code(s): F32.A - Depression, unspecified Status: Acute Code(s): F32.A - Depression, unspecified Assessment and Plan: Plan HPI: Patient is a 74 y.o, , Turkish speaking with history of bipolar I, constipation, hypertension, hyperlipidemia, PE, CKD who was presented via ambulance from short-term rehab facility at [facility] on 04/2025. Patient not been taking medication as prescribed and has been off medication for one-month. She has been refusing to eat consuming fluids and has lost 20 lb in the past month due to her fellow to thrive. . Patient was residing in assisted living facility prior to being placed in [facility] facility. Formulation/clinical reasoning: Failure to thrive, stopped taking meds for 1 months. Poor appetite, 20 lb in a month. Decompensate. Increased depression anxiety. History of bipolar I, history of ECT. Given the above information, patient will benefit in acute care setting, restrictive environment for own safety. Once stable, patient may benefit from skilled facility or long-term care placement. Hospital course: 04/30/25: Continue with medication for medical conditions. Continue with home medication, however due to sedation, and not been taking medication consistently prior to coming to us, I will reduce the Abilify down from 12 mg to 5 mg daily. Reduce Remeron 30 mg to 15 mg. 05/01: continue current management and treatment plan. 05/02: continue current management and treatment plan. 05/03/25: Met with patient in assigned room, eye avoided, mostly close but engaged in converstaion. Patient expressed desire to be here for treatment saying I start taking medications AEB compliant with morning scheduled meds this morning. She signed CV. Report she has not eaten today as she has no appetite. Report that she feels that was able to sleep at night. Denies anxiety or depression. Do not want water when offered. Reviewed some abnormal lab resutls, encouraged to hydrate well. Seem creatinine is at baseline, consistent with CKD. Will discuss with hospitalist tomorrow regarding other lab results. AST elevated 68. Calciuum 10.8. TSH 3.45 Creatinine 1.7. Stool accult blood + Folley Cath on. Nursing do skin assessment report some improvement compared to when she came in last week. SW was able to obtain record of lab work done at [facility] on 04/26: Per Record, Calcium 10.3. BUN 21 Creatinine 1.70 an eGFR 32. 05/04/25: Patient brought out to dinning area and stayed in common area for a period of time. Appear clean. Denies anxiety or depression, denies SI/SIB/HI/AVH. However, patient is depressed. Poor appetite, report she is able to eat a little bit, observed hydrate with water. Reviewed lab results regarding kidney functions with patient. Denies kidney disease hx. Patient is better in term of compliant with meds, refused laxative but took others meds, slept for 7 hours. Nursing continue to provide bedside care, assessment skin for any worsening skin conditions. Creatinine improved 1.46. BUN 23. Plan Patient on 5 minute checks for safety. Admitted to S1. 12B. Work with treatment team to do collateral. Hx of 30 ECT at [facility] in 2022. ?ECT. Contact the hospitalist regarding hospitalist consultation on admission: PT/Swallow eval consults placed by Hospitalist. Grajeda Cath in place. Would care. Nursing to assist with ADL's and ambulate. Nursing to turn and reposition q2 hours. Patient is not mobile/Ambulate. Patient is on Eliquis BID. No need Lovenox per hospitalist. Plan Chronic kidney disease: Possibly secondary to atherosclerotic renovascular disease given the history of hypertension and clean UA. Please get the records from the half-way to evaluate baseline creatinine. No anemia, hemoglobin 13; urinalysis showing trace protein no cells. We will quantify proteinuria. Avoid nephrotoxic agents, contrast. Maintain adequate hydration Hypertension: Blood pressure is well controlled On metoprolol 50 mg. Nephrology will follow from periphery, please contact us if there is worsening renal function, or labs from the SNF suggesting that this is DIOMEDES. 05/03: JAIME was able to obtain record of lab work done at [facility] on 04/26: Per Record, Calcium 10.3. BUN 21 Creatinine 1.70 an eGFR 32. Patient educated on: diagnosis, medication risk/benefits and therapeutic strategies Informed Consent: understands and further education needed Reason for continued inpatient stay Substantial Risk for: inability to function and med/psych decompensation Time Spent With Patient Time: Total time managing care of this patient today ____ minutes.
--- NOTE | 2025-05-04 11:30 | HO.WOUNDCONS ---
History of Present Illness Data of Consult Primary Care Provider: Jose Sethi MD Review of Systems Review of Systems: Denies any shortness of breath, chest pain, headaches, dysuria, abdominal pain or discomfort, nausea, vomiting or diarrhea. Denies fever or chills. Some skin issues. Have Grajeda Cath in place Yes all other systems are reviewed and are negative [facility] Medical History Hyperlipidemia CKD (chronic kidney disease) Pulmonary embolus HTN (hypertension) Depression Bipolar 1 disorder Functional capacity: wheelchair bound Social History (Updated 04/30/25 @ 11:20 by Elsa Spear DNP) Household Members: None Housing: Half-Way Do you presently have visiting nurse or other home services: No Comment: 5 minutes Patient Tobacco Use Status: Never used Tobacco Smoked in Last 30 Days: No Use of substances other than those prescribed or required for medical reasons: No Currently Displaying Signs/Symptoms of Drug Intoxication Withdrawal: No Have you been hit, kicked, punched, or otherwise hurt by someone within the past year? If so, by whom?: No Do you feel safe in your current relationship?: No Current Relationship Is there a partner from a previous relationship who is making you feel unsafe now?: No Are you made to feel afraid or neglected: No Advance Directives: Yes Advance Directives on File: Yes Advance Directives Date on File: 04/26/25 Do you have thoughts of harming others: None Do you have a plan to hurt others: No Plan Recently lost weight without trying: Unsure How much weight loss: Unsure Eating poorly because of decreased appetite: Yes Nutrition screen score: 5 Nutrition Risks: Poor intake 0-25% >4 days Patient : No : No Poor oral hygiene: Yes service: No Sexual orientation: Straight/Heterosexual Meds Allergies Allergy/AdvReac Type Severity Reaction Status Date / Time amoxicillin Allergy Unknown Verified 04/26/25 14:52 azithromycin Allergy Unknown Verified 04/26/25 14:52 divalproex sodium (From Allergy Unknown Verified 04/26/25 14:52 Depakote) haloperidol (From Haldol) Allergy Unknown Verified 04/26/25 14:52 lamotrigine Allergy Unknown Verified 04/26/25 14:52 lithium Allergy Unknown Verified 04/26/25 14:52 lurasidone Allergy Unknown Verified 04/26/25 14:52 olanzapine (From Zyprexa) Allergy Unknown Verified 04/26/25 14:52 oxcarbazepine Allergy Unknown Verified 04/26/25 14:52 perphenazine Allergy Unknown Verified 04/26/25 14:52 prilocaine Allergy Unknown Verified 04/26/25 14:52 risperidone Allergy Unknown Verified 04/26/25 14:52 Active Medications: Current Medications Acetaminophen (Acetaminophen 325 Mg Tablet) 650 mg PO Q6H PRN PRN Reason: Fever Or Pain Last Admin: 04/29/25 13:56 Dose: 650 mg Al Hydroxide/Mg Hydroxide (Magnesium Hydrox/Alum Hydrox 30 Ml Oral.Susp) 30 ml PO Q6H PRN PRN Reason: Heartburn/Nausea Apixaban (Apixaban 5 Mg Tablet) 5 mg PO BID [facility] Last Admin: 05/04/25 08:42 Dose: 5 mg Aripiprazole (Aripiprazole 5 Mg Tablet) 5 mg PO DAILY [facility] Last Admin: 05/04/25 08:43 Dose: 5 mg Aspirin (Aspirin Enteric Coated 81 Mg Tablet.) 81 mg PO DAILY [facility] Last Admin: 05/04/25 08:42 Dose: 81 mg Atorvastatin Calcium (Atorvastatin Calcium 80 Mg Tablet) 80 mg PO BEDTIME [facility] Last Admin: 05/03/25 20:28 Dose: 80 mg Bisacodyl (Bisacodyl 10 Mg Supp.Rect) 10 mg [place] DAILY PRN PRN Reason: Constipation Hydroxyzine HCl (Hydroxyzine Hcl 25 Mg Tablet) 25 mg PO Q6H PRN PRN Reason: mild anxiety Magnesium Hydroxide (Milk Of Magnesia 30 Ml Oral.Susp) 30 ml PO DAILY PRN PRN Reason: Constipation Metoprolol Succinate (Metoprolol Succinate Er 50 Mg Tab.Er.24h) 50 mg PO DAILY [facility]; Protocol Last Admin: 05/04/25 08:42 Dose: 50 mg Mirtazapine (Mirtazapine 15 Mg Tablet) 15 mg PO BEDTIME [facility] Last Admin: 05/03/25 20:28 Dose: 15 mg Naloxone HCl (Naloxone Hcl Nasal 4 Mg [place]) 4 mg NOSTRILALT Q3M PRN PRN Reason: Opiate Reversal Nystatin (Nystatin Powder 15 Gm Bottle) 1 appl TOPICAL BID [facility]; Protocol Last Admin: 05/04/25 08:43 Dose: 1 appl Omeprazole (Omeprazole 20 Mg Capsule.) 20 mg PO DAILY@0630 [facility] Last Admin: 05/04/25 05:32 Dose: 20 mg Polyethylene Glycol (Polyethylene Glycol 3350 17 Gm Powd.Pack) 17 gm PO DAILY [facility] Last Admin: 05/04/25 09:38 Dose: Not Given Senna/Docusate Sodium (Sennosides/Docusate Sodium Tablet) 2 tab PO BID [facility] Last Admin: 05/04/25 08:43 Dose: 2 tab Sodium Biphosphate/Sodium Phosphate (Sodium Phosphate,[place]-Dibasic 133 Ml Enema) 118 ml [place] DAILY PRN PRN Reason: Constipation Trazodone HCl (Trazodone Hcl 50 Mg Tablet) 50 mg PO BEDTIME MRX1 PRN PRN Reason: Insomnia Home Medications ?Medication ?Instructions ?Recorded ?Confirmed ?Last Taken ?Type acetaminophen 325 mg tablet 650 mg PO Q6H PRN Fever Or Pain 04/27/25 04/27/25 Unknown History apixaban 5 mg tablet (Eliquis) 5 mg PO BID 04/27/25 04/27/25 04/25/25 History aripiprazole 10 mg tablet 10 mg PO DAILY 04/27/25 04/27/25 04/25/25 History aripiprazole 2 mg tablet 2 mg PO DAILY 04/27/25 04/27/25 04/25/25 History aspirin 81 mg tablet,delayed 81 mg PO DAILY 04/27/25 04/27/25 04/25/25 History release bisacodyl 10 mg rectal suppository 10 mg [place] DAILY PRN Constipation 04/27/25 04/27/25 Unknown History magnesium hydroxide 400 mg/5 mL 30 ml PO DAILY PRN Constipation 04/27/25 04/27/25 Unknown History oral suspension (Milk of Magnesia) metoprolol succinate 25 mg 50 mg PO DAILY 04/27/25 04/27/25 04/25/25 History tablet,extended release 24 hr mirtazapine 30 mg tablet 30 mg PO BEDTIME 04/27/25 04/27/25 04/25/25 History naloxone 4 mg/actuation nasal 4 mg intranasal Q3M PRN Opiate 04/27/25 04/27/25 Unknown History spray (Narcan) Reversal pantoprazole 40 mg tablet,delayed 40 mg PO DAILY@0630 04/27/25 04/27/25 04/25/25 History release polyethylene glycol 3350 17 17 g PO DAILY 04/27/25 04/27/25 04/25/25 History gram/dose oral powder (Miralax) rosuvastatin 20 mg tablet 20 mg PO BEDTIME 04/27/25 04/27/25 04/25/25 History sennosides 8.6 mg-docusate sodium 2 tab PO BID 04/27/25 04/27/25 04/25/25 History 50 mg tablet (Senna Plus) sodium phosphates 19 gram-7 118 ml [place] DAILY PRN Constipation 04/27/25 04/27/25 Unknown History gram/118 mL enema (Fleet Enema) Physical Exam Vital Signs and Narrative: Vital Signs: Last Vital Signs Temp 98.2 F 05/04/25 08:00 Pulse 72 05/04/25 08:00 Resp 15 05/04/25 08:00 BP 126/59 L 05/04/25 08:00 Pulse Ox 94 05/04/25 08:00 O2 Del Method Room Air 05/04/25 08:00 BMI result Body Mass Index 32.5 Alert when awakened. Appears sedate. Neuro: CN II-X11 intact, moves all extremities ENT: Hearing intact, MMM Cardiac: S1 S2 RRR, No ectopy Pulmonary: Lungs clear to auscultation, No increased WOB. Abdominal: BS active in all 4 quadrants, no guarding or tenderness MSK: Strength 5/5 upper and lower extremities : Deferred Extremities: No edema in lower extremities, PT and DP pulses palpable +2 Psych: Mood stable, Quiet and cooperative. Skin: Warm and dry. Fungal rash to under bilateral breasts. Open area to coccyx, unstageable areas of bilateral buttocks Results Labs 05/04/25 10:22 05/04/25 10:22 Labs: Laboratory Results - last 24 hr 05/04/25 10:22 MCV 86.0 MCH 26.9 L MCHC 31.3 RDW 15.2 Plt Count TNP MPV Not Reportable Immature Gran % (Auto) 0.3 Neut % (Auto) 72.0 Lymph % (Auto) 13.9 L [place] % (Auto) 8.3 Eos % (Auto) 4.4 H Baso % (Auto) 1.1 Lymph # (Auto) 1.3 [place] # (Auto) 0.8 Eos # (Auto) 0.4 Baso # (Auto) 0.1 Abs Immat Gran (auto) 0.03 Absolute Neuts (auto) 6.7 Absolute Nucleated RBC 0.000 Nucleated RBC % (auto) 0.0 Smear Tech's Comments VERIFIED Anion Gap 13 Estim Creat Clear Calc 34.2 Estimated GFR 35 Random Glucose 102 Calcium 9.9 D Assessment and Plan (1) HTN (hypertension): Status: Acute (2) CKD (chronic kidney disease): Status: Acute (3) Bipolar 1 disorder: Status: Acute (4) Depression: Qualifiers: Depression Type: unspecified Qualified Code(s): F32.A - Depression, unspecified Status: Acute Plan Unfortunately, there are currently no inpatient wound care consultations from the [facility]. Please arrange for outpatient evaluation of patient upon discharge if still needed. [phone]. Consult requests can also be faxed to [phone]. Thank you.
[2025-05-04 20:16] VITALS: BP 94/55; PULSE 65; RESP 16; TEMP 36.2; O2SAT 94
--- NOTE | 2025-05-05 06:09 | PC.NURSE ---
After emptying the Grajeda Catheter of output 525 ml of clear urine, it was observed residual bloody urine in the tubing, hospitalist notified/ordered UA, urologist consult, Aspirin and Eliquis on hold, patient denied any pain or any accidental pull, slept through the night, no distress observed/reported, 5 minutes for safety check, no behavior and safety concerns, repositioned as ordered, will continue to monitor
[2025-05-05 07:38] LABS: MANUAL DIFF FLAG NO
[2025-05-05 07:42] LABS: Hematocrit 36.6 % (37.0-47.0); Hemoglobin 11.6 g/dl (12.0-16.0); Imm Gran Abs Auto 0.03 X10*3/uL (0.00-0.03); Imm Gran Pct Auto 0.3 % (0.0-0.4); Lymphocytes Absolute Auto 1.6 X10*3/uL (1.2-4.9); Mean Corpuscular HGB Conc 31.7 g/dl (31.0-35.0); Mean Corpuscular Hemoglobin 27.0 pg (27.0-33.0); Mean Corpuscular Volume 85.1 fL (80.0-98.0); NRBC Abs Auto 0.000 X10*3/uL (0.0-0.012); NRBC Pct Auto 0.0 /100WBC (0.0-0.2); Platelet Count 301 X10*3/uL (160-400); Red Blood Count 4.30 X10*6/uL (4.20-5.50); White Blood Count 9.5 X10*3/uL (4.8-10.8)
[2025-05-05 07:50] LABS: INTERNATIONAL NORM RATIO 1.5 (0.9-1.1); Prothrombin Time 17.7 SEC (10.9-12.4)
[2025-05-05 08:00] VITALS: BP 121/60; PULSE 72; RESP 16; TEMP 36.1; O2SAT 94
[2025-05-05 08:02] LABS: Alanine Aminotransferase 11 U/L (0-31); Albumin Level 3.3 g/dL (3.5-5.0); Alkaline Phosphatase 65 U/L (39-117); Anion Gap 14 (12-20); Aspartate Amino Transferase 28 U/L (5-31); Blood Urea Nitrogen 21 mg/dL (9-16); Calcium 9.7 mg/dL (8.4-10.2); Carbon Dioxide 25 mmol/L (22-29); Chloride 103 mmol/L (96-108); Creatinine Clr Calc Pharmacy 36.5; Estimated Glomerular Filt Rate 38; Potassium 3.7 mmol/L (3.3-5.1); Sodium 138 mmol/L (135-145); Total Protein 6.3 g/dL (6.5-8.0)
--- NOTE | 2025-05-05 08:25 | HO.PM.IMPN ---
Subjective Subjective Date of Service: 05/05/25 Interval History: Patient seen for hematuria. Last evening it was noted by nursing that bloody urine was in tubing. A UA was ordered, material assistant consulted. Aspirin and Eliquis placed on hold. Patient denies any pain, no suprapubic pain or tenderness. Clear yellow urine noted in tubing with some residual dark blood. Her apixaban and aspirin were placed on hold. Her UA with large blood, large leukocyte esterase 4+ bacteria. We will treat empirically until cultures final. On exam she denies any complaints. No leukocytosis, renal function stable, mild stable anemia. Review of Systems Denies shortness of breath, chest pain, abdominal pain, suprapubic tenderness, chills. Physical Exam Vital Signs: Vital Signs: Last Vital Signs Temp 97.2 F 05/04/25 20:16 Pulse 65 05/04/25 20:16 Resp 16 05/04/25 20:16 BP 94/55 L 05/04/25 20:16 Pulse Ox 94 05/04/25 20:16 O2 Del Method Room Air 05/04/25 20:16 BMI result Body Mass Index 32.5 Alert and oriented X3, clam and cooperative. Answers questions. Flat affect Neuro: CN II-X11 intact, no deficits, visual acuity intact Cardiac: S1 S2 RRR, No ectopy Pulmonary: lungs clear to auscultation, No increased WOB. Abdominal: BS active in all 4 quadrants, no guarding or tenderness MSK: Strength 5/5 upper and lower extremities : No SP tenderness. Trace blood noted in catheter tubing. Extremities: No edema in lower extremities Psych: Mood stable, Quiet and cooperative. Skin: Warm and dry, wound care per nursing, not visualized Objective Data Active Medications Acetaminophen (Acetaminophen 325 Mg Tablet) 650 mg PO Q6H PRN PRN Reason: Fever Or Pain Last Admin: 04/29/25 13:56 Dose: 650 mg Documented By: BE Al Hydroxide/Mg Hydroxide (Magnesium Hydrox/Alum Hydrox 30 Ml Oral.Susp) 30 ml PO Q6H PRN PRN Reason: Heartburn/Nausea Apixaban (Apixaban 5 Mg Tablet) 5 mg PO BID [facility] On Hold: 05/05/25 06:00 Last Admin: 05/04/25 20:23 Dose: 5 mg Documented By: JOHN Aripiprazole (Aripiprazole 5 Mg Tablet) 5 mg PO DAILY [facility] Last Admin: 05/04/25 08:43 Dose: 5 mg Documented By: SAIGE Aspirin (Aspirin Enteric Coated 81 Mg Tablet.) 81 mg PO DAILY [facility] On Hold: 05/05/25 06:00 Last Admin: 05/04/25 08:42 Dose: 81 mg Documented By: SAIGE Atorvastatin Calcium (Atorvastatin Calcium 80 Mg Tablet) 80 mg PO BEDTIME [facility] Last Admin: 05/04/25 20:23 Dose: 80 mg Documented By: JOHN Bisacodyl (Bisacodyl 10 Mg Supp.Rect) 10 mg [place] DAILY PRN PRN Reason: Constipation Hydroxyzine HCl (Hydroxyzine Hcl 25 Mg Tablet) 25 mg PO Q6H PRN PRN Reason: mild anxiety Magnesium Hydroxide (Milk Of Magnesia 30 Ml Oral.Susp) 30 ml PO DAILY PRN PRN Reason: Constipation Metoprolol Succinate (Metoprolol Succinate Er 50 Mg Tab.Er.24h) 50 mg PO DAILY [facility]; Protocol Last Admin: 05/04/25 08:42 Dose: 50 mg Documented By: SAIGE Mirtazapine (Mirtazapine 15 Mg Tablet) 15 mg PO BEDTIME [facility] Last Admin: 05/04/25 20:23 Dose: 15 mg Documented By: JOHN Naloxone HCl (Naloxone Hcl Nasal 4 Mg [place]) 4 mg NOSTRILALT Q3M PRN PRN Reason: Opiate Reversal Nystatin (Nystatin Powder 15 Gm Bottle) 1 appl TOPICAL BID [facility]; Protocol Last Admin: 05/04/25 20:23 Dose: 1 appl Documented By: JOHN Omeprazole (Omeprazole 20 Mg Capsule.) 20 mg PO DAILY@0630 [facility] Last Admin: 05/05/25 05:30 Dose: 20 mg Documented By: JOHN Polyethylene Glycol (Polyethylene Glycol 3350 17 Gm Powd.Pack) 17 gm PO DAILY [facility] Last Admin: 05/04/25 09:38 Dose: Not Given Documented By: SAIGE Non-Admin Reason: Patient Refused Senna/Docusate Sodium (Sennosides/Docusate Sodium Tablet) 2 tab PO BID [facility] Last Admin: 05/04/25 20:23 Dose: 2 tab Documented By: HO.TSERIND Sodium Biphosphate/Sodium Phosphate (Sodium Phosphate,[place]-Dibasic 133 Ml Enema) 118 ml [place] DAILY PRN PRN Reason: Constipation Trazodone HCl (Trazodone Hcl 50 Mg Tablet) 50 mg PO BEDTIME MRX1 PRN PRN Reason: Insomnia Labs 05/05/25 07:15 05/05/25 07:15 Labs: Laboratory Results - last 24 hr 05/04/25 05/05/25 10:22 07:15 MCV 86.0 85.1 MCH 26.9 L 27.0 MCHC 31.3 31.7 RDW 15.2 15.2 Plt Count TNP 301 MPV Not Reportable 9.8 Immature Gran % (Auto) 0.3 0.3 Neut % (Auto) 72.0 70.1 Lymph % (Auto) 13.9 L 16.7 L [place] % (Auto) 8.3 7.3 Eos % (Auto) 4.4 H 4.8 H Baso % (Auto) 1.1 0.8 Lymph # (Auto) 1.3 1.6 [place] # (Auto) 0.8 0.7 Eos # (Auto) 0.4 0.5 H Baso # (Auto) 0.1 0.1 Abs Immat Gran (auto) 0.03 0.03 Absolute Neuts (auto) 6.7 6.6 Absolute Nucleated RBC 0.000 0.000 Nucleated RBC % (auto) 0.0 0.0 Smear Tech's Comments VERIFIED PT 17.7 H INR 1.5 H Anion Gap 13 14 Estim Creat Clear Calc 34.2 36.5 Estimated GFR 35 38 Random Glucose 102 93 Calcium 9.9 D 9.7 Total Bilirubin 0.4 AST 28 ALT 11 Alkaline Phosphatase 65 Total Protein 6.3 L Albumin 3.3 L Assessment and Plan (1) UTI (urinary tract infection): Status: Acute Plan 74-year-old female with past medical history as listed below admitted to [facility] after presenting to the ED with MDD, failure to thrive and med noncompliance. Bipolar disorder with psychotic features/major depressive disorder/failure to thrive/medication noncompliance. Treatment per psychiatric team Hematuria Likely related to UTI or trauma, patient totally dependent on staff for care, heavy and helpless requires max assist to turn and reposition Start Ceftin 250 mg b.i.d. for 7 days, await cultures Catheter recently changed 1 week ago. Use cath secure History of DVT and PE Eliquis held due to hematuria Appears related to UTI, we will resume. Continue to monitor Hypertension/hyperlipidemia/cardiomyopathy Continue on metoprolol, aspirin, atorvastatin Chronic kidney disease stage 3 Creatinine stable 1.3 Encourage p.o. fluids, continue to monitor Avoid nephrotoxins Hypothyroidism Per historical record Not on medications TSH 3.45 Constipation Treated with MiraLax and senna S scheduled. Anemia of chronic kidney disease Stable, follow labs Failure to thrive Swallowing within functional limits Physical therapy evaluation-minimal activity participation, Williams for out of bed to chair Impaired skin integrity Coccyx and bilateral buttocks Left posterior thigh Bilateral heels Right medial foot and metatarsal head Wound nurse consult as needed Local wound care Turn and reposition, offload areas. Thank you for allowing me to participate in the care of this patient. Will follow with you, please notify medical provider with any changes in condition or concerns. Quality Stroke Does the patient have a stroke diagnosis?: No VTE Prior VTE?: Yes VTE Risk Level:: Medical - moderate - high VTE Device Contraindication: Treatment Not Indicated VTE Drug Contraindication: N/A - Med Ordered
[2025-05-05 08:50] VITALS: BP 121/60; PULSE 67
[2025-05-05] MEDS: Metoprolol Succinate ER 50 MG TAB.ER.24H PO (08:50)
--- NOTE | 2025-05-05 09:48 | P.PNPSI_ITS ---
Subjective Subjective Date of Service: 05/05/25 Reason For Visit: depression, med noncompliance Subjective Notes: Conditional Voluntary Healthcare Proxy: Yes Medical Problems Affecting Mental Status: No Interim History: Medical record and nursing notes reviewed; case discussed during rounds with team/nursing staff, and met with patient for supportive therapy/psychoeducation, as well as medication management. Meet with patient at dinning table, patient appears clean, staff assisted with care- total care, chair or bed bound. Report slight better with appetite, continue to encourage more fluid and food intake. Patient does not want ECT (hx of 30 ECT included maintenance ones). Do not remember medication hx. Per record from [facility], she was diagnosed with bipolar with psychotic features. Denies SI/SIB/HI/AVH. Contiue present with depressive mood. Patient is not interesting in antidepressants but agrees to have Abilify increase. Abilify increased from 5 to 10mg daily for mood. Remeron up to 30mg from 15mg as home meds daily at HS for insomnia/sleep Medication Compliance: Yes Side effects from medications: No Attending Groups: No Review of Systems Acute medical concerns: No Medical Review of Systems: unchanged Review of Systems Review of Systems Denies any shortness of breath, chest pain, headaches, dysuria, abdominal pain or discomfort, nausea, vomiting or diarrhea. Denies fever or chills. Some skin issues. Have Grajeda Cath in place. Denies pain. Yes all other systems are reviewed and are negative Mental Status Exam Mental Status Exam Narrative: Patient is A+Ox3, calm, pleasant and cooperative. Wearing hospital attire. Have Grajeda catheter in place. No ADL's issues. Mood is depressed, quiet, keep to self, tired. Thought process is somewhat organized and goal directed. Thought content is within normal limit, no SI/SIB/HI/AVH. Judgment and insight improve. Need assistance with ADLs. Speech is soft-spoken, normal rate. More visible in common area, Diagnostics Vital Signs (24Hr): Vital Signs - 24 hr 05/04/25 20:16 05/05/25 08:50 Temperature 97.2 F Pulse Rate 65 67 Respiratory Rate 16 Blood Pressure 94/55 L 121/60 Pulse Oximetry 94 Oxygen Delivery Method Room Air BMI result Body Mass Index 32.5 Labs 05/05/25 07:15 05/05/25 07:15 Labs: Laboratory Results - last 48 hr 05/04/25 05/05/25 10:22 07:15 WBC 9.3 9.5 RBC 4.28 4.30 Hgb 11.5 L 11.6 L Hct 36.8 L 36.6 L MCV 86.0 85.1 MCH 26.9 L 27.0 MCHC 31.3 31.7 RDW 15.2 15.2 Plt Count TNP 301 MPV Not Reportable 9.8 Immature Gran % (Auto) 0.3 0.3 Neut % (Auto) 72.0 70.1 Lymph % (Auto) 13.9 L 16.7 L Mora % (Auto) 8.3 7.3 Eos % (Auto) 4.4 H 4.8 H Baso % (Auto) 1.1 0.8 Lymph # (Auto) 1.3 1.6 Mora # (Auto) 0.8 0.7 Eos # (Auto) 0.4 0.5 H Baso # (Auto) 0.1 0.1 Abs Immat Gran (auto) 0.03 0.03 Absolute Neuts (auto) 6.7 6.6 Absolute Nucleated RBC 0.000 0.000 Nucleated RBC % (auto) 0.0 0.0 Smear Tech's Comments VERIFIED PT 17.7 H INR 1.5 H Sodium 139 138 Potassium 4.2 3.7 Chloride 104 103 Carbon Dioxide 26 25 Anion Gap 13 14 BUN 23 H 21 H Creatinine 1.46 H 1.37 Estim Creat Clear Calc 34.2 36.5 Estimated GFR 35 38 Random Glucose 102 93 Calcium 9.9 D 9.7 Total Bilirubin 0.4 AST 28 ALT 11 Alkaline Phosphatase 65 Total Protein 6.3 L Albumin 3.3 L Medications Medications Current Medications Acetaminophen (Acetaminophen 325 Mg Tablet) 650 mg PO Q6H PRN PRN Reason: Fever Or Pain Last Admin: 04/29/25 13:56 Dose: 650 mg Al Hydroxide/Mg Hydroxide (Magnesium Hydrox/Alum Hydrox 30 Ml Oral.Susp) 30 ml PO Q6H PRN PRN Reason: Heartburn/Nausea Apixaban (Apixaban 5 Mg Tablet) 5 mg PO BID [facility] On Hold: 05/05/25 06:00 Last Admin: 05/04/25 20:23 Dose: 5 mg Aripiprazole (Aripiprazole 5 Mg Tablet) 5 mg PO DAILY [facility] Last Admin: 05/05/25 08:49 Dose: 5 mg Aspirin (Aspirin Enteric Coated 81 Mg Tablet.) 81 mg PO DAILY [facility] On Hold: 05/05/25 06:00 Last Admin: 05/04/25 08:42 Dose: 81 mg Atorvastatin Calcium (Atorvastatin Calcium 80 Mg Tablet) 80 mg PO BEDTIME [facility] Last Admin: 05/04/25 20:23 Dose: 80 mg Bisacodyl (Bisacodyl 10 Mg Supp.Rect) 10 mg AR DAILY PRN PRN Reason: Constipation Hydroxyzine HCl (Hydroxyzine Hcl 25 Mg Tablet) 25 mg PO Q6H PRN PRN Reason: mild anxiety Magnesium Hydroxide (Milk Of Magnesia 30 Ml Oral.Susp) 30 ml PO DAILY PRN PRN Reason: Constipation Metoprolol Succinate (Metoprolol Succinate Er 50 Mg Tab.Er.24h) 50 mg PO DAILY [facility]; Protocol Last Admin: 05/05/25 08:50 Dose: 50 mg Mirtazapine (Mirtazapine 15 Mg Tablet) 15 mg PO BEDTIME [facility] Last Admin: 05/04/25 20:23 Dose: 15 mg Naloxone HCl (Naloxone Hcl Nasal 4 Mg [place]) 4 mg NOSTRILALT Q3M PRN PRN Reason: Opiate Reversal Nystatin (Nystatin Powder 15 Gm Bottle) 1 appl TOPICAL BID [facility]; Protocol Last Admin: 05/05/25 08:51 Dose: 1 appl Omeprazole (Omeprazole 20 Mg Capsule.) 20 mg PO DAILY@0630 [facility] Last Admin: 05/05/25 05:30 Dose: 20 mg Polyethylene Glycol (Polyethylene Glycol 3350 17 Gm Powd.Pack) 17 gm PO DAILY [facility] Last Admin: 05/05/25 08:50 Dose: Not Given Senna/Docusate Sodium (Sennosides/Docusate Sodium Tablet) 2 tab PO BID [facility] Last Admin: 05/05/25 08:48 Dose: 2 tab Sodium Biphosphate/Sodium Phosphate (Sodium Phosphate,Mora-Dibasic 133 Ml Enema) 118 ml AR DAILY PRN PRN Reason: Constipation Trazodone HCl (Trazodone Hcl 50 Mg Tablet) 50 mg PO BEDTIME MRX1 PRN PRN Reason: Insomnia Allergies Allergies Allergy/AdvReac Type Severity Reaction Status Date / Time amoxicillin Allergy Unknown Verified 04/26/25 14:52 azithromycin Allergy Unknown Verified 04/26/25 14:52 divalproex sodium (From Allergy Unknown Verified 04/26/25 14:52 Depakote) haloperidol (From Haldol) Allergy Unknown Verified 04/26/25 14:52 lamotrigine Allergy Unknown Verified 04/26/25 14:52 lithium Allergy Unknown Verified 04/26/25 14:52 lurasidone Allergy Unknown Verified 04/26/25 14:52 olanzapine (From Zyprexa) Allergy Unknown Verified 04/26/25 14:52 oxcarbazepine Allergy Unknown Verified 04/26/25 14:52 perphenazine Allergy Unknown Verified 04/26/25 14:52 prilocaine Allergy Unknown Verified 04/26/25 14:52 risperidone Allergy Unknown Verified 04/26/25 14:52 Assessment & Plan Assessment & Plan (1) HTN (hypertension): Status: Acute Code(s): I10 - Essential (primary) hypertension (2) CKD (chronic kidney disease): Status: Acute Code(s): N18.9 - Chronic kidney disease, unspecified (3) Bipolar 1 disorder: Status: Acute Code(s): F31.9 - Bipolar disorder, unspecified (4) Depression: Qualifiers: Depression Type: unspecified Qualified Code(s): F32.A - Depression, unspecified Status: Acute Code(s): F32.A - Depression, unspecified Assessment and Plan: Plan HPI: Patient is a 74 y.o, , Mac[place] speaking with history of bipolar I, constipation, hypertension, hyperlipidemia, PE, CKD who was presented via ambulance from short-term rehab facility at [facility] on 04/2025. Patient not been taking medication as prescribed and has been off medication for one-month. She has been refusing to eat consuming fluids and has lost 20 lb in the past month due to her fellow to thrive. . Patient was residing in assisted living facility prior to being placed in [facility] facility. Formulation/clinical reasoning: Failure to thrive, stopped taking meds for 1 months. Poor appetite, 20 lb in a month. Decompensate. Increased depression anxiety. History of bipolar I, history of ECT. Given the above information, patient will benefit in acute care setting, restrictive environment for own safety. Once stable, patient may benefit from skilled facility or long-term care placement. Hospital course: 04/30/25: Continue with medication for medical conditions. Continue with home medication, however due to sedation, and not been taking medication consistently prior to coming to us, I will reduce the Abilify down from 12 mg to 5 mg daily. Reduce Remeron 30 mg to 15 mg. 05/01: continue current management and treatment plan. 05/02: continue current management and treatment plan. 05/03/25: Met with patient in assigned room, eye avoided, mostly close but engaged in converstaion. Patient expressed desire to be here for treatment saying I start taking medications AEB compliant with morning scheduled meds this morning. She signed CV. Report she has not eaten today as she has no appetite. Report that she feels that was able to sleep at night. Denies anxiety or depression. Do not want water when offered. Reviewed some abnormal lab resutls, encouraged to hydrate well. Seem creatinine is at baseline, consistent with CKD. Will discuss with hospitalist tomorrow regarding other lab results. AST elevated 68. Calciuum 10.8. TSH 3.45 Creatinine 1.7. Stool accult blood + Folley Cath on. Nursing do skin assessment report some improvement compared to when she came in last week. SW was able to obtain record of lab work done at [facility] on 04/26: Per Record, Calcium 10.3. BUN 21 Creatinine 1.70 an eGFR 32. 05/04/25: Patient brought out to dinning area and stayed in common area for a period of time. Appear clean. Denies anxiety or depression, denies SI/SIB/HI/AVH. However, patient is depressed. Poor appetite, report she is able to eat a little bit, observed hydrate with water. Reviewed lab results regarding kidney functions with patient. Denies kidney disease hx. Patient is better in term of compliant with meds, refused laxative but took others meds, slept for 7 hours. Nursing continue to provide bedside care, assessment skin for any worsening skin conditions. Creatinine improved 1.46. BUN 23. 05/05/25: Meet with patient at dinning table, patient appears clean, staff assisted with care- total care, chair or bed bound. Report slight better with appetite, continue to encourage more fluid and food intake. Patient does not want ECT (hx of 30 ECT included maintenance ones). Do not remember medication hx. Per record from [facility], she was diagnosed with bipolar with psychotic features. Denies SI/SIB/HI/AVH. Continue present with depressive mood. Patient is not interesting in antidepressants but agrees to have Abilify increase. Abilify increased from 5 to 10mg daily for mood. Remeron up to 30mg from 15mg as home meds daily at for insomnia/sleep Continue to improve in kidney function. BUN 21, Creatinine 1.37n WNL. Patient seen by hospitalist for concerns of hematuria. Plan Patient on 5 minute checks for safety. Admitted to S1. 12B. Work with treatment team to do collateral. Hx of 30 ECT at [facility] in 2022. ?ECT. Contact the hospitalist regarding hospitalist consultation on admission: PT/Swallow eval consults placed by Hospitalist. Grajeda Cath in place. Would care. Nursing to assist with ADL's and ambulate. Nursing to turn and reposition q2 hours. Patient is not mobile/Ambulate. Patient is on Eliquis BID. No need Lovenox per hospitalist. Plan for medication conditions: Hematuria Likely related to UTI or trauma, patient totally dependent on staff for care, heavy and helpless requires max assist to turn and reposition Start Ceftin 250 mg b.i.d. for 7 days, await cultures (started on 05/05/25) Catheter recently changed 1 week ago. Use cath secure History of DVT and PE Eliquis held due to hematuria Appears related to UTI, we will resume. Continue to monitor Hypertension/hyperlipidemia/cardiomyopathy Continue on metoprolol, aspirin, atorvastatin Chronic kidney disease stage 3 Creatinine stable 1.3 Encourage p.o. fluids, continue to monitor Avoid nephrotoxins Hypothyroidism Per historical record Not on medications TSH 3.45 Constipation Treated with MiraLax and senna S scheduled. Anemia of chronic kidney disease Stable, follow labs Failure to thrive Swallowing within functional limits Physical therapy evaluation-minimal activity participation, Williams for out of bed to chair Impaired skin integrity Coccyx and bilateral buttocks Left posterior thigh Bilateral heels Right medial foot and metatarsal head Wound nurse consult as needed Local wound care Turn and reposition, offload areas. Plan Chronic kidney disease: Possibly secondary to atherosclerotic renovascular disease given the history of hypertension and clean UA. Please get the records from the [facility] to evaluate baseline creatinine. No anemia, hemoglobin 13; urinalysis showing trace protein no cells. We will quantify proteinuria. Avoid nephrotoxic agents, contrast. Maintain adequate hydration Hypertension: Blood pressure is well controlled On metoprolol 50 mg. Nephrology will follow from periphery, please contact us if there is worsening renal function, or labs from the SNF suggesting that this is DIOMEDES. 05/03: JAIME was able to obtain record of lab work done at [facility] on 04/26: Per Record, Calcium 10.3. BUN 21 Creatinine 1.70 an eGFR 32. Patient educated on: diagnosis, medication risk/benefits and therapeutic strategies Reason for continued inpatient stay Substantial Risk for: inability to function and med/psych decompensation Time Spent With Patient Time: Total time managing care of this patient today ____ minutes.
[2025-05-05 12:00] LABS: Appearance Urine Cloudy; Glucose Urine UA Negative (Negative); PH 6.5 (5.0-9.0); Specific Gravity - Urine 1.010 (1.005-1.025); UMIC TRIGGER UA YES
[2025-05-05 20:00] VITALS: BP 100/53; PULSE 64; RESP 16; TEMP 36.2; O2SAT 95
[2025-05-06 08:18] VITALS: BP 107/54; PULSE 70; RESP 16; TEMP 36.6; O2SAT 92
[2025-05-06] MEDS: Metoprolol Succinate ER 50 MG TAB.ER.24H PO (08:30)
[2025-05-06] MEDS: Aspirin Enteric Coated 81 MG TABLET.DR PO (12:58)
[2025-05-06 20:40] VITALS: BP 93/50; PULSE 66; RESP 16; TEMP 36.1; O2SAT 95
--- NOTE | 2025-05-06 22:43 | P.PNPSI_ITS ---
Subjective Subjective Date of Service: 05/06/25 Reason For Visit: depression, med noncompliance Subjective Notes: Conditional Voluntary Healthcare Proxy: Yes Medical Problems Affecting Mental Status: No Interim History: Medical record and nursing notes reviewed; case discussed during rounds with team/nursing staff, and met with patient for supportive therapy/psychoeducation, as well as medication management. Patient was out to TV areas after having ADL'd done by nursing staff, mostly close her eye but open and engage during assessment. Flat affect, appear low energy, soft spoken, denies anxiety or depression saying not bad . Denies pain. Poor appetite but reports she eats a little bit better. Reviewed with patient the expectation and goals to work on. Patient has been compliant with meds. Reviewed medication changes again with patient which is back to her normal home dosage. Do not want to take antidepressant or have it added on. Denies pain or discomfort. She is depressed, flat affect. Nursing continue to assessment for any skin break down and turn patient q2 hours. Medication Compliance: Yes (except for Miralax ) Side effects from medications: No Attending Groups: No (not agree to get out to common area in dining/activities area. ) Review of Systems Acute medical concerns: No Medical Review of Systems: unchanged Review of Systems Review of Systems Denies any shortness of breath, chest pain, headaches, dysuria, abdominal pain or discomfort, nausea, vomiting or diarrhea. Denies fever or chills. Some skin issues which has been improved with nursing care. Have Grajeda Cath in place. Denies pain. Yes all other systems are reviewed and are negative Mental Status Exam Mental Status Exam Narrative: Patient is A+Ox3, calm, pleasant and cooperative. Wearing hospital attire. Have Grajeda catheter in place. No ADL's issues. Mood is depressed, quiet, keep to self, with flat affect. Thought process is somewhat organized and goal directed. Thought content is within normal limit, no SI/SIB/HI/AVH. Judgment and insight improve. Need assistance with ADLs. Speech is soft-spoken, normal rate. More visible in common area, Diagnostics Vital Signs (24Hr): Vital Signs - 24 hr 05/06/25 08:18 05/06/25 20:40 Temperature 98 F 96.9 F Pulse Rate 70 66 Respiratory Rate 16 16 Blood Pressure 107/54 L 93/50 L Pulse Oximetry 92 95 Oxygen Delivery Method Room Air Room Air BMI result Body Mass Index 32.5 Labs 05/05/25 07:15 05/05/25 07:15 Labs: Laboratory Results - last 48 hr 05/05/25 05/05/25 07:15 11:49 WBC 9.5 RBC 4.30 Hgb 11.6 L Hct 36.6 L MCV 85.1 MCH 27.0 MCHC 31.7 RDW 15.2 Plt Count 301 MPV 9.8 Immature Gran % (Auto) 0.3 Neut % (Auto) 70.1 Lymph % (Auto) 16.7 L [place] % (Auto) 7.3 Eos % (Auto) 4.8 H Baso % (Auto) 0.8 Lymph # (Auto) 1.6 Hayes # (Auto) 0.7 Eos # (Auto) 0.5 H Baso # (Auto) 0.1 Abs Immat Gran (auto) 0.03 Absolute Neuts (auto) 6.6 Absolute Nucleated RBC 0.000 Nucleated RBC % (auto) 0.0 PT 17.7 H INR 1.5 H Sodium 138 Potassium 3.7 Chloride 103 Carbon Dioxide 25 Anion Gap 14 BUN 21 H Creatinine 1.37 Estim Creat Clear Calc 36.5 Estimated GFR 38 Random Glucose 93 Calcium 9.7 Total Bilirubin 0.4 AST 28 ALT 11 Alkaline Phosphatase 65 Total Protein 6.3 L Albumin 3.3 L Urine Color Yellow Urine Appearance Cloudy Urine pH 6.5 Ur Specific [place] 1.010 Urine Protein 30 (1+) H Urine Glucose (UA) Negative Urine Ketones Negative Urine Blood Large (3+) H Urine Nitrite Negative Ur Leukocyte Esterase Large (3+) H Urine RBC >20 H Urine WBC >50 H Ur Squamous Epith Cells 0-2 Urine Bacteria 4+ Hyaline Casts 0-2 Medications Medications Current Medications Acetaminophen (Acetaminophen 325 Mg Tablet) 650 mg PO Q6H PRN PRN Reason: Fever Or Pain Last Admin: 04/29/25 13:56 Dose: 650 mg Al Hydroxide/Mg Hydroxide (Magnesium Hydrox/Alum Hydrox 30 Ml Oral.Susp) 30 ml PO Q6H PRN PRN Reason: Heartburn/Nausea Apixaban (Apixaban 5 Mg Tablet) 5 mg PO BID [facility] Last Admin: 05/06/25 20:44 Dose: 5 mg Aripiprazole (Aripiprazole 10 Mg Tablet) 10 mg PO DAILY [facility] Last Admin: 05/06/25 08:30 Dose: 10 mg Aspirin (Aspirin Enteric Coated 81 Mg Tablet.) 81 mg PO DAILY [facility] Last Admin: 05/06/25 12:58 Dose: 81 mg Atorvastatin Calcium (Atorvastatin Calcium 80 Mg Tablet) 80 mg PO BEDTIME [facility] Last Admin: 05/06/25 20:44 Dose: 80 mg Bisacodyl (Bisacodyl 10 Mg Supp.Rect) 10 mg IA DAILY PRN PRN Reason: Constipation Cefuroxime Axetil (Cefuroxime Axetil 250 Mg Tablet) 250 mg PO BID [facility] Last Admin: 05/06/25 20:44 Dose: 250 mg Hydroxyzine HCl (Hydroxyzine Hcl 25 Mg Tablet) 25 mg PO Q6H PRN PRN Reason: mild anxiety Magnesium Hydroxide (Milk Of Magnesia 30 Ml Oral.Susp) 30 ml PO DAILY PRN PRN Reason: Constipation Metoprolol Succinate (Metoprolol Succinate Er 50 Mg Tab.Er.24h) 50 mg PO DAILY [facility]; Protocol Last Admin: 05/06/25 08:30 Dose: 50 mg Mirtazapine (Mirtazapine 30 Mg Tablet) 30 mg PO BEDTIME [facility] Last Admin: 05/06/25 20:44 Dose: 30 mg Naloxone HCl (Naloxone Hcl Nasal 4 Mg [place]) 4 mg NOSTRILALT Q3M PRN PRN Reason: Opiate Reversal Nystatin (Nystatin Powder 15 Gm Bottle) 1 appl TOPICAL BID [facility]; Protocol Last Admin: 05/06/25 20:44 Dose: 1 appl Omeprazole (Omeprazole 20 Mg Capsule.) 20 mg PO DAILY@0630 [facility] Last Admin: 05/06/25 06:11 Dose: Not Given Senna/Docusate Sodium (Sennosides/Docusate Sodium Tablet) 2 tab PO BID [facility] Last Admin: 05/06/25 20:44 Dose: 2 tab Sodium Biphosphate/Sodium Phosphate (Sodium Phosphate,[place]-Dibasic 133 Ml Enema) 118 ml IA DAILY PRN PRN Reason: Constipation Sodium Chloride (Sodium Chloride 0.65 % Nasal 44 Ml Sprbtl) 1 spray NOSTRIL-L Q1H PRN PRN Reason: Nasal dryness Trazodone HCl (Trazodone Hcl 50 Mg Tablet) 50 mg PO BEDTIME MRX1 PRN PRN Reason: Insomnia Allergies Allergies Allergy/AdvReac Type Severity Reaction Status Date / Time amoxicillin Allergy Unknown Verified 04/26/25 14:52 azithromycin Allergy Unknown Verified 04/26/25 14:52 divalproex sodium (From Allergy Unknown Verified 04/26/25 14:52 Depakote) haloperidol (From Haldol) Allergy Unknown Verified 04/26/25 14:52 lamotrigine Allergy Unknown Verified 04/26/25 14:52 lithium Allergy Unknown Verified 04/26/25 14:52 lurasidone Allergy Unknown Verified 04/26/25 14:52 olanzapine (From Zyprexa) Allergy Unknown Verified 04/26/25 14:52 oxcarbazepine Allergy Unknown Verified 04/26/25 14:52 perphenazine Allergy Unknown Verified 04/26/25 14:52 prilocaine Allergy Unknown Verified 04/26/25 14:52 risperidone Allergy Unknown Verified 04/26/25 14:52 Assessment & Plan Assessment & Plan (1) HTN (hypertension): Status: Acute Code(s): I10 - Essential (primary) hypertension (2) CKD (chronic kidney disease): Status: Acute Code(s): N18.9 - Chronic kidney disease, unspecified (3) Bipolar 1 disorder: Status: Acute Code(s): F31.9 - Bipolar disorder, unspecified (4) Depression: Qualifiers: Depression Type: unspecified Qualified Code(s): F32.A - Depression, unspecified Status: Acute Code(s): F32.A - Depression, unspecified Assessment and Plan: Plan HPI: Patient is a 74 y.o, , Portuguese speaking with history of bipolar I, constipation, hypertension, hyperlipidemia, PE, CKD who was presented via ambulance from short-term rehab facility at [facility] on 04/2025. Patient not been taking medication as prescribed and has been off medication for one-month. She has been refusing to eat consuming fluids and has lost 20 lb in the past month due to her fellow to thrive. . Patient was residing in assisted living facility prior to being placed in [facility] facility. Formulation/clinical reasoning: Failure to thrive, stopped taking meds for 1 months. Poor appetite, 20 lb in a month. Decompensate. Increased depression anxiety. History of bipolar I, history of ECT. Given the above information, patient will benefit in acute care setting, restrictive environment for own safety. Once stable, patient may benefit from skilled facility or long-term care placement. Hospital course: 04/30/25: Continue with medication for medical conditions. Continue with home medication, however due to sedation, and not been taking medication consistently prior to coming to us, I will reduce the Abilify down from 12 mg to 5 mg daily. Reduce Remeron 30 mg to 15 mg. 05/01: continue current management and treatment plan. 05/02: continue current management and treatment plan. 05/03/25: Met with patient in assigned room, eye avoided, mostly close but engaged in converstaion. Patient expressed desire to be here for treatment saying I start taking medications AEB compliant with morning scheduled meds this morning. She signed CV. Report she has not eaten today as she has no appetite. Report that she feels that was able to sleep at night. Denies anxiety or depression. Do not want water when offered. Reviewed some abnormal lab resutls, encouraged to hydrate well. Seem creatinine is at baseline, consistent with CKD. Will discuss with hospitalist tomorrow regarding other lab results. AST elevated 68. Calciuum 10.8. TSH 3.45 Creatinine 1.7. Stool accult blood + Folley Cath on. Nursing do skin assessment report some improvement compared to when she came in last week. SW was able to obtain record of lab work done at [facility] on 04/26: Per Record, Calcium 10.3. BUN 21 Creatinine 1.70 an eGFR 32. 05/04/25: Patient brought out to dinning area and stayed in common area for a period of time. Appear clean. Denies anxiety or depression, denies SI/SIB/HI/AVH. However, patient is depressed. Poor appetite, report she is able to eat a little bit, observed hydrate with water. Reviewed lab results regarding kidney functions with patient. Denies kidney disease hx. Patient is better in term of compliant with meds, refused laxative but took others meds, slept for 7 hours. Nursing continue to provide bedside care, assessment skin for any worsening skin conditions. Creatinine improved 1.46. BUN 23. 05/05/25: Meet with patient at dinning table, patient appears clean, staff assisted with care- total care, chair or bed bound. Report slight better with appetite, continue to encourage more fluid and food intake. Patient does not want ECT (hx of 30 ECT included maintenance ones). Do not remember medication hx. Per record from [facility] medication center, she was diagnosed with bipolar with psychotic features. Denies SI/SIB/HI/AVH. Continue present with depressive mood. Patient is not interesting in antidepressants but agrees to have Abilify increase. Abilify increased from 5 to 10mg daily for mood. Remeron up to 30mg from 15mg as home meds daily at for insomnia/sleep Continue to improve in kidney function. BUN 21, Creatinine 1.37n WNL. Patient seen by hospitalist for concerns of hematuria. 05/06/25: Patient was out to TV areas after having ADL'd done by nursing staff, mostly close her eye but open and engage during assessment. Flat affect, appear low energy, soft spoken, denies anxiety or depression saying not bad . Denies pain. Poor appetite but reports she eats a little bit better. Reviewed with patient the expectation and goals to work on. Patient has been compliant with meds. Reviewed medication changes again with patient which is back to her normal home dosage. Do not want to take antidepressant or have it added on. Denies pain or discomfort. She is depressed, flat affect. Nursing continue to assessment for any skin break down and turn patient q2 hours. Plan Patient on 5 minute checks for safety. Admitted to S1. 12B. Work with treatment team to do collateral. Hx of 30 ECT at [facility] in 2022. ?ECT. Contact the hospitalist regarding hospitalist consultation on admission: PT/Swallow eval consults placed by Hospitalist. Grajeda Cath in place. Would care. Nursing to assist with ADL's and ambulate. Nursing to turn and reposition q2 hours. Patient is not mobile/Ambulate. Patient is on Eliquis BID. No need Lovenox per hospitalist. Plan for medication conditions: Hematuria Likely related to UTI or trauma, patient totally dependent on staff for care, heavy and helpless requires max assist to turn and reposition Start Ceftin 250 mg b.i.d. for 7 days, await cultures (started on 05/05/25) Catheter recently changed 1 week ago. Use cath secure History of DVT and PE Eliquis held due to hematuria Appears related to UTI, we will resume. Continue to monitor Hypertension/hyperlipidemia/cardiomyopathy Continue on metoprolol, aspirin, atorvastatin Chronic kidney disease stage 3 Creatinine stable 1.3 Encourage p.o. fluids, continue to monitor Avoid nephrotoxins Hypothyroidism Per historical record Not on medications TSH 3.45 Constipation Treated with MiraLax and senna S scheduled. Anemia of chronic kidney disease Stable, follow labs Failure to thrive Swallowing within functional limits Physical therapy evaluation-minimal activity participation, Williams for out of bed to chair Impaired skin integrity Coccyx and bilateral buttocks Left posterior thigh Bilateral heels Right medial foot and metatarsal head Wound nurse consult as needed Local wound care Turn and reposition, offload areas. Plan Chronic kidney disease: Possibly secondary to atherosclerotic renovascular disease given the history of hypertension and clean UA. Please get the records from the [facility] to evaluate baseline creatinine. No anemia, hemoglobin 13; urinalysis showing trace protein no cells. We will quantify proteinuria. Avoid nephrotoxic agents, contrast. Maintain adequate hydration Hypertension: Blood pressure is well controlled On metoprolol 50 mg. Nephrology will follow from periphery, please contact us if there is worsening renal function, or labs from the SNF suggesting that this is DIOMEDES. 05/03: JAIME was able to obtain record of lab work done at [facility] on 04/26: Per Record, Calcium 10.3. BUN 21 Creatinine 1.70 an eGFR 32. Patient educated on: diagnosis, medication risk/benefits and therapeutic strategies Informed Consent: understands and further education needed Reason for continued inpatient stay Substantial Risk for: med/psych decompensation Time Spent With Patient Time: Total time managing care of this patient today ____ minutes.
[2025-05-07 08:30] VITALS: BP 127/57; PULSE 73; RESP 19; TEMP 36.6; O2SAT 93
[2025-05-07 08:54] VITALS: BP 127/57; PULSE 73
[2025-05-07] MEDS: Metoprolol Succinate ER 50 MG TAB.ER.24H PO (08:54)
[2025-05-07] MEDS: Aspirin Enteric Coated 81 MG TABLET.DR PO (08:56)
--- NOTE | 2025-05-07 09:05 | P.CNUR_ITS ---
History of Present Illness Consult details Consult date: 05/07/25 Narrative: 74 year old, history of bipolar I, constipation, hypertension, hyperlipidemia, PE, CKD . Called due to hematuria, UA c/w UTI Review of Systems 2 Review of Systems: Yes Unobtainable due to mental status PMFSH Past Medical History Medical History Hyperlipidemia CKD (chronic kidney disease) Pulmonary embolus HTN (hypertension) Depression Bipolar 1 disorder Social History Social History (Updated 04/30/25 @ 11:20 by Elsa Spear DNP) Household Members: None Housing: Halfway Do you presently have visiting nurse or other home services: No Comment: 5 min checked Patient Tobacco Use Status: Never used Tobacco Smoked in Last 30 Days: No Use of substances other than those prescribed or required for medical reasons: No Currently Displaying Signs/Symptoms of Drug Intoxication Withdrawal: No Have you been hit, kicked, punched, or otherwise hurt by someone within the past year? If so, by whom?: No Do you feel safe in your current relationship?: No Current Relationship Is there a partner from a previous relationship who is making you feel unsafe now?: No Are you made to feel afraid or neglected: No Advance Directives: Yes Advance Directives on File: Yes Advance Directives Date on File: 04/26/25 Do you have thoughts of harming others: None Do you have a plan to hurt others: No Plan Recently lost weight without trying: Unsure How much weight loss: Unsure Eating poorly because of decreased appetite: Yes Nutrition screen score: 5 Nutrition Risks: Poor intake 0-25% >4 days Patient : No : No Poor oral hygiene: Yes service: No Sexual orientation: Straight/Heterosexual Meds Allergies Allergy/AdvReac Type Severity Reaction Status Date / Time amoxicillin Allergy Unknown Verified 04/26/25 14:52 azithromycin Allergy Unknown Verified 04/26/25 14:52 divalproex sodium (From Allergy Unknown Verified 04/26/25 14:52 Depakote) haloperidol (From Haldol) Allergy Unknown Verified 04/26/25 14:52 lamotrigine Allergy Unknown Verified 04/26/25 14:52 lithium Allergy Unknown Verified 04/26/25 14:52 lurasidone Allergy Unknown Verified 04/26/25 14:52 olanzapine (From Zyprexa) Allergy Unknown Verified 04/26/25 14:52 oxcarbazepine Allergy Unknown Verified 04/26/25 14:52 perphenazine Allergy Unknown Verified 04/26/25 14:52 prilocaine Allergy Unknown Verified 04/26/25 14:52 risperidone Allergy Unknown Verified 04/26/25 14:52 Active Medications: Current Medications Acetaminophen (Acetaminophen 325 Mg Tablet) 650 mg PO Q6H PRN PRN Reason: Fever Or Pain Last Admin: 04/29/25 13:56 Dose: 650 mg Al Hydroxide/Mg Hydroxide (Magnesium Hydrox/Alum Hydrox 30 Ml Oral.Susp) 30 ml PO Q6H PRN PRN Reason: Heartburn/Nausea Apixaban (Apixaban 5 Mg Tablet) 5 mg PO BID [facility] Last Admin: 05/07/25 08:55 Dose: 5 mg Aripiprazole (Aripiprazole 10 Mg Tablet) 10 mg PO DAILY [facility] Last Admin: 05/07/25 08:56 Dose: 10 mg Aspirin (Aspirin Enteric Coated 81 Mg Tablet.Dr) 81 mg PO DAILY [facility] Last Admin: 05/07/25 08:56 Dose: 81 mg Atorvastatin Calcium (Atorvastatin Calcium 80 Mg Tablet) 80 mg PO BEDTIME [facility] Last Admin: 05/06/25 20:44 Dose: 80 mg Bisacodyl (Bisacodyl 10 Mg Supp.Rect) 10 mg ID DAILY PRN PRN Reason: Constipation Cefuroxime Axetil (Cefuroxime Axetil 250 Mg Tablet) 250 mg PO BID [facility] Last Admin: 05/07/25 08:53 Dose: 250 mg Hydroxyzine HCl (Hydroxyzine Hcl 25 Mg Tablet) 25 mg PO Q6H PRN PRN Reason: mild anxiety Magnesium Hydroxide (Milk Of Magnesia 30 Ml Oral.Susp) 30 ml PO DAILY PRN PRN Reason: Constipation Metoprolol Succinate (Metoprolol Succinate Er 50 Mg Tab.Er.24h) 50 mg PO DAILY [facility]; Protocol Last Admin: 05/07/25 08:54 Dose: 50 mg Mirtazapine (Mirtazapine 30 Mg Tablet) 30 mg PO BEDTIME [facility] Last Admin: 05/06/25 20:44 Dose: 30 mg Naloxone HCl (Naloxone Hcl Nasal 4 Mg [place]) 4 mg NOSTRILALT Q3M PRN PRN Reason: Opiate Reversal Nystatin (Nystatin Powder 15 Gm Bottle) 1 appl TOPICAL BID [facility]; Protocol Last Admin: 05/07/25 08:53 Dose: 1 appl Omeprazole (Omeprazole 20 Mg Capsule.Dr) 20 mg PO DAILY@0630 [facility] Last Admin: 05/07/25 05:32 Dose: 20 mg Polyethylene Glycol (Polyethylene Glycol 3350 17 Gm Powd.Pack) 17 gm PO DAILY PRN PRN Reason: constipation Senna/Docusate Sodium (Sennosides/Docusate Sodium Tablet) 2 tab PO BID [facility] Last Admin: 05/07/25 08:53 Dose: 2 tab Sodium Biphosphate/Sodium Phosphate (Sodium Phosphate,[place]-Dibasic 133 Ml Enema) 118 ml ID DAILY PRN PRN Reason: Constipation Sodium Chloride (Sodium Chloride 0.65 % Nasal 44 Ml Sprbtl) 1 spray NOSTRIL-L Q1H PRN PRN Reason: Nasal dryness Trazodone HCl (Trazodone Hcl 50 Mg Tablet) 50 mg PO BEDTIME MRX1 PRN PRN Reason: Insomnia Home Medications ?Medication ?Instructions ?Recorded ?Confirmed ?Last Taken ?Type acetaminophen 325 mg tablet 650 mg PO Q6H PRN Fever Or Pain 04/27/25 04/27/25 Unknown History apixaban 5 mg tablet (Eliquis) 5 mg PO BID 04/27/2504/25/25 History aripiprazole 10 mg tablet 10 mg PO DAILY 04/27/25 10/2 08/0104/25/25 History aripiprazole 2 mg tablet 2 mg PO DAILY 04/27/2504/2704/25/25 History aspirin 81 mg tablet,delayed 81 mg PO DAILY 04/27/25 1 04/25/25 History release bisacodyl 10 mg rectal suppository 10 mg ID DAILY PRN Constipation 04/27/25 04/27/25 Unknown History magnesium hydroxide 400 mg/5 mL 30 ml PO DAILY PRN Con stipation 04/27/25 04/27/25 Unknown History oral suspension (Milk of Magnesia) metoprolol succinate 25 mg 50 mg PO DAILY 04/27/2504/25/25 History tablet,extended release 24 hr mirtazapine 30 mg tablet 30 mg PO BEDTIME 04/27/2504/25/25 History naloxone 4 mg/actuation nasal 4 mg intranasal Q3M PRN Opiate 04/27/25 04/27/25 Unknown History spray (Narcan) Reversal pantoprazole 40 mg tablet,delayed 40 mg PO DAILY@0630 04/27/25 04/27/25 04/25/25 History release polyethylene glycol 3350 17 17 g PO DAILY 04/27/2504/25/25 History gram/dose oral powder (Miralax) rosuvastatin 20 mg tablet 20 mg PO BEDTIME 04/27/2504/25/25 History sennosides 8.6 mg-docusate sodium 2 tab PO BID 5 04/27/25 04/25/25 History 50 mg tablet (Senna Plus) sodium phosphates 19 gram-7 118 ml ID DAILY PRN Consti pation 04/27/25 04/27/25 Unknown History gram/118 mL enema (Fleet Enema) Physical Exam 2 Vital Signs: Vital Signs: Last Vital Signs Temp 96.9 F 05/06/25 20:40 Pulse 73 05/07/25 08:54 Resp 16 05/06/25 20:40 BP 127/57 L 05/07/25 08:54 Pulse Ox 95 05/06/25 20:40 O2 Del Method Room Air 05/06/25 20:40 BMI result Body Mass Index 32.5 Results Labs 05/05/25 07:15 05/05/25 07:15 Labs: Urine 04/26/25 04/28/25 05/05/25 Range/Units 22:48 03:50 11:49 Urine Color Yellow Yellow Yellow Urine Appearance Clear Clear Cloudy Urine pH 5.5 6.5 6.5 (5.0-9.0) Ur Specific [place] 1.015 1.010 1.010 (1.005-1.025) Urine Protein Negative Trace 30 (1+) H (Neg-Trace) mg/dL Urine Glucose (UA) Negative Negative Negative (Negative) mg/dL Assessment and Plan (1) UTI (urinary tract infection): Status: Acute (2) Acute hemorrhagic cystitis: Status: Acute Plan pt on ceftin for empiric tx UTI Procedures Date of Service Date of Service: 05/10/25
--- NOTE | 2025-05-07 10:10 | HO.PSYCHPN ---
Subjective Subjective Date of Service: 05/07/25 Reason For Visit: depression, med noncompliance Subjective Notes: Smiley Warning and Conditional Voluntary Medical Problems Affecting Mental Status: No Interim History: Medical record and nursing notes reviewed; case discussed during rounds with team/nursing staff, and met with patient for supportive therapy/psychoeducation, as well as medication management. Meet with patient in room, patient is very passive engaged in 1-1 assessment today, not actually open her eye, report feeling tired. Continue to have poor appetite despite encouragement from staff. Do not drink her ensure. Do not want when offered to open the bottle for her. Do not express SI/SIB/HI/AVH. Is moderate to severe depresion. Nursing continue to provide care, reposition every 2 hours. Per OT: patient attended one group yesterday and was able to see smile face a couple times during group and interaction. She refused Omeprazole but took other meds. Continue to increased fluid and food intake. Change Abilfy 10mg AM to HS to prevent posible sedation during daytime. Medication Compliance: Yes Side effects from medications: No Attending Groups: Intermittent Review of Systems Acute medical concerns: No Medical Review of Systems: unchanged Review of Systems Review of Systems Denies any shortness of breath, chest pain, headaches, dysuria, abdominal pain or discomfort, nausea, vomiting or diarrhea. Denies fever or chills. Some skin issues which has been improved with nursing care. Have Grajeda Cath in place. Denies pain. Yes all other systems are reviewed and are negative Mental Status Exam Mental Status Exam Narrative: Patient is A+Ox3, calm, pleasant and cooperative. Wearing hospital attire. Have Grajeda catheter in place. No ADL's issues. Mood is very depressed, quiet, keep to self, with flat affect, poor intake. Eye mostly close during 1-1 assessment. Thought process is somewhat organized and goal directed. Thought content is within normal limit, no SI/SIB/HI/AVH. Judgment and insight slight improve but remain poor. Need assistance with ADLs. Speech is very soft-spoken, one to two words ansers, normal rate. , Diagnostics Vital Signs (24Hr): Vital Signs - 24 hr 05/06/25 20:40 05/07/25 08:54 Temperature 96.9 F Pulse Rate 66 73 Respiratory Rate 16 Blood Pressure 93/50 L 127/57 L Pulse Oximetry 95 Oxygen Delivery Method Room Air BMI result Body Mass Index 32.5 Labs 05/05/25 07:15 05/05/25 07:15 Labs: Laboratory Results - last 48 hr 05/05/25 11:49 Urine Color Yellow Urine Appearance Cloudy Urine pH 6.5 Ur Specific [place] 1.010 Urine Protein 30 (1+) H Urine Glucose (UA) Negative Urine Ketones Negative Urine Blood Large (3+) H Urine Nitrite Negative Ur Leukocyte Esterase Large (3+) H Urine RBC >20 H Urine WBC >50 H Ur Squamous Epith Cells 0-2 Urine Bacteria 4+ Hyaline Casts 0-2 Medications Medications Current Medications Acetaminophen (Acetaminophen 325 Mg Tablet) 650 mg PO Q6H PRN PRN Reason: Fever Or Pain Last Admin: 04/29/25 13:56 Dose: 650 mg Al Hydroxide/Mg Hydroxide (Magnesium Hydrox/Alum Hydrox 30 Ml Oral.Susp) 30 ml PO Q6H PRN PRN Reason: Heartburn/Nausea Apixaban (Apixaban 5 Mg Tablet) 5 mg PO BID [facility] Last Admin: 05/07/25 08:55 Dose: 5 mg Aripiprazole (Aripiprazole 10 Mg Tablet) 10 mg PO DAILY [facility] Last Admin: 05/07/25 08:56 Dose: 10 mg Aspirin (Aspirin Enteric Coated 81 Mg Tablet.Dr) 81 mg PO DAILY [facility] Last Admin: 05/07/25 08:56 Dose: 81 mg Atorvastatin Calcium (Atorvastatin Calcium 80 Mg Tablet) 80 mg PO BEDTIME [facility] Last Admin: 05/06/25 20:44 Dose: 80 mg Bisacodyl (Bisacodyl 10 Mg Supp.Rect) 10 mg GA DAILY PRN PRN Reason: Constipation Cefuroxime Axetil (Cefuroxime Axetil 250 Mg Tablet) 250 mg PO BID [facility] Last Admin: 05/07/25 08:53 Dose: 250 mg Hydroxyzine HCl (Hydroxyzine Hcl 25 Mg Tablet) 25 mg PO Q6H PRN PRN Reason: mild anxiety Magnesium Hydroxide (Milk Of Magnesia 30 Ml Oral.Susp) 30 ml PO DAILY PRN PRN Reason: Constipation Metoprolol Succinate (Metoprolol Succinate Er 50 Mg Tab.Er.24h) 50 mg PO DAILY [facility]; Protocol Last Admin: 05/07/25 08:54 Dose: 50 mg Mirtazapine (Mirtazapine 30 Mg Tablet) 30 mg PO BEDTIME [facility] Last Admin: 05/06/25 20:44 Dose: 30 mg Naloxone HCl (Naloxone Hcl Nasal 4 Mg [place]) 4 mg NOSTRILALT Q3M PRN PRN Reason: Opiate Reversal Nystatin (Nystatin Powder 15 Gm Bottle) 1 appl TOPICAL BID [facility]; Protocol Last Admin: 05/07/25 08:53 Dose: 1 appl Omeprazole (Omeprazole 20 Mg Capsule.Dr) 20 mg PO DAILY@0630 [facility] Last Admin: 05/07/25 05:32 Dose: 20 mg Polyethylene Glycol (Polyethylene Glycol 3350 17 Gm Powd.Pack) 17 gm PO DAILY PRN PRN Reason: constipation Senna/Docusate Sodium (Sennosides/Docusate Sodium Tablet) 2 tab PO BID [facility] Last Admin: 05/07/25 08:53 Dose: 2 tab Sodium Biphosphate/Sodium Phosphate (Sodium Phosphate,[place]-Dibasic 133 Ml Enema) 118 ml GA DAILY PRN PRN Reason: Constipation Sodium Chloride (Sodium Chloride 0.65 % Nasal 44 Ml Sprbtl) 1 spray NOSTRIL-L Q1H PRN PRN Reason: Nasal dryness Trazodone HCl (Trazodone Hcl 50 Mg Tablet) 50 mg PO BEDTIME MRX1 PRN PRN Reason: Insomnia Allergies Allergies Allergy/AdvReac Type Severity Reaction Status Date / Time amoxicillin Allergy Unknown Verified 04/26/25 14:52 azithromycin Allergy Unknown Verified 04/26/25 14:52 divalproex sodium (From Allergy Unknown Verified 04/26/25 14:52 Depakote) haloperidol (From Haldol) Allergy Unknown Verified 04/26/25 14:52 lamotrigine Allergy Unknown Verified 04/26/25 14:52 lithium Allergy Unknown Verified 04/26/25 14:52 lurasidone Allergy Unknown Verified 04/26/25 14:52 olanzapine (From Zyprexa) Allergy Unknown Verified 04/26/25 14:52 oxcarbazepine Allergy Unknown Verified 04/26/25 14:52 perphenazine Allergy Unknown Verified 04/26/25 14:52 prilocaine Allergy Unknown Verified 04/26/25 14:52 risperidone Allergy Unknown Verified 04/26/25 14:52 Assessment & Plan Assessment & Plan (1) UTI (urinary tract infection): Status: Acute Code(s): N39.0 - Urinary tract infection, site not specified (2) Acute hemorrhagic cystitis: Status: Acute Code(s): N30.01 - Acute cystitis with hematuria (3) Bipolar 1 disorder: Status: Acute Code(s): F31.9 - Bipolar disorder, unspecified (4) HTN (hypertension): Status: Acute Code(s): I10 - Essential (primary) hypertension (5) Pulmonary embolus: Status: Acute Code(s): I26.99 - Other pulmonary embolism without acute cor pulmonale (6) Adult failure to thrive: Status: Acute Code(s): R62.7 - Adult failure to thrive (7) CKD (chronic kidney disease): Status: Acute Code(s): N18.9 - Chronic kidney disease, unspecified (8) Constipation: Status: Acute Code(s): K59.00 - Constipation, unspecified Plan HPI: Patient is a 74 y.o, , [place] speaking with history of bipolar I, constipation, hypertension, hyperlipidemia, PE, CKD who was presented via ambulance from short-term rehab facility at [facility] on 04/2025. Patient not been taking medication as prescribed and has been off medication for one-month. She has been refusing to eat consuming fluids and has lost 20 lb in the past month due to her fellow to thrive. . Patient was residing in assisted living facility prior to being placed in [facility] facility. Formulation/clinical reasoning: Failure to thrive, stopped taking meds for 1 months. Poor appetite, 20 lb in a month. Decompensate. Increased depression anxiety. History of bipolar I, history of ECT. Given the above information, patient will benefit in acute care setting, restrictive environment for own safety. Once stable, patient may benefit from skilled facility or long-term care placement. Hospital course: 04/30/25: Continue with medication for medical conditions. Continue with home medication, however due to sedation, and not been taking medication consistently prior to coming to us, I will reduce the Abilify down from 12 mg to 5 mg daily. Reduce Remeron 30 mg to 15 mg. 05/01: continue current management and treatment plan. 05/02: continue current management and treatment plan. 05/03/25: Met with patient in assigned room, eye avoided, mostly close but engaged in converstaion. Patient expressed desire to be here for treatment saying I start taking medications AEB compliant with morning scheduled meds this morning. She signed CV. Report she has not eaten today as she has no appetite. Report that she feels that was able to sleep at night. Denies anxiety or depression. Do not want water when offered. Reviewed some abnormal lab resutls, encouraged to hydrate well. Seem creatinine is at baseline, consistent with CKD. Will discuss with hospitalist tomorrow regarding other lab results. AST elevated 68. Calciuum 10.8. TSH 3.45 Creatinine 1.7. Stool accult blood + Folley Cath on. Nursing do skin assessment report some improvement compared to when she came in last week. SW was able to obtain record of lab work done at [facility] on 04/26: Per Record, Calcium 10.3. BUN 21 Creatinine 1.70 an eGFR 32. 05/04/25: Patient brought out to dinning area and stayed in common area for a period of time. Appear clean. Denies anxiety or depression, denies SI/SIB/HI/AVH. However, patient is depressed. Poor appetite, report she is able to eat a little bit, observed hydrate with water. Reviewed lab results regarding kidney functions with patient. Denies kidney disease hx. Patient is better in term of compliant with meds, refused laxative but took others meds, slept for 7 hours. Nursing continue to provide bedside care, assessment skin for any worsening skin conditions. Creatinine improved 1.46. BUN 23. 05/05/25: Meet with patient at dinning table, patient appears clean, staff assisted with care- total care, chair or bed bound. Report slight better with appetite, continue to encourage more fluid and food intake. Patient does not want ECT (hx of 30 ECT included maintenance ones). Do not remember medication hx. Per record from [facility] medication center, she was diagnosed with bipolar with psychotic features. Denies SI/SIB/HI/AVH. Continue present with depressive mood. Patient is not interesting in antidepressants but agrees to have Abilify increase. Abilify increased from 5 to 10mg daily for mood. Remeron up to 30mg from 15mg as home meds daily at for insomnia/sleep Continue to improve in kidney function. BUN 21, Creatinine 1.37n WNL. Patient seen by hospitalist for concerns of hematuria. 05/06/25: Patient was out to TV areas after having ADL'd done by nursing staff, mostly close her eye but open and engage during assessment. Flat affect, appear low energy, soft spoken, denies anxiety or depression saying not bad . Denies pain. Poor appetite but reports she eats a little bit better. Reviewed with patient the expectation and goals to work on. Patient has been compliant with meds. Reviewed medication changes again with patient which is back to her normal home dosage. Do not want to take antidepressant or have it added on. Denies pain or discomfort. She is depressed, flat affect. Nursing continue to assessment for any skin break down and turn patient q2 hours. 05/07/25: Meet with patient in room, patient is very passive engaged in 1-1 assessment today, not actually open her eye, report feeling tired. Continue to have poor appetite despite encouragement from staff. Do not drink her ensure. Do not want when offered to open the bottle for her. Do not express SI/SIB/HI/AVH. Is moderate to severe depresion. Nursing continue to provide care, reposition every 2 hours. Per OT: patient attended one group yesterday and was able to see smile face a couple times during group and interaction. She refused Omeprazole but took other meds. Continue to increased fluid and food intake. Change Abilfy 10mg AM to HS to prevent possible sedation during daytime. Per record, patient appeared to be seen by Urologist but unsure regarding plan. Plan Patient on 5 minute checks for safety. Admitted to S1. CV Work with treatment team to do collateral. Hx of 30 ECT at [facility] in 2022. ?ECT. Contact the hospitalist regarding hospitalist consultation on admission: PT/Swallow eval consults placed by Hospitalist. Grajeda Cath in place. Would care. Nursing to assist with ADL's and ambulate. Nursing to turn and reposition q2 hours. Patient is not mobile/Ambulate. Patient is on Eliquis BID. No need Lovenox per hospitalist. Plan for medication conditions: Hematuria Likely related to UTI or trauma, patient totally dependent on staff for care, heavy and helpless requires max assist to turn and reposition Start Ceftin 250 mg b.i.d. for 7 days, await cultures (started on 05/05/25) Catheter recently changed 1 week ago. Use cath secure History of DVT and PE Eliquis held due to hematuria Appears related to UTI, we will resume. Continue to monitor Hypertension/hyperlipidemia/cardiomyopathy Continue on metoprolol, aspirin, atorvastatin Chronic kidney disease stage 3 Creatinine stable 1.3 Encourage p.o. fluids, continue to monitor Avoid nephrotoxins Hypothyroidism Per historical record Not on medications TSH 3.45 Constipation Treated with MiraLax and senna S scheduled : change to PRN as patient has been refused. Anemia of chronic kidney disease Stable, follow labs Failure to thrive Swallowing within functional limits. Ensure TID Physical therapy evaluation-minimal activity participation, Williams for out of bed to chair Impaired skin integrity Coccyx and bilateral buttocks Left posterior thigh Bilateral heels Right medial foot and metatarsal head Wound nurse consult as needed Local wound care Turn and reposition, offload areas. Plan Chronic kidney disease: Possibly secondary to atherosclerotic renovascular disease given the history of hypertension and clean UA. Please get the records from the retirement to evaluate baseline creatinine. No anemia, hemoglobin 13; urinalysis showing trace protein no cells. We will quantify proteinuria. Avoid nephrotoxic agents, contrast. Maintain adequate hydration Hypertension: Blood pressure is well controlled On metoprolol 50 mg. Nephrology will follow from periphery, please contact us if there is worsening renal function, or labs from the SNF suggesting that this is DIOMEDES. 05/03: JAIME was able to obtain record of lab work done at [facility] on 04/26: Per Record, Calcium 10.3. BUN 21 Creatinine 1.70 an eGFR 32. Patient educated on: medication risk/benefits and therapeutic strategies Informed Consent: understands and further education needed Reason for continued inpatient stay Substantial Risk for: med/psych decompensation Time Spent With Patient Time: Total time managing care of this patient today ____ minutes.
--- NOTE | 2025-05-07 14:40 | MHC.CLN ---
F/U CONTINUES WITH POOR PO INTAKE/POOR APPETITE. INTAKE AT MEALS REFUSES TO 25%. DIET RX REGULAR. CHANGING SUPPLEMENT FROM ENSURE MAX BID TO ENSURE TID TO PROMOTE CALORIC INTAKE. SKIN WITH MULTIPLE DTIs AND ADDITIONAL PROTEIN IN SUPPLEMENT MAY PROMOTE SKIN INTEGRITY. ENSURE TID PROVIDES 1050 KCALS, 60 G PROTEIN. ENCOURAGE PO INTAKE ABLE AT MEALS AND SNACKS.
--- NOTE | 2025-05-07 15:17 | PC.NURSE ---
Patient PO solid intake of meals has been 0-25% in the last 4 days. PO fluids taken well although was refusing the PO supplement on her trays. Shanna Gomez [employer] updated by this poem writer today. New order for Ensure 240cc PO TID obtained. Patient in bed today turned side to side off back for deep tissue injuries on buttocks/coccyx. Heels floated. Grajeda cath patent and draining clear pale yellow urine. All skin treatments completed as ordered.
[2025-05-07 20:00] VITALS: BP 95/54; PULSE 74; RESP 16; TEMP 36.7; O2SAT 94
[2025-05-08 08:00] VITALS: BP 110/59; PULSE 70; RESP 16; TEMP 37; O2SAT 91
--- NOTE | 2025-05-08 19:51 | HO.PSYCHPN ---
Subjective Subjective Date of Service: 05/08/25 Reason For Visit: depression, med noncompliance Interim History: chart reviewed, case discussed w/ nursing staff Per nursing report- pt has been refusing meds and meals. Has denied depression/anxiety. DNR/DNI. Here due to FTT Pt reports that she's 'okay'. Declined to eat her dinner. Reports that she's sleeping well. Denies SI or depression. Unable to say why she's not eating. MSE: Appearance: lying in bed. good eye contact Attitude:Cooperative Speech: Minimal Motor activity: Calm, slow Mood: as noted above Affect: flat Thought process: slow processing, goal directed Thought content: as noted above. Perception: does not appear to respond to internal stimuli Diagnostics Vital Signs (24Hr): Vital Signs - 24 hr 05/07/25 20:00 05/08/25 08:00 Temperature 98.1 F 98.6 F Pulse Rate 74 70 Respiratory Rate 16 16 Blood Pressure 95/54 L 110/59 L Pulse Oximetry 94 91 L Oxygen Delivery Method Room Air Room Air BMI result Body Mass Index 32.5 Labs 05/05/25 07:15 05/05/25 07:15 Medications Medications Current Medications Acetaminophen (Acetaminophen 325 Mg Tablet) 650 mg PO Q6H PRN PRN Reason: Fever Or Pain Last Admin: 04/29/25 13:56 Dose: 650 mg Al Hydroxide/Mg Hydroxide (Magnesium Hydrox/Alum Hydrox 30 Ml Oral.Susp) 30 ml PO Q6H PRN PRN Reason: Heartburn/Nausea Apixaban (Apixaban 5 Mg Tablet) 5 mg PO BID [facility] Last Admin: 05/08/25 11:06 Dose: Not Given Aripiprazole (Aripiprazole 10 Mg Tablet) 10 mg PO BEDTIME [facility] Aspirin (Aspirin Enteric Coated 81 Mg Tablet.) 81 mg PO DAILY [facility] Last Admin: 05/08/25 11:06 Dose: Not Given Atorvastatin Calcium (Atorvastatin Calcium 80 Mg Tablet) 80 mg PO BEDTIME [facility] Last Admin: 05/07/25 21:00 Dose: 80 mg Bisacodyl (Bisacodyl 10 Mg Supp.Rect) 10 mg [place] DAILY PRN PRN Reason: Constipation Cefuroxime Axetil (Cefuroxime Axetil 250 Mg Tablet) 250 mg PO BID [facility] Last Admin: 05/08/25 11:06 Dose: Not Given Hydroxyzine HCl (Hydroxyzine Hcl 25 Mg Tablet) 25 mg PO Q6H PRN PRN Reason: mild anxiety Magnesium Hydroxide (Milk Of Magnesia 30 Ml Oral.Susp) 30 ml PO DAILY PRN PRN Reason: Constipation Metoprolol Succinate (Metoprolol Succinate Er 50 Mg Tab.Er.24h) 50 mg PO DAILY [facility]; Protocol Last Admin: 05/08/25 11:10 Dose: Not Given Mirtazapine (Mirtazapine 30 Mg Tablet) 30 mg PO BEDTIME [facility] Last Admin: 05/07/25 20:59 Dose: 30 mg Naloxone HCl (Naloxone Hcl Nasal 4 Mg [place]) 4 mg NOSTRILALT Q3M PRN PRN Reason: Opiate Reversal Nystatin (Nystatin Powder 15 Gm Bottle) 1 appl TOPICAL BID [facility]; Protocol Last Admin: 05/08/25 16:33 Dose: Not Given Omeprazole (Omeprazole 20 Mg Capsule.Dr) 20 mg PO DAILY@0630 [facility] Last Admin: 05/08/25 05:22 Dose: 20 mg Polyethylene Glycol (Polyethylene Glycol 3350 17 Gm Powd.Pack) 17 gm PO DAILY PRN PRN Reason: constipation Senna/Docusate Sodium (Sennosides/Docusate Sodium Tablet) 2 tab PO BID [facility] Last Admin: 05/08/25 11:10 Dose: Not Given Sodium Biphosphate/Sodium Phosphate (Sodium Phosphate,[place]-Dibasic 133 Ml Enema) 118 ml MI DAILY PRN PRN Reason: Constipation Sodium Chloride (Sodium Chloride 0.65 % Nasal 44 Ml Sprbtl) 1 spray NOSTRIL-L Q1H PRN PRN Reason: Nasal dryness Trazodone HCl (Trazodone Hcl 50 Mg Tablet) 50 mg PO BEDTIME MRX1 PRN PRN Reason: Insomnia Allergies Allergies Allergy/AdvReac Type Severity Reaction Status Date / Time amoxicillin Allergy Unknown Verified 04/26/25 14:52 azithromycin Allergy Unknown Verified 04/26/25 14:52 divalproex sodium (From Allergy Unknown Verified 04/26/25 14:52 Depakote) haloperidol (From Haldol) Allergy Unknown Verified 04/26/25 14:52 lamotrigine Allergy Unknown Verified 04/26/25 14:52 lithium Allergy Unknown Verified 04/26/25 14:52 lurasidone Allergy Unknown Verified 04/26/25 14:52 olanzapine (From Zyprexa) Allergy Unknown Verified 04/26/25 14:52 oxcarbazepine Allergy Unknown Verified 04/26/25 14:52 perphenazine Allergy Unknown Verified 04/26/25 14:52 prilocaine Allergy Unknown Verified 04/26/25 14:52 risperidone Allergy Unknown Verified 04/26/25 14:52 Assessment & Plan Assessment & Plan (1) UTI (urinary tract infection): Status: Acute Code(s): N39.0 - Urinary tract infection, site not specified (2) Acute hemorrhagic cystitis: Status: Acute Code(s): N30.01 - Acute cystitis with hematuria (3) Bipolar 1 disorder: Status: Acute Code(s): F31.9 - Bipolar disorder, unspecified (4) HTN (hypertension): Status: Acute Code(s): I10 - Essential (primary) hypertension (5) Pulmonary embolus: Status: Acute Code(s): I26.99 - Other pulmonary embolism without acute cor pulmonale (6) Adult failure to thrive: Status: Acute Code(s): R62.7 - Adult failure to thrive (7) CKD (chronic kidney disease): Status: Acute Code(s): N18.9 - Chronic kidney disease, unspecified (8) Constipation: Status: Acute Code(s): K59.00 - Constipation, unspecified Plan HPI: Patient is a 74 y.o, , Wol[place] speaking with history of bipolar I, constipation, hypertension, hyperlipidemia, PE, CKD who was presented via ambulance from short-term rehab facility at [facility] on 04/2025. Patient not been taking medication as prescribed and has been off medication for one-month. She has been refusing to eat consuming fluids and has lost 20 lb in the past month due to her fellow to thrive. . Patient was residing in assisted living facility prior to being placed in [facility] facility. Formulation/clinical reasoning: Failure to thrive, stopped taking meds for 1 months. Poor appetite, 20 lb in a month. Decompensate. Increased depression anxiety. History of bipolar I, history of ECT. Given the above information, patient will benefit in acute care setting, restrictive environment for own safety. Once stable, patient may benefit from skilled facility or long-term care placement. Hospital course: 04/30/25: Continue with medication for medical conditions. Continue with home medication, however due to sedation, and not been taking medication consistently prior to coming to us, I will reduce the Abilify down from 12 mg to 5 mg daily. Reduce Remeron 30 mg to 15 mg. 05/01: continue current management and treatment plan. 05/02: continue current management and treatment plan. 05/03/25: Met with patient in assigned room, eye avoided, mostly close but engaged in converstaion. Patient expressed desire to be here for treatment saying I start taking medications AEB compliant with morning scheduled meds this morning. She signed CV. Report she has not eaten today as she has no appetite. Report that she feels that was able to sleep at night. Denies anxiety or depression. Do not want water when offered. Reviewed some abnormal lab resutls, encouraged to hydrate well. Seem creatinine is at baseline, consistent with CKD. Will discuss with hospitalist tomorrow regarding other lab results. AST elevated 68. Calciuum 10.8. TSH 3.45 Creatinine 1.7. Stool accult blood + Folley Cath on. Nursing do skin assessment report some improvement compared to when she came in last week. SW was able to obtain record of lab work done at [facility] on 04/26: Per Record, Calcium 10.3. BUN 21 Creatinine 1.70 an eGFR 32. 05/04/25: Patient brought out to dinning area and stayed in common area for a period of time. Appear clean. Denies anxiety or depression, denies SI/SIB/HI/AVH. However, patient is depressed. Poor appetite, report she is able to eat a little bit, observed hydrate with water. Reviewed lab results regarding kidney functions with patient. Denies kidney disease hx. Patient is better in term of compliant with meds, refused laxative but took others meds, slept for 7 hours. Nursing continue to provide bedside care, assessment skin for any worsening skin conditions. Creatinine improved 1.46. BUN 23. 05/05/25: Meet with patient at dinning table, patient appears clean, staff assisted with care- total care, chair or bed bound. Report slight better with appetite, continue to encourage more fluid and food intake. Patient does not want ECT (hx of 30 ECT included maintenance ones). Do not remember medication hx. Per record from [facility], she was diagnosed with bipolar with psychotic features. Denies SI/SIB/HI/AVH. Continue present with depressive mood. Patient is not interesting in antidepressants but agrees to have Abilify increase. Abilify increased from 5 to 10mg daily for mood. Remeron up to 30mg from 15mg as home meds daily at [facility] for insomnia/sleep Continue to improve in kidney function. BUN 21, Creatinine 1.37n WNL. Patient seen by hospitalist for concerns of hematuria. 05/06/25: Patient was out to TV areas after having ADL'd done by nursing staff, mostly close her eye but open and engage during assessment. Flat affect, appear low energy, soft spoken, denies anxiety or depression saying not bad . Denies pain. Poor appetite but reports she eats a little bit better. Reviewed with patient the expectation and goals to work on. Patient has been compliant with meds. Reviewed medication changes again with patient which is back to her normal home dosage. Do not want to take antidepressant or have it added on. Denies pain or discomfort. She is depressed, flat affect. Nursing continue to assessment for any skin break down and turn patient q2 hours. 05/07/25: Meet with patient in room, patient is very passive engaged in 1-1 assessment today, not actually open her eye, report feeling tired. Continue to have poor appetite despite encouragement from staff. Do not drink her ensure. Do not want when offered to open the bottle for her. Do not express SI/SIB/HI/AVH. Is moderate to severe depresion. Nursing continue to provide care, reposition every 2 hours. Per OT: patient attended one group yesterday and was able to see smile face a couple times during group and interaction. She refused Omeprazole but took other meds. Continue to increased fluid and food intake. Change Abilfy 10mg AM to HS to prevent possible sedation during daytime. Per record, patient appeared to be seen by Urologist but unsure regarding plan. 05/08: Pt refused her meds today, refused meals. Denies depression/SI. Appears catatonic. Will start lorazepam .5 mg tid. Will check TSH, free T4 and free T3 tomorrow am to r/o hypothyroidism, given that recent TSH was on higher side of normal limits. Plan Patient on 5 minute checks for safety. Admitted to S1. CV Work with treatment team to do collateral. Hx of 30 ECT at [facility] in 2022. ?ECT. Contact the hospitalist regarding hospitalist consultation on admission: PT/Swallow eval consults placed by Hospitalist. Grajeda Cath in place. Would care. Nursing to assist with ADL's and ambulate. Nursing to turn and reposition q2 hours. Patient is not mobile/Ambulate. Patient is on Eliquis BID. No need Lovenox per hospitalist. Plan for medication conditions: Hematuria Likely related to UTI or trauma, patient totally dependent on staff for care, heavy and helpless requires max assist to turn and reposition Start Ceftin 250 mg b.i.d. for 7 days, await cultures (started on 05/05/25) Catheter recently changed 1 week ago. Use cath secure History of DVT and PE Eliquis held due to hematuria Appears related to UTI, we will resume. Continue to monitor Hypertension/hyperlipidemia/cardiomyopathy Continue on metoprolol, aspirin, atorvastatin Chronic kidney disease stage 3 Creatinine stable 1.3 Encourage p.o. fluids, continue to monitor Avoid nephrotoxins Hypothyroidism Per historical record Not on medications TSH 3.45 Constipation Treated with MiraLax and senna S scheduled : change to PRN as patient has been refused. Anemia of chronic kidney disease Stable, follow labs Failure to thrive Swallowing within functional limits. Ensure TID Physical therapy evaluation-minimal activity participation, Williams for out of bed to chair Impaired skin integrity Coccyx and bilateral buttocks Left posterior thigh Bilateral heels Right medial foot and metatarsal head Wound nurse consult as needed Local wound care Turn and reposition, offload areas. Plan Chronic kidney disease: Possibly secondary to atherosclerotic renovascular disease given the history of hypertension and clean UA. Please get the records from the long term to evaluate baseline creatinine. No anemia, hemoglobin 13; urinalysis showing trace protein no cells. We will quantify proteinuria. Avoid nephrotoxic agents, contrast. Maintain adequate hydration Hypertension: Blood pressure is well controlled On metoprolol 50 mg. Nephrology will follow from periphery, please contact us if there is worsening renal function, or labs from the SNF suggesting that this is DIOMEDES. 05/03: JAIME was able to obtain record of lab work done at [facility] on 04/26: Per Record, Calcium 10.3. BUN 21 Creatinine 1.70 an eGFR 32. Reason for continued inpatient stay Substantial Risk for: med/psych decompensation Time Spent With Patient Time: Total time managing care of this patient today ____ minutes.
[2025-05-08 20:00] VITALS: BP 119/54; PULSE 83; RESP 16; TEMP 37; O2SAT 94
[2025-05-09 08:00] VITALS: BP 109/64; PULSE 84; RESP 16; TEMP 36.6; O2SAT 93
[2025-05-09 09:05] LABS: Free T4 (Free Thyroxine) 1.08 ng/dL (0.71-1.85); Thyroid Stimulating Hormone 3.83 uIU/mL (0.32-4.0)
--- NOTE | 2025-05-09 16:07 | P.PNPSI_ITS ---
Subjective Subjective Date of Service: 05/09/25 Reason For Visit: depression, med noncompliance Interim History: chart reviewed, case discussed w/ nursing staff Pt continues to refuse meals, all meds, doesn't get out of bed. Still urinating. She drank ~620 ml of apple juice today. Seems to be in pain from leg spasticity Pt reports that's 'not so good'. T/W asked what's not so good and she replied everything . She states she doesn't want to eat or drink, doesn't know why. Confirmed that it's difficult to swallow pills when t/w asked. T/W offered to give her a diazepam injection to help relax her muscles and reduce any anxiety but she declined. T/W informed pt that I had provided some of her ECT at [facility] and reflected that she had responded positively, asked if she would consider it again and she said she doesn't want to do it. Denies SI MSE: Appearance: lying in bed. good eye contact Attitude: Cooperative Speech: Monotone, minimal spontaneous speech Motor activity: Calm, slow Mood: as noted above Affect: flat Thought process: slow processing, goal directed Thought content: as noted above. Perception: does not appear to respond to internal stimuli Diagnostics Vital Signs (24Hr): Vital Signs - 24 hr 05/08/25 20:00 05/09/25 08:00 Temperature 98.6 F 97.9 F Pulse Rate 83 84 Respiratory Rate 16 16 Blood Pressure 119/54 L 109/64 Pulse Oximetry 94 93 Oxygen Delivery Method Room Air Room Air BMI result Body Mass Index 32.5 Labs 05/05/25 07:15 05/05/25 07:15 Labs: Laboratory Results - last 48 hr 05/09/25 08:16 TSH 3.83 Free T4 1.08 Medications Medications Current Medications Acetaminophen (Acetaminophen 325 Mg Tablet) 650 mg PO Q6H PRN PRN Reason: Fever Or Pain Last Admin: 04/29/25 13:56 Dose: 650 mg Al Hydroxide/Mg Hydroxide (Magnesium Hydrox/Alum Hydrox 30 Ml Oral.Susp) 30 ml PO Q6H PRN PRN Reason: Heartburn/Nausea Apixaban (Apixaban 5 Mg Tablet) 5 mg PO BID [facility] Last Admin: 05/09/25 09:22 Dose: Not Given Aripiprazole (Aripiprazole 10 Mg Tablet) 10 mg PO BEDTIME [facility] Last Admin: 05/08/25 22:16 Dose: Not Given Aspirin (Aspirin Enteric Coated 81 Mg Tablet.) 81 mg PO DAILY [facility] Last Admin: 05/09/25 09:22 Dose: Not Given Atorvastatin Calcium (Atorvastatin Calcium 80 Mg Tablet) 80 mg PO BEDTIME [facility] Last Admin: 05/08/25 22:16 Dose: Not Given Bisacodyl (Bisacodyl 10 Mg Supp.Rect) 10 mg NM DAILY PRN PRN Reason: Constipation Cefuroxime Axetil (Cefuroxime Axetil 250 Mg Tablet) 250 mg PO BID [facility] Last Admin: 05/09/25 09:22 Dose: Not Given Hydroxyzine HCl (Hydroxyzine Hcl 25 Mg Tablet) 25 mg PO Q6H PRN PRN Reason: mild anxiety Lorazepam (Lorazepam 0.5 Mg Tablet) 0.5 mg PO TID [facility] Last Admin: 05/09/25 15:08 Dose: Not Given Magnesium Hydroxide (Milk Of Magnesia 30 Ml Oral.Susp) 30 ml PO DAILY PRN PRN Reason: Constipation Metoprolol Succinate (Metoprolol Succinate Er 50 Mg Tab.Er.24h) 50 mg PO DAILY [facility]; Protocol Last Admin: 05/09/25 09:22 Dose: Not Given Mirtazapine (Mirtazapine 30 Mg Tablet) 30 mg PO BEDTIME [facility] Last Admin: 05/08/25 22:17 Dose: Not Given Naloxone HCl (Naloxone Hcl Nasal 4 Mg [place]) 4 mg NOSTRILALT Q3M PRN PRN Reason: Opiate Reversal Nystatin (Nystatin Powder 15 Gm Bottle) 1 appl TOPICAL BID [facility]; Protocol Last Admin: 05/09/25 09:22 Dose: Not Given Omeprazole (Omeprazole 20 Mg Capsule.) 20 mg PO DAILY@0630 [facility] Last Admin: 05/09/25 06:18 Dose: 20 mg Polyethylene Glycol (Polyethylene Glycol 3350 17 Gm Powd.Pack) 17 gm PO DAILY PRN PRN Reason: constipation Senna/Docusate Sodium (Sennosides/Docusate Sodium Tablet) 2 tab PO BID [facility] Last Admin: 05/09/25 09:23 Dose: Not Given Sodium Biphosphate/Sodium Phosphate (Sodium Phosphate,[place]-Dibasic 133 Ml Enema) 118 ml NM DAILY PRN PRN Reason: Constipation Sodium Chloride (Sodium Chloride 0.65 % Nasal 44 Ml Sprbtl) 1 spray NOSTRIL-L Q1H PRN PRN Reason: Nasal dryness Trazodone HCl (Trazodone Hcl 50 Mg Tablet) 50 mg PO BEDTIME MRX1 PRN PRN Reason: Insomnia Allergies Allergies Allergy/AdvReac Type Severity Reaction Status Date / Time amoxicillin Allergy Unknown Verified 04/26/25 14:52 azithromycin Allergy Unknown Verified 04/26/25 14:52 divalproex sodium (From Allergy Unknown Verified 04/26/25 14:52 Depakote) haloperidol (From Haldol) Allergy Unknown Verified 04/26/25 14:52 lamotrigine Allergy Unknown Verified 04/26/25 14:52 lithium Allergy Unknown Verified 04/26/25 14:52 lurasidone Allergy Unknown Verified 04/26/25 14:52 olanzapine (From Zyprexa) Allergy Unknown Verified 04/26/25 14:52 oxcarbazepine Allergy Unknown Verified 04/26/25 14:52 perphenazine Allergy Unknown Verified 04/26/25 14:52 prilocaine Allergy Unknown Verified 04/26/25 14:52 risperidone Allergy Unknown Verified 04/26/25 14:52 Assessment & Plan Assessment & Plan (1) UTI (urinary tract infection): Status: Acute Code(s): N39.0 - Urinary tract infection, site not specified (2) Acute hemorrhagic cystitis: Status: Acute Code(s): N30.01 - Acute cystitis with hematuria (3) Bipolar 1 disorder: Status: Acute Code(s): F31.9 - Bipolar disorder, unspecified (4) HTN (hypertension): Status: Acute Code(s): I10 - Essential (primary) hypertension (5) Pulmonary embolus: Status: Acute Code(s): I26.99 - Other pulmonary embolism without acute cor pulmonale (6) Adult failure to thrive: Status: Acute Code(s): R62.7 - Adult failure to thrive (7) CKD (chronic kidney disease): Status: Acute Code(s): N18.9 - Chronic kidney disease, unspecified (8) Constipation: Status: Acute Code(s): K59.00 - Constipation, unspecified Plan HPI: Patient is a 74 y.o, , Salvadorean speaking with history of bipolar I, constipation, hypertension, hyperlipidemia, PE, CKD who was presented via ambulance from short-term rehab facility [place] [facility] [place]. Patient not been taking medication as prescribed and has been off medication for one-month. She has been refusing to eat consuming fluids and has lost 20 lb in the past month due to her fellow to thrive. . Patient was residing in assisted living facility prior to being placed in [facility] facility. Formulation/clinical reasoning: Failure to thrive, stopped taking meds for 1 months. Poor appetite, 20 lb in a month. Decompensate. Increased depression anxiety. History of bipolar I, history of ECT. Given the above information, patient will benefit in acute care setting, restrictive environment for own safety. Once stable, patient may benefit from skilled facility or long-term care placement. Hospital course: 04/30/25: Continue with medication for medical conditions. Continue with home medication, however due to sedation, and not been taking medication consistently prior to coming to us, I will reduce the Abilify down from 12 mg to 5 mg daily. Reduce Remeron 30 mg to 15 mg. 05/01: continue current management and treatment plan. 05/02: continue current management and treatment plan. 05/03/25: Met with patient in assigned room, eye avoided, mostly close but engaged in converstaion. Patient expressed desire to be here for treatment saying I start taking medications AEB compliant with morning scheduled meds this morning. She signed CV. Report she has not eaten today as she has no appetite. Report that she feels that was able to sleep at night. Denies anxiety or depression. Do not want water when offered. Reviewed some abnormal lab resutls, encouraged to hydrate well. Seem creatinine is at baseline, consistent with CKD. Will discuss with hospitalist tomorrow regarding other lab results. AST elevated 68. Calciuum 10.8. TSH 3.45 Creatinine 1.7. Stool accult blood + Folley Cath on. Nursing do skin assessment report some improvement compared to when she came in last week. SW was able to obtain record of lab work done at [facility] on 04/26: Per Record, Calcium 10.3. BUN 21 Creatinine 1.70 an eGFR 32. 05/04/25: Patient brought out to dinning area and stayed in common area for a period of time. Appear clean. Denies anxiety or depression, denies SI/SIB/HI/AVH. However, patient is depressed. Poor appetite, report she is able to eat a little bit, observed hydrate with water. Reviewed lab results regarding kidney functions with patient. Denies kidney disease hx. Patient is better in term of compliant with meds, refused laxative but took others meds, slept for 7 hours. Nursing continue to provide bedside care, assessment skin for any worsening skin conditions. Creatinine improved 1.46. BUN 23. 05/05/25: Meet with patient at dinning table, patient appears clean, staff assisted with care- total care, chair or bed bound. Report slight better with appetite, continue to encourage more fluid and food intake. Patient does not want ECT (hx of 30 ECT included maintenance ones). Do not remember medication hx. Per record from [facility], she was diagnosed with bipolar with psychotic features. Denies SI/SIB/HI/AVH. Continue present with depressive mood. Patient is not interesting in antidepressants but agrees to have Abilify increase. Abilify increased from 5 to 10mg daily for mood. Remeron up to 30mg from 15mg as home meds daily at for insomnia/sleep Continue to improve in kidney function. BUN 21, Creatinine 1.37n WNL. Patient seen by hospitalist for concerns of hematuria. 05/06/25: Patient was out to TV areas after having ADL'd done by nursing staff, mostly close her eye but open and engage during assessment. Flat affect, appear low energy, soft spoken, denies anxiety or depression saying not bad . Denies pain. Poor appetite but reports she eats a little bit better. Reviewed with patient the expectation and goals to work on. Patient has been compliant with meds. Reviewed medication changes again with patient which is back to her normal home dosage. Do not want to take antidepressant or have it added on. Denies pain or discomfort. She is depressed, flat affect. Nursing continue to assessment for any skin break down and turn patient q2 hours. 05/07/25: Meet with patient in room, patient is very passive engaged in 1-1 assessment today, not actually open her eye, report feeling tired. Continue to have poor appetite despite encouragement from staff. Do not drink her ensure. Do not want when offered to open the bottle for her. Do not express SI/SIB/HI/AVH. Is moderate to severe depresion. Nursing continue to provide care, reposition every 2 hours. Per OT: patient attended one group yesterday and was able to see smile face a couple times during group and interaction. She refused Omeprazole but took other meds. Continue to increased fluid and food intake. Change Abilfy 10mg AM to HS to prevent possible sedation during daytime. Per record, patient appeared to be seen by Urologist but unsure regarding plan. 05/08: Pt refused her meds today, refused meals. Denies depression/SI. Appears catatonic. Will start lorazepam .5 mg tid. Will check TSH, free T4 and free T3 tomorrow am to r/o hypothyroidism, given that recent TSH was on higher side of normal limits. 05/09: Again refusing meds/meals, minimal fluid intake. TSH & free T4 wnl, free T3 pending. Pt is known to t/w from previous ECT tx at [facility] and had similar presentation, which responded well to ECT. She still is not interested. Continue to offer current meds for now, encourage po intake. Plan Patient on 5 minute checks for safety. Admitted to S1. CV Work with treatment team to do collateral. Hx of 30 ECT at [facility] in 2022. ?ECT. Contact the hospitalist regarding hospitalist consultation on admission: PT/Swallow eval consults placed by Hospitalist. Grajeda Cath in place. Would care. Nursing to assist with ADL's and ambulate. Nursing to turn and reposition q2 hours. Patient is not mobile/Ambulate. Patient is on Eliquis BID. No need Lovenox per hospitalist. Plan for medication conditions: Hematuria Likely related to UTI or trauma, patient totally dependent on staff for care, heavy and helpless requires max assist to turn and reposition Start Ceftin 250 mg b.i.d. for 7 days, await cultures (started on 05/05/25) Catheter recently changed 1 week ago. Use cath secure History of DVT and PE Eliquis held due to hematuria Appears related to UTI, we will resume. Continue to monitor Hypertension/hyperlipidemia/cardiomyopathy Continue on metoprolol, aspirin, atorvastatin Chronic kidney disease stage 3 Creatinine stable 1.3 Encourage p.o. fluids, continue to monitor Avoid nephrotoxins Hypothyroidism Per historical record Not on medications TSH 3.45 Constipation Treated with MiraLax and senna S scheduled : change to PRN as patient has been refused. Anemia of chronic kidney disease Stable, follow labs Failure to thrive Swallowing within functional limits. Ensure TID Physical therapy evaluation-minimal activity participation, Williams for out of bed to chair Impaired skin integrity Coccyx and bilateral buttocks Left posterior thigh Bilateral heels Right medial foot and metatarsal head Wound nurse consult as needed Local wound care Turn and reposition, offload areas. Plan Chronic kidney disease: Possibly secondary to atherosclerotic renovascular disease given the history of hypertension and clean UA. Please get the records from the longterm to evaluate baseline creatinine. No anemia, hemoglobin 13; urinalysis showing trace protein no cells. We will quantify proteinuria. Avoid nephrotoxic agents, contrast. Maintain adequate hydration Hypertension: Blood pressure is well controlled On metoprolol 50 mg. Nephrology will follow from periphery, please contact us if there is worsening renal function, or labs from the SNF suggesting that this is DIOMEDES. 05/03: JAIME was able to obtain record of lab work done at [facility] on 04/26: Per Record, Calcium 10.3. BUN 21 Creatinine 1.70 an eGFR 32. Reason for continued inpatient stay Substantial Risk for: med/psych decompensation Time Spent With Patient Time: Total time managing care of this patient today ____ minutes.
[2025-05-09 20:00] VITALS: BP 98/60; PULSE 83; RESP 17; TEMP 37.5; O2SAT 93
[2025-05-10 08:00] VITALS: BP 99/56; PULSE 95; RESP 16; TEMP 37.2; O2SAT 93
--- NOTE | 2025-05-10 12:31 | P.PNPSI_ITS ---
Subjective Subjective Date of Service: 05/10/25 Reason For Visit: depression, med noncompliance Subjective Notes: Conditional Voluntary Interim History: Pt has been mostly in bed, minimally verbal, dismissive. She has lost about 9Lbs while on the unit. Will order CMP/ CBC. She denies SI but her choices including not eating, not taking medications are not congruent. She is not able to provide much rational as to why she is declining all medications. She does tell this journalists and other writers she thinks ECT worked but does not want to have it. Medication Compliance: No Review of Systems Review of Systems Denies any shortness of breath, chest pain, headaches, dysuria, abdominal pain or discomfort, nausea, vomiting or diarrhea. Denies fever or chills. Some skin issues which has been improved with nursing care. Have Grajeda Cath in place. Denies pain. Yes all other systems are reviewed and are negative Mental Status Exam Mental Status Exam Narrative: Appearance: lying in bed. no eye contact Attitude: minimal engagement Speech: Monotone, minimal spontaneous speech Motor activity: retardation noted Mood: tired Affect: constricted SI: denies HI: denies Thought process: poverty of thought, only yes or no answers Thought content: feeling tired Perception: does not appear to respond to internal stimuli Delusions: no overt delusional content Insight/judgment: impaired x 2. Diagnostics Vital Signs (24Hr): Vital Signs - 24 hr 05/09/25 20:00 05/10/25 08:00 Temperature 99.5 F 98.9 F Pulse Rate 83 95 Respiratory Rate 17 16 Blood Pressure 98/60 99/56 L Pulse Oximetry 93 93 Oxygen Delivery Method Room Air Room Air BMI result Body Mass Index 32.5 Labs 05/10/25 14:09 05/13/25 07:22 Labs: Laboratory Results - last 48 hr 05/09/25 08:16 TSH 3.83 Free T4 1.08 Free T3 2.3 Medications Medications Current Medications Acetaminophen (Acetaminophen 325 Mg Tablet) 650 mg PO Q6H PRN PRN Reason: Fever Or Pain Last Admin: 04/29/25 13:56 Dose: 650 mg Al Hydroxide/Mg Hydroxide (Magnesium Hydrox/Alum Hydrox 30 Ml Oral.Susp) 30 ml PO Q6H PRN PRN Reason: Heartburn/Nausea Apixaban (Apixaban 5 Mg Tablet) 5 mg PO BID [facility] Last Admin: 05/10/25 09:17 Dose: Not Given Aripiprazole (Aripiprazole 10 Mg Tablet) 10 mg PO BEDTIME [facility] Last Admin: 05/09/25 21:31 Dose: Not Given Aspirin (Aspirin Enteric Coated 81 Mg Tablet.) 81 mg PO DAILY [facility] Last Admin: 05/10/25 09:17 Dose: Not Given Atorvastatin Calcium (Atorvastatin Calcium 80 Mg Tablet) 80 mg PO BEDTIME [facility] Last Admin: 05/09/25 21:32 Dose: Not Given Bisacodyl (Bisacodyl 10 Mg Supp.Rect) 10 mg [place] DAILY PRN PRN Reason: Constipation Cefuroxime Axetil (Cefuroxime Axetil 250 Mg Tablet) 250 mg PO BID [facility] Last Admin: 05/10/25 09:18 Dose: Not Given Hydroxyzine HCl (Hydroxyzine Hcl 25 Mg Tablet) 25 mg PO Q6H PRN PRN Reason: mild anxiety Lorazepam (Lorazepam 0.5 Mg Tablet) 0.5 mg PO TID [facility] Last Admin: 05/10/25 09:18 Dose: Not Given Magnesium Hydroxide (Milk Of Magnesia 30 Ml Oral.Susp) 30 ml PO DAILY PRN PRN Reason: Constipation Metoprolol Succinate (Metoprolol Succinate Er 50 Mg Tab.Er.24h) 50 mg PO DAILY [facility]; Protocol Last Admin: 05/10/25 09:18 Dose: Not Given Mirtazapine (Mirtazapine 30 Mg Tablet) 30 mg PO BEDTIME [facility] Last Admin: 05/09/25 21:33 Dose: Not Given Naloxone HCl (Naloxone Hcl Nasal 4 Mg [place]) 4 mg NOSTRILALT Q3M PRN PRN Reason: Opiate Reversal Nystatin (Nystatin Powder 15 Gm Bottle) 1 appl TOPICAL BID [facility]; Protocol Last Admin: 05/10/25 09:18 Dose: Not Given Omeprazole (Omeprazole 20 Mg Capsule.) 20 mg PO DAILY@0630 [facility] Last Admin: 05/10/25 06:26 Dose: Not Given Polyethylene Glycol (Polyethylene Glycol 3350 17 Gm Powd.Pack) 17 gm PO DAILY PRN PRN Reason: constipation Senna/Docusate Sodium (Sennosides/Docusate Sodium Tablet) 2 tab PO BID [facility] Last Admin: 05/10/25 09:18 Dose: Not Given Sodium Biphosphate/Sodium Phosphate (Sodium Phosphate,[place]-Dibasic 133 Ml Enema) 118 ml [place] DAILY PRN PRN Reason: Constipation Sodium Chloride (Sodium Chloride 0.65 % Nasal 44 Ml Sprbtl) 1 spray NOSTRIL-L Q1H PRN PRN Reason: Nasal dryness Trazodone HCl (Trazodone Hcl 50 Mg Tablet) 50 mg PO BEDTIME MRX1 PRN PRN Reason: Insomnia Allergies Allergies Allergy/AdvReac Type Severity Reaction Status Date / Time amoxicillin Allergy Unknown Verified 04/26/25 14:52 azithromycin Allergy Unknown Verified 04/26/25 14:52 divalproex sodium (From Allergy Unknown Verified 04/26/25 14:52 Depakote) haloperidol (From Haldol) Allergy Unknown Verified 04/26/25 14:52 lamotrigine Allergy Unknown Verified 04/26/25 14:52 lithium Allergy Unknown Verified 04/26/25 14:52 lurasidone Allergy Unknown Verified 04/26/25 14:52 olanzapine (From Zyprexa) Allergy Unknown Verified 04/26/25 14:52 oxcarbazepine Allergy Unknown Verified 04/26/25 14:52 perphenazine Allergy Unknown Verified 04/26/25 14:52 prilocaine Allergy Unknown Verified 04/26/25 14:52 risperidone Allergy Unknown Verified 04/26/25 14:52 Assessment & Plan Assessment & Plan (1) Bipolar 1 disorder: Status: Acute Code(s): F31.9 - Bipolar disorder, unspecified Assessment and Plan: (2) UTI (urinary tract infection): Status: Acute Code(s): N39.0 - Urinary tract infection, site not specified (3) Acute hemorrhagic cystitis: Status: Acute Code(s): N30.01 - Acute cystitis with hematuria (4) HTN (hypertension): Status: Acute Code(s): I10 - Essential (primary) hypertension (5) Pulmonary embolus: Status: Acute Code(s): I26.99 - Other pulmonary embolism without acute cor pulmonale (6) Adult failure to thrive: Status: Acute Code(s): R62.7 - Adult failure to thrive (7) CKD (chronic kidney disease): Status: Acute Code(s): N18.9 - Chronic kidney disease, unspecified (8) Constipation: Status: Acute Code(s): K59.00 - Constipation, unspecified Plan HPI: Patient is a 74 y.o, , Swedish speaking with history of bipolar I, constipation, hypertension, hyperlipidemia, PE, CKD who was presented via ambulance from short-term rehab facility at [facility] on 04/2025. Patient not been taking medication as prescribed and has been off medication for one-month. She has been refusing to eat consuming fluids and has lost 20 lb in the past month due to her fellow to thrive. . Patient was residing in assisted living facility prior to being placed in [facility] facility. Formulation/clinical reasoning: Failure to thrive, stopped taking meds for 1 months. Poor appetite, 20 lb in a month. Decompensate. Increased depression anxiety. History of bipolar I, history of ECT. Given the above information, patient will benefit in acute care setting, restrictive environment for own safety. Once stable, patient may benefit from skilled facility or long-term care placement. Hospital course: Continue with medication for medical conditions. Continue with home medication, however due to sedation, and not been taking medication consistently prior to coming to us, I will reduce the Abilify down from 12 mg to 5 mg daily. Reduce Remeron 30 mg to 15 mg. 05/01: continue current management and treatment plan. 05/10 pt is NOT taking medications, not eating, has lost 9 Lbs since she has been here in the hospital. Denies SI/HI. However, decisions are not congruent with desire to be alive. Pt does not appear to have capacity to make medical decisions, not able to verbalize undertanding as to her medical conditions nor rational for stopping all meds, only states... don't want to take them. Will invoke HCP. Reason for continued inpatient stay Substantial Risk for: med/psych decompensation Time Spent With Patient Time: Total time managing care of this patient today ____ minutes.
--- NOTE | 2025-05-10 12:53 | MHC.CLN ---
F/U CONTINUES WITH POOR PO INTAKE/POOR APPETITE. INTAKE AT MEALS REFUSES TO 25%. DIET RX REGULAR. SUPPLEMENT ENSURE TID TO PROMOTE CALORIC INTAKE AND WOUND HEALING. SUPPLEMENT PROVIDES 1050 KCALS, 60 G PROTEIN. SKIN WITH MULTIPLE DTIs. REFER TO MOLST, NO ARTIFICIAL NUTRITION/HYDRATION. ENCOURAGE PO INTAKE ABLE AT MEALS AND SNACKS.
[2025-05-10 14:29] LABS: MANUAL DIFF FLAG NO
[2025-05-10 14:31] LABS: Hematocrit 39.8 % (37.0-47.0); Hemoglobin 12.6 g/dl (12.0-16.0); Imm Gran Abs Auto 0.03 X10*3/uL (0.00-0.03); Imm Gran Pct Auto 0.3 % (0.0-0.4); Lymphocytes Absolute Auto 1.7 X10*3/uL (1.2-4.9); Mean Corpuscular HGB Conc 31.7 g/dl (31.0-35.0); Mean Corpuscular Hemoglobin 27.0 pg (27.0-33.0); Mean Corpuscular Volume 85.4 fL (80.0-98.0); NRBC Abs Auto 0.000 X10*3/uL (0.0-0.012); NRBC Pct Auto 0.0 /100WBC (0.0-0.2); Platelet Count 348 X10*3/uL (160-400); Red Blood Count 4.66 X10*6/uL (4.20-5.50); White Blood Count 11.0 X10*3/uL (4.8-10.8)
[2025-05-10 14:55] LABS: Iron 25 mcg/dL (30-160); Percent Iron Saturation 14 % (15-50); Total Iron Binding Capacity 180 mcg/dL (228-428); Unsaturated Iron Binding 155 ug/dL
[2025-05-10 15:28] LABS: Folate 4.9 ng/mL (> or = 4.0); Vitamin B12 691 pg/mL (200-900)
[2025-05-10 20:00] VITALS: BP 145/59; PULSE 90; TEMP 37.7; O2SAT 92
[2025-05-11 07:58] VITALS: BP 101/66; PULSE 78; RESP 18; TEMP 36.8; O2SAT 98
--- NOTE | 2025-05-11 08:25 | P.PNIM_ITS ---
Subjective Subjective Date of Service: 05/11/25 Interval History: Patient is seen for follow up hematuria. Labs demonstrate iron deficiency anemia, patient has had guaiac-positive stool. creatinine 1.63. Per nursing patient has been not eating or drinking well. Intermittently refusing medications. Patient is also continued to lose weight and additional 8 lb since admission. Seen by Urology, plans to continue Grajeda catheter. Patient is status post treatment with Ceftin. Urine is now clear. Wound care continues to her buttocks. Patient is Williams lifted out of bed daily, frequent position changes. Review of Systems On exam she denies abdominal pain, dizziness, headaches, chest pain, shortness of breath or any other concerning symptoms. Physical Exam 2 Vital Signs: Vital Signs: Last Vital Signs Temp 98.2 F 05/11/25 07:58 Pulse 78 05/11/25 07:58 Resp 18 05/11/25 07:58 BP 101/66 05/11/25 07:58 Pulse Ox 98 05/11/25 07:58 O2 Del Method Room Air 05/11/25 07:58 BMI result Body Mass Index 32.5 Objective Data Active Medications Acetaminophen (Acetaminophen 325 Mg Tablet) 650 mg PO Q6H PRN PRN Reason: Fever Or Pain Last Admin: 04/29/25 13:56 Dose: 650 mg Documented By: BE Al Hydroxide/Mg Hydroxide (Magnesium Hydrox/Alum Hydrox 30 Ml Oral.Susp) 30 ml PO Q6H PRN PRN Reason: Heartburn/Nausea Apixaban (Apixaban 5 Mg Tablet) 5 mg PO BID [facility] Last Admin: 05/11/25 08:13 Dose: 5 mg Documented By: NOA Aripiprazole (Aripiprazole 10 Mg Tablet) 10 mg PO BEDTIME [facility] Last Admin: 05/10/25 20:57 Dose: Not Given Documented By: KING Non-Admin Reason: Patient Refused Aspirin (Aspirin Enteric Coated 81 Mg Tablet.) 81 mg PO DAILY [facility] Last Admin: 05/11/25 08:14 Dose: Not Given Documented By: ONA Non-Admin Reason: Patient Refused Atorvastatin Calcium (Atorvastatin Calcium 80 Mg Tablet) 80 mg PO BEDTIME [facility] Last Admin: 05/10/25 20:58 Dose: Not Given Documented By: KING Non-Admin Reason: Patient Refused Bisacodyl (Bisacodyl 10 Mg Supp.Rect) 10 mg [place] DAILY PRN PRN Reason: Constipation Cefuroxime Axetil (Cefuroxime Axetil 250 Mg Tablet) 250 mg PO BID [facility] Last Admin: 05/11/25 08:12 Dose: 250 mg Documented By: NOA Hydroxyzine HCl (Hydroxyzine Hcl 25 Mg Tablet) 25 mg PO Q6H PRN PRN Reason: mild anxiety Lorazepam (Lorazepam 0.5 Mg Tablet) 0.5 mg PO TID [facility] Last Admin: 05/11/25 08:16 Dose: Not Given Documented By: NOA Non-Admin Reason: Patient Refused Magnesium Hydroxide (Milk Of Magnesia 30 Ml Oral.Susp) 30 ml PO DAILY PRN PRN Reason: Constipation Metoprolol Succinate (Metoprolol Succinate Er 50 Mg Tab.Er.24h) 50 mg PO DAILY [facility]; Protocol Last Admin: 05/11/25 08:16 Dose: Not Given Documented By: NOA Non-Admin Reason: Patient Refused Mirtazapine (Mirtazapine 30 Mg Tablet) 30 mg PO BEDTIME [facility] Last Admin: 05/10/25 20:58 Dose: Not Given Documented By: KING Non-Admin Reason: Patient Refused Naloxone HCl (Naloxone Hcl Nasal 4 Mg Odd) 4 mg NOSTRILALT Q3M PRN PRN Reason: Opiate Reversal Nystatin (Nystatin Powder 15 Gm Bottle) 1 appl TOPICAL BID [facility]; Protocol Last Admin: 05/11/25 08:19 Dose: 1 appl Documented By: NOA Omeprazole (Omeprazole 20 Mg Capsule.Dr) 20 mg PO DAILY@0630 [facility] Last Admin: 05/10/25 06:26 Dose: Not Given Documented By: SARATH Non-Admin Reason: Patient Refused Polyethylene Glycol (Polyethylene Glycol 3350 17 Gm Powd.Pack) 17 gm PO DAILY PRN PRN Reason: constipation Senna/Docusate Sodium (Sennosides/Docusate Sodium Tablet) 2 tab PO BID [facility] Last Admin: 05/11/25 08:16 Dose: Not Given Documented By: NOA Non-Admin Reason: Patient Refused Sodium Biphosphate/Sodium Phosphate (Sodium Phosphate,[place]-Dibasic 133 Ml Enema) 118 ml [place] DAILY PRN PRN Reason: Constipation Sodium Chloride (Sodium Chloride 0.65 % Nasal 44 Ml Sprbtl) 1 spray NOSTRIL-L Q1H PRN PRN Reason: Nasal dryness Trazodone HCl (Trazodone Hcl 50 Mg Tablet) 50 mg PO BEDTIME MRX1 PRN PRN Reason: Insomnia Labs 05/10/25 14:09 05/11/25 11:16 Labs: Laboratory Results - last 24 hr 05/09/25 05/10/25 08:16 14:09 MCV 85.4 MCH 27.0 MCHC 31.7 RDW 15.7 Plt Count 348 MPV 10.1 Immature Gran % (Auto) 0.3 Neut % (Auto) 72.6 Lymph % (Auto) 15.2 L [place] % (Auto) 8.0 Eos % (Auto) 3.2 Baso % (Auto) 0.7 Lymph # (Auto) 1.7 [place] # (Auto) 0.9 Eos # (Auto) 0.4 Baso # (Auto) 0.1 Abs Immat Gran (auto) 0.03 Absolute Neuts (auto) 8.0 Absolute Nucleated RBC 0.000 Nucleated RBC % (auto) 0.0 Iron 25 L TIBC 180 L % Saturation 14 L Unsat Iron Binding 155 Vitamin B12 691 25-OH Vitamin D Total 41.8 Folate 4.9 Free T3 2.3 Assessment and Plan (1) UTI (urinary tract infection): Status: Acute Plan 74-year-old female with past medical history as listed below admitted to [facility] psych after presenting to the ED with MDD, failure to thrive and med noncompliance. Bipolar disorder with psychotic features/major depressive disorder/failure to thrive/medication noncompliance. Treatment per psychiatric team Per Psychiatry patient history receiving Ativan challenge, consider ECT if no improvement Hematuria-resolved Likely related to UTI or trauma, patient totally dependent on staff for care, heavy and helpless requires max assist to turn and reposition Start Ceftin 250 mg b.i.d. for 7 days, await cultures- intermittently taken Catheter recently changed 1 week ago. Use cath secure Followed by urology, continue Grajeda catheter due to impaired skin integrity. History of DVT and PE Continue Eliquis Hypertension/hyperlipidemia/cardiomyopathy Continue on metoprolol, aspirin, atorvastatin-takes meds intermittently Chronic kidney disease stage 3 Creatinine 1.63 Encourage p.o. fluids, continue to monitor Avoid nephrotoxins Hypothyroidism Per historical record Not on medications TSH 3.45 Constipation Treated with MiraLax and senna S scheduled. Anemia of chronic kidney disease Stable, follow labs Low iron, TIBC and iron saturation. Start daily iron tabs Failure to thrive Swallowing within functional limits Physical therapy evaluation-minimal activity participation, Williams for out of bed to chair Impaired skin integrity Coccyx and bilateral buttocks Left posterior thigh Bilateral heels Right medial foot and metatarsal head Wound nurse consult as needed Local wound care Turn and reposition, offload areas. Thank you for allowing me to participate in the care of this patient. Will follow with you, please notify medical provider with any changes in condition or concerns. Quality Stroke Does the patient have a stroke diagnosis?: No VTE Prior VTE?: Yes VTE Risk Level:: Medical - moderate - high VTE Device Contraindication: Treatment Not Indicated VTE Drug Contraindication: N/A - Med Ordered
--- NOTE | 2025-05-11 09:10 | HO.HCP_ITS ---
Health Care Proxy Invocation Health Care Proxy Declaration: Lucy Genet Spencerhiram__, on the date cited below, have determined that, Angelica Argueta, lacks the capacity to make or communicate, informed health care decision. This determination is made in accordance with accepted standards of medical judgment and pursuant to [place] c. 201[place], the [place] Health Care Proxy Law. The cause, nature, extent and probable duration of the patient's incapacity are described below: Cause: catatonia affecting her ability to move, talk, think, altered reality and awareness of surroundings Nature: bipolar disorder Extent:complete Probable Duration of Patient's Incapacity:unknown, ongoing assessment of capacity and improvement of symptoms.
[2025-05-11 11:38] LABS: D Dimer High Sensitivity 572 NG/ML
[2025-05-11 11:53] LABS: Alanine Aminotransferase 14 U/L (0-31); Albumin Level 3.5 g/dL (3.5-5.0); Alkaline Phosphatase 74 U/L (39-117); Anion Gap 14 (12-20); Aspartate Amino Transferase 27 U/L (5-31); Blood Urea Nitrogen 25 mg/dL (9-16); Calcium 10.4 mg/dL (8.4-10.2); Carbon Dioxide 26 mmol/L (22-29); Chloride 107 mmol/L (96-108); Creatinine Clr Calc Pharmacy 30.6; Estimated Glomerular Filt Rate 31; Potassium 4.3 mmol/L (3.3-5.1); Sodium 143 mmol/L (135-145); Total Protein 6.8 g/dL (6.5-8.0)
--- NOTE | 2025-05-11 19:55 | P.PNPSI_ITS ---
Subjective Subjective Date of Service: 05/11/25 Reason For Visit: depression, med noncompliance Subjective Notes: Conditional Voluntary Interim History: Pt slept through the night. She did agree to let nursing get her out of bed, in wheelchair as she is wheelchair bound. Labs ordered: CBC normocytic anemia. Low iron levels 25, Iron % 14 TIBC 180. Pt reports she is tired. Did agree to take some of her medications in the AM, no rational as to why not the others, just repeating I took some. denies SI. Diagnostics Vital Signs (24Hr): Vital Signs - 24 hr 05/10/25 20:00 05/11/25 07:58 Temperature 99.9 F 98.2 F Pulse Rate 90 78 Respiratory Rate 18 Blood Pressure 145/59 H 101/66 Pulse Oximetry 92 98 Oxygen Delivery Method Room Air Room Air BMI result Body Mass Index 32.5 Labs 05/10/25 14:09 05/13/25 07:22 Labs: Laboratory Results - last 48 hr 05/09/25 05/10/25 05/11/25 08:16 14:09 11:16 WBC 11.0 H RBC 4.66 Hgb 12.6 Hct 39.8 MCV 85.4 MCH 27.0 MCHC 31.7 RDW 15.7 Plt Count 348 MPV 10.1 Immature Gran % (Auto) 0.3 Neut % (Auto) 72.6 Lymph % (Auto) 15.2 L [place] % (Auto) 8.0 Eos % (Auto) 3.2 Baso % (Auto) 0.7 Lymph # (Auto) 1.7 Randall # (Auto) 0.9 Eos # (Auto) 0.4 Baso # (Auto) 0.1 Abs Immat Gran (auto) 0.03 Absolute Neuts (auto) 8.0 Absolute Nucleated RBC 0.000 Nucleated RBC % (auto) 0.0 Hold Purple Top SEE NOTE D-Dimer High Sensitivty 572 Sodium 143 Potassium 4.3 Chloride 107 Carbon Dioxide 26 Anion Gap 14 BUN 25 H Creatinine 1.63 H Estim Creat Clear Calc 30.6 Estimated GFR 31 Random Glucose 116 H Calcium 10.4 H D Iron 25 L TIBC 180 L % Saturation 14 L Unsat Iron Binding 155 Total Bilirubin 0.5 AST 27 ALT 14 Alkaline Phosphatase 74 Total Protein 6.8 Albumin 3.5 Vitamin B12 691 25-OH Vitamin D Total 41.8 Folate 4.9 Free T3 2.3 Medications Medications Current Medications Acetaminophen (Acetaminophen 325 Mg Tablet) 650 mg PO Q6H PRN PRN Reason: Fever Or Pain Last Admin: 04/29/25 13:56 Dose: 650 mg Al Hydroxide/Mg Hydroxide (Magnesium Hydrox/Alum Hydrox 30 Ml Oral.Susp) 30 ml PO Q6H PRN PRN Reason: Heartburn/Nausea Apixaban (Apixaban 5 Mg Tablet) 5 mg PO BID [facility] Last Admin: 05/11/25 08:13 Dose: 5 mg Aripiprazole (Aripiprazole 10 Mg Tablet) 10 mg PO BEDTIME [facility] Last Admin: 05/10/25 20:57 Dose: Not Given Aspirin (Aspirin Enteric Coated 81 Mg Tablet.) 81 mg PO DAILY [facility] Last Admin: 05/11/25 08:14 Dose: Not Given Atorvastatin Calcium (Atorvastatin Calcium 80 Mg Tablet) 80 mg PO BEDTIME [facility] Last Admin: 05/10/25 20:58 Dose: Not Given Bisacodyl (Bisacodyl 10 Mg Supp.Rect) 10 mg [place] DAILY PRN PRN Reason: Constipation Cefuroxime Axetil (Cefuroxime Axetil 250 Mg Tablet) 250 mg PO BID [facility] Last Admin: 05/11/25 08:12 Dose: 250 mg Ferrous Sulfate (Ferrous Sulfate 324 Mg Tablet.) 324 mg PO DAILY [facility] Hydroxyzine HCl (Hydroxyzine Hcl 25 Mg Tablet) 25 mg PO Q6H PRN PRN Reason: mild anxiety Lorazepam (Lorazepam 0.5 Mg Tablet) 0.5 mg PO TID [facility] Last Admin: 05/11/25 14:29 Dose: 0.5 mg Magnesium Hydroxide (Milk Of Magnesia 30 Ml Oral.Susp) 30 ml PO DAILY PRN PRN Reason: Constipation Metoprolol Succinate (Metoprolol Succinate Er 50 Mg Tab.Er.24h) 50 mg PO DAILY [facility]; Protocol Last Admin: 05/11/25 08:16 Dose: Not Given Mirtazapine (Mirtazapine 30 Mg Tablet) 30 mg PO BEDTIME [facility] Last Admin: 05/10/25 20:58 Dose: Not Given Naloxone HCl (Naloxone Hcl Nasal 4 Mg [place]) 4 mg NOSTRILALT Q3M PRN PRN Reason: Opiate Reversal Nystatin (Nystatin Powder 15 Gm Bottle) 1 appl TOPICAL BID [facility]; Protocol Last Admin: 05/11/25 08:19 Dose: 1 appl Omeprazole (Omeprazole 20 Mg Capsule.Dr) 20 mg PO DAILY@0630 [facility] Last Admin: 05/10/25 06:26 Dose: Not Given Polyethylene Glycol (Polyethylene Glycol 3350 17 Gm Powd.Pack) 17 gm PO DAILY PRN PRN Reason: constipation Senna/Docusate Sodium (Sennosides/Docusate Sodium Tablet) 2 tab PO BID [facility] Last Admin: 05/11/25 08:16 Dose: Not Given Sodium Biphosphate/Sodium Phosphate (Sodium Phosphate,[place]-Dibasic 133 Ml Enema) 118 ml [place] DAILY PRN PRN Reason: Constipation Sodium Chloride (Sodium Chloride 0.65 % Nasal 44 Ml Sprbtl) 1 spray NOSTRIL-L Q1H PRN PRN Reason: Nasal dryness Trazodone HCl (Trazodone Hcl 50 Mg Tablet) 50 mg PO BEDTIME MRX1 PRN PRN Reason: Insomnia Allergies Allergies Allergy/AdvReac Type Severity Reaction Status Date / Time amoxicillin Allergy Unknown Verified 04/26/25 14:52 azithromycin Allergy Unknown Verified 04/26/25 14:52 divalproex sodium (From Allergy Unknown Verified 04/26/25 14:52 Depakote) haloperidol (From Haldol) Allergy Unknown Verified 04/26/25 14:52 lamotrigine Allergy Unknown Verified 04/26/25 14:52 lithium Allergy Unknown Verified 04/26/25 14:52 lurasidone Allergy Unknown Verified 04/26/25 14:52 olanzapine (From Zyprexa) Allergy Unknown Verified 04/26/25 14:52 oxcarbazepine Allergy Unknown Verified 04/26/25 14:52 perphenazine Allergy Unknown Verified 04/26/25 14:52 prilocaine Allergy Unknown Verified 04/26/25 14:52 risperidone Allergy Unknown Verified 04/26/25 14:52 Assessment & Plan Assessment & Plan (1) Bipolar 1 disorder: Status: Acute Code(s): F31.9 - Bipolar disorder, unspecified Assessment and Plan: (2) UTI (urinary tract infection): Status: Acute Code(s): N39.0 - Urinary tract infection, site not specified (3) Acute hemorrhagic cystitis: Status: Acute Code(s): N30.01 - Acute cystitis with hematuria (4) HTN (hypertension): Status: Acute Code(s): I10 - Essential (primary) hypertension (5) Pulmonary embolus: Status: Acute Code(s): I26.99 - Other pulmonary embolism without acute cor pulmonale (6) Adult failure to thrive: Status: Acute Code(s): R62.7 - Adult failure to thrive (7) CKD (chronic kidney disease): Status: Acute Code(s): N18.9 - Chronic kidney disease, unspecified (8) Constipation: Status: Acute Code(s): K59.00 - Constipation, unspecified Plan HPI: Patient is a 74 y.o, , Algerian speaking with history of bipolar I, constipation, hypertension, hyperlipidemia, PE, CKD who was presented via ambulance from short-term rehab facility at [facility] on 04[place]25. Patient not been taking medication as prescribed and has been off medication for one-month. She has been refusing to eat consuming fluids and has lost 20 lb in the past month due to her fellow to thrive. . Patient was residing in assisted living facility prior to being placed in [facility] facility. Formulation/clinical reasoning: Failure to thrive, stopped taking meds for 1 months. Poor appetite, 20 lb in a month. Decompensate. Increased depression anxiety. History of bipolar I, history of ECT. Given the above information, patient will benefit in acute care setting, restrictive environment for own safety. Once stable, patient may benefit from skilled facility or long-term care placement. Hospital course: Continue with medication for medical conditions. Continue with home medication, however due to sedation, and not been taking medication consistently prior to coming to us, I will reduce the Abilify down from 12 mg to 5 mg daily. Reduce Remeron 30 mg to 15 mg. 05/01: continue current management and treatment plan. 05/10 pt is NOT taking medications, not eating, has lost 9 Lbs since she has been here in the hospital. Denies SI/HI. However, decisions are not congruent with desire to be alive. Pt does not appear to have capacity to make medical decisions, not able to verbalize understanding as to her medical conditions nor rational for stopping all meds, only states... don't want to take them. Will invoke HCP. 05/11 continue tx. Reason for continued inpatient stay Substantial Risk for: med/psych decompensation Time Spent With Patient Time: Total time managing care of this patient today ____ minutes.
[2025-05-11 19:59] VITALS: BP 140/74; PULSE 89; RESP 18; TEMP 36.3; O2SAT 97
--- NOTE | 2025-05-12 13:40 | MHC.CLN ---
F/U CONTINUES WITH VERY POOR PO INTAKE/POOR APPETITE. DIET RX REGULAR. SUPPLEMENT ENSURE TID (1050 KCALS, 60 G PROTEIN) TO PROMOTE CALORIC INTAKE AND WOUND HEALING. SKIN WITH DTI RIGHT MEDIAL FOOT, STAGE II RIGHT BUTTOCK, STAGE I TO LEFT BUTTOCK AND COCCYX. REFER TO MOLST, NO ARTIFICIAL NUTRITION/HYDRATION. ENCOURAGE PO INTAKE ABLE AT MEALS AND SNACKS.
--- NOTE | 2025-05-12 19:42 | P.PNPSI_ITS ---
Subjective Subjective Date of Service: 05/12/25 Reason For Visit: depression, med noncompliance Interim History: Pt slept through the night. She has been again in bed, minimal oral intake. intermittently declines medications. Labs to monitor renal function. She has been taking eliquis more consistently, otherwise may need levonox. Speech minimally spontaneous. She does quickly respond she does not want to but can't provide much information as to why she does not take medications nor want to consider alternative treatment. Mental Status Exam Mental Status Exam Narrative: Appearance: lying in bed. no eye contact Attitude: minimal engagement Speech: Monotone, minimal spontaneous speech Motor activity: retardation noted Mood: tired Affect: constricted SI: denies HI: denies Thought process: poverty of thought, only yes or no answers Thought content: feeling tired Perception: does not appear to respond to internal stimuli Delusions: no overt delusional content Insight/judgment: impaired x 2. Diagnostics Vital Signs (24Hr): Vital Signs - 24 hr 05/11/25 19:59 Temperature 97.4 F Pulse Rate 89 Respiratory Rate 18 Blood Pressure 140/74 H Pulse Oximetry 97 Oxygen Delivery Method Room Air BMI result Body Mass Index 32.5 Labs 05/10/25 14:09 05/13/25 07:22 Labs: Laboratory Results - last 48 hr 05/11/25 11:16 Hold Purple Top SEE NOTE D-Dimer High Sensitivty 572 Sodium 143 Potassium 4.3 Chloride 107 Carbon Dioxide 26 Anion Gap 14 BUN 25 H Creatinine 1.63 H Estim Creat Clear Calc 30.6 Estimated GFR 31 Random Glucose 116 H Calcium 10.4 H D Total Bilirubin 0.5 AST 27 ALT 14 Alkaline Phosphatase 74 Total Protein 6.8 Albumin 3.5 Medications Medications Current Medications Acetaminophen (Acetaminophen 325 Mg Tablet) 650 mg PO Q6H PRN PRN Reason: Fever Or Pain Last Admin: 04/29/25 13:56 Dose: 650 mg Al Hydroxide/Mg Hydroxide (Magnesium Hydrox/Alum Hydrox 30 Ml Oral.Susp) 30 ml PO Q6H PRN PRN Reason: Heartburn/Nausea Apixaban (Apixaban 5 Mg Tablet) 5 mg PO BID [facility] Last Admin: 05/12/25 09:04 Dose: 5 mg Aripiprazole (Aripiprazole 10 Mg Tablet) 10 mg PO BEDTIME [facility] Last Admin: 05/11/25 21:59 Dose: Not Given Aspirin (Aspirin Enteric Coated 81 Mg Tablet.) 81 mg PO DAILY [facility] Last Admin: 05/12/25 09:05 Dose: Not Given Atorvastatin Calcium (Atorvastatin Calcium 80 Mg Tablet) 80 mg PO BEDTIME [facility] Last Admin: 05/11/25 22:00 Dose: Not Given Bisacodyl (Bisacodyl 10 Mg Supp.Rect) 10 mg [place] DAILY PRN PRN Reason: Constipation Cefuroxime Axetil (Cefuroxime Axetil 250 Mg Tablet) 250 mg PO BID [facility] Last Admin: 05/12/25 09:03 Dose: 250 mg Ferrous Sulfate (Ferrous Sulfate 324 Mg Tablet.) 324 mg PO DAILY [facility] Last Admin: 05/12/25 09:05 Dose: Not Given Hydroxyzine HCl (Hydroxyzine Hcl 25 Mg Tablet) 25 mg PO Q6H PRN PRN Reason: mild anxiety Lorazepam (Lorazepam 0.5 Mg Tablet) 0.5 mg PO TID [facility] Last Admin: 05/12/25 15:23 Dose: Not Given Magnesium Hydroxide (Milk Of Magnesia 30 Ml Oral.Susp) 30 ml PO DAILY PRN PRN Reason: Constipation Metoprolol Succinate (Metoprolol Succinate Er 50 Mg Tab.Er.24h) 50 mg PO DAILY [facility]; Protocol Last Admin: 05/12/25 09:05 Dose: Not Given Mirtazapine (Mirtazapine 30 Mg Tablet) 30 mg PO BEDTIME [facility] Last Admin: 05/11/25 22:00 Dose: Not Given Naloxone HCl (Naloxone Hcl Nasal 4 Mg [place]) 4 mg NOSTRILALT Q3M PRN PRN Reason: Opiate Reversal Nystatin (Nystatin Powder 15 Gm Bottle) 1 appl TOPICAL BID [facility]; Protocol Last Admin: 05/12/25 09:06 Dose: Not Given Omeprazole (Omeprazole 20 Mg Capsule.) 20 mg PO DAILY@0630 [facility] Last Admin: 05/12/25 05:42 Dose: 20 mg Polyethylene Glycol (Polyethylene Glycol 3350 17 Gm Powd.Pack) 17 gm PO DAILY PRN PRN Reason: constipation Senna/Docusate Sodium (Sennosides/Docusate Sodium Tablet) 2 tab PO BID [facility] Last Admin: 05/12/25 09:06 Dose: Not Given Sodium Biphosphate/Sodium Phosphate (Sodium Phosphate,[place]-Dibasic 133 Ml Enema) 118 ml [place] DAILY PRN PRN Reason: Constipation Sodium Chloride (Sodium Chloride 0.65 % Nasal 44 Ml Sprbtl) 1 spray NOSTRIL-L Q1H PRN PRN Reason: Nasal dryness Trazodone HCl (Trazodone Hcl 50 Mg Tablet) 50 mg PO BEDTIME MRX1 PRN PRN Reason: Insomnia Allergies Allergies Allergy/AdvReac Type Severity Reaction Status Date / Time amoxicillin Allergy Unknown Verified 04/26/25 14:52 azithromycin Allergy Unknown Verified 04/26/25 14:52 divalproex sodium (From Allergy Unknown Verified 04/26/25 14:52 Depakote) haloperidol (From Haldol) Allergy Unknown Verified 04/26/25 14:52 lamotrigine Allergy Unknown Verified 04/26/25 14:52 lithium Allergy Unknown Verified 04/26/25 14:52 lurasidone Allergy Unknown Verified 04/26/25 14:52 olanzapine (From Zyprexa) Allergy Unknown Verified 04/26/25 14:52 oxcarbazepine Allergy Unknown Verified 04/26/25 14:52 perphenazine Allergy Unknown Verified 04/26/25 14:52 prilocaine Allergy Unknown Verified 04/26/25 14:52 risperidone Allergy Unknown Verified 04/26/25 14:52 Assessment & Plan Assessment & Plan (1) Bipolar 1 disorder: Status: Acute Code(s): F31.9 - Bipolar disorder, unspecified Assessment and Plan: (2) UTI (urinary tract infection): Status: Acute Code(s): N39.0 - Urinary tract infection, site not specified (3) Acute hemorrhagic cystitis: Status: Acute Code(s): N30.01 - Acute cystitis with hematuria (4) HTN (hypertension): Status: Acute Code(s): I10 - Essential (primary) hypertension (5) Pulmonary embolus: Status: Acute Code(s): I26.99 - Other pulmonary embolism without acute cor pulmonale (6) Adult failure to thrive: Status: Acute Code(s): R62.7 - Adult failure to thrive (7) CKD (chronic kidney disease): Status: Acute Code(s): N18.9 - Chronic kidney disease, unspecified (8) Constipation: Status: Acute Code(s): K59.00 - Constipation, unspecified Plan HPI: Patient is a 74 y.o, , Slovenian speaking with history of bipolar I, constipation, hypertension, hyperlipidemia, PE, CKD who was presented via ambulance from short-term rehab facility at [facility] on 04/2025. Patient not been taking medication as prescribed and has been off medication for one-month. She has been refusing to eat consuming fluids and has lost 20 lb in the past month due to her fellow to thrive. . Patient was residing in assisted living facility prior to being placed in [facility] facility. Formulation/clinical reasoning: Failure to thrive, stopped taking meds for 1 months. Poor appetite, 20 lb in a month. Decompensate. Increased depression anxiety. History of bipolar I, history of ECT. Given the above information, patient will benefit in acute care setting, restrictive environment for own safety. Once stable, patient may benefit from skilled facility or long-term care placement. Hospital course: Continue with medication for medical conditions. Continue with home medication, however due to sedation, and not been taking medication consistently prior to coming to us, I will reduce the Abilify down from 12 mg to 5 mg daily. Reduce Remeron 30 mg to 15 mg. 05/01: continue current management and treatment plan. 05/10 pt is NOT taking medications, not eating, has lost 9 Lbs since she has been here in the hospital. Denies SI/HI. However, decisions are not congruent with desire to be alive. Pt does not appear to have capacity to make medical decisions, not able to verbalize understanding as to her medical conditions nor rational for stopping all meds, only states... don't want to take them. Will invoke HCP. 05/11 continue tx. 05/12 attempted to call sister who is HCP, left VM with call back number. pt continues to present as withdrawn, minimally verbal, ambivalent with making decisions, intermittently accepting medications, no rationale as to why she does not take them or why she does not take them consistently. Monitor DVT prophylaxis- for now seems to be more consistent with eliqujakob. Reason for continued inpatient stay Substantial Risk for: inability to function Time Spent With Patient Time: Total time managing care of this patient today ____ minutes.
[2025-05-12 20:00] VITALS: BP 109/58; PULSE 79; RESP 18; TEMP 37.3
[2025-05-13 08:00] VITALS: BP 106/52; PULSE 77; RESP 16; TEMP 37
[2025-05-13 08:01] LABS: Anion Gap 13 (12-20); Blood Urea Nitrogen 22 mg/dL (9-16); Calcium 9.7 mg/dL (8.4-10.2); Carbon Dioxide 26 mmol/L (22-29); Chloride 104 mmol/L (96-108); Creatinine Clr Calc Pharmacy 36.7; Estimated Glomerular Filt Rate 38; Potassium 3.7 mmol/L (3.3-5.1); Sodium 139 mmol/L (135-145)
[2025-05-13] MEDS: Metoprolol Succinate ER 50 MG TAB.ER.24H PO (09:56)
--- NOTE | 2025-05-13 14:45 | P.PNPSI_ITS ---
Subjective Subjective Date of Service: 05/13/25 Reason For Visit: depression, med noncompliance Subjective Notes: Conditional Voluntary Interim History: Pt continues to be in bed, at times refusing medications but has been more consistent with some of the medications she is taking. continues to report she is not suicidal nor she wants to but declines further interventions. Diagnostics Vital Signs (24Hr): Vital Signs - 24 hr 05/12/25 20:00 05/13/25 08:00 Temperature 99.1 F 98.6 F Pulse Rate 79 77 Respiratory Rate 18 16 Blood Pressure 109/58 L 106/52 L Oxygen Delivery Method Room Air BMI result Body Mass Index 32.5 Labs 05/10/25 14:09 05/13/25 07:22 Labs: Laboratory Results - last 48 hr 05/13/25 07:22 Sodium 139 Potassium 3.7 Chloride 104 Carbon Dioxide 26 Anion Gap 13 BUN 22 H Creatinine 1.36 Estim Creat Clear Calc 36.7 Estimated GFR 38 Random Glucose 91 Calcium 9.7 D Medications Medications Current Medications Acetaminophen (Acetaminophen 325 Mg Tablet) 650 mg PO Q6H PRN PRN Reason: Fever Or Pain Last Admin: 04/29/25 13:56 Dose: 650 mg Al Hydroxide/Mg Hydroxide (Magnesium Hydrox/Alum Hydrox 30 Ml Oral.Susp) 30 ml PO Q6H PRN PRN Reason: Heartburn/Nausea Apixaban (Apixaban 5 Mg Tablet) 5 mg PO BID [facility] Last Admin: 05/13/25 09:56 Dose: 5 mg Aripiprazole (Aripiprazole 10 Mg Tablet) 10 mg PO BEDTIME [facility] Last Admin: 05/12/25 21:00 Dose: Not Given Aspirin (Aspirin Enteric Coated 81 Mg Tablet.) 81 mg PO DAILY [facility] Last Admin: 05/13/25 10:05 Dose: Not Given Atorvastatin Calcium (Atorvastatin Calcium 80 Mg Tablet) 80 mg PO BEDTIME [facility] Last Admin: 05/12/25 21:00 Dose: Not Given Bisacodyl (Bisacodyl 10 Mg Supp.Rect) 10 mg [place] DAILY PRN PRN Reason: Constipation Cefuroxime Axetil (Cefuroxime Axetil 250 Mg Tablet) 250 mg PO BID [facility] Last Admin: 05/13/25 09:56 Dose: 250 mg Ferrous Sulfate (Ferrous Sulfate 324 Mg Tablet.) 324 mg PO DAILY [facility] Last Admin: 05/13/25 10:05 Dose: Not Given Hydroxyzine HCl (Hydroxyzine Hcl 25 Mg Tablet) 25 mg PO Q6H PRN PRN Reason: mild anxiety Lorazepam (Lorazepam 0.5 Mg Tablet) 0.5 mg PO TID [facility] Last Admin: 05/13/25 09:57 Dose: 0.5 mg Magnesium Hydroxide (Milk Of Magnesia 30 Ml Oral.Susp) 30 ml PO DAILY PRN PRN Reason: Constipation Metoprolol Succinate (Metoprolol Succinate Er 50 Mg Tab.Er.24h) 50 mg PO DAILY [facility]; Protocol Last Admin: 05/13/25 09:56 Dose: 50 mg Mirtazapine (Mirtazapine 30 Mg Tablet) 30 mg PO BEDTIME [facility] Last Admin: 05/12/25 21:00 Dose: Not Given Naloxone HCl (Naloxone Hcl Nasal 4 Mg [place]) 4 mg NOSTRILALT Q3M PRN PRN Reason: Opiate Reversal Nystatin (Nystatin Powder 15 Gm Bottle) 1 appl TOPICAL BID [facility]; Protocol Last Admin: 05/13/25 10:06 Dose: 1 appl Omeprazole (Omeprazole 20 Mg Capsule.Dr) 20 mg PO DAILY@0630 [facility] Last Admin: 05/13/25 10:04 Dose: Not Given Polyethylene Glycol (Polyethylene Glycol 3350 17 Gm Powd.Pack) 17 gm PO DAILY PRN PRN Reason: constipation Senna/Docusate Sodium (Sennosides/Docusate Sodium Tablet) 2 tab PO BID [facility] Last Admin: 05/13/25 10:05 Dose: Not Given Sodium Biphosphate/Sodium Phosphate (Sodium Phosphate,[place]-Dibasic 133 Ml Enema) 118 ml [place] DAILY PRN PRN Reason: Constipation Sodium Chloride (Sodium Chloride 0.65 % Nasal 44 Ml Sprbtl) 1 spray NOSTRIL-L Q1H PRN PRN Reason: Nasal dryness Trazodone HCl (Trazodone Hcl 50 Mg Tablet) 50 mg PO BEDTIME MRX1 PRN PRN Reason: Insomnia Allergies Allergies Allergy/AdvReac Type Severity Reaction Status Date / Time amoxicillin Allergy Unknown Verified 04/26/25 14:52 azithromycin Allergy Unknown Verified 04/26/25 14:52 divalproex sodium (From Allergy Unknown Verified 04/26/25 14:52 Depakote) haloperidol (From Haldol) Allergy Unknown Verified 04/26/25 14:52 lamotrigine Allergy Unknown Verified 04/26/25 14:52 lithium Allergy Unknown Verified 04/26/25 14:52 lurasidone Allergy Unknown Verified 04/26/25 14:52 olanzapine (From Zyprexa) Allergy Unknown Verified 04/26/25 14:52 oxcarbazepine Allergy Unknown Verified 04/26/25 14:52 perphenazine Allergy Unknown Verified 04/26/25 14:52 prilocaine Allergy Unknown Verified 04/26/25 14:52 risperidone Allergy Unknown Verified 04/26/25 14:52 Assessment & Plan Assessment & Plan (1) Bipolar 1 disorder: Status: Acute Code(s): F31.9 - Bipolar disorder, unspecified Assessment and Plan: (2) UTI (urinary tract infection): Status: Acute Code(s): N39.0 - Urinary tract infection, site not specified (3) Acute hemorrhagic cystitis: Status: Acute Code(s): N30.01 - Acute cystitis with hematuria (4) HTN (hypertension): Status: Acute Code(s): I10 - Essential (primary) hypertension (5) Pulmonary embolus: Status: Acute Code(s): I26.99 - Other pulmonary embolism without acute cor pulmonale (6) Adult failure to thrive: Status: Acute Code(s): R62.7 - Adult failure to thrive (7) CKD (chronic kidney disease): Status: Acute Code(s): N18.9 - Chronic kidney disease, unspecified (8) Constipation: Status: Acute Code(s): K59.00 - Constipation, unspecified Plan HPI: Patient is a 74 y.o, , German speaking with history of bipolar I, constipation, hypertension, hyperlipidemia, PE, CKD who was presented via ambulance from short-term rehab facility at [facility] on 04/2025. Patient not been taking medication as prescribed and has been off medication for one-month. She has been refusing to eat consuming fluids and has lost 20 lb in the past month due to her fellow to thrive. . Patient was residing in assisted living facility prior to being placed in [facility] facility. Formulation/clinical reasoning: Failure to thrive, stopped taking meds for 1 months. Poor appetite, 20 lb in a month. Decompensate. Increased depression anxiety. History of bipolar I, history of ECT. Given the above information, patient will benefit in acute care setting, restrictive environment for own safety. Once stable, patient may benefit from skilled facility or long-term care placement. Hospital course: Continue with medication for medical conditions. Continue with home medication, however due to sedation, and not been taking medication consistently prior to coming to us, I will reduce the Abilify down from 12 mg to 5 mg daily. Reduce Remeron 30 mg to 15 mg. 05/01: continue current management and treatment plan. 05/10 pt is NOT taking medications, not eating, has lost 9 Lbs since she has been here in the hospital. Denies SI/HI. However, decisions are not congruent with desire to be alive. Pt does not appear to have capacity to make medical decisions, not able to verbalize understanding as to her medical conditions nor rational for stopping all meds, only states... don't want to take them. Will invoke HCP. 05/11 continue tx. 05/13 not eating much, but taking medications more consisitently including eliquis. left VM to HCP with call back number, pending also coolateral information from her OP psychiatrist. Reason for continued inpatient stay Substantial Risk for: inability to function Time Spent With Patient Time: Total time managing care of this patient today ____ minutes.
[2025-05-13 20:00] VITALS: BP 100/54; PULSE 70; TEMP 37.3; O2SAT 95
[2025-05-14 08:00] VITALS: BP 107/52; PULSE 74; RESP 18; TEMP 37.6; O2SAT 94
[2025-05-14] MEDS: Metoprolol Succinate ER 50 MG TAB.ER.24H PO (08:57)
[2025-05-14] MEDS: Aspirin Enteric Coated 81 MG TABLET.DR PO (08:57)
[2025-05-14] MEDS: Ferrous Sulfate 324 MG TABLET.DR PO (08:57)
--- NOTE | 2025-05-14 13:35 | MHC.CLN ---
F/U CONTINUES WITH VERY POOR PO INTAKE/POOR APPETITE. DIET RX REGULAR. SUPPLEMENT ENSURE TID (1050 KCALS, 60 G PROTEIN) TO PROMOTE CALORIC INTAKE AND WOUND HEALING. SKIN WITH MULTIPLE PRESSURE INJURIES. REFER TO MOLST, NO ARTIFICIAL NUTRITION/HYDRATION. ENCOURAGE PO INTAKE ABLE AT MEALS AND SNACKS.
--- NOTE | 2025-05-14 15:00 | P.PNPSI_ITS ---
Subjective Subjective Date of Service: 05/14/25 Reason For Visit: depression, med noncompliance Subjective Notes: Conditional Voluntary Interim History: Pt sleeping through the night. In bed all day and declined to get out of room in wheelchair. poverty of thought. declines ECT. SW spoke with HCP who reports she does not want to do anything that pt is not agreeing to do. Will discussed next with with HCP treatment plan. HCP had asked about lithium but pt's creatinine clearance is in lower end of 30. will gathered more collateral information as to medication trials. Diagnostics Vital Signs (24Hr): Vital Signs - 24 hr 05/13/25 20:00 05/14/25 08:00 Temperature 99.1 F 99.6 F Pulse Rate 70 74 Respiratory Rate 18 Blood Pressure 100/54 L 107/52 L Pulse Oximetry 95 94 Oxygen Delivery Method Room Air Room Air BMI result Body Mass Index 32.5 Labs 05/10/25 14:09 05/13/25 07:22 Labs: Laboratory Results - last 48 hr 05/13/25 07:22 Sodium 139 Potassium 3.7 Chloride 104 Carbon Dioxide 26 Anion Gap 13 BUN 22 H Creatinine 1.36 Estim Creat Clear Calc 36.7 Estimated GFR 38 Random Glucose 91 Calcium 9.7 D Medications Medications Current Medications Acetaminophen (Acetaminophen 325 Mg Tablet) 650 mg PO Q6H PRN PRN Reason: Fever Or Pain Last Admin: 04/29/25 13:56 Dose: 650 mg Al Hydroxide/Mg Hydroxide (Magnesium Hydrox/Alum Hydrox 30 Ml Oral.Susp) 30 ml PO Q6H PRN PRN Reason: Heartburn/Nausea Apixaban (Apixaban 5 Mg Tablet) 5 mg PO BID [facility] Last Admin: 05/14/25 08:57 Dose: 5 mg Aripiprazole (Aripiprazole 10 Mg Tablet) 10 mg PO BEDTIME [facility] Last Admin: 05/13/25 20:43 Dose: 10 mg Aspirin (Aspirin Enteric Coated 81 Mg Tablet.Dr) 81 mg PO DAILY [facility] Last Admin: 05/14/25 08:57 Dose: 81 mg Atorvastatin Calcium (Atorvastatin Calcium 80 Mg Tablet) 80 mg PO BEDTIME [facility] Last Admin: 05/13/25 20:55 Dose: Not Given Bisacodyl (Bisacodyl 10 Mg Supp.Rect) 10 mg [place] DAILY PRN PRN Reason: Constipation Cefuroxime Axetil (Cefuroxime Axetil 250 Mg Tablet) 250 mg PO BID [facility] Last Admin: 05/14/25 08:57 Dose: 250 mg Ferrous Sulfate (Ferrous Sulfate 324 Mg Tablet.Dr) 324 mg PO DAILY [facility] Last Admin: 05/14/25 08:57 Dose: 324 mg Hydroxyzine HCl (Hydroxyzine Hcl 25 Mg Tablet) 25 mg PO Q6H PRN PRN Reason: mild anxiety Lorazepam (Lorazepam 0.5 Mg Tablet) 0.5 mg PO TID [facility] Last Admin: 05/14/25 14:30 Dose: 0.5 mg Magnesium Hydroxide (Milk Of Magnesia 30 Ml Oral.Susp) 30 ml PO DAILY PRN PRN Reason: Constipation Metoprolol Succinate (Metoprolol Succinate Er 50 Mg Tab.Er.24h) 50 mg PO DAILY [facility]; Protocol Last Admin: 05/14/25 08:57 Dose: 50 mg Mirtazapine (Mirtazapine 30 Mg Tablet) 30 mg PO BEDTIME [facility] Last Admin: 05/13/25 20:42 Dose: 30 mg Naloxone HCl (Naloxone Hcl Nasal 4 Mg [place]) 4 mg NOSTRILALT Q3M PRN PRN Reason: Opiate Reversal Nystatin (Nystatin Powder 15 Gm Bottle) 1 appl TOPICAL BID [facility]; Protocol Last Admin: 05/14/25 09:07 Dose: 1 appl Omeprazole (Omeprazole 20 Mg Capsule.Dr) 20 mg PO DAILY@0630 [facility] Last Admin: 05/14/25 06:04 Dose: 20 mg Polyethylene Glycol (Polyethylene Glycol 3350 17 Gm Powd.Pack) 17 gm PO DAILY PRN PRN Reason: constipation Senna/Docusate Sodium (Sennosides/Docusate Sodium Tablet) 2 tab PO BID [facility] Last Admin: 05/14/25 08:57 Dose: 2 tab Sodium Biphosphate/Sodium Phosphate (Sodium Phosphate,[place]-Dibasic 133 Ml Enema) 118 ml [place] DAILY PRN PRN Reason: Constipation Sodium Chloride (Sodium Chloride 0.65 % Nasal 44 Ml Sprbtl) 1 spray NOSTRIL-L Q1H PRN PRN Reason: Nasal dryness Trazodone HCl (Trazodone Hcl 50 Mg Tablet) 50 mg PO BEDTIME MRX1 PRN PRN Reason: Insomnia Allergies Allergies Allergy/AdvReac Type Severity Reaction Status Date / Time amoxicillin Allergy Unknown Verified 04/26/25 14:52 azithromycin Allergy Unknown Verified 04/26/25 14:52 divalproex sodium (From Allergy Unknown Verified 04/26/25 14:52 Depakote) haloperidol (From Haldol) Allergy Unknown Verified 04/26/25 14:52 lamotrigine Allergy Unknown Verified 04/26/25 14:52 lithium Allergy Unknown Verified 04/26/25 14:52 lurasidone Allergy Unknown Verified 04/26/25 14:52 olanzapine (From Zyprexa) Allergy Unknown Verified 04/26/25 14:52 oxcarbazepine Allergy Unknown Verified 04/26/25 14:52 perphenazine Allergy Unknown Verified 04/26/25 14:52 prilocaine Allergy Unknown Verified 04/26/25 14:52 risperidone Allergy Unknown Verified 04/26/25 14:52 Assessment & Plan Assessment & Plan (1) Bipolar 1 disorder: Status: Acute Code(s): F31.9 - Bipolar disorder, unspecified Assessment and Plan: (2) UTI (urinary tract infection): Status: Acute Code(s): N39.0 - Urinary tract infection, site not specified (3) Acute hemorrhagic cystitis: Status: Acute Code(s): N30.01 - Acute cystitis with hematuria (4) HTN (hypertension): Status: Acute Code(s): I10 - Essential (primary) hypertension (5) Pulmonary embolus: Status: Acute Code(s): I26.99 - Other pulmonary embolism without acute cor pulmonale (6) Adult failure to thrive: Status: Acute Code(s): R62.7 - Adult failure to thrive (7) CKD (chronic kidney disease): Status: Acute Code(s): N18.9 - Chronic kidney disease, unspecified (8) Constipation: Status: Acute Code(s): K59.00 - Constipation, unspecified Plan HPI: Patient is a 74 y.o, , [place] speaking with history of bipolar I, constipation, hypertension, hyperlipidemia, PE, CKD who was presented via ambulance from short-term rehab facility at [facility] on 04/2025. Patient not been taking medication as prescribed and has been off medication for one-month. She has been refusing to eat consuming fluids and has lost 20 lb in the past month due to her fellow to thrive. . Patient was residing in assisted living facility prior to being placed in [facility] facility. Formulation/clinical reasoning: Failure to thrive, stopped taking meds for 1 months. Poor appetite, 20 lb in a month. Decompensate. Increased depression anxiety. History of bipolar I, history of ECT. Given the above information, patient will benefit in acute care setting, restrictive environment for own safety. Once stable, patient may benefit from skilled facility or long-term care placement. Hospital course: Continue with medication for medical conditions. Continue with home medication, however due to sedation, and not been taking medication consistently prior to coming to us, I will reduce the Abilify down from 12 mg to 5 mg daily. Reduce Remeron 30 mg to 15 mg. 05/01: continue current management and treatment plan. 05/10 pt is NOT taking medications, not eating, has lost 9 Lbs since she has been here in the hospital. Denies SI/HI. However, decisions are not congruent with desire to be alive. Pt does not appear to have capacity to make medical decisions, not able to verbalize understanding as to her medical conditions nor rational for stopping all meds, only states... don't want to take them. Will invoke HCP. 05/11 continue tx. 05/12 attempted to call sister who is HCP, left VM with call back number. pt continues to present as withdrawn, minimally verbal, ambivalent with making decisions, intermittently accepting medications, no rationale as to why she does not take them or why she does not take them consistently. Monitor DVT prophylaxis- for now seems to be more consistent with ty. 05/13 continue tx. 05/14 HCP gave verbal consent for CV. pending meeting to discuss treatment. Reason for continued inpatient stay Substantial Risk for: inability to function Time Spent With Patient Time: Total time managing care of this patient today ____ minutes.
[2025-05-14 20:00] VITALS: BP 107/56; PULSE 71; RESP 16; TEMP 37.2; O2SAT 94
[2025-05-15] MEDS: Magnesium Hydrox/Alum Hydrox 30 ML ORAL.SUSP PO (00:43)
[2025-05-15 10:42] VITALS: BP 141/72; PULSE 81; RESP 14; TEMP 36.8; O2SAT 97
[2025-05-15] MEDS: Aspirin Enteric Coated 81 MG TABLET.DR PO (10:42)
[2025-05-15] MEDS: Metoprolol Succinate ER 50 MG TAB.ER.24H PO (10:43)
[2025-05-15] MEDS: Ferrous Sulfate 324 MG TABLET.DR PO (10:43)
[2025-05-15 19:52] VITALS: BP 90/62; PULSE 66; RESP 16; TEMP 36.6; O2SAT 95
--- NOTE | 2025-05-15 19:55 | P.PNPSI_ITS ---
Subjective Subjective Date of Service: 05/15/25 Reason For Visit: depression, med noncompliance Subjective Notes: Conditional Voluntary Medical Problems Affecting Mental Status: No Interim History: Medical record and nursing notes reviewed; case discussed during rounds with team/nursing staff, and met with patient for supportive therapy/psychoeducation, as well as medication management. Patient was brought out to dining area, ate breakfast late, Calm, pleasant and cooperative. Denies safety concerns. Denies side effects. Compliant with meds except Atorvastatin and Senna yesterday. Poor appetite but ate 50% dinner, drank 600ml last night at dinner and slept for 5+ hours per nursing. PRN was also given for anxiety and pain. Report anxiety and depresion with flat affect, Congruent with mood. Medication Compliance: Yes (Except Atorvastatin and Senna yesterday ) Side effects from medications: No Attending Groups: No (but ate out in common area) Review of Systems Acute medical concerns: No Medical Review of Systems: unchanged Review of Systems Review of Systems Denies any shortness of breath, chest pain, headaches, dysuria, abdominal pain or discomfort, nausea, vomiting or diarrhea. Denies fever or chills. Some skin issues which has been improved with nursing care. Have Grajeda Cath in place. Denies pain. Yes all other systems are reviewed and are negative Mental Status Exam Mental Status Exam Narrative: Appearance: sitting up in the chair in dinning area eating late breakfast. Attitude: engage in assessment appropriately Speech: Monotone, minimal spontaneous speech Motor activity: retardation noted Mood: good but anxious and depressed Affect: constricted SI: denies HI: denies Thought process: poverty of thought, only yes or no answers Thought content: WNL Perception: does not appear to respond to internal stimuli Delusions: no overt delusional content Insight/judgment: impaired x 2. Diagnostics Vital Signs (24Hr): Vital Signs - 24 hr 05/14/25 20:00 05/15/25 10:42 05/15/25 19:52 Temperature 98.9 F 98.3 F 98 F Pulse Rate 71 81 66 Respiratory Rate 16 14 16 Blood Pressure 107/56 L 141/72 H 90/62 Pulse Oximetry 94 97 95 Oxygen Delivery Method Room Air Room Air Room Air BMI result Body Mass Index 32.5 Labs 05/10/25 14:09 05/13/25 07:22 Medications Medications Current Medications Acetaminophen (Acetaminophen 325 Mg Tablet) 650 mg PO Q6H PRN PRN Reason: Fever Or Pain Last Admin: 05/15/25 17:06 Dose: 650 mg Al Hydroxide/Mg Hydroxide (Magnesium Hydrox/Alum Hydrox 30 Ml Oral.Susp) 30 ml PO Q6H PRN PRN Reason: Heartburn/Nausea Last Admin: 05/15/25 00:43 Dose: 30 ml Apixaban (Apixaban 5 Mg Tablet) 5 mg PO BID [facility] Last Admin: 05/15/25 10:43 Dose: 5 mg Aripiprazole (Aripiprazole 10 Mg Tablet) 10 mg PO BEDTIME [facility] Last Admin: 05/14/25 20:54 Dose: 10 mg Aspirin (Aspirin Enteric Coated 81 Mg Tablet.Dr) 81 mg PO DAILY [facility] Last Admin: 05/15/25 10:42 Dose: 81 mg Atorvastatin Calcium (Atorvastatin Calcium 80 Mg Tablet) 80 mg PO BEDTIME [facility] Last Admin: 05/14/25 22:46 Dose: Not Given Bisacodyl (Bisacodyl 10 Mg Supp.Rect) 10 mg [place] DAILY PRN PRN Reason: Constipation Cefuroxime Axetil (Cefuroxime Axetil 250 Mg Tablet) 250 mg PO BID [facility] Last Admin: 05/15/25 10:43 Dose: 250 mg Ferrous Sulfate (Ferrous Sulfate 324 Mg Tablet.) 324 mg PO DAILY [facility] Last Admin: 05/15/25 10:43 Dose: 324 mg Hydroxyzine HCl (Hydroxyzine Hcl 25 Mg Tablet) 25 mg PO Q6H PRN PRN Reason: mild anxiety Last Admin: 05/15/25 06:51 Dose: 25 mg Lorazepam (Lorazepam 0.5 Mg Tablet) 0.5 mg PO TID [facility] Last Admin: 05/15/25 17:06 Dose: 0.5 mg Magnesium Hydroxide (Milk Of Magnesia 30 Ml Oral.Susp) 30 ml PO DAILY PRN PRN Reason: Constipation Metoprolol Succinate (Metoprolol Succinate Er 50 Mg Tab.Er.24h) 50 mg PO DAILY [facility]; Protocol Last Admin: 05/15/25 10:43 Dose: 50 mg Mirtazapine (Mirtazapine 30 Mg Tablet) 30 mg PO BEDTIME [facility] Last Admin: 05/14/25 20:54 Dose: 30 mg Naloxone HCl (Naloxone Hcl Nasal 4 Mg [place]) 4 mg NOSTRILALT Q3M PRN PRN Reason: Opiate Reversal Nystatin (Nystatin Powder 15 Gm Bottle) 1 appl TOPICAL BID [facility]; Protocol Last Admin: 05/15/25 10:43 Dose: 1 appl Omeprazole (Omeprazole 20 Mg Capsule.Dr) 20 mg PO DAILY@0630 [facility] Last Admin: 05/15/25 07:27 Dose: Not Given Polyethylene Glycol (Polyethylene Glycol 3350 17 Gm Powd.Pack) 17 gm PO DAILY PRN PRN Reason: constipation Senna/Docusate Sodium (Sennosides/Docusate Sodium Tablet) 2 tab PO BID [facility] Last Admin: 05/15/25 10:42 Dose: 2 tab Sodium Biphosphate/Sodium Phosphate (Sodium Phosphate,[place]-Dibasic 133 Ml Enema) 118 ml [place] DAILY PRN PRN Reason: Constipation Sodium Chloride (Sodium Chloride 0.65 % Nasal 44 Ml Sprbtl) 1 spray NOSTRIL-L Q1H PRN PRN Reason: Nasal dryness Trazodone HCl (Trazodone Hcl 50 Mg Tablet) 50 mg PO BEDTIME MRX1 PRN PRN Reason: Insomnia Allergies Allergies Allergy/AdvReac Type Severity Reaction Status Date / Time amoxicillin Allergy Unknown Verified 04/26/25 14:52 azithromycin Allergy Unknown Verified 04/26/25 14:52 divalproex sodium (From Allergy Unknown Verified 04/26/25 14:52 Depakote) haloperidol (From Haldol) Allergy Unknown Verified 04/26/25 14:52 lamotrigine Allergy Unknown Verified 04/26/25 14:52 lithium Allergy Unknown Verified 04/26/25 14:52 lurasidone Allergy Unknown Verified 04/26/25 14:52 olanzapine (From Zyprexa) Allergy Unknown Verified 04/26/25 14:52 oxcarbazepine Allergy Unknown Verified 04/26/25 14:52 perphenazine Allergy Unknown Verified 04/26/25 14:52 prilocaine Allergy Unknown Verified 04/26/25 14:52 risperidone Allergy Unknown Verified 04/26/25 14:52 Assessment & Plan Assessment & Plan (1) Bipolar 1 disorder: Status: Acute Code(s): F31.9 - Bipolar disorder, unspecified Assessment and Plan: (2) UTI (urinary tract infection): Status: Acute Code(s): N39.0 - Urinary tract infection, site not specified (3) Acute hemorrhagic cystitis: Status: Acute Code(s): N30.01 - Acute cystitis with hematuria (4) HTN (hypertension): Status: Acute Code(s): I10 - Essential (primary) hypertension (5) Pulmonary embolus: Status: Acute Code(s): I26.99 - Other pulmonary embolism without acute cor pulmonale (6) Adult failure to thrive: Status: Acute Code(s): R62.7 - Adult failure to thrive (7) CKD (chronic kidney disease): Status: Acute Code(s): N18.9 - Chronic kidney disease, unspecified (8) Constipation: Status: Acute Code(s): K59.00 - Constipation, unspecified Plan HPI: Patient is a 74 y.o, , [place] speaking with history of bipolar I, constipation, hypertension, hyperlipidemia, PE, CKD who was presented via ambulance from short-term rehab facility at [facility] on 04/2025. Patient not been taking medication as prescribed and has been off medication for one-month. She has been refusing to eat consuming fluids and has lost 20 lb in the past month due to her fellow to thrive. . Patient was residing in assisted living facility prior to being placed in [facility] facility. Formulation/clinical reasoning: Failure to thrive, stopped taking meds for 1 months. Poor appetite, 20 lb in a month. Decompensate. Increased depression anxiety. History of bipolar I, history of ECT. Given the above information, patient will benefit in acute care setting, restrictive environment for own safety. Once stable, patient may benefit from skilled facility or long-term care placement. Hospital course: Continue with medication for medical conditions. Continue with home medication, however due to sedation, and not been taking medication consistently prior to coming to us, I will reduce the Abilify down from 12 mg to 5 mg daily. Reduce Remeron 30 mg to 15 mg. 05/01: continue current management and treatment plan. 05/10 pt is NOT taking medications, not eating, has lost 9 Lbs since she has been here in the hospital. Denies SI/HI. However, decisions are not congruent with desire to be alive. Pt does not appear to have capacity to make medical decisions, not able to verbalize understanding as to her medical conditions nor rational for stopping all meds, only states... don't want to take them. Will invoke HCP. 05/11 continue tx. 05/12 attempted to call sister who is HCP, left VM with call back number. pt continues to present as withdrawn, minimally verbal, ambivalent with making decisions, intermittently accepting medications, no rationale as to why she does not take them or why she does not take them consistently. Monitor DVT prophylaxis- for now seems to be more consistent with ty. 05/13 continue tx. 05/14 HCP gave verbal consent for CV. pending meeting to discuss treatment. 05/15/25: Patient was brought out to dining area, ate breakfast late, Calm, pleasant and cooperative. Denies safety concerns. Denies side effects. Compliant with meds except Atorvastatin and Senna yesterday. Poor appetite but ate 50% dinner, drank 600ml last night at dinner and slept for 5+ hours per nursing. PRN was also given for anxiety and pain. Report anxiety and depresion with flat affect, Congruent with mood. Patient educated on: diagnosis, medication risk/benefits and therapeutic strategies Informed Consent: further education needed Reason for continued inpatient stay Substantial Risk for: med/psych decompensation Time Spent With Patient Time: Total time managing care of this patient today ____ minutes.
[2025-05-16 08:40] VITALS: BP 114/59; PULSE 71; RESP 18; TEMP 36.5; O2SAT 95
[2025-05-16] MEDS: Metoprolol Succinate ER 50 MG TAB.ER.24H PO (09:30)
[2025-05-16] MEDS: Aspirin Enteric Coated 81 MG TABLET.DR PO (09:30)
[2025-05-16] MEDS: Ferrous Sulfate 324 MG TABLET.DR PO (09:30)
[2025-05-16 20:00] VITALS: BP 94/52; PULSE 67; RESP 16; TEMP 36.6; O2SAT 95
--- NOTE | 2025-05-16 22:53 | P.PNPSI_ITS ---
Subjective Subjective Date of Service: 05/16/25 Reason For Visit: depression, med noncompliance Subjective Notes: Conditional Voluntary Healthcare Proxy: Yes Medical Problems Affecting Mental Status: No Interim History: Medical record and nursing notes reviewed; case discussed during rounds with team/nursing staff, and met with patient for supportive therapy/psychoeducation, as well as medication management. Patient was seen in dining area, patient was out for lunch. Hair was combed nice and neat. Reports some left buttock pain but do not want Tylenol. Mood is so-so , flat affect, engaged in conversation with yes no questions, limited speech. Denies safety concerns. Continue taking medication prescribed, except for the omeprazole which she refused yesterday morning. Did not eat breakfast this morning, but was out for lunch, reports that she ate half of the bother and drink ensure. Medication Compliance: Yes Side effects from medications: No Attending Groups: Intermittent (visible in dinning area ) Review of Systems Acute medical concerns: No Medical Review of Systems: unchanged Review of Systems Review of Systems Denies any shortness of breath, chest pain, headaches, dysuria, abdominal pain or discomfort, nausea, vomiting or diarrhea. Denies fever or chills. Some skin issues which has been improved with nursing care. Have Grajeda Cath in place. Report pain on left buttock. Yes all other systems are reviewed and are negative Mental Status Exam Mental Status Exam Narrative: Appearance: sitting up in the chair in dinning area after eating lunch. Attitude: engage in assessment appropriately Speech: Monotone, minimal spontaneous speech Motor activity: retardation noted Mood: so so appear depressed Affect: constricted/flat SI: denies HI: denies Thought process: poverty of thought, only yes or no answers Thought content: WNL Perception: does not appear to respond to internal stimuli Delusions: no overt delusional content Insight/judgment: impaired x 2. Diagnostics Vital Signs (24Hr): Vital Signs - 24 hr 05/16/25 08:40 05/16/25 20:00 Temperature 97.7 F 98 F Pulse Rate 71 67 Respiratory Rate 18 16 Blood Pressure 114/59 L 94/52 L Pulse Oximetry 95 95 Oxygen Delivery Method Room Air Room Air BMI result Body Mass Index 32.5 Labs 05/10/25 14:09 05/13/25 07:22 Medications Medications Current Medications Acetaminophen (Acetaminophen 325 Mg Tablet) 650 mg PO Q6H PRN PRN Reason: Fever Or Pain Last Admin: 05/15/25 17:06 Dose: 650 mg Al Hydroxide/Mg Hydroxide (Magnesium Hydrox/Alum Hydrox 30 Ml Oral.Susp) 30 ml PO Q6H PRN PRN Reason: Heartburn/Nausea Last Admin: 05/15/25 00:43 Dose: 30 ml Apixaban (Apixaban 5 Mg Tablet) 5 mg PO BID [facility] Last Admin: 05/16/25 20:42 Dose: 5 mg Aripiprazole (Aripiprazole 10 Mg Tablet) 10 mg PO BEDTIME [facility] Last Admin: 05/16/25 20:42 Dose: 10 mg Aspirin (Aspirin Enteric Coated 81 Mg Tablet.) 81 mg PO DAILY [facility] Last Admin: 05/16/25 09:30 Dose: 81 mg Atorvastatin Calcium (Atorvastatin Calcium 80 Mg Tablet) 80 mg PO BEDTIME [facility] Last Admin: 05/16/25 20:42 Dose: 80 mg Bisacodyl (Bisacodyl 10 Mg Supp.Rect) 10 mg [place] DAILY PRN PRN Reason: Constipation Ferrous Sulfate (Ferrous Sulfate 324 Mg Tablet.) 324 mg PO DAILY [facility] Last Admin: 05/16/25 09:30 Dose: 324 mg Hydroxyzine HCl (Hydroxyzine Hcl 25 Mg Tablet) 25 mg PO Q6H PRN PRN Reason: mild anxiety Last Admin: 05/15/25 06:51 Dose: 25 mg Lorazepam (Lorazepam 0.5 Mg Tablet) 0.5 mg PO TID [facility] Last Admin: 05/16/25 20:42 Dose: 0.5 mg Magnesium Hydroxide (Milk Of Magnesia 30 Ml Oral.Susp) 30 ml PO DAILY PRN PRN Reason: Constipation Metoprolol Succinate (Metoprolol Succinate Er 50 Mg Tab.Er.24h) 50 mg PO DAILY [facility]; Protocol Last Admin: 05/16/25 09:30 Dose: 50 mg Mirtazapine (Mirtazapine 30 Mg Tablet) 30 mg PO BEDTIME [facility] Last Admin: 05/16/25 20:42 Dose: 30 mg Naloxone HCl (Naloxone Hcl Nasal 4 Mg [place]) 4 mg NOSTRILALT Q3M PRN PRN Reason: Opiate Reversal Nystatin (Nystatin Powder 15 Gm Bottle) 1 appl TOPICAL BID [facility]; Protocol Last Admin: 05/16/25 20:47 Dose: 1 appl Omeprazole (Omeprazole 20 Mg Capsule.) 20 mg PO DAILY@0630 [facility] Last Admin: 05/16/25 06:44 Dose: 20 mg Polyethylene Glycol (Polyethylene Glycol 3350 17 Gm Powd.Pack) 17 gm PO DAILY PRN PRN Reason: constipation Senna/Docusate Sodium (Sennosides/Docusate Sodium Tablet) 2 tab PO BID [facility] Last Admin: 05/16/25 20:42 Dose: 2 tab Sodium Biphosphate/Sodium Phosphate (Sodium Phosphate,[place]-Dibasic 133 Ml Enema) 118 ml [place] DAILY PRN PRN Reason: Constipation Sodium Chloride (Sodium Chloride 0.65 % Nasal 44 Ml Sprbtl) 1 spray NOSTRIL-L Q1H PRN PRN Reason: Nasal dryness Trazodone HCl (Trazodone Hcl 50 Mg Tablet) 50 mg PO BEDTIME MRX1 PRN PRN Reason: Insomnia Allergies Allergies Allergy/AdvReac Type Severity Reaction Status Date / Time amoxicillin Allergy Unknown Verified 04/26/25 14:52 azithromycin Allergy Unknown Verified 04/26/25 14:52 divalproex sodium (From Allergy Unknown Verified 04/26/25 14:52 Depakote) haloperidol (From Haldol) Allergy Unknown Verified 04/26/25 14:52 lamotrigine Allergy Unknown Verified 04/26/25 14:52 lithium Allergy Unknown Verified 04/26/25 14:52 lurasidone Allergy Unknown Verified 04/26/25 14:52 olanzapine (From Zyprexa) Allergy Unknown Verified 04/26/25 14:52 oxcarbazepine Allergy Unknown Verified 04/26/25 14:52 perphenazine Allergy Unknown Verified 04/26/25 14:52 prilocaine Allergy Unknown Verified 04/26/25 14:52 risperidone Allergy Unknown Verified 04/26/25 14:52 Assessment & Plan Assessment & Plan (1) Bipolar 1 disorder: Status: Acute Code(s): F31.9 - Bipolar disorder, unspecified Assessment and Plan: (2) UTI (urinary tract infection): Status: Acute Code(s): N39.0 - Urinary tract infection, site not specified (3) Acute hemorrhagic cystitis: Status: Acute Code(s): N30.01 - Acute cystitis with hematuria (4) HTN (hypertension): Status: Acute Code(s): I10 - Essential (primary) hypertension (5) Pulmonary embolus: Status: Acute Code(s): I26.99 - Other pulmonary embolism without acute cor pulmonale (6) Adult failure to thrive: Status: Acute Code(s): R62.7 - Adult failure to thrive (7) CKD (chronic kidney disease): Status: Acute Code(s): N18.9 - Chronic kidney disease, unspecified (8) Constipation: Status: Acute Code(s): K59.00 - Constipation, unspecified Plan HPI: Patient is a 74 y.o, , [place] speaking with history of bipolar I, constipation, hypertension, hyperlipidemia, PE, CKD who was presented via ambulance from short-term rehab facility at [facility] on 04/2025. Patient not been taking medication as prescribed and has been off medication for one-month. She has been refusing to eat consuming fluids and has lost 20 lb in the past month due to her fellow to thrive. . Patient was residing in assisted living facility prior to being placed in [facility] facility. Formulation/clinical reasoning: Failure to thrive, stopped taking meds for 1 months. Poor appetite, 20 lb in a month. Decompensate. Increased depression anxiety. History of bipolar I, history of ECT. Given the above information, patient will benefit in acute care setting, restrictive environment for own safety. Once stable, patient may benefit from skilled facility or long-term care placement. Hospital course: Continue with medication for medical conditions. Continue with home medication, however due to sedation, and not been taking medication consistently prior to coming to us, I will reduce the Abilify down from 12 mg to 5 mg daily. Reduce Remeron 30 mg to 15 mg. 05/01: continue current management and treatment plan. 05/10 pt is NOT taking medications, not eating, has lost 9 Lbs since she has been here in the hospital. Denies SI/HI. However, decisions are not congruent with desire to be alive. Pt does not appear to have capacity to make medical decisions, not able to verbalize understanding as to her medical conditions nor rational for stopping all meds, only states... don't want to take them. Will invoke HCP. 05/11 continue tx. 05/12 attempted to call sister who is HCP, left VM with call back number. pt continues to present as withdrawn, minimally verbal, ambivalent with making decisions, intermittently accepting medications, no rationale as to why she does not take them or why she does not take them consistently. Monitor DVT prophylaxis- for now seems to be more consistent with eliquis. 05/13 continue tx. 05/14 HCP gave verbal consent for CV. pending meeting to discuss treatment. 05/15/25: Patient was brought out to dining area, ate breakfast late, Calm, pleasant and cooperative. Denies safety concerns. Denies side effects. Compliant with meds except Atorvastatin and Senna yesterday. Poor appetite but ate 50% dinner, drank 600ml last night at dinner and slept for 5+ hours per nursing. PRN was also given for anxiety and pain. Report anxiety and depresion with flat affect, Congruent with mood. 05/16/25: Patient was seen in dining area, patient was brought out for lunch. Hair was combed nice and neat. Reports some left buttock pain but do not want Tylenol. Mood is so-so , flat affect, engaged in conversation with yes no questions, limited speech. Denies safety concerns. Continue taking medication prescribed, except for the omeprazole which she refused yesterday morning. Did not eat breakfast this morning, but was out for lunch, reports that she ate half of the bother and drink ensure. Patient educated on: medication risk/benefits and therapeutic strategies Informed Consent: understands and further education needed Reason for continued inpatient stay Substantial Risk for: med/psych decompensation Time Spent With Patient Time: Total time managing care of this patient today ____ minutes.
[2025-05-17 08:00] VITALS: BP 119/58; PULSE 65; RESP 16; TEMP 36.4; O2SAT 93
--- NOTE | 2025-05-17 09:00 | P.PNPSI_ITS ---
Subjective Subjective Date of Service: 05/17/25 Reason For Visit: depression, med noncompliance Subjective Notes: Conditional Voluntary Interim History: Pt mostly in bed. taking medications at times, oral intake is variable but mostly limited. She reports she is tired. She does denied wish to but also declines further interventions. This mortgage loan underwriter spoke with her sister, EL which has been invoked as pt not able to show capacity to make medical decisions at this point (accepts and rejects medications without much explanation as to why she is doing it). Sister, Roxana, reports pt has had severe episodes of depression on and off through out her life more so after lithium was stopped 10 years ago due to her renal function. Roxana reports she has had multiple medication trials with limited efficacy. HCP also reports last November she had cardiac event which then led to stopping ECT, which did help. HCP reports she does NOT want to force pt into any treatment. We discussed possibility of ketamine, but sister declined, stating at this point she does want to honor sister's wishes of trying additional treatment with unknown or unclear benefit. HCP asks that pt goes back with hospice to SNF. Mental Status Exam Mental Status Exam Narrative: Appearance: sitting up in the chair in dinning area after eating lunch. Attitude: engage in assessment appropriately Speech: Monotone, minimal spontaneous speech Motor activity: retardation noted Mood: so so appear depressed Affect: constricted/flat SI: denies HI: denies Thought process: poverty of thought, only yes or no answers Thought content: WNL Perception: does not appear to respond to internal stimuli Delusions: no overt delusional content Insight/judgment: impaired x 2. Diagnostics Vital Signs (24Hr): Vital Signs - 24 hr 05/16/25 20:00 Temperature 98 F Pulse Rate 67 Respiratory Rate 16 Blood Pressure 94/52 L Pulse Oximetry 95 Oxygen Delivery Method Room Air BMI result Body Mass Index 32.5 Labs 05/10/25 14:09 05/13/25 07:22 Medications Medications Current Medications Acetaminophen (Acetaminophen 325 Mg Tablet) 650 mg PO Q6H PRN PRN Reason: Fever Or Pain Last Admin: 05/17/25 00:48 Dose: 650 mg Al Hydroxide/Mg Hydroxide (Magnesium Hydrox/Alum Hydrox 30 Ml Oral.Susp) 30 ml PO Q6H PRN PRN Reason: Heartburn/Nausea Last Admin: 05/15/25 00:43 Dose: 30 ml Apixaban (Apixaban 5 Mg Tablet) 5 mg PO BID [facility] Last Admin: 05/16/25 20:42 Dose: 5 mg Aripiprazole (Aripiprazole 10 Mg Tablet) 10 mg PO BEDTIME [facility] Last Admin: 05/16/25 20:42 Dose: 10 mg Aspirin (Aspirin Enteric Coated 81 Mg Tablet.) 81 mg PO DAILY [facility] Last Admin: 05/16/25 09:30 Dose: 81 mg Atorvastatin Calcium (Atorvastatin Calcium 80 Mg Tablet) 80 mg PO BEDTIME [facility] Last Admin: 05/16/25 20:42 Dose: 80 mg Bisacodyl (Bisacodyl 10 Mg Supp.Rect) 10 mg HI DAILY PRN PRN Reason: Constipation Ferrous Sulfate (Ferrous Sulfate 324 Mg Tablet.) 324 mg PO DAILY [facility] Last Admin: 05/16/25 09:30 Dose: 324 mg Hydroxyzine HCl (Hydroxyzine Hcl 25 Mg Tablet) 25 mg PO Q6H PRN PRN Reason: mild anxiety Last Admin: 05/15/25 06:51 Dose: 25 mg Lorazepam (Lorazepam 0.5 Mg Tablet) 0.5 mg PO TID [facility] Last Admin: 05/16/25 20:42 Dose: 0.5 mg Magnesium Hydroxide (Milk Of Magnesia 30 Ml Oral.Susp) 30 ml PO DAILY PRN PRN Reason: Constipation Metoprolol Succinate (Metoprolol Succinate Er 50 Mg Tab.Er.24h) 50 mg PO DAILY [facility]; Protocol Last Admin: 05/16/25 09:30 Dose: 50 mg Mirtazapine (Mirtazapine 30 Mg Tablet) 30 mg PO BEDTIME [facility] Last Admin: 05/16/25 20:42 Dose: 30 mg Naloxone HCl (Naloxone Hcl Nasal 4 Mg Scheller) 4 mg NOSTRILALT Q3M PRN PRN Reason: Opiate Reversal Nystatin (Nystatin Powder 15 Gm Bottle) 1 appl TOPICAL BID [facility]; Protocol Last Admin: 05/16/25 20:47 Dose: 1 appl Omeprazole (Omeprazole 20 Mg Capsule.) 20 mg PO DAILY@0630 [facility] Last Admin: 05/16/25 06:44 Dose: 20 mg Polyethylene Glycol (Polyethylene Glycol 3350 17 Gm Powd.Pack) 17 gm PO DAILY PRN PRN Reason: constipation Senna/Docusate Sodium (Sennosides/Docusate Sodium Tablet) 2 tab PO BID [facility] Last Admin: 05/16/25 20:42 Dose: 2 tab Sodium Biphosphate/Sodium Phosphate (Sodium Phosphate,[place]-Dibasic 133 Ml Enema) 118 ml HI DAILY PRN PRN Reason: Constipation Sodium Chloride (Sodium Chloride 0.65 % Nasal 44 Ml Sprbtl) 1 spray NOSTRIL-L Q1H PRN PRN Reason: Nasal dryness Trazodone HCl (Trazodone Hcl 50 Mg Tablet) 50 mg PO BEDTIME MRX1 PRN PRN Reason: Insomnia Allergies Allergies Allergy/AdvReac Type Severity Reaction Status Date / Time amoxicillin Allergy Unknown Verified 04/26/25 14:52 azithromycin Allergy Unknown Verified 04/26/25 14:52 divalproex sodium (From Allergy Unknown Verified 04/26/25 14:52 Depakote) haloperidol (From Haldol) Allergy Unknown Verified 04/26/25 14:52 lamotrigine Allergy Unknown Verified 04/26/25 14:52 lithium Allergy Unknown Verified 04/26/25 14:52 lurasidone Allergy Unknown Verified 04/26/25 14:52 olanzapine (From Zyprexa) Allergy Unknown Verified 04/26/25 14:52 oxcarbazepine Allergy Unknown Verified 04/26/25 14:52 perphenazine Allergy Unknown Verified 04/26/25 14:52 prilocaine Allergy Unknown Verified 04/26/25 14:52 risperidone Allergy Unknown Verified 04/26/25 14:52 Assessment & Plan Assessment & Plan (1) Bipolar 1 disorder: Status: Acute Code(s): F31.9 - Bipolar disorder, unspecified Assessment and Plan: (2) UTI (urinary tract infection): Status: Acute Code(s): N39.0 - Urinary tract infection, site not specified (3) Acute hemorrhagic cystitis: Status: Acute Code(s): N30.01 - Acute cystitis with hematuria (4) HTN (hypertension): Status: Acute Code(s): I10 - Essential (primary) hypertension (5) Pulmonary embolus: Status: Acute Code(s): I26.99 - Other pulmonary embolism without acute cor pulmonale (6) Adult failure to thrive: Status: Acute Code(s): R62.7 - Adult failure to thrive (7) CKD (chronic kidney disease): Status: Acute Code(s): N18.9 - Chronic kidney disease, unspecified (8) Constipation: Status: Acute Code(s): K59.00 - Constipation, unspecified Plan HPI: Patient is a 74 y.o, , Greenlandic speaking with history of bipolar I, constipation, hypertension, hyperlipidemia, PE, CKD who was presented via ambulance from short-term rehab facility at [facility] on 04/2025. Patient not been taking medication as prescribed and has been off medication for one-month. She has been refusing to eat consuming fluids and has lost 20 lb in the past month due to her fellow to thrive. . Patient was residing in assisted living facility prior to being placed in [facility] facility. Formulation/clinical reasoning: Failure to thrive, stopped taking meds for 1 months. Poor appetite, 20 lb in a month. Decompensate. Increased depression anxiety. History of bipolar I, history of ECT. Given the above information, patient will benefit in acute care setting, restrictive environment for own safety. Once stable, patient may benefit from skilled facility or long-term care placement. Hospital course: Continue with medication for medical conditions. Continue with home medication, however due to sedation, and not been taking medication consistently prior to coming to us, I will reduce the Abilify down from 12 mg to 5 mg daily. Reduce Remeron 30 mg to 15 mg. 05/01: continue current management and treatment plan. 05/10 pt is NOT taking medications, not eating, has lost 9 Lbs since she has been here in the hospital. Denies SI/HI. However, decisions are not congruent with desire to be alive. Pt does not appear to have capacity to make medical decisions, not able to verbalize understanding as to her medical conditions nor rational for stopping all meds, only states... don't want to take them. Will invoke HCP. 05/11 continue tx. 05/12 attempted to call sister who is HCP, left VM with call back number. pt continues to present as withdrawn, minimally verbal, ambivalent with making decisions, intermittently accepting medications, no rationale as to why she does not take them or why she does not take them consistently. Monitor DVT prophylaxis- for now seems to be more consistent with adriennequjakob. 05/13 continue tx. 05/14 HCP gave verbal consent for CV. pending meeting to discuss treatment. 05/15/25: Patient was brought out to dining area, ate breakfast late, Calm, pleasant and cooperative. Denies safety concerns. Denies side effects. Compliant with meds except Atorvastatin and Senna yesterday. Poor appetite but ate 50% dinner, drank 600ml last night at dinner and slept for 5+ hours per nursing. PRN was also given for anxiety and pain. Report anxiety and depresion with flat affect, Congruent with mood. 05/16/25: Patient was seen in dining area, patient was brought out for lunch. Hair was combed nice and neat. Reports some left buttock pain but do not want Tylenol. Mood is so-so , flat affect, engaged in conversation with yes no questions, limited speech. Denies safety concerns. Continue taking medication prescribed, except for the omeprazole which she refused yesterday morning. Did not eat breakfast this morning, but was out for lunch, reports that she ate half of the bother and drink ensure. 05/17 pt's sister who is HCP at this time does not want to do ECT nor consider additional treatments nor interventions as pt has had multiple medication trials with limited efficacy or medical complications. HCP would like to refer pt to hospice and send her back to SNF. SW to call hospice to discuss whether pt qualifies for hospice given than primary dx is psychiatric. Reason for continued inpatient stay Substantial Risk for: inability to function Time Spent With Patient Time: Total time managing care of this patient today ____ minutes.
[2025-05-17] MEDS: Metoprolol Succinate ER 50 MG TAB.ER.24H PO (09:27)
[2025-05-17 20:00] VITALS: BP 90/51; PULSE 70; RESP 18; TEMP 36.3; O2SAT 94
[2025-05-18 08:00] VITALS: BP 105/54; PULSE 70; RESP 16; TEMP 36.6; O2SAT 94
--- NOTE | 2025-05-18 08:53 | P.PNPSI_ITS ---
Subjective Subjective Date of Service: 05/18/25 Reason For Visit: depression, med noncompliance Subjective Notes: Conditional Voluntary Healthcare Proxy: Yes Interim History: Pt in bed declining to get out of bed. RN obtained recent weight, pt has lost a total of 15 Lbs since she has been here on the unit. No psychosis or delusional content. Reports she does not feel hungry and feels tired. We discussed hospice, which pt says is in agreement. She is taking medications more consistently but does decline at times without clear rational. Review of Systems Review of Systems Denies any shortness of breath, chest pain, headaches, dysuria, abdominal pain or discomfort, nausea, vomiting or diarrhea. Denies fever or chills. Some skin issues which has been improved with nursing care. Have Grajeda Cath in place. Report pain on left buttock. Yes all other systems are reviewed and are negative and Unobtainable due to mental status Diagnostics Vital Signs (24Hr): Vital Signs - 24 hr 05/17/25 20:00 Temperature 97.4 F Pulse Rate 70 Respiratory Rate 18 Blood Pressure 90/51 L Pulse Oximetry 94 Oxygen Delivery Method Room Air BMI result Body Mass Index 32.5 Labs 05/10/25 14:09 05/13/25 07:22 Medications Medications Current Medications Acetaminophen (Acetaminophen 325 Mg Tablet) 650 mg PO Q6H PRN PRN Reason: Fever Or Pain Last Admin: 05/17/25 00:48 Dose: 650 mg Al Hydroxide/Mg Hydroxide (Magnesium Hydrox/Alum Hydrox 30 Ml Oral.Susp) 30 ml PO Q6H PRN PRN Reason: Heartburn/Nausea Last Admin: 05/15/25 00:43 Dose: 30 ml Apixaban (Apixaban 5 Mg Tablet) 5 mg PO BID [facility] Last Admin: 05/17/25 21:10 Dose: 5 mg Aripiprazole (Aripiprazole 10 Mg Tablet) 10 mg PO BEDTIME [facility] Last Admin: 05/17/25 21:09 Dose: 10 mg Aspirin (Aspirin Enteric Coated 81 Mg Tablet.) 81 mg PO DAILY [facility] Last Admin: 05/17/25 09:35 Dose: Not Given Atorvastatin Calcium (Atorvastatin Calcium 80 Mg Tablet) 80 mg PO BEDTIME [facility] Last Admin: 05/17/25 21:10 Dose: 80 mg Bisacodyl (Bisacodyl 10 Mg Supp.Rect) 10 mg NE DAILY PRN PRN Reason: Constipation Ferrous Sulfate (Ferrous Sulfate 324 Mg Tablet.) 324 mg PO DAILY [facility] Last Admin: 05/17/25 09:35 Dose: Not Given Hydroxyzine HCl (Hydroxyzine Hcl 25 Mg Tablet) 25 mg PO Q6H PRN PRN Reason: mild anxiety Last Admin: 05/15/25 06:51 Dose: 25 mg Lorazepam (Lorazepam 0.5 Mg Tablet) 0.5 mg PO TID [facility] Last Admin: 05/17/25 21:10 Dose: 0.5 mg Magnesium Hydroxide (Milk Of Magnesia 30 Ml Oral.Susp) 30 ml PO DAILY PRN PRN Reason: Constipation Metoprolol Succinate (Metoprolol Succinate Er 50 Mg Tab.Er.24h) 50 mg PO DAILY [facility]; Protocol Last Admin: 05/17/25 09:27 Dose: 50 mg Mirtazapine (Mirtazapine 30 Mg Tablet) 30 mg PO BEDTIME [facility] Last Admin: 05/17/25 21:10 Dose: 30 mg Naloxone HCl (Naloxone Hcl Nasal 4 Mg Aylett) 4 mg NOSTRILALT Q3M PRN PRN Reason: Opiate Reversal Nystatin (Nystatin Powder 15 Gm Bottle) 1 appl TOPICAL BID [facility]; Protocol Last Admin: 05/17/25 21:10 Dose: 1 appl Omeprazole (Omeprazole 20 Mg Capsule.) 20 mg PO DAILY@0630 [facility] Last Admin: 05/18/25 06:26 Dose: 20 mg Polyethylene Glycol (Polyethylene Glycol 3350 17 Gm Powd.Pack) 17 gm PO DAILY PRN PRN Reason: constipation Senna/Docusate Sodium (Sennosides/Docusate Sodium Tablet) 2 tab PO BID [facility] Last Admin: 05/17/25 21:10 Dose: 2 tab Sodium Biphosphate/Sodium Phosphate (Sodium Phosphate,[place]-Dibasic 133 Ml Enema) 118 ml NE DAILY PRN PRN Reason: Constipation Sodium Chloride (Sodium Chloride 0.65 % Nasal 44 Ml Sprbtl) 1 spray NOSTRIL-L Q1H PRN PRN Reason: Nasal dryness Trazodone HCl (Trazodone Hcl 50 Mg Tablet) 50 mg PO BEDTIME MRX1 PRN PRN Reason: Insomnia Allergies Allergies Allergy/AdvReac Type Severity Reaction Status Date / Time amoxicillin Allergy Unknown Verified 04/26/25 14:52 azithromycin Allergy Unknown Verified 04/26/25 14:52 divalproex sodium (From Allergy Unknown Verified 04/26/25 14:52 Depakote) haloperidol (From Haldol) Allergy Unknown Verified 04/26/25 14:52 lamotrigine Allergy Unknown Verified 04/26/25 14:52 lithium Allergy Unknown Verified 04/26/25 14:52 lurasidone Allergy Unknown Verified 04/26/25 14:52 olanzapine (From Zyprexa) Allergy Unknown Verified 04/26/25 14:52 oxcarbazepine Allergy Unknown Verified 04/26/25 14:52 perphenazine Allergy Unknown Verified 04/26/25 14:52 prilocaine Allergy Unknown Verified 04/26/25 14:52 risperidone Allergy Unknown Verified 04/26/25 14:52 Assessment & Plan Assessment & Plan (1) Bipolar 1 disorder: Status: Acute Code(s): F31.9 - Bipolar disorder, unspecified Assessment and Plan: (2) UTI (urinary tract infection): Status: Acute Code(s): N39.0 - Urinary tract infection, site not specified (3) Acute hemorrhagic cystitis: Status: Acute Code(s): N30.01 - Acute cystitis with hematuria (4) HTN (hypertension): Status: Acute Code(s): I10 - Essential (primary) hypertension (5) Pulmonary embolus: Status: Acute Code(s): I26.99 - Other pulmonary embolism without acute cor pulmonale (6) Adult failure to thrive: Status: Acute Code(s): R62.7 - Adult failure to thrive (7) CKD (chronic kidney disease): Status: Acute Code(s): N18.9 - Chronic kidney disease, unspecified (8) Constipation: Status: Acute Code(s): K59.00 - Constipation, unspecified Plan HPI: Patient is a 74 y.o, , Khmer speaking with history of bipolar I, constipation, hypertension, hyperlipidemia, PE, CKD who was presented via ambulance from short-term rehab facility at [facility] on 04/2025. Patient not been taking medication as prescribed and has been off medication for one-month. She has been refusing to eat consuming fluids and has lost 20 lb in the past month due to her fellow to thrive. . Patient was residing in assisted living facility prior to being placed in [facility] facility. Formulation/clinical reasoning: Failure to thrive, stopped taking meds for 1 months. Poor appetite, 20 lb in a month. Decompensate. Increased depression anxiety. History of bipolar I, history of ECT. Given the above information, patient will benefit in acute care setting, restrictive environment for own safety. Once stable, patient may benefit from skilled facility or long-term care placement. Hospital course: Continue with medication for medical conditions. Continue with home medication, however due to sedation, and not been taking medication consistently prior to coming to us, I will reduce the Abilify down from 12 mg to 5 mg daily. Reduce Remeron 30 mg to 15 mg. 05/01: continue current management and treatment plan. 05/10 pt is NOT taking medications, not eating, has lost 9 Lbs since she has been here in the hospital. Denies SI/HI. However, decisions are not congruent with desire to be alive. Pt does not appear to have capacity to make medical decisions, not able to verbalize understanding as to her medical conditions nor rational for stopping all meds, only states... don't want to take them. Will invoke HCP. 05/11 continue tx. 05/12 attempted to call sister who is HCP, left VM with call back number. pt continues to present as withdrawn, minimally verbal, ambivalent with making decisions, intermittently accepting medications, no rationale as to why she does not take them or why she does not take them consistently. Monitor DVT prophylaxis- for now seems to be more consistent with eliquis. 05/13 continue tx. 05/14 HCP gave verbal consent for CV. pending meeting to discuss treatment. 05/15/25: Patient was brought out to dining area, ate breakfast late, Calm, pleasant and cooperative. Denies safety concerns. Denies side effects. Compliant with meds except Atorvastatin and Senna yesterday. Poor appetite but ate 50% dinner, drank 600ml last night at dinner and slept for 5+ hours per nursing. PRN was also given for anxiety and pain. Report anxiety and depresion with flat affect, Congruent with mood. 05/16/25: Patient was seen in dining area, patient was brought out for lunch. Hair was combed nice and neat. Reports some left buttock pain but do not want Tylenol. Mood is so-so , flat affect, engaged in conversation with yes no questions, limited speech. Denies safety concerns. Continue taking medication prescribed, except for the omeprazole which she refused yesterday morning. Did not eat breakfast this morning, but was out for lunch, reports that she ate half of the bother and drink ensure. 05/17 pt's sister who is HCP at this time does not want to do ECT nor consider additional treatments nor interventions as pt has had multiple medication trials with limited efficacy or medical complications. HCP would like to refer pt to hospice and send her back to SNF. SW to call hospice to discuss whether pt qualifies for hospice given than primary dx is psychiatric. 05/18 plan to refer to hospice with plan to send back to SNF. Reason for continued inpatient stay Substantial Risk for: inability to function Time Spent With Patient Time: Total time managing care of this patient today ____ minutes.
[2025-05-18] MEDS: Metoprolol Succinate ER 50 MG TAB.ER.24H PO (09:06)
[2025-05-18 15:10] VITALS: BMI 31.0
--- NOTE | 2025-05-18 15:58 | HO.WOUND ---
Wound Consult: Follow up 74 yr old female admitted to [facility] on 04/29/25- See progress notes and H&P for detailed history. Wound consult follow up for coccyx/buttocks and great toe. Patient agreeable to assessment and photo documentation. Patient in bed, laying on left side, incontinent of stool. Incontinence care provided. Continue to recommend not using brief as patient isn't getting out of bed. Coccyx and bilateral buttocks 04/30/25 05/18/25 - Overall Improving DTI and MASD - No new recommendations needed. Etiology: Coccyx, left buttock and Right buttock, left posterior thigh with deep tissue pressure injuries Present on Admission , cluster measured to left buttock and cluster of right buttock Wound Bed: coccyx with nonblanching area denuded, bilateral buttocks intact and purple/red nonblanching - irregular shaped - left posterior thigh linear, likely related to brief Drainage / Odor: none Edges: ? irregular [place] wound: ? No Induration, Fluctuance or Warmth noted Pain: none Goals of Treatment: ? offlaoding triad/foam Right heel 04/30/25 right Heel 05/18/25 - Improving - remains intact and slow to ellie Etiology: DTI Present on Admission Wound Bed: intact purple nonblanching Drainage / Odor: none [place] wound: ? No Induration, Fluctuance or Warmth noted Pain: none Goals of Treatment: ? offlading/foam Right medial foot 04/30/25 Right Toe 05/18/25 - Evolved into Unstageable PI Etiology: Unstageable Pressure Injury noted for DTI Present on Admission Wound Bed: adherent slough 2cm 2.5cm x 0.2cm Drainage / Odor: hernandez brown [place] wound: ? No Induration, Fluctuance or Warmth noted Pain:pain reported Goals of Treatment: ?Durafiber for autolytic debridement - Order updated Right breast- folds with intertriginous dermatitis - improvement noted mild erythema noted Recommendations: 1. Turn and Reposition every 2 hours and as needed for patient comfort. Use pillows or wedges to support off loading positions. 2. Off Load all bony prominences with use of pillows and heel boots if needed. Apply Preventative foams where needed. 3. Monitor for incontinence and moisture control, use barrier creams when needed for prevention and treatment. 4. Provide adequate and supplemental nutrition. 5. Order or Continue low air loss mattress. 6. When applicable maintain blood glucose levels per Providers order. Coccyx and bilateral buttocks: Off Load Pressure with Q2 hr turns and use of pillows - Cleanse with PH balance spray or wipes, pat dry. ?Apply thin layer of Triad to wound bed. Do not remove all of paste between applications as this may cause further skin damage.? Cover with foam dressing to aid in off loading and protection from friction. Change every other day and PRN- if changing greater than daily due to soiling, switch to triad only. RECOMMEND NO BRIEFS Left posterior thigh: Off Load Pressure with Q2 hr turns and use of pillows - Cleanse with PH balance spray or wipes, pat dry. ?Apply thin layer of Triad to wound bed - only pat and dab no scrub and rub when soiling occurs. Reapply thin layer PRN after each episode of incontinence. Bilateral heels: Elevate heels off of bed surface with pillows. Float heels off of pillows. Apply skin prep allow to dry. Apply heel foam dressings, peel back and assess Q shift and change every 5-7 days and PRN. Right medial foot/metatarsal head: offload pressure with pillows, Cleanse with NS moist gauze, Pat dry. Apply skin prep to periwound. cover wound bed with Durafiber AG followed by foam dressing. Change every other day. Re-consult wound care Nurse for wound deterioration or wound changes.
[2025-05-18 20:00] VITALS: BP 96/50; PULSE 66; RESP 16; TEMP 37; O2SAT 95
[2025-05-19 08:00] VITALS: BP 95/54; PULSE 69; RESP 18; TEMP 36.3; O2SAT 93
--- NOTE | 2025-05-19 08:47 | PC.NURSE ---
Angelica declined medications despite education and encouragement. Dr. Flannery notified.
--- NOTE | 2025-05-19 10:00 | PC.NURSE ---
Genet Lu notified that Angelica declined her meds x 2 despite education and encouragement.
--- NOTE | 2025-05-19 13:33 | MHC.CLN ---
F/U CONTINUES WITH VERY POOR PO INTAKE/POOR APPETITE. DIET RX REGULAR. SUPPLEMENT ENSURE TID (1050 KCALS, 60 G PROTEIN) TO PROMOTE CALORIC INTAKE AND WOUND HEALING. SKIN WITH MULTIPLE PRESSURE INJURIES. REFER TO [facility], NO ARTIFICIAL NUTRITION/HYDRATION. FOLLOW FOR POSSIBLE HOSPICE LEVEL OF CARE. ENCOURAGE PO INTAKE ABLE AT MEALS AND SNACKS.
--- NOTE | 2025-05-19 16:32 | P.PNPSI_ITS ---
Subjective Subjective Date of Service: 05/19/25 Reason For Visit: depression, med noncompliance Subjective Notes: Conditional Voluntary Healthcare Proxy: Yes Interim History: No change. Pt in bed declining to get out of bed. RN obtained recent weight, pt has lost a total of 15 Lbs since she has been here on the unit. No psychosis or delusional content. Reports she does not feel hungry and feels tired. We discussed hospice, which pt says is in agreement. She is taking medications more consistently but does decline at times without clear rational. Mental Status Exam Mental Status Exam Narrative: Appearance: sitting up in the chair in dinning area after eating lunch. Attitude: engage in assessment appropriately Speech: Monotone, minimal spontaneous speech Motor activity: retardation noted Mood: so so appear depressed Affect: constricted/flat SI: denies HI: denies Thought process: poverty of thought, only yes or no answers Thought content: WNL Perception: does not appear to respond to internal stimuli Delusions: no overt delusional content Insight/judgment: impaired x 2. Diagnostics Vital Signs (24Hr): Vital Signs - 24 hr 05/18/25 20:00 05/19/25 08:00 Temperature 98.6 F 97.4 F Pulse Rate 66 69 Respiratory Rate 16 18 Blood Pressure 96/50 L 95/54 L Pulse Oximetry 95 93 Oxygen Delivery Method Room Air Room Air BMI result Body Mass Index 31.0 Labs 05/10/25 14:09 05/13/25 07:22 Medications Medications Current Medications Acetaminophen (Acetaminophen 325 Mg Tablet) 650 mg PO Q6H PRN PRN Reason: Fever Or Pain Last Admin: 05/19/25 12:56 Dose: 650 mg Al Hydroxide/Mg Hydroxide (Magnesium Hydrox/Alum Hydrox 30 Ml Oral.Susp) 30 ml PO Q6H PRN PRN Reason: Heartburn/Nausea Last Admin: 05/15/25 00:43 Dose: 30 ml Apixaban (Apixaban 5 Mg Tablet) 5 mg PO BID [facility] Last Admin: 05/19/25 08:41 Dose: Not Given Aripiprazole (Aripiprazole 10 Mg Tablet) 10 mg PO BEDTIME [facility] Last Admin: 05/18/25 20:56 Dose: 10 mg Aspirin (Aspirin Enteric Coated 81 Mg Tablet.Dr) 81 mg PO DAILY [facility] Last Admin: 05/19/25 08:41 Dose: Not Given Atorvastatin Calcium (Atorvastatin Calcium 80 Mg Tablet) 80 mg PO BEDTIME [facility] Last Admin: 05/18/25 20:56 Dose: 80 mg Bisacodyl (Bisacodyl 10 Mg Supp.Rect) 10 mg [place] DAILY PRN PRN Reason: Constipation Ferrous Sulfate (Ferrous Sulfate 324 Mg Tablet.Dr) 324 mg PO DAILY [facility] Last Admin: 05/19/25 08:41 Dose: Not Given Hydroxyzine HCl (Hydroxyzine Hcl 25 Mg Tablet) 25 mg PO Q6H PRN PRN Reason: mild anxiety Last Admin: 05/19/25 06:57 Dose: 25 mg Lorazepam (Lorazepam 0.5 Mg Tablet) 0.5 mg PO TID [facility] Last Admin: 05/19/25 12:57 Dose: 0.5 mg Magnesium Hydroxide (Milk Of Magnesia 30 Ml Oral.Susp) 30 ml PO DAILY PRN PRN Reason: Constipation Metoprolol Succinate (Metoprolol Succinate Er 50 Mg Tab.Er.24h) 50 mg PO DAILY [facility]; Protocol Last Admin: 05/19/25 08:41 Dose: Not Given Mirtazapine (Mirtazapine 30 Mg Tablet) 30 mg PO BEDTIME [facility] Last Admin: 05/18/25 20:56 Dose: 30 mg Naloxone HCl (Naloxone Hcl Nasal 4 Mg [place]) 4 mg NOSTRILALT Q3M PRN PRN Reason: Opiate Reversal Nystatin (Nystatin Powder 15 Gm Bottle) 1 appl TOPICAL BID [facility]; Protocol Last Admin: 05/19/25 08:42 Dose: Not Given Omeprazole (Omeprazole 20 Mg Capsule.) 20 mg PO DAILY@0630 [facility] Last Admin: 05/19/25 06:33 Dose: 20 mg Polyethylene Glycol (Polyethylene Glycol 3350 17 Gm Powd.Pack) 17 gm PO DAILY PRN PRN Reason: constipation Senna/Docusate Sodium (Sennosides/Docusate Sodium Tablet) 2 tab PO BID [facility] Last Admin: 05/19/25 08:42 Dose: Not Given Sodium Biphosphate/Sodium Phosphate (Sodium Phosphate,[place]-Dibasic 133 Ml Enema) 118 ml [place] DAILY PRN PRN Reason: Constipation Sodium Chloride (Sodium Chloride 0.65 % Nasal 44 Ml Sprbtl) 1 spray NOSTRIL-L Q1H PRN PRN Reason: Nasal dryness Trazodone HCl (Trazodone Hcl 50 Mg Tablet) 50 mg PO BEDTIME MRX1 PRN PRN Reason: Insomnia Allergies Allergies Allergy/AdvReac Type Severity Reaction Status Date / Time amoxicillin Allergy Unknown Verified 04/26/25 14:52 azithromycin Allergy Unknown Verified 04/26/25 14:52 divalproex sodium (From Allergy Unknown Verified 04/26/25 14:52 Depakote) haloperidol (From Haldol) Allergy Unknown Verified 04/26/25 14:52 lamotrigine Allergy Unknown Verified 04/26/25 14:52 lithium Allergy Unknown Verified 04/26/25 14:52 lurasidone Allergy Unknown Verified 04/26/25 14:52 olanzapine (From Zyprexa) Allergy Unknown Verified 04/26/25 14:52 oxcarbazepine Allergy Unknown Verified 04/26/25 14:52 perphenazine Allergy Unknown Verified 04/26/25 14:52 prilocaine Allergy Unknown Verified 04/26/25 14:52 risperidone Allergy Unknown Verified 04/26/25 14:52 Assessment & Plan Assessment & Plan (1) Bipolar 1 disorder: Status: Acute Code(s): F31.9 - Bipolar disorder, unspecified Assessment and Plan: (2) UTI (urinary tract infection): Status: Acute Code(s): N39.0 - Urinary tract infection, site not specified (3) Acute hemorrhagic cystitis: Status: Acute Code(s): N30.01 - Acute cystitis with hematuria (4) HTN (hypertension): Status: Acute Code(s): I10 - Essential (primary) hypertension (5) Pulmonary embolus: Status: Acute Code(s): I26.99 - Other pulmonary embolism without acute cor pulmonale (6) Adult failure to thrive: Status: Acute Code(s): R62.7 - Adult failure to thrive (7) CKD (chronic kidney disease): Status: Acute Code(s): N18.9 - Chronic kidney disease, unspecified (8) Constipation: Status: Acute Code(s): K59.00 - Constipation, unspecified Plan HPI: Patient is a 74 y.o, , Ethiopian speaking with history of bipolar I, constipation, hypertension, hyperlipidemia, PE, CKD who was presented via ambulance from short-term rehab facility at [facility] on 04/2025. Patient not been taking medication as prescribed and has been off medication for one-month. She has been refusing to eat consuming fluids and has lost 20 lb in the past month due to her fellow to thrive. . Patient was residing in assisted living facility prior to being placed in [facility] facility. Formulation/clinical reasoning: Failure to thrive, stopped taking meds for 1 months. Poor appetite, 20 lb in a month. Decompensate. Increased depression anxiety. History of bipolar I, history of ECT. Given the above information, patient will benefit in acute care setting, restrictive environment for own safety. Once stable, patient may benefit from skilled facility or long-term care placement. Hospital course: Continue with medication for medical conditions. Continue with home medication, however due to sedation, and not been taking medication consistently prior to coming to us, I will reduce the Abilify down from 12 mg to 5 mg daily. Reduce Remeron 30 mg to 15 mg. 05/01: continue current management and treatment plan. 05/10 pt is NOT taking medications, not eating, has lost 9 Lbs since she has been here in the hospital. Denies SI/HI. However, decisions are not congruent with desire to be alive. Pt does not appear to have capacity to make medical decisions, not able to verbalize understanding as to her medical conditions nor rational for stopping all meds, only states... don't want to take them. Will invoke HCP. 05/11 continue tx. 05/12 attempted to call sister who is HCP, left VM with call back number. pt continues to present as withdrawn, minimally verbal, ambivalent with making decisions, intermittently accepting medications, no rationale as to why she does not take them or why she does not take them consistently. Monitor DVT prophylaxis- for now seems to be more consistent with eliquis. 05/13 continue tx. 05/14 HCP gave verbal consent for CV. pending meeting to discuss treatment. 05/15/25: Patient was brought out to dining area, ate breakfast late, Calm, pleasant and cooperative. Denies safety concerns. Denies side effects. Compliant with meds except Atorvastatin and Senna yesterday. Poor appetite but ate 50% dinner, drank 600ml last night at dinner and slept for 5+ hours per nursing. PRN was also given for anxiety and pain. Report anxiety and depresion with flat affect, Congruent with mood. 05/16/25: Patient was seen in dining area, patient was brought out for lunch. Hair was combed nice and neat. Reports some left buttock pain but do not want Tylenol. Mood is so-so , flat affect, engaged in conversation with yes no questions, limited speech. Denies safety concerns. Continue taking medication prescribed, except for the omeprazole which she refused yesterday morning. Did not eat breakfast this morning, but was out for lunch, reports that she ate half of the bother and drink ensure. 05/17 pt's sister who is HCP at this time does not want to do ECT nor consider additional treatments nor interventions as pt has had multiple medication trials with limited efficacy or medical complications. HCP would like to refer pt to hospice and send her back to SNF. SW to call hospice to discuss whether pt qualifies for hospice given than primary dx is psychiatric. 05/18 plan to refer to hospice with plan to send back to SNF. 05/19 continues to lose weight, total now of 15 Lbs since admission, mostly in bed, taking medications more consistently but declines. pending decision from hospice. Reason for continued inpatient stay Substantial Risk for: inability to function Time Spent With Patient Time: Total time managing care of this patient today ____ minutes.
[2025-05-19 20:00] VITALS: BP 102/53; PULSE 70; RESP 16; TEMP 36.8; O2SAT 94
[2025-05-20 08:00] VITALS: BP 118/56; PULSE 67; RESP 17; TEMP 36.6; O2SAT 95
[2025-05-20 08:48] VITALS: BP 118/56; PULSE 67
[2025-05-20] MEDS: Aspirin Enteric Coated 81 MG TABLET.DR PO (08:48)
[2025-05-20] MEDS: Metoprolol Succinate ER 50 MG TAB.ER.24H PO (08:48)
[2025-05-20] MEDS: Ferrous Sulfate 324 MG TABLET.DR PO (08:49)
--- NOTE | 2025-05-20 16:48 | HO.PSYCHPN ---
Subjective Subjective Date of Service: 05/20/25 Reason For Visit: depression, med noncompliance Subjective Notes: Conditional Voluntary Healthcare Proxy: Yes Interim History: No change. Pt in bed declining to get out of bed. RN obtained recent weight, pt has lost a total of 15 Lbs since she has been here on the unit. No psychosis or delusional content. Reports she does not feel hungry and feels tired. We discussed hospice, which pt says is in agreement. She is taking medications more consistently but does decline at times without clear rational. Mental Status Exam Mental Status Exam Narrative: Appearance: sitting up in the chair in dinning area after eating lunch. Attitude: engage in assessment appropriately Speech: Monotone, minimal spontaneous speech Motor activity: retardation noted Mood: so so appear depressed Affect: constricted/flat SI: denies HI: denies Thought process: poverty of thought, only yes or no answers Thought content: poverty of thought. Perception: does not appear to respond to internal stimuli Delusions: no overt delusional content Insight/judgment: impaired x 2. Diagnostics Vital Signs (24Hr): Vital Signs - 24 hr 05/19/25 20:00 05/20/25 08:00 05/20/25 08:48 Temperature 98.2 F 97.9 F Pulse Rate 70 67 67 Respiratory Rate 16 17 Blood Pressure 102/53 L 118/56 L 118/56 L Pulse Oximetry 94 95 Oxygen Delivery Method Room Air Room Air BMI result Body Mass Index 31.0 Labs 05/10/25 14:09 05/13/25 07:22 Medications Medications Current Medications Acetaminophen (Acetaminophen 325 Mg Tablet) 650 mg PO Q6H PRN PRN Reason: Fever Or Pain Last Admin: 05/19/25 18:54 Dose: 650 mg Al Hydroxide/Mg Hydroxide (Magnesium Hydrox/Alum Hydrox 30 Ml Oral.Susp) 30 ml PO Q6H PRN PRN Reason: Heartburn/Nausea Last Admin: 05/15/25 00:43 Dose: 30 ml Apixaban (Apixaban 5 Mg Tablet) 5 mg PO BID [facility] Last Admin: 05/20/25 08:49 Dose: 5 mg Aripiprazole (Aripiprazole 10 Mg Tablet) 10 mg PO BEDTIME [facility] Last Admin: 05/19/25 22:25 Dose: Not Given Aspirin (Aspirin Enteric Coated 81 Mg Tablet.) 81 mg PO DAILY [facility] Last Admin: 05/20/25 08:48 Dose: 81 mg Atorvastatin Calcium (Atorvastatin Calcium 80 Mg Tablet) 80 mg PO BEDTIME [facility] Last Admin: 05/19/25 22:26 Dose: Not Given Bisacodyl (Bisacodyl 10 Mg Supp.Rect) 10 mg [place] DAILY PRN PRN Reason: Constipation Ferrous Sulfate (Ferrous Sulfate 324 Mg Tablet.) 324 mg PO DAILY [facility] Last Admin: 05/20/25 08:49 Dose: 324 mg Hydroxyzine HCl (Hydroxyzine Hcl 25 Mg Tablet) 25 mg PO Q6H PRN PRN Reason: mild anxiety Last Admin: 05/19/25 06:57 Dose: 25 mg Lorazepam (Lorazepam 0.5 Mg Tablet) 0.5 mg PO TID [facility] Last Admin: 05/20/25 14:18 Dose: 0.5 mg Magnesium Hydroxide (Milk Of Magnesia 30 Ml Oral.Susp) 30 ml PO DAILY PRN PRN Reason: Constipation Metoprolol Succinate (Metoprolol Succinate Er 50 Mg Tab.Er.24h) 50 mg PO DAILY [facility]; Protocol Last Admin: 05/20/25 08:48 Dose: 50 mg Mirtazapine (Mirtazapine 30 Mg Tablet) 30 mg PO BEDTIME [facility] Last Admin: 05/19/25 22:26 Dose: Not Given Naloxone HCl (Naloxone Hcl Nasal 4 Mg [place]) 4 mg NOSTRILALT Q3M PRN PRN Reason: Opiate Reversal Nystatin (Nystatin Powder 15 Gm Bottle) 1 appl TOPICAL BID [facility]; Protocol Last Admin: 05/20/25 08:49 Dose: 1 appl Omeprazole (Omeprazole 20 Mg Capsule.) 20 mg PO DAILY@0630 [facility] Last Admin: 05/20/25 06:41 Dose: Not Given Polyethylene Glycol (Polyethylene Glycol 3350 17 Gm Powd.Pack) 17 gm PO DAILY PRN PRN Reason: constipation Senna/Docusate Sodium (Sennosides/Docusate Sodium Tablet) 2 tab PO BID [facility] Last Admin: 05/20/25 08:48 Dose: 2 tab Sodium Biphosphate/Sodium Phosphate (Sodium Phosphate,[place]-Dibasic 133 Ml Enema) 118 ml [place] DAILY PRN PRN Reason: Constipation Sodium Chloride (Sodium Chloride 0.65 % Nasal 44 Ml Sprbtl) 1 spray NOSTRIL-L Q1H PRN PRN Reason: Nasal dryness Trazodone HCl (Trazodone Hcl 50 Mg Tablet) 50 mg PO BEDTIME MRX1 PRN PRN Reason: Insomnia Allergies Allergies Allergy/AdvReac Type Severity Reaction Status Date / Time amoxicillin Allergy Unknown Verified 04/26/25 14:52 azithromycin Allergy Unknown Verified 04/26/25 14:52 divalproex sodium (From Allergy Unknown Verified 04/26/25 14:52 Depakote) haloperidol (From Haldol) Allergy Unknown Verified 04/26/25 14:52 lamotrigine Allergy Unknown Verified 04/26/25 14:52 lithium Allergy Unknown Verified 04/26/25 14:52 lurasidone Allergy Unknown Verified 04/26/25 14:52 olanzapine (From Zyprexa) Allergy Unknown Verified 04/26/25 14:52 oxcarbazepine Allergy Unknown Verified 04/26/25 14:52 perphenazine Allergy Unknown Verified 04/26/25 14:52 prilocaine Allergy Unknown Verified 04/26/25 14:52 risperidone Allergy Unknown Verified 04/26/25 14:52 Assessment & Plan Assessment & Plan (1) Bipolar 1 disorder: Status: Acute Code(s): F31.9 - Bipolar disorder, unspecified Assessment and Plan: (2) UTI (urinary tract infection): Status: Acute Code(s): N39.0 - Urinary tract infection, site not specified (3) Acute hemorrhagic cystitis: Status: Acute Code(s): N30.01 - Acute cystitis with hematuria (4) HTN (hypertension): Status: Acute Code(s): I10 - Essential (primary) hypertension (5) Pulmonary embolus: Status: Acute Code(s): I26.99 - Other pulmonary embolism without acute cor pulmonale (6) Adult failure to thrive: Status: Acute Code(s): R62.7 - Adult failure to thrive (7) CKD (chronic kidney disease): Status: Acute Code(s): N18.9 - Chronic kidney disease, unspecified (8) Constipation: Status: Acute Code(s): K59.00 - Constipation, unspecified Plan HPI: Patient is a 74 y.o, , [place] speaking with history of bipolar I, constipation, hypertension, hyperlipidemia, PE, CKD who was presented via ambulance from short-term rehab facility at [facility] on 04/2025. Patient not been taking medication as prescribed and has been off medication for one-month. She has been refusing to eat consuming fluids and has lost 20 lb in the past month due to her fellow to thrive. . Patient was residing in assisted living facility prior to being placed in [facility] facility. Formulation/clinical reasoning: Failure to thrive, stopped taking meds for 1 months. Poor appetite, 20 lb in a month. Decompensate. Increased depression anxiety. History of bipolar I, history of ECT. Given the above information, patient will benefit in acute care setting, restrictive environment for own safety. Once stable, patient may benefit from skilled facility or long-term care placement. Hospital course: Continue with medication for medical conditions. Continue with home medication, however due to sedation, and not been taking medication consistently prior to coming to us, I will reduce the Abilify down from 12 mg to 5 mg daily. Reduce Remeron 30 mg to 15 mg. 05/01: continue current management and treatment plan. 05/10 pt is NOT taking medications, not eating, has lost 9 Lbs since she has been here in the hospital. Denies SI/HI. However, decisions are not congruent with desire to be alive. Pt does not appear to have capacity to make medical decisions, not able to verbalize understanding as to her medical conditions nor rational for stopping all meds, only states... don't want to take them. Will invoke HCP. 05/11 continue tx. 05/12 attempted to call sister who is HCP, left VM with call back number. pt continues to present as withdrawn, minimally verbal, ambivalent with making decisions, intermittently accepting medications, no rationale as to why she does not take them or why she does not take them consistently. Monitor DVT prophylaxis- for now seems to be more consistent with eliquis. 05/13 continue tx. 05/14 HCP gave verbal consent for CV. pending meeting to discuss treatment. 05/15/25: Patient was brought out to dining area, ate breakfast late, Calm, pleasant and cooperative. Denies safety concerns. Denies side effects. Compliant with meds except Atorvastatin and Senna yesterday. Poor appetite but ate 50% dinner, drank 600ml last night at dinner and slept for 5+ hours per nursing. PRN was also given for anxiety and pain. Report anxiety and depresion with flat affect, Congruent with mood. 05/16/25: Patient was seen in dining area, patient was brought out for lunch. Hair was combed nice and neat. Reports some left buttock pain but do not want Tylenol. Mood is so-so , flat affect, engaged in conversation with yes no questions, limited speech. Denies safety concerns. Continue taking medication prescribed, except for the omeprazole which she refused yesterday morning. Did not eat breakfast this morning, but was out for lunch, reports that she ate half of the bother and drink ensure. 05/17 pt's sister who is HCP at this time does not want to do ECT nor consider additional treatments nor interventions as pt has had multiple medication trials with limited efficacy or medical complications. HCP would like to refer pt to hospice and send her back to SNF. SW to call hospice to discuss whether pt qualifies for hospice given than primary dx is psychiatric. 05/18 plan to refer to hospice with plan to send back to SNF. 05/19 continues to lose weight, total now of 15 Lbs since admission, mostly in bed, taking medications more consistently but declines. pending decision from hospice. 05/20 continue tx. pending decision from hospice to accept so she can return to SNF on hospice. Reason for continued inpatient stay Substantial Risk for: inability to function Time Spent With Patient Time: Total time managing care of this patient today ____ minutes.
[2025-05-20 20:00] VITALS: BP 106/63; PULSE 60; RESP 16; TEMP 36.2; O2SAT 97
[2025-05-21 08:50] VITALS: BP 111/56; PULSE 72; RESP 18; TEMP 36.6; O2SAT 95
--- NOTE | 2025-05-21 09:10 | HO.PSYCHPN ---
Subjective Subjective Date of Service: 05/21/25 Reason For Visit: depression, med noncompliance Interim History: In room, minimally engaging. no change in presentation. at times takes medications others refuses. no plan or intent to harm self but limited oral intake. Diagnostics Vital Signs (24Hr): Vital Signs - 24 hr 05/20/25 20:00 05/21/25 08:50 Temperature 97.2 F 98 F Pulse Rate 60 72 Respiratory Rate 16 18 Blood Pressure 106/63 111/56 L Pulse Oximetry 97 95 Oxygen Delivery Method Room Air Room Air BMI result Body Mass Index 31.0 Labs 05/10/25 14:09 05/13/25 07:22 Medications Medications Current Medications Acetaminophen (Acetaminophen 325 Mg Tablet) 650 mg PO Q6H PRN PRN Reason: Fever Or Pain Last Admin: 05/21/25 05:18 Dose: 650 mg Al Hydroxide/Mg Hydroxide (Magnesium Hydrox/Alum Hydrox 30 Ml Oral.Susp) 30 ml PO Q6H PRN PRN Reason: Heartburn/Nausea Last Admin: 05/15/25 00:43 Dose: 30 ml Apixaban (Apixaban 5 Mg Tablet) 5 mg PO BID [facility] Last Admin: 05/20/25 21:29 Dose: 5 mg Aripiprazole (Aripiprazole 10 Mg Tablet) 10 mg PO BEDTIME [facility] Last Admin: 05/20/25 21:29 Dose: 10 mg Aspirin (Aspirin Enteric Coated 81 Mg Tablet.) 81 mg PO DAILY [facility] Last Admin: 05/20/25 08:48 Dose: 81 mg Atorvastatin Calcium (Atorvastatin Calcium 80 Mg Tablet) 80 mg PO BEDTIME [facility] Last Admin: 05/20/25 21:29 Dose: 80 mg Bisacodyl (Bisacodyl 10 Mg Supp.Rect) 10 mg [place] DAILY PRN PRN Reason: Constipation Ferrous Sulfate (Ferrous Sulfate 324 Mg Tablet.) 324 mg PO DAILY [facility] Last Admin: 05/20/25 08:49 Dose: 324 mg Hydroxyzine HCl (Hydroxyzine Hcl 25 Mg Tablet) 25 mg PO Q6H PRN PRN Reason: mild anxiety Last Admin: 05/19/25 06:57 Dose: 25 mg Lorazepam (Lorazepam 0.5 Mg Tablet) 0.5 mg PO TID [facility] Last Admin: 05/20/25 21:28 Dose: 0.5 mg Magnesium Hydroxide (Milk Of Magnesia 30 Ml Oral.Susp) 30 ml PO DAILY PRN PRN Reason: Constipation Metoprolol Succinate (Metoprolol Succinate Er 50 Mg Tab.Er.24h) 50 mg PO DAILY [facility]; Protocol Last Admin: 05/20/25 08:48 Dose: 50 mg Mirtazapine (Mirtazapine 30 Mg Tablet) 30 mg PO BEDTIME [facility] Last Admin: 05/20/25 21:29 Dose: 30 mg Naloxone HCl (Naloxone Hcl Nasal 4 Mg [place]) 4 mg NOSTRILALT Q3M PRN PRN Reason: Opiate Reversal Nystatin (Nystatin Powder 15 Gm Bottle) 1 appl TOPICAL BID [facility]; Protocol Last Admin: 05/21/25 02:58 Dose: Not Given Omeprazole (Omeprazole 20 Mg Capsule.Dr) 20 mg PO DAILY@0630 [facility] Last Admin: 05/21/25 05:56 Dose: 20 mg Polyethylene Glycol (Polyethylene Glycol 3350 17 Gm Powd.Pack) 17 gm PO DAILY PRN PRN Reason: constipation Senna/Docusate Sodium (Sennosides/Docusate Sodium Tablet) 2 tab PO BID [facility] Last Admin: 05/20/25 21:29 Dose: 2 tab Sodium Biphosphate/Sodium Phosphate (Sodium Phosphate,[place]-Dibasic 133 Ml Enema) 118 ml [place] DAILY PRN PRN Reason: Constipation Sodium Chloride (Sodium Chloride 0.65 % Nasal 44 Ml Sprbtl) 1 spray NOSTRIL-L Q1H PRN PRN Reason: Nasal dryness Trazodone HCl (Trazodone Hcl 50 Mg Tablet) 50 mg PO BEDTIME MRX1 PRN PRN Reason: Insomnia Allergies Allergies Allergy/AdvReac Type Severity Reaction Status Date / Time amoxicillin Allergy Unknown Verified 04/26/25 14:52 azithromycin Allergy Unknown Verified 04/26/25 14:52 divalproex sodium (From Allergy Unknown Verified 04/26/25 14:52 Depakote) haloperidol (From Haldol) Allergy Unknown Verified 04/26/25 14:52 lamotrigine Allergy Unknown Verified 04/26/25 14:52 lithium Allergy Unknown Verified 04/26/25 14:52 lurasidone Allergy Unknown Verified 04/26/25 14:52 olanzapine (From Zyprexa) Allergy Unknown Verified 04/26/25 14:52 oxcarbazepine Allergy Unknown Verified 04/26/25 14:52 perphenazine Allergy Unknown Verified 04/26/25 14:52 prilocaine Allergy Unknown Verified 04/26/25 14:52 risperidone Allergy Unknown Verified 04/26/25 14:52 Assessment & Plan Assessment & Plan (1) Bipolar 1 disorder: Status: Acute Code(s): F31.9 - Bipolar disorder, unspecified Assessment and Plan: (2) UTI (urinary tract infection): Status: Acute Code(s): N39.0 - Urinary tract infection, site not specified (3) Acute hemorrhagic cystitis: Status: Acute Code(s): N30.01 - Acute cystitis with hematuria (4) HTN (hypertension): Status: Acute Code(s): I10 - Essential (primary) hypertension (5) Pulmonary embolus: Status: Acute Code(s): I26.99 - Other pulmonary embolism without acute cor pulmonale (6) Adult failure to thrive: Status: Acute Code(s): R62.7 - Adult failure to thrive (7) CKD (chronic kidney disease): Status: Acute Code(s): N18.9 - Chronic kidney disease, unspecified (8) Constipation: Status: Acute Code(s): K59.00 - Constipation, unspecified Plan HPI: Patient is a 74 y.o, , Colombian speaking with history of bipolar I, constipation, hypertension, hyperlipidemia, PE, CKD who was presented via ambulance from short-term rehab facility at [facility] [place] [facility] on 04/2025. Patient not been taking medication as prescribed and has been off medication for one-month. She has been refusing to eat consuming fluids and has lost 20 lb in the past month due to her fellow to thrive. . Patient was residing in assisted living facility prior to being placed in [facility] facility. Formulation/clinical reasoning: Failure to thrive, stopped taking meds for 1 months. Poor appetite, 20 lb in a month. Decompensate. Increased depression anxiety. History of bipolar I, history of ECT. Given the above information, patient will benefit in acute care setting, restrictive environment for own safety. Once stable, patient may benefit from skilled facility or long-term care placement. Hospital course: Continue with medication for medical conditions. Continue with home medication, however due to sedation, and not been taking medication consistently prior to coming to us, I will reduce the Abilify down from 12 mg to 5 mg daily. Reduce Remeron 30 mg to 15 mg. 05/01: continue current management and treatment plan. 05/10 pt is NOT taking medications, not eating, has lost 9 Lbs since she has been here in the hospital. Denies SI/HI. However, decisions are not congruent with desire to be alive. Pt does not appear to have capacity to make medical decisions, not able to verbalize understanding as to her medical conditions nor rational for stopping all meds, only states... don't want to take them. Will invoke HCP. 05/11 continue tx. 05/12 attempted to call sister who is HCP, left VM with call back number. pt continues to present as withdrawn, minimally verbal, ambivalent with making decisions, intermittently accepting medications, no rationale as to why she does not take them or why she does not take them consistently. Monitor DVT prophylaxis- for now seems to be more consistent with eliquis. 05/13 continue tx. 05/14 HCP gave verbal consent for CV. pending meeting to discuss treatment. 05/15/25: Patient was brought out to dining area, ate breakfast late, Calm, pleasant and cooperative. Denies safety concerns. Denies side effects. Compliant with meds except Atorvastatin and Senna yesterday. Poor appetite but ate 50% dinner, drank 600ml last night at dinner and slept for 5+ hours per nursing. PRN was also given for anxiety and pain. Report anxiety and depresion with flat affect, Congruent with mood. 05/16/25: Patient was seen in dining area, patient was brought out for lunch. Hair was combed nice and neat. Reports some left buttock pain but do not want Tylenol. Mood is so-so , flat affect, engaged in conversation with yes no questions, limited speech. Denies safety concerns. Continue taking medication prescribed, except for the omeprazole which she refused yesterday morning. Did not eat breakfast this morning, but was out for lunch, reports that she ate half of the bother and drink ensure. 05/17 pt's sister who is HCP at this time does not want to do ECT nor consider additional treatments nor interventions as pt has had multiple medication trials with limited efficacy or medical complications. HCP would like to refer pt to hospice and send her back to SNF. SW to call hospice to discuss whether pt qualifies for hospice given than primary dx is psychiatric. 05/18 plan to refer to hospice with plan to send back to SNF. 05/19 continues to lose weight, total now of 15 Lbs since admission, mostly in bed, taking medications more consistently but declines. pending decision from hospice. 05/20 continue tx. pending decision from hospice to accept so she can return to SNF on hospice. 05/21 continue tx. plan to dc to hospitce on saturday Reason for continued inpatient stay Substantial Risk for: inability to function Time Spent With Patient Time: Total time managing care of this patient today ____ minutes.
[2025-05-21] MEDS: Ferrous Sulfate 324 MG TABLET.DR PO (09:15)
[2025-05-21] MEDS: Aspirin Enteric Coated 81 MG TABLET.DR PO (09:15)
[2025-05-21] MEDS: Metoprolol Succinate ER 50 MG TAB.ER.24H PO (09:15)
--- NOTE | 2025-05-21 13:28 | MHC.CLN ---
F/U CONTINUES WITH VERY POOR PO INTAKE/POOR APPETITE. DIET RX REGULAR. SUPPLEMENT ENSURE TID (1050 KCALS, 60 G PROTEIN) TO PROMOTE CALORIC INTAKE AND WOUND HEALING. WEIGHT LOSS X 3 WEEKS -4.3%. SKIN WITH MULTIPLE PRESSURE INJURIES. REFER TO [facility], NO ARTIFICIAL NUTRITION/HYDRATION. FOLLOW FOR POSSIBLE HOSPICE LEVEL OF CARE. ENCOURAGE PO INTAKE ABLE AT MEALS AND SNACKS.
[2025-05-21 20:00] VITALS: BP 91/48; PULSE 67; RESP 18; TEMP 36.7; O2SAT 67
[2025-05-22 08:00] VITALS: BP 105/53; PULSE 66; RESP 17; TEMP 36.5; O2SAT 94
[2025-05-22] MEDS: Ferrous Sulfate 324 MG TABLET.DR PO (08:43)
[2025-05-22] MEDS: Aspirin Enteric Coated 81 MG TABLET.DR PO (08:43)
--- NOTE | 2025-05-22 09:26 | P.PNPSI_ITS ---
Subjective Subjective Date of Service: 05/22/25 Reason For Visit: depression, med noncompliance Interim History: No change. Patient isolated. Withdrawn. In bed most of the time. I just want to stay in bed . Adherent to medications. Poor appetite. Primary team initiated process and referral to hospice. Review of Systems Review of Systems Denies any shortness of breath, chest pain, headaches, dysuria, abdominal pain or discomfort, nausea, vomiting or diarrhea. Denies fever or chills. Some skin issues which has been improved with nursing care. Have Grajeda Cath in place. Report pain on left buttock. Yes all other systems are reviewed and are negative and Unobtainable due to mental status Diagnostics Vital Signs (24Hr): Vital Signs - 24 hr 05/21/25 20:00 05/22/25 08:00 Temperature 98.1 F 97.7 F Pulse Rate 67 66 Respiratory Rate 18 17 Blood Pressure 91/48 L 105/53 L Pulse Oximetry 67 L 94 Oxygen Delivery Method Room Air Room Air BMI result Body Mass Index 31.0 Labs 05/10/25 14:09 05/13/25 07:22 Medications Medications Current Medications Acetaminophen (Acetaminophen 325 Mg Tablet) 650 mg PO Q6H PRN PRN Reason: Fever Or Pain Last Admin: 05/21/25 22:32 Dose: 650 mg Al Hydroxide/Mg Hydroxide (Magnesium Hydrox/Alum Hydrox 30 Ml Oral.Susp) 30 ml PO Q6H PRN PRN Reason: Heartburn/Nausea Last Admin: 05/15/25 00:43 Dose: 30 ml Apixaban (Apixaban 5 Mg Tablet) 5 mg PO BID [facility] Last Admin: 05/22/25 08:44 Dose: 5 mg Aripiprazole (Aripiprazole 10 Mg Tablet) 10 mg PO BEDTIME [facility] Last Admin: 05/21/25 21:25 Dose: 10 mg Aspirin (Aspirin Enteric Coated 81 Mg Tablet.) 81 mg PO DAILY [facility] Last Admin: 05/22/25 08:43 Dose: 81 mg Atorvastatin Calcium (Atorvastatin Calcium 80 Mg Tablet) 80 mg PO BEDTIME [facility] Last Admin: 05/21/25 21:25 Dose: 80 mg Bisacodyl (Bisacodyl 10 Mg Supp.Rect) 10 mg [place] DAILY PRN PRN Reason: Constipation Ferrous Sulfate (Ferrous Sulfate 324 Mg Tablet.) 324 mg PO DAILY [facility] Last Admin: 05/22/25 08:43 Dose: 324 mg Hydroxyzine HCl (Hydroxyzine Hcl 25 Mg Tablet) 25 mg PO Q6H PRN PRN Reason: mild anxiety Last Admin: 05/19/25 06:57 Dose: 25 mg Magnesium Hydroxide (Milk Of Magnesia 30 Ml Oral.Susp) 30 ml PO DAILY PRN PRN Reason: Constipation Metoprolol Succinate (Metoprolol Succinate Er 50 Mg Tab.Er.24h) 50 mg PO DAILY [facility]; Protocol Last Admin: 05/21/25 09:15 Dose: 50 mg Mirtazapine (Mirtazapine 30 Mg Tablet) 30 mg PO BEDTIME [facility] Last Admin: 05/21/25 21:25 Dose: 30 mg Naloxone HCl (Naloxone Hcl Nasal 4 Mg [place]) 4 mg NOSTRILALT Q3M PRN PRN Reason: Opiate Reversal Nystatin (Nystatin Powder 15 Gm Bottle) 1 appl TOPICAL BID [facility]; Protocol Last Admin: 05/21/25 21:28 Dose: 1 appl Omeprazole (Omeprazole 20 Mg Capsule.Dr) 20 mg PO DAILY@0630 [facility] Last Admin: 05/22/25 06:34 Dose: 20 mg Polyethylene Glycol (Polyethylene Glycol 3350 17 Gm Powd.Pack) 17 gm PO DAILY PRN PRN Reason: constipation Senna/Docusate Sodium (Sennosides/Docusate Sodium Tablet) 2 tab PO BID [facility] Last Admin: 05/22/25 08:44 Dose: 2 tab Sodium Biphosphate/Sodium Phosphate (Sodium Phosphate,[place]-Dibasic 133 Ml Enema) 118 ml [place] DAILY PRN PRN Reason: Constipation Sodium Chloride (Sodium Chloride 0.65 % Nasal 44 Ml Sprbtl) 1 spray NOSTRIL-L Q1H PRN PRN Reason: Nasal dryness Trazodone HCl (Trazodone Hcl 50 Mg Tablet) 50 mg PO BEDTIME MRX1 PRN PRN Reason: Insomnia Allergies Allergies Allergy/AdvReac Type Severity Reaction Status Date / Time amoxicillin Allergy Unknown Verified 04/26/25 14:52 azithromycin Allergy Unknown Verified 04/26/25 14:52 divalproex sodium (From Allergy Unknown Verified 04/26/25 14:52 Depakote) haloperidol (From Haldol) Allergy Unknown Verified 04/26/25 14:52 lamotrigine Allergy Unknown Verified 04/26/25 14:52 lithium Allergy Unknown Verified 04/26/25 14:52 lurasidone Allergy Unknown Verified 04/26/25 14:52 olanzapine (From Zyprexa) Allergy Unknown Verified 04/26/25 14:52 oxcarbazepine Allergy Unknown Verified 04/26/25 14:52 perphenazine Allergy Unknown Verified 04/26/25 14:52 prilocaine Allergy Unknown Verified 04/26/25 14:52 risperidone Allergy Unknown Verified 04/26/25 14:52 Assessment & Plan Assessment & Plan (1) Bipolar 1 disorder: Status: Acute Code(s): F31.9 - Bipolar disorder, unspecified Assessment and Plan: (2) UTI (urinary tract infection): Status: Acute Code(s): N39.0 - Urinary tract infection, site not specified (3) Acute hemorrhagic cystitis: Status: Acute Code(s): N30.01 - Acute cystitis with hematuria (4) HTN (hypertension): Status: Acute Code(s): I10 - Essential (primary) hypertension (5) Pulmonary embolus: Status: Acute Code(s): I26.99 - Other pulmonary embolism without acute cor pulmonale (6) Adult failure to thrive: Status: Acute Code(s): R62.7 - Adult failure to thrive (7) CKD (chronic kidney disease): Status: Acute Code(s): N18.9 - Chronic kidney disease, unspecified (8) Constipation: Status: Acute Code(s): K59.00 - Constipation, unspecified Plan HPI: Patient is a 74 y.o, , Thai speaking with history of bipolar I, constipation, hypertension, hyperlipidemia, PE, CKD who was presented via ambulance from short-term rehab facility at [facility] on 04/2025. Patient not been taking medication as prescribed and has been off medication for one-month. She has been refusing to eat consuming fluids and has lost 20 lb in the past month due to her fellow to thrive. . Patient was residing in assisted living facility prior to being placed in [facility] facility. Formulation/clinical reasoning: Failure to thrive, stopped taking meds for 1 months. Poor appetite, 20 lb in a month. Decompensate. Increased depression anxiety. History of bipolar I, history of ECT. Given the above information, patient will benefit in acute care setting, restrictive environment for own safety. Once stable, patient may benefit from skilled facility or long-term care placement. Hospital course: Continue with medication for medical conditions. Continue with home medication, however due to sedation, and not been taking medication consistently prior to coming to us, I will reduce the Abilify down from 12 mg to 5 mg daily. Reduce Remeron 30 mg to 15 mg. 05/01: continue current management and treatment plan. 05/10 pt is NOT taking medications, not eating, has lost 9 Lbs since she has been here in the hospital. Denies SI/HI. However, decisions are not congruent with desire to be alive. Pt does not appear to have capacity to make medical decisions, not able to verbalize understanding as to her medical conditions nor rational for stopping all meds, only states... don't want to take them. Will invoke HCP. 05/11 continue tx. 05/12 attempted to call sister who is HCP, left VM with call back number. pt continues to present as withdrawn, minimally verbal, ambivalent with making decisions, intermittently accepting medications, no rationale as to why she does not take them or why she does not take them consistently. Monitor DVT prophylaxis- for now seems to be more consistent with eliquis. 05/13 continue tx. 05/14 HCP gave verbal consent for CV. pending meeting to discuss treatment. 05/15/25: Patient was brought out to dining area, ate breakfast late, Calm, pleasant and cooperative. Denies safety concerns. Denies side effects. Compliant with meds except Atorvastatin and Senna yesterday. Poor appetite but ate 50% dinner, drank 600ml last night at dinner and slept for 5+ hours per nursing. PRN was also given for anxiety and pain. Report anxiety and depresion with flat affect, Congruent with mood. 05/16/25: Patient was seen in dining area, patient was brought out for lunch. Hair was combed nice and neat. Reports some left buttock pain but do not want Tylenol. Mood is so-so , flat affect, engaged in conversation with yes no questions, limited speech. Denies safety concerns. Continue taking medication prescribed, except for the omeprazole which she refused yesterday morning. Did not eat breakfast this morning, but was out for lunch, reports that she ate half of the bother and drink ensure. 05/17 pt's sister who is HCP at this time does not want to do ECT nor consider additional treatments nor interventions as pt has had multiple medication trials with limited efficacy or medical complications. HCP would like to refer pt to hospice and send her back to SNF. SW to call hospice to discuss whether pt qualifies for hospice given than primary dx is psychiatric. 05/18 plan to refer to hospice with plan to send back to SNF. 05/19 continues to lose weight, total now of 15 Lbs since admission, mostly in bed, taking medications more consistently but declines. pending decision from hospice. 05/20 continue tx. pending decision from hospice to accept so she can return to SNF on hospice. 05/22: continue current management and treatment plan. Reason for continued inpatient stay Substantial Risk for: inability to function, rapid decompensation and med/psych decompensation Time Spent With Patient Time: Total time managing care of this patient today ____ minutes.
[2025-05-22 11:09] VITALS: BP 105/53; PULSE 66
--- NOTE | 2025-05-22 18:14 | P.PNPSI_ITS ---
Documented by User: Ryan Flannery MD 05/24/25 08:12 Subjective Subjective Date of Service: 05/22/25 Reason For Visit: depression, med noncompliance Diagnostics Vital Signs (24Hr): Vital Signs - 24 hr 05/21/25 20:00 05/22/25 08:00 05/22/25 11:09 Temperature 98.1 F 97.7 F Pulse Rate 67 66 66 Respiratory Rate 18 17 Blood Pressure 91/48 L 105/53 L 105/53 L Pulse Oximetry 67 L 94 Oxygen Delivery Method Room Air Room Air BMI result Body Mass Index 31.0 Labs 05/10/25 14:09 05/13/25 07:22 Medications Medications Current Medications Acetaminophen (Acetaminophen 325 Mg Tablet) 650 mg PO Q6H PRN PRN Reason: Fever Or Pain Last Admin: 05/21/25 22:32 Dose: 650 mg Al Hydroxide/Mg Hydroxide (Magnesium Hydrox/Alum Hydrox 30 Ml Oral.Susp) 30 ml PO Q6H PRN PRN Reason: Heartburn/Nausea Last Admin: 05/15/25 00:43 Dose: 30 ml Apixaban (Apixaban 5 Mg Tablet) 5 mg PO BID [facility] Last Admin: 05/22/25 08:44 Dose: 5 mg Aripiprazole (Aripiprazole 10 Mg Tablet) 10 mg PO BEDTIME [facility] Last Admin: 05/21/25 21:25 Dose: 10 mg Aspirin (Aspirin Enteric Coated 81 Mg Tablet.) 81 mg PO DAILY [facility] Last Admin: 05/22/25 08:43 Dose: 81 mg Atorvastatin Calcium (Atorvastatin Calcium 80 Mg Tablet) 80 mg PO BEDTIME [facility] Last Admin: 05/21/25 21:25 Dose: 80 mg Bisacodyl (Bisacodyl 10 Mg Supp.Rect) 10 mg [place] DAILY PRN PRN Reason: Constipation Ferrous Sulfate (Ferrous Sulfate 324 Mg Tablet.) 324 mg PO DAILY [facility] Last Admin: 05/22/25 08:43 Dose: 324 mg Hydroxyzine HCl (Hydroxyzine Hcl 25 Mg Tablet) 25 mg PO Q6H PRN PRN Reason: mild anxiety Last Admin: 05/19/25 06:57 Dose: 25 mg Magnesium Hydroxide (Milk Of Magnesia 30 Ml Oral.Susp) 30 ml PO DAILY PRN PRN Reason: Constipation Metoprolol Succinate (Metoprolol Succinate Er 50 Mg Tab.Er.24h) 50 mg PO DAILY [facility]; Protocol Last Admin: 05/22/25 11:09 Dose: Not Given Mirtazapine (Mirtazapine 30 Mg Tablet) 30 mg PO BEDTIME [facility] Last Admin: 05/21/25 21:25 Dose: 30 mg Naloxone HCl (Naloxone Hcl Nasal 4 Mg [place]) 4 mg NOSTRILALT Q3M PRN PRN Reason: Opiate Reversal Nystatin (Nystatin Powder 15 Gm Bottle) 1 appl TOPICAL BID [facility]; Protocol Last Admin: 05/22/25 10:00 Dose: 1 appl Omeprazole (Omeprazole 20 Mg Capsule.Dr) 20 mg PO DAILY@0630 [facility] Last Admin: 05/22/25 06:34 Dose: 20 mg Polyethylene Glycol (Polyethylene Glycol 3350 17 Gm Powd.Pack) 17 gm PO DAILY PRN PRN Reason: constipation Senna/Docusate Sodium (Sennosides/Docusate Sodium Tablet) 2 tab PO BID [facility] Last Admin: 05/22/25 08:44 Dose: 2 tab Sodium Biphosphate/Sodium Phosphate (Sodium Phosphate,[place]-Dibasic 133 Ml Enema) 118 ml [place] DAILY PRN PRN Reason: Constipation Sodium Chloride (Sodium Chloride 0.65 % Nasal 44 Ml Sprbtl) 1 spray NOSTRIL-L Q1H PRN PRN Reason: Nasal dryness Trazodone HCl (Trazodone Hcl 50 Mg Tablet) 50 mg PO BEDTIME MRX1 PRN PRN Reason: Insomnia Allergies Allergies Allergy/AdvReac Type Severity Reaction Status Date / Time amoxicillin Allergy Unknown Verified 04/26/25 14:52 azithromycin Allergy Unknown Verified 04/26/25 14:52 divalproex sodium (From Allergy Unknown Verified 04/26/25 14:52 Depakote) haloperidol (From Haldol) Allergy Unknown Verified 04/26/25 14:52 lamotrigine Allergy Unknown Verified 04/26/25 14:52 lithium Allergy Unknown Verified 04/26/25 14:52 lurasidone Allergy Unknown Verified 04/26/25 14:52 olanzapine (From Zyprexa) Allergy Unknown Verified 04/26/25 14:52 oxcarbazepine Allergy Unknown Verified 04/26/25 14:52 perphenazine Allergy Unknown Verified 04/26/25 14:52 prilocaine Allergy Unknown Verified 04/26/25 14:52 risperidone Allergy Unknown Verified 04/26/25 14:52 Assessment & Plan Assessment & Plan (1) Bipolar 1 disorder: Status: Acute Code(s): F31.9 - Bipolar disorder, unspecified Assessment and Plan: (2) UTI (urinary tract infection): Status: Acute Code(s): N39.0 - Urinary tract infection, site not specified (3) Acute hemorrhagic cystitis: Status: Acute Code(s): N30.01 - Acute cystitis with hematuria (4) HTN (hypertension): Status: Acute Code(s): I10 - Essential (primary) hypertension (5) Pulmonary embolus: Status: Acute Code(s): I26.99 - Other pulmonary embolism without acute cor pulmonale (6) Adult failure to thrive: Status: Acute Code(s): R62.7 - Adult failure to thrive (7) CKD (chronic kidney disease): Status: Acute Code(s): N18.9 - Chronic kidney disease, unspecified (8) Constipation: Status: Acute Code(s): K59.00 - Constipation, unspecified Plan HPI: Patient is a 74 y.o, , [place] speaking with history of bipolar I, constipation, hypertension, hyperlipidemia, PE, CKD who was presented via ambulance from short-term rehab facility at [facility] on 04/2025. Patient not been taking medication as prescribed and has been off medication for one-month. She has been refusing to eat consuming fluids and has lost 20 lb in the past month due to her fellow to thrive. . Patient was residing in assisted living facility prior to being placed in [facility] facility. Formulation/clinical reasoning: Failure to thrive, stopped taking meds for 1 months. Poor appetite, 20 lb in a month. Decompensate. Increased depression anxiety. History of bipolar I, history of ECT. Given the above information, patient will benefit in acute care setting, restrictive environment for own safety. Once stable, patient may benefit from skilled facility or long-term care placement. Hospital course: Continue with medication for medical conditions. Continue with home medication, however due to sedation, and not been taking medication consistently prior to coming to us, I will reduce the Abilify down from 12 mg to 5 mg daily. Reduce Remeron 30 mg to 15 mg. 05/01: continue current management and treatment plan. 05/10 pt is NOT taking medications, not eating, has lost 9 Lbs since she has been here in the hospital. Denies SI/HI. However, decisions are not congruent with desire to be alive. Pt does not appear to have capacity to make medical decisions, not able to verbalize understanding as to her medical conditions nor rational for stopping all meds, only states... don't want to take them. Will invoke HCP. 05/11 continue tx. 05/12 attempted to call sister who is HCP, left VM with call back number. pt continues to present as withdrawn, minimally verbal, ambivalent with making decisions, intermittently accepting medications, no rationale as to why she does not take them or why she does not take them consistently. Monitor DVT prophylaxis- for now seems to be more consistent with eliquis. 05/13 continue tx. 05/14 HCP gave verbal consent for CV. pending meeting to discuss treatment. 05/15/25: Patient was brought out to dining area, ate breakfast late, Calm, pleasant and cooperative. Denies safety concerns. Denies side effects. Compliant with meds except Atorvastatin and Senna yesterday. Poor appetite but ate 50% dinner, drank 600ml last night at dinner and slept for 5+ hours per nursing. PRN was also given for anxiety and pain. Report anxiety and depresion with flat affect, Congruent with mood. 05/16/25: Patient was seen in dining area, patient was brought out for lunch. Hair was combed nice and neat. Reports some left buttock pain but do not want Tylenol. Mood is so-so , flat affect, engaged in conversation with yes no questions, limited speech. Denies safety concerns. Continue taking medication prescribed, except for the omeprazole which she refused yesterday morning. Did not eat breakfast this morning, but was out for lunch, reports that she ate half of the bother and drink ensure. 05/17 pt's sister who is HCP at this time does not want to do ECT nor consider additional treatments nor interventions as pt has had multiple medication trials with limited efficacy or medical complications. HCP would like to refer pt to hospice and send her back to SNF. SW to call hospice to discuss whether pt qualifies for hospice given than primary dx is psychiatric. 05/18 plan to refer to hospice with plan to send back to SNF. 05/19 continues to lose weight, total now of 15 Lbs since admission, mostly in bed, taking medications more consistently but declines. pending decision from hospice. 05/20 continue tx. pending decision from hospice to accept so she can return to SNF on hospice. 05/22: continue current management and treatment plan. Time Spent With Patient Time: Total time managing care of this patient today ____ minutes. Documented by User: Genet Lu NP 05/24/25 09:10 Subjective Subjective Reason For Visit: depression, med noncompliance Interim History: pt in bed. Diagnostics Labs 05/10/25 14:09 05/13/25 07:22 Assessment & Plan Assessment & Plan (1) Bipolar 1 disorder: Status: Acute Code(s): F31.9 - Bipolar disorder, unspecified (2) UTI (urinary tract infection): Status: Acute Code(s): N39.0 - Urinary tract infection, site not specified (3) Acute hemorrhagic cystitis: Status: Acute Code(s): N30.01 - Acute cystitis with hematuria (4) HTN (hypertension): Status: Acute Code(s): I10 - Essential (primary) hypertension (5) Pulmonary embolus: Status: Acute Code(s): I26.99 - Other pulmonary embolism without acute cor pulmonale (6) Adult failure to thrive: Status: Acute Code(s): R62.7 - Adult failure to thrive (7) CKD (chronic kidney disease): Status: Acute Code(s): N18.9 - Chronic kidney disease, unspecified (8) Constipation: Status: Acute Code(s): K59.00 - Constipation, unspecified
[2025-05-22 20:00] VITALS: BP 125/60; PULSE 70; RESP 18; TEMP 37.2; O2SAT 95
[2025-05-23 08:00] VITALS: BP 113/56; PULSE 75; TEMP 36.8
[2025-05-23] MEDS: Metoprolol Succinate ER 50 MG TAB.ER.24H PO (09:31)
--- NOTE | 2025-05-23 12:25 | P.PNPSI_ITS ---
Subjective Subjective Date of Service: 05/23/25 Reason For Visit: depression, med noncompliance Interim History: Patient seen and discussed with RN. No change in presentation. Patient stays in her room most of the day. Isolated. Withdrawn. In bed most of the time. Adherent to medications. Poor appetite. Primary team initiated process and referral to hospice. Review of Systems Review of Systems Denies any shortness of breath, chest pain, headaches, dysuria, abdominal pain or discomfort, nausea, vomiting or diarrhea. Denies fever or chills. Some skin issues which has been improved with nursing care. Have Grajeda Cath in place. Report pain on left buttock. Yes all other systems are reviewed and are negative and Unobtainable due to mental status Diagnostics Vital Signs (24Hr): Vital Signs - 24 hr 05/22/25 20:00 05/23/25 08:00 Temperature 98.9 F 98.2 F Pulse Rate 70 75 Respiratory Rate 18 Blood Pressure 125/60 113/56 L Pulse Oximetry 95 Oxygen Delivery Method Room Air BMI result Body Mass Index 31.0 Labs 05/10/25 14:09 05/13/25 07:22 Medications Medications Current Medications Acetaminophen (Acetaminophen 325 Mg Tablet) 650 mg PO Q6H PRN PRN Reason: Fever Or Pain Last Admin: 05/21/25 22:32 Dose: 650 mg Al Hydroxide/Mg Hydroxide (Magnesium Hydrox/Alum Hydrox 30 Ml Oral.Susp) 30 ml PO Q6H PRN PRN Reason: Heartburn/Nausea Last Admin: 05/15/25 00:43 Dose: 30 ml Apixaban (Apixaban 5 Mg Tablet) 5 mg PO BID [facility] Last Admin: 05/23/25 09:31 Dose: 5 mg Aripiprazole (Aripiprazole 10 Mg Tablet) 10 mg PO BEDTIME [facility] Last Admin: 05/22/25 20:44 Dose: 10 mg Aspirin (Aspirin Enteric Coated 81 Mg Tablet.) 81 mg PO DAILY [facility] Last Admin: 05/23/25 10:09 Dose: Not Given Atorvastatin Calcium (Atorvastatin Calcium 80 Mg Tablet) 80 mg PO BEDTIME [facility] Last Admin: 05/22/25 20:44 Dose: 80 mg Bisacodyl (Bisacodyl 10 Mg Supp.Rect) 10 mg [place] DAILY PRN PRN Reason: Constipation Ferrous Sulfate (Ferrous Sulfate 324 Mg Tablet.) 324 mg PO DAILY [facility] Last Admin: 05/23/25 10:10 Dose: Not Given Hydroxyzine HCl (Hydroxyzine Hcl 25 Mg Tablet) 25 mg PO Q6H PRN PRN Reason: mild anxiety Last Admin: 05/19/25 06:57 Dose: 25 mg Magnesium Hydroxide (Milk Of Magnesia 30 Ml Oral.Susp) 30 ml PO DAILY PRN PRN Reason: Constipation Metoprolol Succinate (Metoprolol Succinate Er 50 Mg Tab.Er.24h) 50 mg PO DAILY [facility]; Protocol Last Admin: 05/23/25 09:31 Dose: 50 mg Mirtazapine (Mirtazapine 30 Mg Tablet) 30 mg PO BEDTIME [facility] Last Admin: 05/22/25 20:44 Dose: 30 mg Naloxone HCl (Naloxone Hcl Nasal 4 Mg [place]) 4 mg NOSTRILALT Q3M PRN PRN Reason: Opiate Reversal Nystatin (Nystatin Powder 15 Gm Bottle) 1 appl TOPICAL BID [facility]; Protocol Last Admin: 05/22/25 20:45 Dose: 1 appl Omeprazole (Omeprazole 20 Mg Capsule.Dr) 20 mg PO DAILY@0630 [facility] Last Admin: 05/23/25 06:17 Dose: 20 mg Polyethylene Glycol (Polyethylene Glycol 3350 17 Gm Powd.Pack) 17 gm PO DAILY PRN PRN Reason: constipation Senna/Docusate Sodium (Sennosides/Docusate Sodium Tablet) 2 tab PO BID [facility] Last Admin: 05/23/25 10:10 Dose: Not Given Sodium Biphosphate/Sodium Phosphate (Sodium Phosphate,[place]-Dibasic 133 Ml Enema) 118 ml [place] DAILY PRN PRN Reason: Constipation Sodium Chloride (Sodium Chloride 0.65 % Nasal 44 Ml Sprbtl) 1 spray NOSTRIL-L Q1H PRN PRN Reason: Nasal dryness Trazodone HCl (Trazodone Hcl 50 Mg Tablet) 50 mg PO BEDTIME MRX1 PRN PRN Reason: Insomnia Allergies Allergies Allergy/AdvReac Type Severity Reaction Status Date / Time amoxicillin Allergy Unknown Verified 04/26/25 14:52 azithromycin Allergy Unknown Verified 04/26/25 14:52 divalproex sodium (From Allergy Unknown Verified 04/26/25 14:52 Depakote) haloperidol (From Haldol) Allergy Unknown Verified 04/26/25 14:52 lamotrigine Allergy Unknown Verified 04/26/25 14:52 lithium Allergy Unknown Verified 04/26/25 14:52 lurasidone Allergy Unknown Verified 04/26/25 14:52 olanzapine (From Zyprexa) Allergy Unknown Verified 04/26/25 14:52 oxcarbazepine Allergy Unknown Verified 04/26/25 14:52 perphenazine Allergy Unknown Verified 04/26/25 14:52 prilocaine Allergy Unknown Verified 04/26/25 14:52 risperidone Allergy Unknown Verified 04/26/25 14:52 Assessment & Plan Assessment & Plan (1) Bipolar 1 disorder: Status: Acute Code(s): F31.9 - Bipolar disorder, unspecified Assessment and Plan: (2) UTI (urinary tract infection): Status: Acute Code(s): N39.0 - Urinary tract infection, site not specified (3) Acute hemorrhagic cystitis: Status: Acute Code(s): N30.01 - Acute cystitis with hematuria (4) HTN (hypertension): Status: Acute Code(s): I10 - Essential (primary) hypertension (5) Pulmonary embolus: Status: Acute Code(s): I26.99 - Other pulmonary embolism without acute cor pulmonale (6) Adult failure to thrive: Status: Acute Code(s): R62.7 - Adult failure to thrive (7) CKD (chronic kidney disease): Status: Acute Code(s): N18.9 - Chronic kidney disease, unspecified (8) Constipation: Status: Acute Code(s): K59.00 - Constipation, unspecified Plan HPI: Patient is a 74 y.o, , [place] speaking with history of bipolar I, constipation, hypertension, hyperlipidemia, PE, CKD who was presented via ambulance from short-term rehab facility at [facility] on 04/2025. Patient not been taking medication as prescribed and has been off medication for one-month. She has been refusing to eat consuming fluids and has lost 20 lb in the past month due to her fellow to thrive. . Patient was residing in assisted living facility prior to being placed in [facility] facility. Formulation/clinical reasoning: Failure to thrive, stopped taking meds for 1 months. Poor appetite, 20 lb in a month. Decompensate. Increased depression anxiety. History of bipolar I, history of ECT. Given the above information, patient will benefit in acute care setting, restrictive environment for own safety. Once stable, patient may benefit from skilled facility or long-term care placement. Hospital course: Continue with medication for medical conditions. Continue with home medication, however due to sedation, and not been taking medication consistently prior to coming to us, I will reduce the Abilify down from 12 mg to 5 mg daily. Reduce Remeron 30 mg to 15 mg. 05/01: continue current management and treatment plan. 05/10 pt is NOT taking medications, not eating, has lost 9 Lbs since she has been here in the hospital. Denies SI/HI. However, decisions are not congruent with desire to be alive. Pt does not appear to have capacity to make medical decisions, not able to verbalize understanding as to her medical conditions nor rational for stopping all meds, only states... don't want to take them. Will invoke HCP. 05/11 continue tx. 05/12 attempted to call sister who is HCP, left VM with call back number. pt continues to present as withdrawn, minimally verbal, ambivalent with making decisions, intermittently accepting medications, no rationale as to why she does not take them or why she does not take them consistently. Monitor DVT prophylaxis- for now seems to be more consistent with eliquis. 05/13 continue tx. 05/14 HCP gave verbal consent for CV. pending meeting to discuss treatment. 05/15/25: Patient was brought out to dining area, ate breakfast late, Calm, pleasant and cooperative. Denies safety concerns. Denies side effects. Compliant with meds except Atorvastatin and Senna yesterday. Poor appetite but ate 50% dinner, drank 600ml last night at dinner and slept for 5+ hours per nursing. PRN was also given for anxiety and pain. Report anxiety and depresion with flat affect, Congruent with mood. 05/16/25: Patient was seen in dining area, patient was brought out for lunch. Hair was combed nice and neat. Reports some left buttock pain but do not want Tylenol. Mood is so-so , flat affect, engaged in conversation with yes no questions, limited speech. Denies safety concerns. Continue taking medication prescribed, except for the omeprazole which she refused yesterday morning. Did not eat breakfast this morning, but was out for lunch, reports that she ate half of the bother and drink ensure. 05/17 pt's sister who is HCP at this time does not want to do ECT nor consider additional treatments nor interventions as pt has had multiple medication trials with limited efficacy or medical complications. HCP would like to refer pt to hospice and send her back to SNF. SW to call hospice to discuss whether pt qualifies for hospice given than primary dx is psychiatric. 05/18 plan to refer to hospice with plan to send back to SNF. 05/19 continues to lose weight, total now of 15 Lbs since admission, mostly in bed, taking medications more consistently but declines. pending decision from hospice. 05/20 continue tx. pending decision from hospice to accept so she can return to SNF on hospice. 05/22: continue current management and treatment plan. 05/23: continue current management and treatment plan. Reason for continued inpatient stay Substantial Risk for: inability to function, rapid decompensation and med/psych decompensation Time Spent With Patient Time: Total time managing care of this patient today ____ minutes.
[2025-05-23 20:00] VITALS: BP 99/55; PULSE 63; RESP 16; TEMP 36.6; O2SAT 94
[2025-05-24 08:10] VITALS: BP 115/55; PULSE 72; RESP 16; TEMP 36.5; O2SAT 94
[2025-05-24] MEDS: Metoprolol Succinate ER 50 MG TAB.ER.24H PO (08:57)
[2025-05-24] MEDS: Ferrous Sulfate 324 MG TABLET.DR PO (08:58)
[2025-05-24] MEDS: Aspirin Enteric Coated 81 MG TABLET.DR PO (08:58)
--- NOTE | 2025-05-24 09:11 | PM.PSYDC ---
DS: Providers Provider Date of Service: 05/24/25 Date of admission: 04/29/25 12:12 Date of discharge: 05/24/25 Primary care physician: Jose Sethi MD Consults: 04/29/25 16:24 Consult to Wound Care [place]ine [place]ing [place] [facility] Reason for consultation: coccyx ulceration, right great toe damage 04/30/25 15:04 Consult to Nephrology Routine Consulting Provider: [facility] Reason for consultation: CKD 05/05/25 06:02 Consult to Urology Routine Consulting Provider: [facility] Reason for consultation: Hematuria Has provider been notified: No 05/05/25 06:57 Consult to Hospitalist Routine Comment: Consulting Provider: [facility] Reason For Exam: hematuria DS: Diagnosis Discharge Diagnosis (1) Bipolar 1 disorder: Status: Acute (2) UTI (urinary tract infection): Status: Acute (3) Acute hemorrhagic cystitis: Status: Acute (4) HTN (hypertension): Status: Acute (5) Pulmonary embolus: Status: Acute (6) Adult failure to thrive: Status: Acute (7) CKD (chronic kidney disease): Status: Acute (8) Constipation: Status: Acute DS: Medications Discharge Medications Home Medications: Home Medications ?Medication ?Instructions ?Recorded ?Confirmed acetaminophen 325 mg tablet 650 mg PO Q6H PRN Fever Or Pain 04/27/25 04/27/25 apixaban 5 mg tablet (Eliquis) 5 mg PO BID 04/27/25 04/27/25 aripiprazole 10 mg tablet 10 mg PO DAILY 04/27/25 04/27/25 aripiprazole 2 mg tablet 2 mg PO DAILY 04/27/25 04/27/25 aspirin 81 mg tablet,delayed 81 mg PO DAILY 04/27/25 04/27/25 release bisacodyl 10 mg rectal suppository 10 mg WV DAILY PRN Constipation 04/27/25 04/27/25 magnesium hydroxide 400 mg/5 mL 30 ml PO DAILY PRN Constipation 04/27/25 04/27/25 oral suspension (Milk of Magnesia) metoprolol succinate 25 mg 50 mg PO DAILY 04/27/25 04/27/25 tablet,extended release 24 hr mirtazapine 30 mg tablet 30 mg PO BEDTIME 04/27/25 04/27/25 naloxone 4 mg/actuation nasal 4 mg intranasal Q3M PRN Opiate 04/27/25 04/27/25 spray (Narcan) Reversal pantoprazole 40 mg tablet,delayed 40 mg PO DAILY@0630 04/27/25 04/27/25 release polyethylene glycol 3350 17 17 g PO DAILY 04/27/25 04/27/25 gram/dose oral powder (Miralax) rosuvastatin 20 mg tablet 20 mg PO BEDTIME 04/27/25 04/27/25 sennosides 8.6 mg-docusate sodium 2 tab PO BID 04/27/25 04/27/25 50 mg tablet (Senna Plus) sodium phosphates 19 gram-7 118 ml WV DAILY PRN Constipation 04/27/25 04/27/25 gram/118 mL enema (Fleet Enema) Mental Status Exam Mental Status Exam Narrative: Appearance: sitting up in the chair in dinning area after eating lunch. Attitude: engage in assessment appropriately Speech: Monotone, minimal spontaneous speech Motor activity: retardation noted Mood: so so appear depressed Affect: constricted/flat SI: denies HI: denies Thought process: poverty of thought, only yes or no answers Thought content: poverty of thought. Perception: does not appear to respond to internal stimuli Delusions: no overt delusional content Insight/judgment: impaired x 2. DS: Summary Hospital Course Hospital Course: Per care team note: Patient is a 74 y.o, , Polish speaking with history of bipolar I, constipation, hypertension, hyperlipidemia, PE, CKD who was presented via ambulance from [place] [facility] [place]. Patient not been taking medication as prescribed and has been off medication for one-month. She has been refusing to eat consuming fluids and has lost 20 lb in the past month due to her fellow to thrive. . Patient was residing in assisted living facility prior to being placed in [facility] facility. Patient has similar presentation when she decompensates in the community. Patient have had ECT treatment in the past. Per hospitalist, patient have 30 ECT treatments back in 2022 at [facility]. On S1: Met with patient in assigned room why she was lying in bed, appeared sleeping but arousable for the assessment. She is alert and awake x3. Reports main reason for being here is I was not taking my medications . Patient does not know why she stopped taking medication. She does not know the name of the facility she was transfer from. She knows she is at [facility]. She knows the month and the year. Denies pain. Denies SI/SIB/HI/AVH. Denies SIB/HI suicide attempt history. Denies family suicide attempts. Reports her sister have depression. Denies substance use in the family. She denies any substance use history. She reported that she has been working until 5-6 years ago. Has master degree in [place] culture. History of multiple inpatient level of care with last admission was past summer somewhere in [place] that she can not remember the name. Reports history of PHP x1. No detox history. She was not sure if she has psychiatrist or therapist, but is aware that she had PCP. Reports sleep is okay, but has no appetite. Some reported that she lost about 20 lb the last month. Reports 5/10 for depression anxiety. When asked the reason why she used a wheelchair she can not remember why and since when she started using the wheelchair. Denies pain. Goals is to feel better. Patient is A+Ox3, sedated, but calm, pleasant and cooperative. Wearing hospital attire. Have Grajeda catheter in place. Malodorus. Mood is depressed and anxious. Thought process is somewhat organized but goal directed. Thought content is within normal limit, no SI/SIB/HI/AVH. Judgment and insight is poor. Need assistance with ADLs. Speech is slow to respond due to sedation, soft-spoken, normal volume Continue with home medication, however due to sedation, and not been taking medication consistently prior to coming to us, I will reduce the Abilify down from 12 mg to 5 mg daily. Reduce Remeron 30 mg to 15 mg. Hospitalist see the patient this morning. Referral out to PT and swallow eval. Nystatin cream/powder for skin condition. We will continue to assess a skin breakdown. Past Psychiatric History: Multiple inpatient level of care admissions. Reports last admission was past summer in [facility]. Was having 30 ECTs treatment at [facility] back in 2022. Not sure if patient have current psychiatrist or therapist. HOSPITAL COURSE On the unit, pt was admitted on a CV signed by HCP. Pt presented as withdrawn, in bed, at times declining medications. No SI/HI. not eating much, weight loss continued even on the unit. She has struggled with severe depressive episodes since lithium was discontinued 10 years ago due to CKD. She has had multiple medication trials, ECT was effective this year but had cardiac event and decision was to stop it. Last ECT treatment was last November 2024. She quickly decompensated, not eating losing weight. She has not had ketamine or Esketamine. Current presentation is affecting her ability to make medical decisions in that pt was not able to show understanding of medical condition, nor appreciation of risks versus benefits of refusing or accepting care, nor able at this time to show ability to reason. HCP was invoked. HCP who is pt's sister reports at this time she does not want to try different treatment incluiding ECT or ketamine. HCP reports she would like pt to return to SNF with hospice services given failure to thrive. HCP believes this is what patient would have decided if she had capacity to do so. Status at Discharge Cognitive/behavioral status at discharge: Pt with constricted affect, alert, no suicidal ideation nor plan or intent. No aggression towards self or others. Overall status at discharge: patient is not back to baseline Time Spent with Patient Time attestation: Total time managing care of this patient today __35__ minutes. Time spent: Greater than 30 minutes Discharge Plan Discharge Anticipated Discharge Date/Time: 05/24/25 09:20 Patient Disposition: Home, Self-Care Discharge Diagnosis: Bipolar Disorder, depression [facility]: [facility]Other[facility] - 05/24/25 Referral Note: Transfer back to [place] for Extended Care and begin Hospice Services [facility]. Jose Sethi MD [Primary Care Provider, Internal Medicine] - 1 Week Discharge Medications: New atorvastatin 80 mg Tablet 80 mg PO BEDTIME Qty: 0 0RF acetaminophen 325 mg Tablet 650 mg PO Q6H PRN (Reason: Fever Or Pain) Qty: 0 0RF metoprolol succinate 50 mg Tablet Extended Release 24 Hr 50 mg PO DAILY Qty: 0 0RF Protocol: Hold for SBP/HR < HOLD for SBP < : 90 HOLD for HR < : 60 aripiprazole 10 mg Tablet 10 mg PO BEDTIME Qty: 0 0RF ferrous sulfate 324 mg (65 mg iron) Tablet,Delayed Release (Dr/Ec) 324 mg PO DAILY Qty: 0 0RF Eliquis 5 mg Tablet 5 mg PO BID Qty: 0 0RF polyethylene glycol 3350 17 gram Powder In Packet 17 g PO DAILY PRN (Reason: constipation) Qty: 0 0RF aspirin 81 mg Tablet,Delayed Release (Dr/Ec) 81 mg PO DAILY Qty: 0 0RF mirtazapine 30 mg Tablet 30 mg PO BEDTIME Qty: 0 0RF omeprazole 20 mg Capsule,Delayed Release(Dr/Ec) 20 mg PO DAILY@0630 Qty: 0 0RF sennosides-docusate sodium [Senna Plus] 8.6-50 mg Tablet 2 tab PO BID Qty: 0 0RF nystatin [Nyamyc] 100,000 unit/gram Powder 1 appl topical BID Qty: 0 0RF Protocol: Apply to: Apply to: BL breast and abdominal fold Discontinued acetaminophen 325 mg Tablet 650 mg PO Q6H PRN (Reason: Fever Or Pain) sennosides-docusate sodium [Senna Plus] 8.6-50 mg Tablet 2 tab PO BID aspirin 81 mg tablet,delayed release (DR/EC) 81 mg PO DAILY magnesium hydroxide [Milk of Magnesia] 400 mg/5 mL Suspension 30 ml PO DAILY PRN (Reason: Constipation) bisacodyl 10 mg Suppository 10 mg WV DAILY PRN (Reason: Constipation) pantoprazole 40 mg tablet,delayed release (DR/EC) 40 mg PO DAILY@0630 mirtazapine 30 mg tablet 30 mg PO BEDTIME Fleet Enema 19-7 gram/118 mL Enema 118 ml WV DAILY PRN (Reason: Constipation) metoprolol succinate 25 mg tablet extended release 24 hr 50 mg PO DAILY polyethylene glycol 3350 [Miralax] 17 gram/dose Powder 17 g PO DAILY aripiprazole 10 mg tablet 10 mg PO DAILY rosuvastatin 20 mg tablet 20 mg PO BEDTIME aripiprazole 2 mg tablet 2 mg PO DAILY Eliquis 5 mg tablet 5 mg PO BID naloxone [Narcan] 4 mg/actuation [place],Non-Aerosol 4 mg INTRANASAL Q3M PRN (Reason: Opiate Reversal) Rx Instructions: spray 1 dose into ONE nostril; alternate nostrils w each dose until help arrives Discharge Orders: Discharge Order (Routine); Ordered 05/24/25 Ordered By: Genet Lu Diet: Regular diet Activity on Discharge: As tolerated Stand Alone Forms: Patient Portal Discharge page, Community Support Print Language: Polish Care Plan Goals: maintain mood Health Concerns: follow up with pcp for routine care Plan of Treatment: take medications as prescribed hospice care Assessment: pt with constricted affect. no SI/HI. sleeping, mostly in bed. very limited oral intake. Discharge Date/Time: 05/24/25 10:50
== END 2025-05-24 10:50 | disposition home or self-care (01) | DRG 885 ==
LOC: HO.ED 04-29 12:13 → HO.PGERI 04-29 12:41
PROVIDERS: Emergency Medicine; Internal Medicine; Internal Medicine Critical Care Medicine; Nurse Practitioner Family; Psychiatry & Neurology Psychiatry; Social Worker; Admitting Provider Psychiatry & Neurology Psychiatry; Emergency Provider Emergency Medicine Emergency Medical Services; PCP Family Medicine; Visit Provider Psychiatry & Neurology Psychiatry
DX: F31.9 Bipolar disorder, unspecified (principal); I42.2 Other hypertrophic cardiomyopathy; N30.01 Acute cystitis with hematuria; I12.9 Hypertensive chronic kidney disease with stage 1 through stage 4 chronic kidney disease, or unspecified chronic kidney disease; N18.30 Chronic kidney disease, stage 3 unspecified; E03.9 Hypothyroidism, unspecified; K59.00 Constipation, unspecified; L89.329 Pressure ulcer of left buttock, unspecified stage; L89.319 Pressure ulcer of right buttock, unspecified stage; D50.9 Iron deficiency anemia, unspecified; D63.1 Anemia in chronic kidney disease; R62.7 Adult failure to thrive; Z68.31 Body mass index [BMI] 31.0-31.9, adult; Z86.718 Personal history of other venous thrombosis and embolism; Z86.711 Personal history of pulmonary embolism; Z91.148 Patient's other noncompliance with medication regimen for other reason; Z79.01 Long term (current) use of anticoagulants; Z79.899 Other long term (current) drug therapy
CPT/HCPCS: 36415; 80048; 80053; 80061; 80076; 80307; 81001; 81003; 82043; 82272; 82306; 82570; 82607; 82746; 83036; 83540; 83690; 83735; 84156; 84439; 84443; 84481; 85025; 85379; 85610; 92610; 93005; 97162; 97530; 99285; S9485

== ENCOUNTER → 2025-04-26 14:58 | Outpatient (BNV) | payer MEDICARE, MEDICAID, SELFPAY | PROVIDERS: Emergency Provider Emergency Medicine Emergency Medical Services; PCP Family Medicine; Visit Provider Internal Medicine Cardiovascular Disease | DX: I44.0 Atrioventricular block, first degree (principal) | CPT/HCPCS: 93010 ==

== ENCOUNTER → 2025-04-29 12:12 | Outpatient (BNV) | payer MEDICARE, MEDICAID, SELFPAY | PROVIDERS: Admitting Provider Psychiatry & Neurology Psychiatry; Emergency Provider Emergency Medicine Emergency Medical Services; PCP Family Medicine; Visit Provider Internal Medicine Critical Care Medicine | DX: I12.9 Hypertensive chronic kidney disease with stage 1 through stage 4 chronic kidney disease, or unspecified chronic kidney disease (principal); N18.9 Chronic kidney disease, unspecified | CPT/HCPCS: 99223 ==

== ENCOUNTER → 2025-04-29 12:12 | Outpatient (BNV) | payer MEDICARE, MEDICAID, SELFPAY | PROVIDERS: Admitting Provider Psychiatry & Neurology Psychiatry; Emergency Provider Emergency Medicine Emergency Medical Services; PCP Family Medicine; Visit Provider Nurse Practitioner Psychiatric/Mental Health | DX: F31.9 Bipolar disorder, unspecified (principal); I12.9 Hypertensive chronic kidney disease with stage 1 through stage 4 chronic kidney disease, or unspecified chronic kidney disease; I26.99 Other pulmonary embolism without acute cor pulmonale; R62.7 Adult failure to thrive; K59.00 Constipation, unspecified; N18.9 Chronic kidney disease, unspecified | CPT/HCPCS: 90792 ==

== ENCOUNTER → 2025-04-29 12:12 | Outpatient (BNV) | payer MEDICARE, MEDICAID, SELFPAY | PROVIDERS: Admitting Provider Psychiatry & Neurology Psychiatry; Emergency Provider Emergency Medicine Emergency Medical Services; PCP Family Medicine; Visit Provider Nurse Practitioner Family | DX: I10 Essential (primary) hypertension (principal) | CPT/HCPCS: 99221 ==

== ENCOUNTER → 2025-04-29 12:12 | Outpatient (BNV) | payer MEDICARE, MEDICAID, SELFPAY | PROVIDERS: Admitting Provider Psychiatry & Neurology Psychiatry; Emergency Provider Emergency Medicine Emergency Medical Services; PCP Family Medicine; Visit Provider Urology | DX: N39.0 Urinary tract infection, site not specified (principal); N30.01 Acute cystitis with hematuria | CPT/HCPCS: 99222 ==